=== PATIENT | male | born 1940 | race African-American/Black ===

== ENCOUNTER 2017-06-19 12:27 | Inpatient (IN) | payer MEDICARE ==
[~2017-06-19] VITALS: Ht 170.2 cm; Wt 89.9 kg
[2017-06-19] VITALS (18 sets, daily range): BP systolic 122–153; BP diastolic 60–75
--- NOTE | 2017-06-19 12:47 | RAD ---
Indication: Slurred speech. Technique: Noncontrast CT head was obtained. No comparison is available. One or more of the following individualized dose reduction techniques were utilized for this examination: 1. Automated exposure control 2. Adjustment of the mA and/or kV according to patient size 3. Use of iterative reconstruction technique Findings: There is a right frontal acute intraparenchymal hemorrhage measuring 4.7 x 2.5 cm in size. There is surrounding edema. There is mild mass effect on the right lateral ventricle but no midline shift. There is a small amount of adjacent subarachnoid hemorrhage. There is no additional intracranial hemorrhage. There is no evidence of an acute infarct. The ventricles and sulci are within normal limits for age. There is no depressed skull fracture. The included paranasal sinuses and mastoid air cells are clear. Impression: Acute right frontal intraparenchymal hemorrhage measures 4.7 x 2.5 cm in size. Small amount of adjacent subarachnoid hemorrhage. Critical result was discussed with Dr. Huffman at 1243 hours.
[2017-06-19] MEDS ORDERED: IV NORMAL SALINE 1000ML BAG 1,000 ML IV SCH (12:51)
[2017-06-19 13:04] LABS: BASO # 0.1 x10^3/uL (0.0-0.2); BASO % 1 % (0-3); EOS % 1 % (0-3); HEMATOCRIT 44.2 % (39.0-53.0); HEMOGLOBIN 14.6 g/dL (13.0-17.5); LYMPH # 1.6 x10^3/uL (1.0-4.8); LYMPH % 21 % (24-48); MEAN CORPUSCULAR HEMOGLOBIN 30 pg (25-35); MEAN CORPUSCULAR HGB CONC 33 g/dL (31-37); MEAN CORPUSCULAR VOLUME 89 fL (79-100); MONO % 7 % (0-9); NEUT % 71 % (31-73); PLATELET COUNT 199 x10^3/uL (140-400); RED BLOOD COUNT 4.95 x10^6/uL (4.30-5.70); RED CELL DISTRIBUTION WIDTH 14.1 % (11.5-14.5); WHITE BLOOD COUNT 7.7 x10^3/uL (4.0-11.0)
[2017-06-19] MEDS ORDERED: ONDANSETRON PF 4 MG/2 ML VIAL. IV PRN (13:15)
[2017-06-19] MEDS ORDERED: 0.9 % SODIUM CHLORIDE 10 ML DISP.SYRIN. IV PRN (13:15)
[2017-06-19] MEDS ORDERED: PHARMACY TO REVIEW MEDS MC PRN (13:15)
[2017-06-19 13:16] LABS: PROTHROMBIN TIME PATIENT 12.8 SEC (11.7-14.0)
[2017-06-19 13:18] LABS: CALCIUM 9.1 mg/dL (8.5-10.1); GFR 87.9; POTASSIUM 4.4 mmol/L (3.5-5.1)
[2017-06-19 13:24] LABS: ALBUMIN 3.5 g/dL (3.4-5.0); TOTAL BILIRUBIN 0.6 mg/dL (0.2-1.0); TOTAL PROTEIN 7.1 g/dL (6.4-8.2)
--- NOTE | 2017-06-19 13:29 | PHYS DOC ---
Past Medical History Past Medical History: Dementia, Hypertension Past Surgical History: Other Additional Past Surgical Histo: LEFT FOOT SX Alcohol Use: None Drug Use: None Adult General Chief Complaint Chief Complaint: NEURO SYMPTOMS/DEFICITS HPI HPI Patient is a 76 year old male who presents with complaint of left-sided weakness that started at 11:15 AM this morning. Patient presented to the emergency department approximately 1-1/2 hours since onset of symptoms. The patient started displaying repetitive speech per family. They noticed that the patient had facial drooping on the left side as well as left upper extremity weakness and difficulty walking, favoring the left side. The patient was brought by family to the emergency department for evaluation. Patient has history of hypertension and dementia. The patient is currently able to answer yes and no questions and is following commands but is unable to provide history of events at this time. The patient denies any pain currently and does acknowledge that he feels weak on his left side. The patient is on aspirin therapy but does not take any other blood thinners per family. Review of Systems Review of Systems Constitutional: Denies fever or chills [] Eyes: Denies change in visual acuity, redness, or eye pain [] HENT: Denies nasal congestion or sore throat [] Respiratory: Denies cough or shortness of breath [] Cardiovascular: Denies chest pain[] GI: Denies abdominal pain, nausea, vomiting, bloody stools or diarrhea [] : Denies dysuria or hematuria [] Musculoskeletal: Denies back pain or joint pain [] Integument: Denies rash or skin lesions [] Neurologic: Left-sided facial droop, left upper extremity weakness[] All other systems were reviewed and found to be within normal limits, except as documented in this note. Current Medications Current Medications Current Medications Medications (Trade) Dose Ordered Sig/[place] Start Time Stop Time Status Last Admin Dose Admin Acetaminophen (Acetaminophen Supp) 650 mg PRN Q6HRS PRN 06/19/17 13:15 Info (Review Meds) 1 ea 1X ONCE 06/19/17 13:15 06/19/17 13:16 UNV Nicardipine HCl 50 mg/Sodium Chloride 270 ml @ 25 mls/hr CONT PRN 06/19/17 13:15 06/19/17 13:15 25 MLS/HR Ondansetron HCl (Zofran) 4 mg PRN Q6HRS PRN 06/19/17 13:15 Pantoprazole Sodium (PROTONIX VIAL for IV PUSH) 40 mg DAILYAC 06/19/17 16:30 Sodium Chloride 1,000 ml @ 100 mls/hr Q10H 06/19/17 13:04 Sodium Chloride (Normal Saline Flush) 3 ml QSHIFT PRN 06/19/17 13:15 Allergies Allergies Allergies Coded Allergies Type Severity Reaction Last Updated Verified No Known Drug Allergies 06/19/17 No Physical Exam Physical Exam Constitutional: Alert, afebrile, no acute distress. [] HENT: Normocephalic, atraumatic, bilateral external ears normal, oropharynx moist, no oral exudates, nose normal. [] Eyes: PERRLA, EOMI, conjunctiva normal, no discharge. [] Neck: Normal range of motion, no tenderness, supple, no stridor. [] Cardiovascular:Heart rate regular rhythm, no murmur [] Lungs & Thorax: Bilateral breath sounds clear to auscultation [] Abdomen: Bowel sounds normal, soft, no tenderness, no masses, no pulsatile masses. [] Skin: Warm, dry, no erythema, no rash. [] Back: No tenderness, no CVA tenderness. [] Extremities: No tenderness, no cyanosis, no clubbing, ROM intact, no edema. [] Neurologic: Alert and oriented X 3, left-sided facial droop that is forehead sparing, left-sided pronator drift, clinical education specialist strength 3 out of 5 in left upper extremity and 5 out of 5 in right upper extremity, left upper extremity ataxia, bilateral lower extremities 5 out of 5 strength. [] Current Patient Data Vital Signs Vital Signs Date Time Temp Pulse Resp B/P (MAP) Pulse Ox O2 Delivery O2 Flow Rate FiO2 06/19/17 13:40 66 18 96 06/19/17 12:40 151/78 (102) Room Air Lab Values Laboratory Tests Test 06/19/17 12:35 06/19/17 12:43 Glucose (Fingerstick) 172 mg/dL (70-99) H White Blood Count 7.7 x10^3/uL (4.0-11.0) Red Blood Count 4.95 x10^6/uL (4.30-5.70) Hemoglobin 14.6 g/dL (13.0-17.5) Hematocrit 44.2 % (39.0-53.0) Mean Corpuscular Volume 89 fL (79-100) Mean Corpuscular Hemoglobin 30 pg (25-35) Mean Corpuscular Hemoglobin Concent 33 g/dL (31-37) Red Cell Distribution Width 14.1 % (11.5-14.5) Platelet Count 199 x10^3/uL (140-400) Neutrophils (%) (Auto) 71 % (31-73) Lymphocytes (%) (Auto) 21 % (24-48) L Monocytes (%) (Auto) 7 % (0-9) Eosinophils (%) (Auto) 1 % (0-3) Basophils (%) (Auto) 1 % (0-3) Neutrophils # (Auto) 5.5 x10^3uL (1.8-7.7) Lymphocytes # (Auto) 1.6 x10^3/uL (1.0-4.8) Monocytes # (Auto) 0.5 x10^3/uL (0.0-1.1) Eosinophils # (Auto) 0.1 x10^3/uL (0.0-0.7) Basophils # (Auto) 0.1 x10^3/uL (0.0-0.2) Prothrombin Time 12.8 SEC (11.7-14.0) Prothrombin Time INR 1.0 (0.8-1.1) PTT 28 SEC (24-38) Sodium Level 139 mmol/L (136-145) Potassium Level 4.4 mmol/L (3.5-5.1) Chloride Level 103 mmol/L (98-107) Carbon Dioxide Level 25 mmol/L (21-32) Anion Gap 11 (6-14) Blood Urea Nitrogen 11 mg/dL (8-26) Creatinine 1.0 mg/dL (0.7-1.3) Estimated GFR (Cockcroft-Gault) 87.9 BUN/Creatinine Ratio 11 (6-20) Glucose Level 166 mg/dL (70-99) H Calcium Level 9.1 mg/dL (8.5-10.1) Magnesium Level 2.0 mg/dL (1.8-2.4) Total Bilirubin 0.6 mg/dL (0.2-1.0) Aspartate Amino Transferase (AST) 23 U/L (15-37) Alanine Aminotransferase (ALT) 19 U/L (16-63) Alkaline Phosphatase 73 U/L (46-116) Total Protein 7.1 g/dL (6.4-8.2) Albumin 3.5 g/dL (3.4-5.0) Albumin/Globulin Ratio 1.0 (1.0-1.7) Laboratory Tests 06/19/17 12:43 Laboratory Tests 06/19/17 12:43 EKG EKG Interpreted by me: Heart rate 69, sinus rhythm, normal intervals, normal axis, no acute ST/T-wave abnormalities present[] Radiology/Procedures Radiology/Procedures [facility] [address] [place] [address] IMAGING REPORT Signed PATIENT: TO NORTON ACCOUNT: [id number] : 1940 LOCATION: ER AGE: 76 SEX: M EXAM STATUS: PRE ER ORD. PHYSICIAN: ABE HUFFMAN MD REASON: left-sided facial droop, slurred speech, time of onset 11:15 AM PROCEDURE: CT CODE STROKE HEAD WO Indication: Slurred speech. Technique: Noncontrast CT head was obtained. No comparison is available. One or more of the following individualized dose reduction techniques were utilized for this examination: 1. Automated exposure control 2. Adjustment of the mA and/or kV according to patient size 3. Use of iterative reconstruction technique Findings: There is a right frontal acute intraparenchymal hemorrhage measuring 4.7 x 2.5 cm in size. There is surrounding edema. There is mild mass effect on the right lateral ventricle but no midline shift. There is a small amount of adjacent subarachnoid hemorrhage. There is no additional intracranial hemorrhage. There is no evidence of an acute infarct. The ventricles and sulci are within normal limits for age. There is no depressed skull fracture. The included paranasal sinuses and mastoid air cells are clear. Impression: Acute right frontal intraparenchymal hemorrhage measures 4.7 x 2.5 cm in size. Small amount of adjacent subarachnoid hemorrhage. Critical result was discussed with Dr. Huffman at 1243 hours. DICTATED and SIGNED BY: JULIANNE AGUIAR MD DATE: 06/19/17 1241 CC: ABE HUFFMAN MD ~ [] Course & Med Decision Making Course & Med Decision Making Pertinent Labs and Imaging studies reviewed. (See chart for details) Patient activated as a code stroke at 1235. Patient underwent CT imaging which showed evidence of an acute hemorrhagic stroke in the right hemisphere. The patient thus was not considered a candidate for TPA. Patient's NIH score was 9. I consulted Dr. Spain of neurosurgery who reviewed the patient's images and stated that he would be glad to consult on the patient in hospital. The patient will continue on supportive care at this time including tight blood pressure control with Cardene drip. Consultation was placed to Dr. Parry of neurology. The patient's family was informed of CT findings and plan of care and were in agreement for admission at time of disposition. I spoke with Dr. Costello him a hospitalist, who will accept care of the patient in hospital. Patient will be transferred to ICU for further care. Critical care time excluding procedures: 45 minutes Dragon Disclaimer Dragon Disclaimer This electronic medical record was generated, in whole or in part, using a voice recognition dictation system. Departure Departure Impression: Primary Impression: Hemorrhagic cerebrovascular accident (CVA) Additional Impressions: Hypertension Dementia Disposition: ADMITTED INPATIENT Admitting Physician: Nakia Costello Condition: CRITICAL Referrals: ARIEL CARTY MD (PCP) Problem Qualifiers Additional Impressions: Hypertension Hypertension type: essential hypertension Qualified Codes: I10 - Essential ( primary) hypertension Dementia Dementia type: unspecified type Dementia behavioral disturbance: with behavioral disturbance Qualified Codes: F03.91 - Unspecified dementia with behavioral disturbance ABE HUFFMAN MD Jun 19, 2017 13:29
--- NOTE | 2017-06-19 14:03 | PDOC1 ---
History and Physical Date of Admission Date of Admission DATE: 06/19/17 TIME: 13:57 Identification/Chief Complaint Chief Complaint Slurred Speech, left-sided weakness happened at 11:15 AM today Problems: Source Source: Caregiver, Chart review, Patient History of Present Illness History of Present Illness 6-year-old -Spanish male who ambulates without assistive device, lives at home with daughters at bedside, had the above chief complaint At 11:15 AM today. Patient takes aspirin 325 every other day. Supposed to be on losartan "small dose" but has not been taking for the past 3 months. PCP unassigned. Started to have left-sided weakness and slurred speech today at 11:15. History of strokes in the past. No constant use of NSAIDs, no blood thinners. No chest pain no shortness of breath no lightheadedness dizziness no presyncopal symptoms , no abdominal issues. Went to the emergency room was found to have a hemorrhagic stroke around 5 cm's in greatest diameter, mild edema and minimal midline shift. Admitted to ICU with Cardizem drip for control of blood pressure. Neurosurgery surgery consulted no plans of surgery will also had consult neurology. Discussed with family at bedside provided a CAT scan copy. They all understand and agree with plan. Add PT OT. We will see if he needs rehabilitation. They understand that he needs to stop the aspirin. Also patient takes Aricept 10 again by mouth daily. Keep nothing by mouth for now. ASSISTANT PRESS OPERATOR did bedside swallow and he coughed very much on slight sips of water. IV fluids are running Past Medical History Cardiovascular: HTN CENTRAL NERVOUS SYSTEM: Dementia Past Surgical History Past Surgical History: No pertinent history Family History Family History: Hypertension Social History Smoke: No ALCOHOL: none Drugs: None Current Problem List Problem List Problems Medical Problems: (1) Dementia Status: Acute (2) Hypertension Status: Acute Problems: Current Medications Current Medications Current Medications Sodium Chloride 1,000 ml @ 125 mls/hr Q8H IV Last administered on 06/19/17t 13:02; Start 06/19/17 at 12:51; Stop 06/19/17 at 20:50 Nicardipine HCl 50 mg/Sodium Chloride 270 ml @ 0 mls/hr CONT PRN IV SEE I/O RECORD; Start 06/19/17 at 13:00; Status Cancel Info (Review Meds) 1 ea 1X ONCE MC ; Start 06/19/17 at 13:15; Stop 06/19/17 at 13:16; Status UNV Sodium Chloride (Normal Saline Flush) 3 ml QSHIFT PRN IV AFTER MEDS AND BLOOD DRAWS; Start 06/19/17 at 13:15 Sodium Chloride 1,000 ml @ 100 mls/hr Q10H IV ; Start 06/19/17 at 13:04 Acetaminophen (Acetaminophen Supp) 650 mg PRN Q6HRS PRN GA FEVER > 100.5'F; Start 06/19/17 at 13:15 Nicardipine HCl 50 mg/Sodium Chloride 270 ml @ 25 mls/hr CONT PRN IV HYPERTENSION, SEE COMMENTS Last administered on 06/19/17t 13:15; Start at 13:15 Ondansetron HCl (Zofran) 4 mg PRN Q6HRS PRN IV NAUSEA/VOMITING; Start at 13:15 Pantoprazole Sodium (PROTONIX VIAL for IV PUSH) 40 mg DAILYAC IVP ; Start 06/19 at 16:30 Allergies Allergies: Coded Allergies: No Known Drug Allergies (Unverified , 06/19/17) ROS Review of System As Per history of present illness, all else 14 point system review negative Physical Exam General: Alert, Oriented X3, Cooperative, No acute distress, Other ( slurred in speech) HEENT: Atraumatic, PERRLA Lungs: Clear to auscultation, Normal air movement Heart: S1S2, RRR, no thrills, no rubs Cardiovascular: S1, S2 Breasts: Normal, Rt breast nml w/o mass, Lt breast nml w/o mass, Nipples normal Male Genitals Exam: normal genitalia, normal prostate Rectal Exam: not examined PELVIC: Nml ext genitalia Extremities: No clubbing, No cyanosis, No edema, Normal pulses, No tenderness/ swelling Skin: No rashes, No breakdown, No significant lesion Neuro: Normal tone, Sensation intact, Reflexes 2+, Other (shallow left nasolabial fold, slurred speech, muscle manual testing 4 out of 5 on left upper and left lower extremity. 5 out of 5 in the right upper and right lower extremity.) Psych/Mental Status: Mental status NL, Mood NL Vitals Vitals Vital Signs Date Time Temp Pulse Resp B/P (MAP) Pulse Ox O2 Delivery O2 Flow Rate FiO2 06/19/17 13:40 66 18 96 06/19/17 12:40 151/78 (102) Room Air Labs Labs Laboratory Tests Test 06/19/17 12:35 06/19/17 12:43 Glucose (Fingerstick) 172 mg/dL (70-99) White Blood Count 7.7 x10^3/uL (4.0-11.0) Red Blood Count 4.95 x10^6/uL (4.30-5.70) Hemoglobin 14.6 g/dL (13.0-17.5) Hematocrit 44.2 % (39.0-53.0) Mean Corpuscular Volume 89 fL (79-100) Mean Corpuscular Hemoglobin 30 pg (25-35) Mean Corpuscular Hemoglobin Concent 33 g/dL (31-37) Red Cell Distribution Width 14.1 % (11.5-14.5) Platelet Count 199 x10^3/uL (140-400) Neutrophils (%) (Auto) 71 % (31-73) Lymphocytes (%) (Auto) 21 % (24-48) Monocytes (%) (Auto) 7 % (0-9) Eosinophils (%) (Auto) 1 % (0-3) Basophils (%) (Auto) 1 % (0-3) Neutrophils # (Auto) 5.5 x10^3uL (1.8-7.7) Lymphocytes # (Auto) 1.6 x10^3/uL (1.0-4.8) Monocytes # (Auto) 0.5 x10^3/uL (0.0-1.1) Eosinophils # (Auto) 0.1 x10^3/uL (0.0-0.7) Basophils # (Auto) 0.1 x10^3/uL (0.0-0.2) Prothrombin Time 12.8 SEC (11.7-14.0) Prothromb Time International Ratio 1.0 (0.8-1.1) Activated Partial Thromboplast Time 28 SEC (24-38) Sodium Level 139 mmol/L (136-145) Potassium Level 4.4 mmol/L (3.5-5.1) Chloride Level 103 mmol/L (98-107) Carbon Dioxide Level 25 mmol/L (21-32) Anion Gap 11 (6-14) Blood Urea Nitrogen 11 mg/dL (8-26) Creatinine 1.0 mg/dL (0.7-1.3) Estimated GFR (Cockcroft-Gault) 87.9 BUN/Creatinine Ratio 11 (6-20) Glucose Level 166 mg/dL (70-99) Calcium Level 9.1 mg/dL (8.5-10.1) Magnesium Level 2.0 mg/dL (1.8-2.4) Total Bilirubin 0.6 mg/dL (0.2-1.0) Aspartate Amino Transf (AST/SGOT) 23 U/L (15-37) Alanine Aminotransferase (ALT/SGPT) 19 U/L (16-63) Alkaline Phosphatase 73 U/L (46-116) Total Protein 7.1 g/dL (6.4-8.2) Albumin 3.5 g/dL (3.4-5.0) Albumin/Globulin Ratio 1.0 (1.0-1.7) Laboratory Tests Test 06/19/17 12:35 06/19/17 12:43 Glucose (Fingerstick) 172 mg/dL (70-99) White Blood Count 7.7 x10^3/uL (4.0-11.0) Red Blood Count 4.95 x10^6/uL (4.30-5.70) Hemoglobin 14.6 g/dL (13.0-17.5) Hematocrit 44.2 % (39.0-53.0) Mean Corpuscular Volume 89 fL (79-100) Mean Corpuscular Hemoglobin 30 pg (25-35) Mean Corpuscular Hemoglobin Concent 33 g/dL (31-37) Red Cell Distribution Width 14.1 % (11.5-14.5) Platelet Count 199 x10^3/uL (140-400) Neutrophils (%) (Auto) 71 % (31-73) Lymphocytes (%) (Auto) 21 % (24-48) Monocytes (%) (Auto) 7 % (0-9) Eosinophils (%) (Auto) 1 % (0-3) Basophils (%) (Auto) 1 % (0-3) Neutrophils # (Auto) 5.5 x10^3uL (1.8-7.7) Lymphocytes # (Auto) 1.6 x10^3/uL (1.0-4.8) Monocytes # (Auto) 0.5 x10^3/uL (0.0-1.1) Eosinophils # (Auto) 0.1 x10^3/uL (0.0-0.7) Basophils # (Auto) 0.1 x10^3/uL (0.0-0.2) Prothrombin Time 12.8 SEC (11.7-14.0) Prothromb Time International Ratio 1.0 (0.8-1.1) Activated Partial Thromboplast Time 28 SEC (24-38) Sodium Level 139 mmol/L (136-145) Potassium Level 4.4 mmol/L (3.5-5.1) Chloride Level 103 mmol/L (98-107) Carbon Dioxide Level 25 mmol/L (21-32) Anion Gap 11 (6-14) Blood Urea Nitrogen 11 mg/dL (8-26) Creatinine 1.0 mg/dL (0.7-1.3) Estimated GFR (Cockcroft-Gault) 87.9 BUN/Creatinine Ratio 11 (6-20) Glucose Level 166 mg/dL (70-99) Calcium Level 9.1 mg/dL (8.5-10.1) Magnesium Level 2.0 mg/dL (1.8-2.4) Total Bilirubin 0.6 mg/dL (0.2-1.0) Aspartate Amino Transf (AST/SGOT) 23 U/L (15-37) Alanine Aminotransferase (ALT/SGPT) 19 U/L (16-63) Alkaline Phosphatase 73 U/L (46-116) Total Protein 7.1 g/dL (6.4-8.2) Albumin 3.5 g/dL (3.4-5.0) Albumin/Globulin Ratio 1.0 (1.0-1.7) VTE Prophylaxis Ordered VTE Prophylaxis Devices: Contraindicated VTE Pharmacological Prophylaxi: Contraindicated Assessment/Plan Assessment/Plan A/P: Hemorrhagic stroke, 5 cm greatest diam Accelerated hypertension Dementia on Aricept plan: Admit ICU, nicardipine drip, Decadron usually not indicated for brain edema not unless brain mass which is not the case Will keep nothing by mouth for now until PARKING INSPECTOR evaluates. Discussed with Irene Check echocardiogram, carotid ultrasound, stroke workup PPI IV while nothing by mouth Continue IVF started at the emergency room. Hold PO meds for now STOP ASA REhab modalities if needed Discussed with family -agree with my plan of care they agree cc 31 CYNTHIA SAUNDERS MD Jun 19, 2017 14:03
--- NOTE | 2017-06-19 14:39 | EKG ---
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
[2017-06-19] MEDS: IV NORMAL SALINE 1000ML BAG 1,000 ML IV SCH ×2 (15:20→21:37)
[2017-06-19] MEDS ORDERED: DONE10TA7 PO (16:22)
[2017-06-19] MEDS ORDERED: SERT50TA8 PO (16:22)
[2017-06-19] MEDS ORDERED: ALFU10TA3 PO (16:22)
--- NOTE | 2017-06-19 16:28 | PDOC2 ---
NEUROLOGY CONSULT Date of Admission Date of Admission DATE: 06/19/17 TIME: 16:13 Reason for Consult Reason for Consult: IMPRESSION: Acute right frontal lobe hemorrhage, hematoma 4.7 cm x 2.5 cm with visible cerebral edema. Small SAH. Left side hemiplegia. Metabolic encephalopathy. Cerebral amyloid disease? DM HTN Dementia. RECOMMENDATIONS/PLAN: Life support. Treat medical diseases. Avoid antiplatelet and anticoagulant agent at the present time. Repeat HCT w/o contrast if condition is worse, otherwise, in am. Carotid A US + Doppler. Echo. Fasting lipid panel. Discussed with his and daughter and showed them his CT imaging in ICU. HISTORY OF THE PRESENT ILLNESS: 76-y-old AA male patient with Hx of above medical diseases developed symptoms of speech difficulties with repetitive speech and left side weakness for about 1.5 hours to be brought to the ER of [facility]. His HCT revealed a large right frontal IPH. patient was admitted into ICU. Past Medical History Cardiovascular: HTN CENTRAL NERVOUS SYSTEM: Dementia Past Surgical History Left foot surgery. Family History Hypertension Social History Smoke: No ALCOHOL: none Drugs: None Lives at home. ALLERGY: Reviewed. MEDICATIONS: Refer to [facility] REVIEW OF SYSTEMS: Constitutional: No malnutrition or cachexia. Head: No recent traumatic brain or head injury. Skin: No edema, or rash. Ear: No infection. Eyes: No vision loss or color blindness. Nose: No bleeding or purulent discharges. Hearing: Hearing decrease. Cardiac: HTN. Pulmonary: No COPD. GI: No GI ulcer, GI bleeding. Urinary/genital: BPH. Endocrinologic: Diabetes Mellitus Skeletomuscular: No muscular atrophy, deformity. Neurological: see HP. Psychiatric: Denies drug use/abuse. Otherwise, not [id number] review of systems. PHYSICAL EXAMINATION: General appearance is in acute distress. HEENT: Normocephalic and nontraumatic. Eyes, nose, ears, and throat are unremarkable. Neck is supple. No lymphadenopathy. No crepitus. Cardiovascular: S1, S2, seemed regular rate and rhythm. Pulmonary: relative clear to auscultation bilaterally. Abdomen: Bowel sounds are positive. Abdomen is soft, nontender, and nondistended. Extremities: No rash, lesions, or edema. NEUROLOGICAL EXAMINATION: Drowsiness. Not fully oriented to time, place but knows person. PERRL. EOMI but slow. CN: Left central VII palsy. Muscle tone: Mildly decreased in left Ue. Muscle strength: 3+ left side, 5 right side. DTR: 2- Plantar reflex: Neutral response bilaterally Gait: Unable to walk. Sensory exam: no abnormal findings. No acute cerebellar signs elicited. F-T-N test not performed due to not follow commands well. Current Medications Current Medications Current Medications Sodium Chloride 1,000 ml @ 125 mls/hr Q8H IV Last administered on 06/19/17 13:02; Start 06/19/17 at 12:51; Stop 06/19/17 at 20:50 Nicardipine HCl 50 mg/Sodium Chloride 270 ml @ 0 mls/hr CONT PRN IV SEE I/O RECORD; Start 06/19/17 at 13:00; Status Cancel Info (Review Meds) 1 ea PRN DAILY PRN MC SEE COMMENTS; Start 06/19/17 at 13:15 Sodium Chloride (Normal Saline Flush) 3 ml QSHIFT PRN IV AFTER MEDS AND BLOOD DRAWS; Start 06/19/17 at 13:15 Sodium Chloride 1,000 ml @ 100 mls/hr Q10H IV ; Start 06/19/17 at 13:04 Acetaminophen (Acetaminophen Supp) 650 mg PRN Q6HRS PRN IN FEVER > 100.5'F; Start 06/19/17 at 13:15 Nicardipine HCl 50 mg/Sodium Chloride 270 ml @ 25 mls/hr CONT PRN IV HYPERTENSION, SEE COMMENTS Last administered on 06/19/17 13:15; Start at 13:15 Ondansetron HCl (Zofran) 4 mg PRN Q6HRS PRN IV NAUSEA/VOMITING; Start at 13:15 Pantoprazole Sodium (PROTONIX VIAL for IV PUSH) 40 mg DAILYAC IVP ; Start 06/19 at 16:30 Allergies Allergies: Coded Allergies: No Known Drug Allergies (Unverified , 06/19/17) Vitals VITALS Vital Signs Date Time Temp Pulse Resp B/P (MAP) Pulse Ox O2 Delivery O2 Flow Rate FiO2 06/19/17 14:33 78 18 97 06/19/17 12:40 151/78 (102) Room Air Labs Labs Laboratory Tests Test 06/19/17 12:35 06/19/17 12:43 Glucose (Fingerstick) 172 mg/dL (70-99) White Blood Count 7.7 x10^3/uL (4.0-11.0) Red Blood Count 4.95 x10^6/uL (4.30-5.70) Hemoglobin 14.6 g/dL (13.0-17.5) Hematocrit 44.2 % (39.0-53.0) Mean Corpuscular Volume 89 fL (79-100) Mean Corpuscular Hemoglobin 30 pg (25-35) Mean Corpuscular Hemoglobin Concent 33 g/dL (31-37) Red Cell Distribution Width 14.1 % (11.5-14.5) Platelet Count 199 x10^3/uL (140-400) Neutrophils (%) (Auto) 71 % (31-73) Lymphocytes (%) (Auto) 21 % (24-48) Monocytes (%) (Auto) 7 % (0-9) Eosinophils (%) (Auto) 1 % (0-3) Basophils (%) (Auto) 1 % (0-3) Neutrophils # (Auto) 5.5 x10^3uL (1.8-7.7) Lymphocytes # (Auto) 1.6 x10^3/uL (1.0-4.8) Monocytes # (Auto) 0.5 x10^3/uL (0.0-1.1) Eosinophils # (Auto) 0.1 x10^3/uL (0.0-0.7) Basophils # (Auto) 0.1 x10^3/uL (0.0-0.2) Prothrombin Time 12.8 SEC (11.7-14.0) Prothromb Time International Ratio 1.0 (0.8-1.1) Activated Partial Thromboplast Time 28 SEC (24-38) Sodium Level 139 mmol/L (136-145) Potassium Level 4.4 mmol/L (3.5-5.1) Chloride Level 103 mmol/L (98-107) Carbon Dioxide Level 25 mmol/L (21-32) Anion Gap 11 (6-14) Blood Urea Nitrogen 11 mg/dL (8-26) Creatinine 1.0 mg/dL (0.7-1.3) Estimated GFR (Cockcroft-Gault) 87.9 BUN/Creatinine Ratio 11 (6-20) Glucose Level 166 mg/dL (70-99) Calcium Level 9.1 mg/dL (8.5-10.1) Magnesium Level 2.0 mg/dL (1.8-2.4) Total Bilirubin 0.6 mg/dL (0.2-1.0) Aspartate Amino Transf (AST/SGOT) 23 U/L (15-37) Alanine Aminotransferase (ALT/SGPT) 19 U/L (16-63) Alkaline Phosphatase 73 U/L (46-116) Total Protein 7.1 g/dL (6.4-8.2) Albumin 3.5 g/dL (3.4-5.0) Albumin/Globulin Ratio 1.0 (1.0-1.7) Laboratory Tests Test 06/19/17 12:35 06/19/17 12:43 Glucose (Fingerstick) 172 mg/dL (70-99) White Blood Count 7.7 x10^3/uL (4.0-11.0) Red Blood Count 4.95 x10^6/uL (4.30-5.70) Hemoglobin 14.6 g/dL (13.0-17.5) Hematocrit 44.2 % (39.0-53.0) Mean Corpuscular Volume 89 fL (79-100) Mean Corpuscular Hemoglobin 30 pg (25-35) Mean Corpuscular Hemoglobin Concent 33 g/dL (31-37) Red Cell Distribution Width 14.1 % (11.5-14.5) Platelet Count 199 x10^3/uL (140-400) Neutrophils (%) (Auto) 71 % (31-73) Lymphocytes (%) (Auto) 21 % (24-48) Monocytes (%) (Auto) 7 % (0-9) Eosinophils (%) (Auto) 1 % (0-3) Basophils (%) (Auto) 1 % (0-3) Neutrophils # (Auto) 5.5 x10^3uL (1.8-7.7) Lymphocytes # (Auto) 1.6 x10^3/uL (1.0-4.8) Monocytes # (Auto) 0.5 x10^3/uL (0.0-1.1) Eosinophils # (Auto) 0.1 x10^3/uL (0.0-0.7) Basophils # (Auto) 0.1 x10^3/uL (0.0-0.2) Prothrombin Time 12.8 SEC (11.7-14.0) Prothromb Time International Ratio 1.0 (0.8-1.1) Activated Partial Thromboplast Time 28 SEC (24-38) Sodium Level 139 mmol/L (136-145) Potassium Level 4.4 mmol/L (3.5-5.1) Chloride Level 103 mmol/L (98-107) Carbon Dioxide Level 25 mmol/L (21-32) Anion Gap 11 (6-14) Blood Urea Nitrogen 11 mg/dL (8-26) Creatinine 1.0 mg/dL (0.7-1.3) Estimated GFR (Cockcroft-Gault) 87.9 BUN/Creatinine Ratio 11 (6-20) Glucose Level 166 mg/dL (70-99) Calcium Level 9.1 mg/dL (8.5-10.1) Magnesium Level 2.0 mg/dL (1.8-2.4) Total Bilirubin 0.6 mg/dL (0.2-1.0) Aspartate Amino Transf (AST/SGOT) 23 U/L (15-37) Alanine Aminotransferase (ALT/SGPT) 19 U/L (16-63) Alkaline Phosphatase 73 U/L (46-116) Total Protein 7.1 g/dL (6.4-8.2) Albumin 3.5 g/dL (3.4-5.0) Albumin/Globulin Ratio 1.0 (1.0-1.7) DAMOEN WINSLOW MD Jun 19, 2017 16:28
[2017-06-19] MEDS: PANTOPRAZOLE IV PUSH 40 MG VIAL. IVP SCH (16:30)
[2017-06-19] MEDS ORDERED: PNEUMOCOCCAL VAX SCREEN BY RX. MC ONE (16:45)
[2017-06-19] MEDS ORDERED: INFLUENZA VAX SCREEN BY RX. MC ONE (16:45)
[2017-06-19] MEDS ORDERED: FLU VACC QS2017-18 (36MOS+)/PF 0.5 ML SYRINGE. VAX IM ONE (17:00)
[2017-06-19 17:56] LABS: BILIRUBIN,URINE NEGATIVE (NEG); GLUCOSE,URINE NEGATIVE (NEG); NITRITE,URINE NEGATIVE (NEG); PROTEIN,URINE NEGATIVE (NEG-TRACE)
[2017-06-19 18:03] LABS: BARBITURATES NEG (NEG); BENZODIAZEPINES NEG (NEG); CANNABINOIDS NEG (NEG); COCAINE NEG (NEG); METHADONE NEG (NEG); OPIATES NEG (NEG); PHENCYCLIDINE NEG (NEG)
[2017-06-19 18:11] LABS: BACTERIA,URINE 0 /HPF (0-FEW); RBC,URINE 0 /HPF (0-2); SQUAMOUS EPITHELIAL CELL,UR OCC /LPF; WBC,URINE OCC /HPF (0-4)
[2017-06-20] VITALS (23 sets, daily range): BP systolic 101–166; BP diastolic 52–71
[2017-06-20 06:25] LABS: CHOLESTEROL/HDL RATIO 4.5
[2017-06-20] MEDS: IV NORMAL SALINE 1000ML BAG 1,000 ML IV SCH ×2 (07:30→18:27)
--- NOTE | 2017-06-20 08:02 | PDOC ---
PROGRESS NOTES Subjective Subjective Late Entry patient seen and examined 06/19/17 at 1630 Acute right frontal intraparenchymal hemorrhage. Small amount of adjacent subarachnoid hemorrhage. Recommend ICU, BP control, F/U CT head in AM Full consult to follow Objective Objective Vital Signs Date Time Temp Pulse Resp B/P (MAP) Pulse Ox O2 Delivery O2 Flow Rate FiO2 06/20/17 06:00 98.9 56 15 101/57 (72) 96 Room Air 98.9 Intake and Output 06/20/17 07:00 Intake Total 948 ml Output Total 200 ml Balance 748 ml Intake Oral 0 ml IV Total 948 ml Output Urine Total 200 ml # Voids 2 Assessment Assessment Problems Medical Problems: (1) Dementia Status: Acute (2) Hypertension Status: Acute Comment Review of Relevant I have reviewed the following items laine (where applicable) has been applied. Labs Laboratory Tests Test 06/19/17 12:35 06/19/17 12:43 06/19/17 16:00 06/19/17 17:26 Glucose (Fingerstick) 172 mg/dL (70-99) White Blood Count 7.7 x10^3/uL (4.0-11.0) Red Blood Count 4.95 x10^6/uL (4.30-5.70) Hemoglobin 14.6 g/dL (13.0-17.5) Hematocrit 44.2 % (39.0-53.0) Mean Corpuscular Volume 89 fL (79-100) Mean Corpuscular Hemoglobin 30 pg (25-35) Mean Corpuscular Hemoglobin Concent 33 g/dL (31-37) Red Cell Distribution Width 14.1 % (11.5-14.5) Platelet Count 199 x10^3/uL (140-400) Neutrophils (%) (Auto) 71 % (31-73) Lymphocytes (%) (Auto) 21 % (24-48) Monocytes (%) (Auto) 7 % (0-9) Eosinophils (%) (Auto) 1 % (0-3) Basophils (%) (Auto) 1 % (0-3) Neutrophils # (Auto) 5.5 x10^3uL (1.8-7.7) Lymphocytes # (Auto) 1.6 x10^3/uL (1.0-4.8) Monocytes # (Auto) 0.5 x10^3/uL (0.0-1.1) Eosinophils # (Auto) 0.1 x10^3/uL (0.0-0.7) Basophils # (Auto) 0.1 x10^3/uL (0.0-0.2) Prothrombin Time 12.8 SEC (11.7-14.0) Prothromb Time International Ratio 1.0 (0.8-1.1) Activated Partial Thromboplast Time 28 SEC (24-38) Sodium Level 139 mmol/L (136-145) Potassium Level 4.4 mmol/L (3.5-5.1) Chloride Level 103 mmol/L (98-107) Carbon Dioxide Level 25 mmol/L (21-32) Anion Gap 11 (6-14) Blood Urea Nitrogen 11 mg/dL (8-26) Creatinine 1.0 mg/dL (0.7-1.3) Estimated GFR (Cockcroft-Gault) 87.9 BUN/Creatinine Ratio 11 (6-20) Glucose Level 166 mg/dL (70-99) Calcium Level 9.1 mg/dL (8.5-10.1) Magnesium Level 2.0 mg/dL (1.8-2.4) Total Bilirubin 0.6 mg/dL (0.2-1.0) Aspartate Amino Transf (AST/SGOT) 23 U/L (15-37) Alanine Aminotransferase (ALT/SGPT) 19 U/L (16-63) Alkaline Phosphatase 73 U/L (46-116) Total Protein 7.1 g/dL (6.4-8.2) Albumin 3.5 g/dL (3.4-5.0) Albumin/Globulin Ratio 1.0 (1.0-1.7) Thyroid Stimulating Hormone (TSH) 1.273 uIU/mL (0.358-3.74) Nasal Screen MRSA (PCR) Negative (Negative) Urine Collection Type Unknown Urine Color Yellow Urine Clarity Clear Urine pH 7.0 Urine Specific Renick 1.020 Urine Protein Negative mg/dL (NEG-TRACE) Urine Glucose (UA) Negative mg/dL (NEG) Urine Ketones (Stick) Negative mg/dL (NEG) Urine Blood Negative (NEG) Urine Nitrite Negative (NEG) Urine Bilirubin Negative (NEG) Urine Urobilinogen Dipstick 1.0 mg/dL (0.2 mg/dL) Urine Leukocyte Esterase Negative (NEG) Urine RBC 0 /HPF (0-2) Urine WBC Occ /HPF (0-4) Urine Squamous Epithelial Cells Occ /LPF Urine Bacteria 0 /HPF (0-FEW) Urine Mucus Slight /LPF Urine Opiates Screen Neg (NEG) Urine Methadone Screen Neg (NEG) Urine Barbiturates Neg (NEG) Urine Phencyclidine Screen Neg (NEG) Urine Amphetamine/Methamphetamine Neg (NEG) Urine Benzodiazepines Screen Neg (NEG) Urine Cocaine Screen Neg (NEG) Urine Cannabinoids Screen Neg (NEG) Urine Ethyl Alcohol Neg (NEG) Test 06/20/17 04:45 Triglycerides Level 99 mg/dL (0-150) Cholesterol Level 211 mg/dL (0-200) LDL Cholesterol, Calculated 144 mg/dL (0-100) VLDL Cholesterol, Calculated 20 mg/dL (0-40) Non-HDL Cholesterol Calculated 164 mg/dL (0-129) HDL Cholesterol 47 mg/dL (40-60) Cholesterol/HDL Ratio 4.5 Laboratory Tests Test 06/19/17 12:35 06/19/17 12:43 06/19/17 16:00 06/19/17 17:26 Glucose (Fingerstick) 172 mg/dL (70-99) White Blood Count 7.7 x10^3/uL (4.0-11.0) Red Blood Count 4.95 x10^6/uL (4.30-5.70) Hemoglobin 14.6 g/dL (13.0-17.5) Hematocrit 44.2 % (39.0-53.0) Mean Corpuscular Volume 89 fL (79-100) Mean Corpuscular Hemoglobin 30 pg (25-35) Mean Corpuscular Hemoglobin Concent 33 g/dL (31-37) Red Cell Distribution Width 14.1 % (11.5-14.5) Platelet Count 199 x10^3/uL (140-400) Neutrophils (%) (Auto) 71 % (31-73) Lymphocytes (%) (Auto) 21 % (24-48) Monocytes (%) (Auto) 7 % (0-9) Eosinophils (%) (Auto) 1 % (0-3) Basophils (%) (Auto) 1 % (0-3) Neutrophils # (Auto) 5.5 x10^3uL (1.8-7.7) Lymphocytes # (Auto) 1.6 x10^3/uL (1.0-4.8) Monocytes # (Auto) 0.5 x10^3/uL (0.0-1.1) Eosinophils # (Auto) 0.1 x10^3/uL (0.0-0.7) Basophils # (Auto) 0.1 x10^3/uL (0.0-0.2) Prothrombin Time 12.8 SEC (11.7-14.0) Prothromb Time International Ratio 1.0 (0.8-1.1) Activated Partial Thromboplast Time 28 SEC (24-38) Sodium Level 139 mmol/L (136-145) Potassium Level 4.4 mmol/L (3.5-5.1) Chloride Level 103 mmol/L (98-107) Carbon Dioxide Level 25 mmol/L (21-32) Anion Gap 11 (6-14) Blood Urea Nitrogen 11 mg/dL (8-26) Creatinine 1.0 mg/dL (0.7-1.3) Estimated GFR (Cockcroft-Gault) 87.9 BUN/Creatinine Ratio 11 (6-20) Glucose Level 166 mg/dL (70-99) Calcium Level 9.1 mg/dL (8.5-10.1) Magnesium Level 2.0 mg/dL (1.8-2.4) Total Bilirubin 0.6 mg/dL (0.2-1.0) Aspartate Amino Transf (AST/SGOT) 23 U/L (15-37) Alanine Aminotransferase (ALT/SGPT) 19 U/L (16-63) Alkaline Phosphatase 73 U/L (46-116) Total Protein 7.1 g/dL (6.4-8.2) Albumin 3.5 g/dL (3.4-5.0) Albumin/Globulin Ratio 1.0 (1.0-1.7) Thyroid Stimulating Hormone (TSH) 1.273 uIU/mL (0.358-3.74) Nasal Screen MRSA (PCR) Negative (Negative) Urine Collection Type Unknown Urine Color Yellow Urine Clarity Clear Urine pH 7.0 Urine Specific Renick 1.020 Urine Protein Negative mg/dL (NEG-TRACE) Urine Glucose (UA) Negative mg/dL (NEG) Urine Ketones (Stick) Negative mg/dL (NEG) Urine Blood Negative (NEG) Urine Nitrite Negative (NEG) Urine Bilirubin Negative (NEG) Urine Urobilinogen Dipstick 1.0 mg/dL (0.2 mg/dL) Urine Leukocyte Esterase Negative (NEG) Urine RBC 0 /HPF (0-2) Urine WBC Occ /HPF (0-4) Urine Squamous Epithelial Cells Occ /LPF Urine Bacteria 0 /HPF (0-FEW) Urine Mucus Slight /LPF Urine Opiates Screen Neg (NEG) Urine Methadone Screen Neg (NEG) Urine Barbiturates Neg (NEG) Urine Phencyclidine Screen Neg (NEG) Urine Amphetamine/Methamphetamine Neg (NEG) Urine Benzodiazepines Screen Neg (NEG) Urine Cocaine Screen Neg (NEG) Urine Cannabinoids Screen Neg (NEG) Urine Ethyl Alcohol Neg (NEG) Test 06/20/17 04:45 Triglycerides Level 99 mg/dL (0-150) Cholesterol Level 211 mg/dL (0-200) LDL Cholesterol, Calculated 144 mg/dL (0-100) VLDL Cholesterol, Calculated 20 mg/dL (0-40) Non-HDL Cholesterol Calculated 164 mg/dL (0-129) HDL Cholesterol 47 mg/dL (40-60) Cholesterol/HDL Ratio 4.5 Medications Current Medications Sodium Chloride 1,000 ml @ 125 mls/hr Q8H IV Last administered on 06/19/17 13:02; Start 06/19/17 at 12:51; Stop 06/19/17 at 20:50; Status DC Nicardipine HCl 50 mg/Sodium Chloride 270 ml @ 0 mls/hr CONT PRN IV SEE I/O RECORD; Start 06/19/17 at 13:00; Status Cancel Info (Review Meds) 1 ea PRN DAILY PRN MC SEE COMMENTS; Start 06/19/17 at 13:15 Sodium Chloride (Normal Saline Flush) 3 ml QSHIFT PRN IV AFTER MEDS AND BLOOD DRAWS; Start 06/19/17 at 13:15 Sodium Chloride 1,000 ml @ 100 mls/hr Q10H IV Last administered on 06/20/17 07:30; Start 06/19/17 at 13:04 Acetaminophen (Acetaminophen Supp) 650 mg PRN Q6HRS PRN MA FEVER > 100.5'F; Start 06/19/17 at 13:15 Nicardipine HCl 50 mg/Sodium Chloride 270 ml @ 25 mls/hr CONT PRN IV HYPERTENSION, SEE COMMENTS Last administered on 06/19/17 13:15; Start at 13:15 Ondansetron HCl (Zofran) 4 mg PRN Q6HRS PRN IV NAUSEA/VOMITING; Start at 13:15 Pantoprazole Sodium (PROTONIX VIAL for IV PUSH) 40 mg DAILYAC IVP ; Start 06/19 at 16:30 Info (Do NOT chart on this placeholder) 1 each 1X ONCE MC ; Start 06/19/17 at 16:45; Stop 06/19/17 at 16:46; Status UNV Pneumococcal Polyvalent Vaccine (Do NOT chart on this placeholder) 1 each 1X ONCE MC ; Start 06/19/17 at 16:45; Stop 06/19/17 at 16:46; Status UNV Influenza Virus Vaccine Quadrival (Fluarix Quad [id number] Syringe) 0.5 ml ONCE ONCE VAX IM Last administered on 06/19/17 21:37; Start 06/19/17 at 17:00; Stop 06/19/17 at 17:01; Status DC Active Scripts Active Reported Alfuzosin Hcl 10 Mg Tab.er.24h 10 Mg PO DAILY 30 Days Donepezil Hcl 10 Mg Tablet 10 Mg PO DAILY 30 Days Sertraline Hcl 50 Mg Tablet 50 Mg PO DAILY 30 Days Vitals/I & O Vital Sign - Last 24 Hours 06/19/17 06/19/17 06/19/17 06/19/17 12:40 12:40 12:50 13:00 Pulse 67 64 66 68 Resp 20 20 20 B/P (MAP) 151/78 (102) Pulse Ox 96 97 97 96 O2 Delivery Room Air 06/19/17 06/19/17 06/19/17 06/19/17 13:10 13:20 13:30 13:40 Pulse 62 72 74 66 Resp 20 20 20 18 Pulse Ox 97 97 97 96 06/19/17 06/19/17 06/19/17 06/19/17 13:48 13:59 14:03 14:18 Pulse 68 66 66 66 Resp 18 18 17 19 Pulse Ox 96 98 97 96 06/19/17 06/19/17 06/19/17 06/19/17 14:33 15:20 15:20 15:30 Temp 98.5 98.5 Pulse 78 68 70 Resp 18 20 26 B/P (MAP) 136/63 (87) 122/69 (86) Pulse Ox 97 96 97 O2 Delivery Room Air Room Air Room Air 06/19/17 06/19/17 06/19/17 06/19/17 15:45 16:00 16:15 16:30 Pulse 70 66 68 64 Resp 24 21 21 19 B/P (MAP) 135/62 (86) 149/75 (99) 136/70 (92) 141/71 (94) Pulse Ox 97 97 96 96 O2 Delivery Room Air Room Air Room Air Room Air 06/19/17 06/19/17 06/19/17 06/19/17 16:45 17:00 17:15 17:30 Pulse 64 62 66 64 Resp 19 17 19 17 B/P (MAP) 138/66 (90) 141/73 (95) 142/70 (94) 146/69 (94) Pulse Ox 97 96 97 96 O2 Delivery Room Air Room Air Room Air Room Air 06/19/17 06/19/17 06/19/17 06/19/17 17:45 18:00 18:15 19:00 Temp 99.6 99.6 Pulse 54 68 70 68 Resp 17 22 22 22 B/P (MAP) 149/70 (96) 140/60 (86) 149/70 (96) 142/67 (92) Pulse Ox 97 97 96 99 O2 Delivery Room Air Room Air Room Air Room Air 06/19/17 06/19/17 06/19/17 06/19/17 20:00 20:00 21:00 22:00 Temp 99.6 98.5 98.5 99.6 98.5 98.5 Pulse 66 67 68 Resp 21 10 17 B/P (MAP) 151/67 (95) 153/67 (95) 153/67 (95) Pulse Ox 97 98 95 O2 Delivery Room Air Room Air Room Air Room Air 06/19/17 06/19/17 06/20/17 06/20/17 23:00 23:59 01:00 02:00 Temp 98.6 100.5 100.1 98.6 100.5 100.1 Pulse 56 69 59 Resp 14 22 17 B/P (MAP) 153/64 (93) 148/71 (96) 151/68 (95) Pulse Ox 98 96 96 O2 Delivery Room Air Room Air Room Air Room Air 06/20/17 06/20/17 06/20/17 06/20/17 03:00 04:00 04:00 05:00 Temp 99.6 99.1 98.1 99.6 99.1 98.1 Pulse 58 56 56 Resp 22 9 16 B/P (MAP) 152/65 (94) 140/65 (90) 143/63 (89) Pulse Ox 97 96 96 O2 Delivery Room Air Room Air Room Air Room Air 06/20/17 06:00 Temp 98.9 98.9 Pulse 56 Resp 15 B/P (MAP) 101/57 (72) Pulse Ox 96 O2 Delivery Room Air Intake and Output 06/19/17 06/19/17 06/20/17 15:00 23:00 07:00 Intake Total 948 ml 0 ml Output Total 200 ml Balance 748 ml 0 ml INÉS URBINA MD Jun 20, 2017 08:02
--- NOTE | 2017-06-20 09:24 | RAD ---
Doppler carotid bilateral 06/19/2017 Clinical indication: Intracranial hemorrhage. COMPARISON: CT head 06/19/2015 None. TECHNIQUE: Color, grayscale and doppler ultrasound images obtained of the carotid system bilaterally. Percent stenosis is estimated using criteria that correlates with NASCET methodology. FINDINGS: Peak systolic velocities are as follows in cm/s: Right Carotid System: Mid CCA: 88 cm/s Distal ICA: 96 cm/s Distal ICA EDV: 20 cm/s ECA: 65 cm/s ICA/CCA Ratio 1.0 Left Carotid System: Mid CCA: 138 cm/s Mid ICA: 47 cm/s Mid ICA EDV: 15 cm/s ECA: 54 cm/s ICA/CCA Ratio 0.3 Vertebral arteries are antegrade bilaterally. IMPRESSION: 1. No hemodynamically significant stenosis of the internal carotid arteries bilaterally.
[2017-06-20] MEDS: PANTOPRAZOLE IV PUSH 40 MG VIAL. IVP SCH (09:28)
--- NOTE | 2017-06-20 09:49 | PDOC ---
PROGRESS NOTES Chief Complaint Chief Complaint Hemorrhagic stroke, 5 cm greatest diam Accelerated hypertension Dementia on Aricept History of Present Illness History of Present Illness Seen in ICU No complaints Daughter not at bedside, patient has some dementia Failed TELEVISION CAMERAMAN evaluation, strictly nothing by mouth Neurology has seen, neurosurgery has seen. For repeat CAT scan of the head later today ^ Did carotid ultrasounds as below IMPRESSION: 1. No hemodynamically significant stenosis of the internal carotid arteries bilaterally. PLAN: Interval CAT scan dry later Avoid NSAIDs blood thinners etc. Control BP with nicardipine drip-so far not needing it and blood pressures otherwise controlled Okay to transfer out of ICU when okay with neurosurgery Continue to work on his swallow High fall risk PT OT, might need rehabilitation modalities Otherwise daughter takes care of him and has a hired caregiver Follow up echocardiogram Vitals Vitals Vital Signs Date Time Temp Pulse Resp B/P (MAP) Pulse Ox O2 Delivery O2 Flow Rate FiO2 06/20/17 09:00 70 14 149/62 (91) 92 Room Air 06/20/17 08:00 99.0 99.0 Physical Exam General: Alert, Oriented X3, Cooperative, No acute distress, Other ( slurred in speech) Heart: Regular rate Lungs: Clear Abdomen: Normal bowel sounds Extremities: No clubbing, No cyanosis, No edema, Normal pulses, No tenderness/ swelling Skin: No rashes, No breakdown, No significant lesion Labs LABS Laboratory Tests Test 06/19/17 12:35 06/19/17 12:43 06/19/17 16:00 06/19/17 17:26 Glucose (Fingerstick) 172 mg/dL (70-99) White Blood Count 7.7 x10^3/uL (4.0-11.0) Red Blood Count 4.95 x10^6/uL (4.30-5.70) Hemoglobin 14.6 g/dL (13.0-17.5) Hematocrit 44.2 % (39.0-53.0) Mean Corpuscular Volume 89 fL (79-100) Mean Corpuscular Hemoglobin 30 pg (25-35) Mean Corpuscular Hemoglobin Concent 33 g/dL (31-37) Red Cell Distribution Width 14.1 % (11.5-14.5) Platelet Count 199 x10^3/uL (140-400) Neutrophils (%) (Auto) 71 % (31-73) Lymphocytes (%) (Auto) 21 % (24-48) Monocytes (%) (Auto) 7 % (0-9) Eosinophils (%) (Auto) 1 % (0-3) Basophils (%) (Auto) 1 % (0-3) Neutrophils # (Auto) 5.5 x10^3uL (1.8-7.7) Lymphocytes # (Auto) 1.6 x10^3/uL (1.0-4.8) Monocytes # (Auto) 0.5 x10^3/uL (0.0-1.1) Eosinophils # (Auto) 0.1 x10^3/uL (0.0-0.7) Basophils # (Auto) 0.1 x10^3/uL (0.0-0.2) Prothrombin Time 12.8 SEC (11.7-14.0) Prothromb Time International Ratio 1.0 (0.8-1.1) Activated Partial Thromboplast Time 28 SEC (24-38) Sodium Level 139 mmol/L (136-145) Potassium Level 4.4 mmol/L (3.5-5.1) Chloride Level 103 mmol/L (98-107) Carbon Dioxide Level 25 mmol/L (21-32) Anion Gap 11 (6-14) Blood Urea Nitrogen 11 mg/dL (8-26) Creatinine 1.0 mg/dL (0.7-1.3) Estimated GFR (Cockcroft-Gault) 87.9 BUN/Creatinine Ratio 11 (6-20) Glucose Level 166 mg/dL (70-99) Calcium Level 9.1 mg/dL (8.5-10.1) Magnesium Level 2.0 mg/dL (1.8-2.4) Total Bilirubin 0.6 mg/dL (0.2-1.0) Aspartate Amino Transf (AST/SGOT) 23 U/L (15-37) Alanine Aminotransferase (ALT/SGPT) 19 U/L (16-63) Alkaline Phosphatase 73 U/L (46-116) Total Protein 7.1 g/dL (6.4-8.2) Albumin 3.5 g/dL (3.4-5.0) Albumin/Globulin Ratio 1.0 (1.0-1.7) Thyroid Stimulating Hormone (TSH) 1.273 uIU/mL (0.358-3.74) Nasal Screen MRSA (PCR) Negative (Negative) Urine Collection Type Unknown Urine Color Yellow Urine Clarity Clear Urine pH 7.0 Urine Specific [place] 1.020 Urine Protein Negative mg/dL (NEG-TRACE) Urine Glucose (UA) Negative mg/dL (NEG) Urine Ketones (Stick) Negative mg/dL (NEG) Urine Blood Negative (NEG) Urine Nitrite Negative (NEG) Urine Bilirubin Negative (NEG) Urine Urobilinogen Dipstick 1.0 mg/dL (0.2 mg/dL) Urine Leukocyte Esterase Negative (NEG) Urine RBC 0 /HPF (0-2) Urine WBC Occ /HPF (0-4) Urine Squamous Epithelial Cells Occ /LPF Urine Bacteria 0 /HPF (0-FEW) Urine Mucus Slight /LPF Urine Opiates Screen Neg (NEG) Urine Methadone Screen Neg (NEG) Urine Barbiturates Neg (NEG) Urine Phencyclidine Screen Neg (NEG) Urine Amphetamine/Methamphetamine Neg (NEG) Urine Benzodiazepines Screen Neg (NEG) Urine Cocaine Screen Neg (NEG) Urine Cannabinoids Screen Neg (NEG) Urine Ethyl Alcohol Neg (NEG) Test 06/20/17 04:45 Triglycerides Level 99 mg/dL (0-150) Cholesterol Level 211 mg/dL (0-200) LDL Cholesterol, Calculated 144 mg/dL (0-100) VLDL Cholesterol, Calculated 20 mg/dL (0-40) Non-HDL Cholesterol Calculated 164 mg/dL (0-129) HDL Cholesterol 47 mg/dL (40-60) Cholesterol/HDL Ratio 4.5 Review of Systems Review of Systems Limited, has dementia Assessment and Plan Assessmemt and Plan Problems Medical Problems: (1) Dementia Status: Acute (2) Hypertension Status: Acute Problems: Comment Review of Relevant I have reviewed the following items laine (where applicable) has been applied. Labs Laboratory Tests Test 06/19/17 12:35 06/19/17 12:43 06/19/17 16:00 06/19/17 17:26 Glucose (Fingerstick) 172 mg/dL (70-99) White Blood Count 7.7 x10^3/uL (4.0-11.0) Red Blood Count 4.95 x10^6/uL (4.30-5.70) Hemoglobin 14.6 g/dL (13.0-17.5) Hematocrit 44.2 % (39.0-53.0) Mean Corpuscular Volume 89 fL (79-100) Mean Corpuscular Hemoglobin 30 pg (25-35) Mean Corpuscular Hemoglobin Concent 33 g/dL (31-37) Red Cell Distribution Width 14.1 % (11.5-14.5) Platelet Count 199 x10^3/uL (140-400) Neutrophils (%) (Auto) 71 % (31-73) Lymphocytes (%) (Auto) 21 % (24-48) Monocytes (%) (Auto) 7 % (0-9) Eosinophils (%) (Auto) 1 % (0-3) Basophils (%) (Auto) 1 % (0-3) Neutrophils # (Auto) 5.5 x10^3uL (1.8-7.7) Lymphocytes # (Auto) 1.6 x10^3/uL (1.0-4.8) Monocytes # (Auto) 0.5 x10^3/uL (0.0-1.1) Eosinophils # (Auto) 0.1 x10^3/uL (0.0-0.7) Basophils # (Auto) 0.1 x10^3/uL (0.0-0.2) Prothrombin Time 12.8 SEC (11.7-14.0) Prothromb Time International Ratio 1.0 (0.8-1.1) Activated Partial Thromboplast Time 28 SEC (24-38) Sodium Level 139 mmol/L (136-145) Potassium Level 4.4 mmol/L (3.5-5.1) Chloride Level 103 mmol/L (98-107) Carbon Dioxide Level 25 mmol/L (21-32) Anion Gap 11 (6-14) Blood Urea Nitrogen 11 mg/dL (8-26) Creatinine 1.0 mg/dL (0.7-1.3) Estimated GFR (Cockcroft-Gault) 87.9 BUN/Creatinine Ratio 11 (6-20) Glucose Level 166 mg/dL (70-99) Calcium Level 9.1 mg/dL (8.5-10.1) Magnesium Level 2.0 mg/dL (1.8-2.4) Total Bilirubin 0.6 mg/dL (0.2-1.0) Aspartate Amino Transf (AST/SGOT) 23 U/L (15-37) Alanine Aminotransferase (ALT/SGPT) 19 U/L (16-63) Alkaline Phosphatase 73 U/L (46-116) Total Protein 7.1 g/dL (6.4-8.2) Albumin 3.5 g/dL (3.4-5.0) Albumin/Globulin Ratio 1.0 (1.0-1.7) Thyroid Stimulating Hormone (TSH) 1.273 uIU/mL (0.358-3.74) Nasal Screen MRSA (PCR) Negative (Negative) Urine Collection Type Unknown Urine Color Yellow Urine Clarity Clear Urine pH 7.0 Urine Specific [place] 1.020 Urine Protein Negative mg/dL (NEG-TRACE) Urine Glucose (UA) Negative mg/dL (NEG) Urine Ketones (Stick) Negative mg/dL (NEG) Urine Blood Negative (NEG) Urine Nitrite Negative (NEG) Urine Bilirubin Negative (NEG) Urine Urobilinogen Dipstick 1.0 mg/dL (0.2 mg/dL) Urine Leukocyte Esterase Negative (NEG) Urine RBC 0 /HPF (0-2) Urine WBC Occ /HPF (0-4) Urine Squamous Epithelial Cells Occ /LPF Urine Bacteria 0 /HPF (0-FEW) Urine Mucus Slight /LPF Urine Opiates Screen Neg (NEG) Urine Methadone Screen Neg (NEG) Urine Barbiturates Neg (NEG) Urine Phencyclidine Screen Neg (NEG) Urine Amphetamine/Methamphetamine Neg (NEG) Urine Benzodiazepines Screen Neg (NEG) Urine Cocaine Screen Neg (NEG) Urine Cannabinoids Screen Neg (NEG) Urine Ethyl Alcohol Neg (NEG) Test 06/20/17 04:45 Triglycerides Level 99 mg/dL (0-150) Cholesterol Level 211 mg/dL (0-200) LDL Cholesterol, Calculated 144 mg/dL (0-100) VLDL Cholesterol, Calculated 20 mg/dL (0-40) Non-HDL Cholesterol Calculated 164 mg/dL (0-129) HDL Cholesterol 47 mg/dL (40-60) Cholesterol/HDL Ratio 4.5 Laboratory Tests Test 06/19/17 12:35 06/19/17 12:43 06/19/17 16:00 06/19/17 17:26 Glucose (Fingerstick) 172 mg/dL (70-99) White Blood Count 7.7 x10^3/uL (4.0-11.0) Red Blood Count 4.95 x10^6/uL (4.30-5.70) Hemoglobin 14.6 g/dL (13.0-17.5) Hematocrit 44.2 % (39.0-53.0) Mean Corpuscular Volume 89 fL (79-100) Mean Corpuscular Hemoglobin 30 pg (25-35) Mean Corpuscular Hemoglobin Concent 33 g/dL (31-37) Red Cell Distribution Width 14.1 % (11.5-14.5) Platelet Count 199 x10^3/uL (140-400) Neutrophils (%) (Auto) 71 % (31-73) Lymphocytes (%) (Auto) 21 % (24-48) Monocytes (%) (Auto) 7 % (0-9) Eosinophils (%) (Auto) 1 % (0-3) Basophils (%) (Auto) 1 % (0-3) Neutrophils # (Auto) 5.5 x10^3uL (1.8-7.7) Lymphocytes # (Auto) 1.6 x10^3/uL (1.0-4.8) Monocytes # (Auto) 0.5 x10^3/uL (0.0-1.1) Eosinophils # (Auto) 0.1 x10^3/uL (0.0-0.7) Basophils # (Auto) 0.1 x10^3/uL (0.0-0.2) Prothrombin Time 12.8 SEC (11.7-14.0) Prothromb Time International Ratio 1.0 (0.8-1.1) Activated Partial Thromboplast Time 28 SEC (24-38) Sodium Level 139 mmol/L (136-145) Potassium Level 4.4 mmol/L (3.5-5.1) Chloride Level 103 mmol/L (98-107) Carbon Dioxide Level 25 mmol/L (21-32) Anion Gap 11 (6-14) Blood Urea Nitrogen 11 mg/dL (8-26) Creatinine 1.0 mg/dL (0.7-1.3) Estimated GFR (Cockcroft-Gault) 87.9 BUN/Creatinine Ratio 11 (6-20) Glucose Level 166 mg/dL (70-99) Calcium Level 9.1 mg/dL (8.5-10.1) Magnesium Level 2.0 mg/dL (1.8-2.4) Total Bilirubin 0.6 mg/dL (0.2-1.0) Aspartate Amino Transf (AST/SGOT) 23 U/L (15-37) Alanine Aminotransferase (ALT/SGPT) 19 U/L (16-63) Alkaline Phosphatase 73 U/L (46-116) Total Protein 7.1 g/dL (6.4-8.2) Albumin 3.5 g/dL (3.4-5.0) Albumin/Globulin Ratio 1.0 (1.0-1.7) Thyroid Stimulating Hormone (TSH) 1.273 uIU/mL (0.358-3.74) Nasal Screen MRSA (PCR) Negative (Negative) Urine Collection Type Unknown Urine Color Yellow Urine Clarity Clear Urine pH 7.0 Urine Specific [place] 1.020 Urine Protein Negative mg/dL (NEG-TRACE) Urine Glucose (UA) Negative mg/dL (NEG) Urine Ketones (Stick) Negative mg/dL (NEG) Urine Blood Negative (NEG) Urine Nitrite Negative (NEG) Urine Bilirubin Negative (NEG) Urine Urobilinogen Dipstick 1.0 mg/dL (0.2 mg/dL) Urine Leukocyte Esterase Negative (NEG) Urine RBC 0 /HPF (0-2) Urine WBC Occ /HPF (0-4) Urine Squamous Epithelial Cells Occ /LPF Urine Bacteria 0 /HPF (0-FEW) Urine Mucus Slight /LPF Urine Opiates Screen Neg (NEG) Urine Methadone Screen Neg (NEG) Urine Barbiturates Neg (NEG) Urine Phencyclidine Screen Neg (NEG) Urine Amphetamine/Methamphetamine Neg (NEG) Urine Benzodiazepines Screen Neg (NEG) Urine Cocaine Screen Neg (NEG) Urine Cannabinoids Screen Neg (NEG) Urine Ethyl Alcohol Neg (NEG) Test 06/20/17 04:45 Triglycerides Level 99 mg/dL (0-150) Cholesterol Level 211 mg/dL (0-200) LDL Cholesterol, Calculated 144 mg/dL (0-100) VLDL Cholesterol, Calculated 20 mg/dL (0-40) Non-HDL Cholesterol Calculated 164 mg/dL (0-129) HDL Cholesterol 47 mg/dL (40-60) Cholesterol/HDL Ratio 4.5 Medications Current Medications Sodium Chloride 1,000 ml @ 125 mls/hr Q8H IV Last administered on 06/19/17t 13:02; Start 06/19/17 at 12:51; Stop 06/19/17 at 20:50; Status DC Nicardipine HCl 50 mg/Sodium Chloride 270 ml @ 0 mls/hr CONT PRN IV SEE I/O RECORD; Start 06/19/17 at 13:00; Status Cancel Info (Review Meds) 1 ea PRN DAILY PRN MC SEE COMMENTS; Start 06/19/17 at 13:15 Sodium Chloride (Normal Saline Flush) 3 ml QSHIFT PRN IV AFTER MEDS AND BLOOD DRAWS; Start 06/19/17 at 13:15 Sodium Chloride 1,000 ml @ 100 mls/hr Q10H IV Last administered on 06/20/17 07:30; Start 06/19/17 at 13:04 Acetaminophen (Acetaminophen Supp) 650 mg PRN Q6HRS PRN NV FEVER > 100.5'F; Start 06/19/17 at 13:15 Nicardipine HCl 50 mg/Sodium Chloride 270 ml @ 25 mls/hr CONT PRN IV HYPERTENSION, SEE COMMENTS Last administered on 06/19/17 13:15; Start at 13:15 Ondansetron HCl (Zofran) 4 mg PRN Q6HRS PRN IV NAUSEA/VOMITING; Start at 13:15 Pantoprazole Sodium (PROTONIX VIAL for IV PUSH) 40 mg DAILYAC IVP Last administered on 06/20/17 09:28; Start 06/19/17 at 16:30 Info (Do NOT chart on this placeholder) 1 each 1X ONCE MC ; Start 06/19/17 at 16:45; Stop 06/19/17 at 16:46; Status UNV Pneumococcal Polyvalent Vaccine (Do NOT chart on this placeholder) 1 each 1X ONCE MC ; Start 06/19/17 at 16:45; Stop 06/19/17 at 16:46; Status UNV Influenza Virus Vaccine Quadrival (Fluarix Quad 3098-3525 Syringe) 0.5 ml ONCE ONCE VAX IM Last administered on 06/19/17 21:37; Start 06/19/17 at 17:00; Stop 06/19/17 at 17:01; Status DC Active Scripts Active Reported Alfuzosin Hcl 10 Mg Tab.er.24h 10 Mg PO DAILY 30 Days Donepezil Hcl 10 Mg Tablet 10 Mg PO DAILY 30 Days Sertraline Hcl 50 Mg Tablet 50 Mg PO DAILY 30 Days Vitals/I & O Vital Sign - Last 24 Hours 06/19/17 06/19/17 06/19/17 06/19/17 12:40 12:40 12:50 13:00 Pulse 67 64 66 68 Resp 20 20 20 B/P (MAP) 151/78 (102) Pulse Ox 96 97 97 96 O2 Delivery Room Air 06/19/17 06/19/17 06/19/17 06/19/17 13:10 13:20 13:30 13:40 Pulse 62 72 74 66 Resp 20 20 20 18 Pulse Ox 97 97 97 96 06/19/17 06/19/17 06/19/17 06/19/17 13:48 13:59 14:03 14:18 Pulse 68 66 66 66 Resp 18 18 17 19 Pulse Ox 96 98 97 96 06/19/17 06/19/17 06/19/17 06/19/17 14:33 15:20 15:20 15:30 Temp 98.5 98.5 Pulse 78 68 70 Resp 18 20 26 B/P (MAP) 136/63 (87) 122/69 (86) Pulse Ox 97 96 97 O2 Delivery Room Air Room Air Room Air 06/19/17 06/19/17 06/19/17 06/19/17 15:45 16:00 16:15 16:30 Pulse 70 66 68 64 Resp 24 21 21 19 B/P (MAP) 135/62 (86) 149/75 (99) 136/70 (92) 141/71 (94) Pulse Ox 97 97 96 96 O2 Delivery Room Air Room Air Room Air Room Air 06/19/17 06/19/17 06/19/17 06/19/17 16:45 17:00 17:15 17:30 Pulse 64 62 66 64 Resp 19 17 19 17 B/P (MAP) 138/66 (90) 141/73 (95) 142/70 (94) 146/69 (94) Pulse Ox 97 96 97 96 O2 Delivery Room Air Room Air Room Air Room Air 06/19/17 06/19/17 06/19/17 06/19/17 17:45 18:00 18:15 19:00 Temp 99.6 99.6 Pulse 54 68 70 68 Resp 17 22 22 22 B/P (MAP) 149/70 (96) 140/60 (86) 149/70 (96) 142/67 (92) Pulse Ox 97 97 96 99 O2 Delivery Room Air Room Air Room Air Room Air 06/19/17 06/19/17 06/19/17 06/19/17 20:00 20:00 21:00 22:00 Temp 99.6 98.5 98.5 99.6 98.5 98.5 Pulse 66 67 68 Resp 21 10 17 B/P (MAP) 151/67 (95) 153/67 (95) 153/67 (95) Pulse Ox 97 98 95 O2 Delivery Room Air Room Air Room Air Room Air 06/19/17 06/19/17 06/20/17 06/20/17 23:00 23:59 01:00 02:00 Temp 98.6 100.5 100.1 98.6 100.5 100.1 Pulse 56 69 59 Resp 14 22 17 B/P (MAP) 153/64 (93) 148/71 (96) 151/68 (95) Pulse Ox 98 96 96 O2 Delivery Room Air Room Air Room Air Room Air 06/20/17 06/20/17 06/20/17 06/20/17 03:00 04:00 04:00 05:00 Temp 99.6 99.1 98.1 99.6 99.1 98.1 Pulse 58 56 56 Resp 22 9 16 B/P (MAP) 152/65 (94) 140/65 (90) 143/63 (89) Pulse Ox 97 96 96 O2 Delivery Room Air Room Air Room Air Room Air 06/20/17 06/20/17 06/20/17 06/20/17 06:00 07:00 08:00 08:00 Temp 98.9 99.0 98.9 99.0 Pulse 56 55 56 Resp 15 18 18 B/P (MAP) 101/57 (72) 141/63 (89) 145/67 (93) Pulse Ox 96 97 95 O2 Delivery Room Air Room Air Room Air Room Air 06/20/17 09:00 Pulse 70 Resp 14 B/P (MAP) 149/62 (91) Pulse Ox 92 O2 Delivery Room Air Intake and Output 06/19/17 06/19/17 06/20/17 14:59 22:59 06:59 Intake Total 948 ml 0 ml Output Total 200 ml Balance 748 ml 0 ml CYNTHIA SAUNDERS MD Jun 20, 2017 09:49
[2017-06-20] MEDS ORDERED: hydrALAZINE 20 MG/ML VIAL. IVP PRN (10:00)
--- NOTE | 2017-06-20 12:24 | RAD ---
CT head without contrast 06/20/2017 Clinical indication: Intracranial hemorrhage. Comparison: CT head 06/19/2017. Technique: Multiple CT images of the head were performed without contrast. PQRS Compliance Statement: One or more of the following individualized dose reduction techniques were utilized for this examination: 1. Automated exposure control 2. Adjustment of the mA and/or kV according to patient size 3. Use of iterative reconstruction technique Findings: Interval increase in size of right frontal intraparenchymal hematoma measuring 5.5 cm, previously 4.6 cm when measured in a similar fashion. Interval increase in the adjacent vasogenic edema in the right frontal lobe with development of right to left midline shift of 5 mm. Slight increase in small amount of anterior right frontal subarachnoid hemorrhage. There is partial effacement of the right lateral ventricle with adjacent sulcal effacement. The basal cisterns are patent. There has been development of faint low-attenuation in the right temporal lobe. Impression: 1. Increase in right frontal intracranial hemorrhage with partial effacement of the right lateral ventricle and development of 5 right to left midline shift. 2. Slight increase in high right frontal subarachnoid hemorrhage. 3. Development of low-attenuation in the right temporal lobe which may represent early infarct. These results were discussed with patient's nurse Jennifer by telephone 12:15 PM 06/20/[address] Frantz muir
--- NOTE | 2017-06-20 16:15 | PDOC ---
PROGRESS NOTES Assessment Problems Medical Problems: (1) Dementia Status: Acute (2) Hypertension Status: Acute Problems: Plan Acute right frontal lobe hemorrhage, hematoma 4.7 cm x 2.5 cm with visible cerebral edema. Repeat CT finding discussed with worseing finding on interval scan Left side hemiplegia. Metabolic encephalopathy. ?Cerebral amyloid disease DM HTN Dementia. RECOMMENDATIONS/PLAN: Close monitoring Treat medical diseases. Avoid antiplatelet and anticoagulant agent at the present time. Carotid A US + Doppler. Echo. neuro sx recs Discussed with his in detail. General appearance is in acute distress. HEENT: Normocephalic and nontraumatic. Eyes, nose, ears, and throat are unremarkable. Neck is supple. No lymphadenopathy. No crepitus. Cardiovascular: S1, S2, seemed regular rate and rhythm. Pulmonary: relative clear to auscultation bilaterally. Abdomen: Bowel sounds are positive. Abdomen is soft, nontender, and nondistended. Extremities: No rash, lesions, or edema. NEUROLOGICAL EXAMINATION: Drowsiness. Not fully oriented to time, place but knows person. PERRL. EOMI but slow. CN: Left central VII palsy. Muscle tone: Mildly decreased in left Ue. Muscle strength: 3+ left side, 5 right side. DTR: 2- Plantar reflex: Neutral response bilaterally Gait: Unable to walk. Sensory exam: no abnormal findings. No acute cerebellar signs elicited. F-T-N test not performed due to not follow commands well Objective Vital Signs Date Time Temp Pulse Resp B/P (MAP) Pulse Ox O2 Delivery O2 Flow Rate FiO2 06/20/17 15:00 70 15 150/57 (88) 98 Room Air 06/20/17 08:00 99.0 99.0 Intake and Output 06/20/17 07:00 Intake Total 948 ml Output Total 550 ml Balance 398 ml Intake Oral 0 ml IV Total 948 ml Output Urine Total 550 ml # Voids 2 PHYSICAL EXAM NEUROLOGICAL EXAMINATION: Drowsiness. Not fully oriented to time, place but knows person. PERRL. able to trac stimuli CN: Left central VII palsy. Muscle tone: Mildly decreased in leftside Muscle strength: minimal withdraw to pain, 5 right side. DTR: 1-2- Plantar reflex: Neutral response bilaterally Gait: Unable to walk. Sensory exam: dec to left side Not able acute cerebellar signs F-T-N test not performed due to medical condition Review of Relevant I have reviewed the following items laine (where applicable) has been applied. Labs Laboratory Tests Test 06/19/17 12:35 06/19/17 12:43 06/19/17 16:00 06/19/17 17:26 Glucose (Fingerstick) 172 mg/dL (70-99) White Blood Count 7.7 x10^3/uL (4.0-11.0) Red Blood Count 4.95 x10^6/uL (4.30-5.70) Hemoglobin 14.6 g/dL (13.0-17.5) Hematocrit 44.2 % (39.0-53.0) Mean Corpuscular Volume 89 fL (79-100) Mean Corpuscular Hemoglobin 30 pg (25-35) Mean Corpuscular Hemoglobin Concent 33 g/dL (31-37) Red Cell Distribution Width 14.1 % (11.5-14.5) Platelet Count 199 x10^3/uL (140-400) Neutrophils (%) (Auto) 71 % (31-73) Lymphocytes (%) (Auto) 21 % (24-48) Monocytes (%) (Auto) 7 % (0-9) Eosinophils (%) (Auto) 1 % (0-3) Basophils (%) (Auto) 1 % (0-3) Neutrophils # (Auto) 5.5 x10^3uL (1.8-7.7) Lymphocytes # (Auto) 1.6 x10^3/uL (1.0-4.8) Monocytes # (Auto) 0.5 x10^3/uL (0.0-1.1) Eosinophils # (Auto) 0.1 x10^3/uL (0.0-0.7) Basophils # (Auto) 0.1 x10^3/uL (0.0-0.2) Prothrombin Time 12.8 SEC (11.7-14.0) Prothromb Time International Ratio 1.0 (0.8-1.1) Activated Partial Thromboplast Time 28 SEC (24-38) Sodium Level 139 mmol/L (136-145) Potassium Level 4.4 mmol/L (3.5-5.1) Chloride Level 103 mmol/L (98-107) Carbon Dioxide Level 25 mmol/L (21-32) Anion Gap 11 (6-14) Blood Urea Nitrogen 11 mg/dL (8-26) Creatinine 1.0 mg/dL (0.7-1.3) Estimated GFR (Cockcroft-Gault) 87.9 BUN/Creatinine Ratio 11 (6-20) Glucose Level 166 mg/dL (70-99) Calcium Level 9.1 mg/dL (8.5-10.1) Magnesium Level 2.0 mg/dL (1.8-2.4) Total Bilirubin 0.6 mg/dL (0.2-1.0) Aspartate Amino Transf (AST/SGOT) 23 U/L (15-37) Alanine Aminotransferase (ALT/SGPT) 19 U/L (16-63) Alkaline Phosphatase 73 U/L (46-116) Total Protein 7.1 g/dL (6.4-8.2) Albumin 3.5 g/dL (3.4-5.0) Albumin/Globulin Ratio 1.0 (1.0-1.7) Thyroid Stimulating Hormone (TSH) 1.273 uIU/mL (0.358-3.74) Nasal Screen MRSA (PCR) Negative (Negative) Urine Collection Type Unknown Urine Color Yellow Urine Clarity Clear Urine pH 7.0 Urine Specific [place] 1.020 Urine Protein Negative mg/dL (NEG-TRACE) Urine Glucose (UA) Negative mg/dL (NEG) Urine Ketones (Stick) Negative mg/dL (NEG) Urine Blood Negative (NEG) Urine Nitrite Negative (NEG) Urine Bilirubin Negative (NEG) Urine Urobilinogen Dipstick 1.0 mg/dL (0.2 mg/dL) Urine Leukocyte Esterase Negative (NEG) Urine RBC 0 /HPF (0-2) Urine WBC Occ /HPF (0-4) Urine Squamous Epithelial Cells Occ /LPF Urine Bacteria 0 /HPF (0-FEW) Urine Mucus Slight /LPF Urine Opiates Screen Neg (NEG) Urine Methadone Screen Neg (NEG) Urine Barbiturates Neg (NEG) Urine Phencyclidine Screen Neg (NEG) Urine Amphetamine/Methamphetamine Neg (NEG) Urine Benzodiazepines Screen Neg (NEG) Urine Cocaine Screen Neg (NEG) Urine Cannabinoids Screen Neg (NEG) Urine Ethyl Alcohol Neg (NEG) Test 06/20/17 04:45 Triglycerides Level 99 mg/dL (0-150) Cholesterol Level 211 mg/dL (0-200) LDL Cholesterol, Calculated 144 mg/dL (0-100) VLDL Cholesterol, Calculated 20 mg/dL (0-40) Non-HDL Cholesterol Calculated 164 mg/dL (0-129) HDL Cholesterol 47 mg/dL (40-60) Cholesterol/HDL Ratio 4.5 Laboratory Tests Test 06/19/17 17:26 06/20/17 04:45 Urine Collection Type Unknown Urine Color Yellow Urine Clarity Clear Urine pH 7.0 Urine Specific [place] 1.020 Urine Protein Negative mg/dL (NEG-TRACE) Urine Glucose (UA) Negative mg/dL (NEG) Urine Ketones (Stick) Negative mg/dL (NEG) Urine Blood Negative (NEG) Urine Nitrite Negative (NEG) Urine Bilirubin Negative (NEG) Urine Urobilinogen Dipstick 1.0 mg/dL (0.2 mg/dL) Urine Leukocyte Esterase Negative (NEG) Urine RBC 0 /HPF (0-2) Urine WBC Occ /HPF (0-4) Urine Squamous Epithelial Cells Occ /LPF Urine Bacteria 0 /HPF (0-FEW) Urine Mucus Slight /LPF Urine Opiates Screen Neg (NEG) Urine Methadone Screen Neg (NEG) Urine Barbiturates Neg (NEG) Urine Phencyclidine Screen Neg (NEG) Urine Amphetamine/Methamphetamine Neg (NEG) Urine Benzodiazepines Screen Neg (NEG) Urine Cocaine Screen Neg (NEG) Urine Cannabinoids Screen Neg (NEG) Urine Ethyl Alcohol Neg (NEG) Triglycerides Level 99 mg/dL (0-150) Cholesterol Level 211 mg/dL (0-200) LDL Cholesterol, Calculated 144 mg/dL (0-100) VLDL Cholesterol, Calculated 20 mg/dL (0-40) Non-HDL Cholesterol Calculated 164 mg/dL (0-129) HDL Cholesterol 47 mg/dL (40-60) Cholesterol/HDL Ratio 4.5 Medications Current Medications Sodium Chloride 1,000 ml @ 125 mls/hr Q8H IV Last administered on 06/19/17t 13:02; Start 06/19/17 at 12:51; Stop 06/19/17 at 20:50; Status DC Nicardipine HCl 50 mg/Sodium Chloride 270 ml @ 0 mls/hr CONT PRN IV SEE I/O RECORD; Start 06/19/17 at 13:00; Status Cancel Info (Review Meds) 1 ea PRN DAILY PRN MC SEE COMMENTS; Start 06/19/17 at 13:15 Sodium Chloride (Normal Saline Flush) 3 ml QSHIFT PRN IV AFTER MEDS AND BLOOD DRAWS; Start 06/19/17 at 13:15 Sodium Chloride 1,000 ml @ 100 mls/hr Q10H IV Last administered on 06/20/17 07:30; Start 06/19/17 at 13:04 Acetaminophen (Acetaminophen Supp) 650 mg PRN Q6HRS PRN [place] FEVER > 100.5'F; Start 06/19/17 at 13:15 Nicardipine HCl 50 mg/Sodium Chloride 270 ml @ 25 mls/hr CONT PRN IV HYPERTENSION, SEE COMMENTS Last administered on 06/19/17 13:15; Start at 13:15 Ondansetron HCl (Zofran) 4 mg PRN Q6HRS PRN IV NAUSEA/VOMITING; Start at 13:15 Pantoprazole Sodium (PROTONIX VIAL for IV PUSH) 40 mg DAILYAC IVP Last administered on 06/20/17 09:28; Start 06/19/17 at 16:30 Info (Do NOT chart on this placeholder) 1 each 1X ONCE MC ; Start 06/19/17 at 16:45; Stop 06/19/17 at 16:46; Status UNV Pneumococcal Polyvalent Vaccine (Do NOT chart on this placeholder) 1 each 1X ONCE MC ; Start 06/19/17 at 16:45; Stop 06/19/17 at 16:46; Status UNV Influenza Virus Vaccine Quadrival (Fluarix Quad [id number] Syringe) 0.5 ml ONCE ONCE VAX IM Last administered on 06/19/17 21:37; Start 06/19/17 at 17:00; Stop 06/19/17 at 17:01; Status DC Hydralazine HCl (Apresoline Inj) 10 mg PRN Q4HRS PRN IVP ELEVATED BP, SEE COMMENTS; Start 06/20/17 at 10:00 Active Scripts Active Reported Alfuzosin Hcl 10 Mg Tab.er.24h 10 Mg PO DAILY 30 Days Donepezil Hcl 10 Mg Tablet 10 Mg PO DAILY 30 Days Sertraline Hcl 50 Mg Tablet 50 Mg PO DAILY 30 Days Vitals/I & O Vital Sign - Last 24 Hours 06/19/17 06/19/17 06/19/17 06/19/17 16:15 16:30 16:45 17:00 Pulse 68 64 64 62 Resp 21 19 19 17 B/P (MAP) 136/70 (92) 141/71 (94) 138/66 (90) 141/73 (95) Pulse Ox 96 96 97 96 O2 Delivery Room Air Room Air Room Air Room Air 06/19/17 06/19/17 06/19/17 06/19/17 17:15 17:30 17:45 18:00 Pulse 66 64 54 68 Resp 19 17 17 22 B/P (MAP) 142/70 (94) 146/69 (94) 149/70 (96) 140/60 (86) Pulse Ox 97 96 97 97 O2 Delivery Room Air Room Air Room Air Room Air 06/19/17 06/19/17 06/19/17 06/19/17 18:15 19:00 20:00 20:00 Temp 99.6 99.6 99.6 99.6 Pulse 70 68 66 Resp 22 22 21 B/P (MAP) 149/70 (96) 142/67 (92) 151/67 (95) Pulse Ox 96 99 97 O2 Delivery Room Air Room Air Room Air Room Air 06/19/17 06/19/17 06/19/17 06/19/17 21:00 22:00 23:00 23:59 Temp 98.5 98.5 98.6 98.5 98.5 98.6 Pulse 67 68 56 Resp 10 17 14 B/P (MAP) 153/67 (95) 153/67 (95) 153/64 (93) Pulse Ox 98 95 98 O2 Delivery Room Air Room Air Room Air Room Air 06/20/17 06/20/17 06/20/17 06/20/17 01:00 02:00 03:00 04:00 Temp 100.5 100.1 99.6 100.5 100.1 99.6 Pulse 69 59 58 Resp 22 17 22 B/P (MAP) 148/71 (96) 151/68 (95) 152/65 (94) Pulse Ox 96 96 97 O2 Delivery Room Air Room Air Room Air Room Air 06/20/17 06/20/17 06/20/17 06/20/17 04:00 05:00 06:00 07:00 Temp 99.1 98.1 98.9 99.1 98.1 98.9 Pulse 56 56 56 55 Resp 9 16 15 18 B/P (MAP) 140/65 (90) 143/63 (89) 101/57 (72) 141/63 (89) Pulse Ox 96 96 96 97 O2 Delivery Room Air Room Air Room Air Room Air 06/20/17 06/20/17 06/20/17 06/20/17 08:00 08:00 09:00 10:00 Temp 99.0 99.0 Pulse 56 70 66 Resp 18 14 15 B/P (MAP) 145/67 (93) 149/62 (91) 151/60 (90) Pulse Ox 95 92 96 O2 Delivery Room Air Room Air Room Air Room Air 06/20/17 06/20/17 06/20/17 06/20/17 11:00 12:00 12:00 13:00 Pulse 58 58 57 Resp 19 19 19 B/P (MAP) 141/52 (81) 149/61 (90) 144/55 (84) Pulse Ox 98 98 97 O2 Delivery Room Air Room Air Room Air Room Air 06/20/17 06/20/17 14:00 15:00 Pulse 88 70 Resp 21 15 B/P (MAP) 146/57 (86) 150/57 (88) Pulse Ox 96 98 O2 Delivery Room Air Room Air Intake and Output 06/19/17 06/19/17 06/20/17 15:00 23:00 07:00 Intake Total 948 ml 0 ml Output Total 200 ml 350 ml Balance 748 ml -350 ml DARRYL COVARRUBIAS MD Jun 20, 2017 16:14
[2017-06-20] MEDS ORDERED: PHENAZOPYRIDINE 200 MG TABLET. PO PRN (20:00)
--- NOTE | 2017-06-20 20:50 | PDOC ---
PROGRESS NOTES Subjective Subjective patient seen at 1500 less talkative today Objective Objective Vital Signs Date Time Temp Pulse Resp B/P (MAP) Pulse Ox O2 Delivery O2 Flow Rate FiO2 06/20/17 19:00 98.9 79 22 153/60 (91) 98 Room Air 98.9 Intake and Output 06/20/17 07:00 Intake Total 948 ml Output Total 550 ml Balance 398 ml Intake Oral 0 ml IV Total 948 ml Output Urine Total 550 ml # Voids 2 Physical Exam General: Other (less talkative) Neuro: Other (continues to have left hemiparesis) Assessment Assessment Problems Medical Problems: (1) Dementia Status: Acute (2) Hypertension Status: Acute Plan Plan of Care CT today shows increase in size of hemorrhage with 5 mm shift keep in ICU repeat CT head in AM Comment Review of Relevant I have reviewed the following items laine (where applicable) has been applied. Labs Laboratory Tests Test 06/19/17 12:35 06/19/17 12:43 06/19/17 16:00 06/19/17 17:26 Glucose (Fingerstick) 172 mg/dL (70-99) White Blood Count 7.7 x10^3/uL (4.0-11.0) Red Blood Count 4.95 x10^6/uL (4.30-5.70) Hemoglobin 14.6 g/dL (13.0-17.5) Hematocrit 44.2 % (39.0-53.0) Mean Corpuscular Volume 89 fL (79-100) Mean Corpuscular Hemoglobin 30 pg (25-35) Mean Corpuscular Hemoglobin Concent 33 g/dL (31-37) Red Cell Distribution Width 14.1 % (11.5-14.5) Platelet Count 199 x10^3/uL (140-400) Neutrophils (%) (Auto) 71 % (31-73) Lymphocytes (%) (Auto) 21 % (24-48) Monocytes (%) (Auto) 7 % (0-9) Eosinophils (%) (Auto) 1 % (0-3) Basophils (%) (Auto) 1 % (0-3) Neutrophils # (Auto) 5.5 x10^3uL (1.8-7.7) Lymphocytes # (Auto) 1.6 x10^3/uL (1.0-4.8) Monocytes # (Auto) 0.5 x10^3/uL (0.0-1.1) Eosinophils # (Auto) 0.1 x10^3/uL (0.0-0.7) Basophils # (Auto) 0.1 x10^3/uL (0.0-0.2) Prothrombin Time 12.8 SEC (11.7-14.0) Prothromb Time International Ratio 1.0 (0.8-1.1) Activated Partial Thromboplast Time 28 SEC (24-38) Sodium Level 139 mmol/L (136-145) Potassium Level 4.4 mmol/L (3.5-5.1) Chloride Level 103 mmol/L (98-107) Carbon Dioxide Level 25 mmol/L (21-32) Anion Gap 11 (6-14) Blood Urea Nitrogen 11 mg/dL (8-26) Creatinine 1.0 mg/dL (0.7-1.3) Estimated GFR (Cockcroft-Gault) 87.9 BUN/Creatinine Ratio 11 (6-20) Glucose Level 166 mg/dL (70-99) Calcium Level 9.1 mg/dL (8.5-10.1) Magnesium Level 2.0 mg/dL (1.8-2.4) Total Bilirubin 0.6 mg/dL (0.2-1.0) Aspartate Amino Transf (AST/SGOT) 23 U/L (15-37) Alanine Aminotransferase (ALT/SGPT) 19 U/L (16-63) Alkaline Phosphatase 73 U/L (46-116) Total Protein 7.1 g/dL (6.4-8.2) Albumin 3.5 g/dL (3.4-5.0) Albumin/Globulin Ratio 1.0 (1.0-1.7) Thyroid Stimulating Hormone (TSH) 1.273 uIU/mL (0.358-3.74) Nasal Screen MRSA (PCR) Negative (Negative) Urine Collection Type Unknown Urine Color Yellow Urine Clarity Clear Urine pH 7.0 Urine Specific [place] 1.020 Urine Protein Negative mg/dL (NEG-TRACE) Urine Glucose (UA) Negative mg/dL (NEG) Urine Ketones (Stick) Negative mg/dL (NEG) Urine Blood Negative (NEG) Urine Nitrite Negative (NEG) Urine Bilirubin Negative (NEG) Urine Urobilinogen Dipstick 1.0 mg/dL (0.2 mg/dL) Urine Leukocyte Esterase Negative (NEG) Urine RBC 0 /HPF (0-2) Urine WBC Occ /HPF (0-4) Urine Squamous Epithelial Cells Occ /LPF Urine Bacteria 0 /HPF (0-FEW) Urine Mucus Slight /LPF Urine Opiates Screen Neg (NEG) Urine Methadone Screen Neg (NEG) Urine Barbiturates Neg (NEG) Urine Phencyclidine Screen Neg (NEG) Urine Amphetamine/Methamphetamine Neg (NEG) Urine Benzodiazepines Screen Neg (NEG) Urine Cocaine Screen Neg (NEG) Urine Cannabinoids Screen Neg (NEG) Urine Ethyl Alcohol Neg (NEG) Test 06/20/17 04:45 Triglycerides Level 99 mg/dL (0-150) Cholesterol Level 211 mg/dL (0-200) LDL Cholesterol, Calculated 144 mg/dL (0-100) VLDL Cholesterol, Calculated 20 mg/dL (0-40) Non-HDL Cholesterol Calculated 164 mg/dL (0-129) HDL Cholesterol 47 mg/dL (40-60) Cholesterol/HDL Ratio 4.5 Laboratory Tests Test 06/20/17 04:45 Triglycerides Level 99 mg/dL (0-150) Cholesterol Level 211 mg/dL (0-200) LDL Cholesterol, Calculated 144 mg/dL (0-100) VLDL Cholesterol, Calculated 20 mg/dL (0-40) Non-HDL Cholesterol Calculated 164 mg/dL (0-129) HDL Cholesterol 47 mg/dL (40-60) Cholesterol/HDL Ratio 4.5 Medications Current Medications Sodium Chloride 1,000 ml @ 125 mls/hr Q8H IV Last administered on 06/19/17 13:02; Start 06/19/17 at 12:51; Stop 06/19/17 at 20:50; Status DC Nicardipine HCl 50 mg/Sodium Chloride 270 ml @ 0 mls/hr CONT PRN IV SEE I/O RECORD; Start 06/19/17 at 13:00; Status Cancel Info (Review Meds) 1 ea PRN DAILY PRN MC SEE COMMENTS; Start 06/19/17 at 13:15 Sodium Chloride (Normal Saline Flush) 3 ml QSHIFT PRN IV AFTER MEDS AND BLOOD DRAWS; Start 06/19/17 at 13:15 Sodium Chloride 1,000 ml @ 100 mls/hr Q10H IV Last administered on 06/20/17 18:27; Start 06/19/17 at 13:04 Acetaminophen (Acetaminophen Supp) 650 mg PRN Q6HRS PRN [place] FEVER > 100.5'F; Start 06/19/17 at 13:15 Nicardipine HCl 50 mg/Sodium Chloride 270 ml @ 25 mls/hr CONT PRN IV HYPERTENSION, SEE COMMENTS Last administered on 06/19/17 13:15; Start at 13:15 Ondansetron HCl (Zofran) 4 mg PRN Q6HRS PRN IV NAUSEA/VOMITING; Start at 13:15 Pantoprazole Sodium (PROTONIX VIAL for IV PUSH) 40 mg DAILYAC IVP Last administered on 06/20/17 09:28; Start 06/19/17 at 16:30 Info (Do NOT chart on this placeholder) 1 each 1X ONCE MC ; Start 06/19/17 at 16:45; Stop 06/19/17 at 16:46; Status UNV Pneumococcal Polyvalent Vaccine (Do NOT chart on this placeholder) 1 each 1X ONCE MC ; Start 06/19/17 at 16:45; Stop 06/19/17 at 16:46; Status UNV Influenza Virus Vaccine Quadrival (Fluarix Quad [id number] Syringe) 0.5 ml ONCE ONCE VAX IM Last administered on 06/19/17 21:37; Start 06/19/17 at 17:00; Stop 06/19/17 at 17:01; Status DC Hydralazine HCl (Apresoline Inj) 10 mg PRN Q4HRS PRN IVP ELEVATED BP, SEE COMMENTS Last administered on 06/20/17 17:58; Start 06/20/17 at 10:00 Phenazopyridine HCl (Pyridium) 200 mg PRN BID PRN PO URINARY PAIN; Start 06/20 at 20:00 Diazepam (Valium) 5 mg 1X ONCE IV Last administered on 06/20/17 20:26; Start 06/20/17 at 20:15; Stop 06/20/17 at 20:16; Status DC Active Scripts Active Reported Alfuzosin Hcl 10 Mg Tab.er.24h 10 Mg PO DAILY 30 Days Donepezil Hcl 10 Mg Tablet 10 Mg PO DAILY 30 Days Sertraline Hcl 50 Mg Tablet 50 Mg PO DAILY 30 Days Vitals/I & O Vital Sign - Last 24 Hours 06/19/17 06/19/17 06/19/17 06/19/17 21:00 22:00 23:00 23:59 Temp 98.5 98.5 98.6 98.5 98.5 98.6 Pulse 67 68 56 Resp 10 17 14 B/P (MAP) 153/67 (95) 153/67 (95) 153/64 (93) Pulse Ox 98 95 98 O2 Delivery Room Air Room Air Room Air Room Air 06/20/17 06/20/17 06/20/17 06/20/17 01:00 02:00 03:00 04:00 Temp 100.5 100.1 99.6 100.5 100.1 99.6 Pulse 69 59 58 Resp 22 17 22 B/P (MAP) 148/71 (96) 151/68 (95) 152/65 (94) Pulse Ox 96 96 97 O2 Delivery Room Air Room Air Room Air Room Air 06/20/17 06/20/17 06/20/17 06/20/17 04:00 05:00 06:00 07:00 Temp 99.1 98.1 98.9 99.1 98.1 98.9 Pulse 56 56 56 55 Resp 9 16 15 18 B/P (MAP) 140/65 (90) 143/63 (89) 101/57 (72) 141/63 (89) Pulse Ox 96 96 96 97 O2 Delivery Room Air Room Air Room Air Room Air 06/20/17 06/20/17 06/20/17 06/20/17 08:00 08:00 09:00 10:00 Temp 99.0 99.0 Pulse 56 70 66 Resp 18 14 15 B/P (MAP) 145/67 (93) 149/62 (91) 151/60 (90) Pulse Ox 95 92 96 O2 Delivery Room Air Room Air Room Air Room Air 06/20/17 06/20/17 06/20/17 06/20/17 11:00 12:00 12:00 13:00 Pulse 58 58 57 Resp 19 19 19 B/P (MAP) 141/52 (81) 149/61 (90) 144/55 (84) Pulse Ox 98 98 97 O2 Delivery Room Air Room Air Room Air Room Air 06/20/17 06/20/17 06/20/17 06/20/17 14:00 15:00 16:00 16:00 Temp 100.2 100.2 Pulse 88 70 66 Resp 21 15 19 B/P (MAP) 146/57 (86) 150/57 (88) 163/69 (100) Pulse Ox 96 98 97 O2 Delivery Room Air Room Air Room Air Room Air 06/20/17 06/20/17 06/20/17 06/20/17 17:00 17:58 18:00 19:00 Temp 98.9 98.9 Pulse 57 67 59 79 Resp 19 19 22 B/P (MAP) 162/66 (98) 166/66 166/66 (99) 153/60 (91) Pulse Ox 98 97 98 O2 Delivery Room Air Room Air Room Air Intake and Output 06/19/17 06/19/17 06/20/17 15:00 23:00 07:00 Intake Total 948 ml 0 ml Output Total 200 ml 350 ml Balance 748 ml -350 ml INÉS URBINA MD Jun 20, 2017 20:50
[2017-06-21] VITALS (24 sets, daily range): BP systolic 124–164; BP diastolic 57–83
[2017-06-21] MEDS: IV NORMAL SALINE 1000ML BAG 1,000 ML IV SCH ×3 (04:27→23:51)
[2017-06-21] MEDS: PANTOPRAZOLE IV PUSH 40 MG VIAL. IVP SCH (08:40)
[2017-06-21 09:03] LABS: HEMATOCRIT 40.1 % (39.0-53.0); HEMOGLOBIN 13.6 g/dL (13.0-17.5)
--- NOTE | 2017-06-21 10:09 | PDOC ---
PROGRESS NOTES Chief Complaint Chief Complaint Worsening Hemorrhagic stroke, 5 cm greatest diam with inc swelling and midline shift and effacement Rt lateral ventricle Accelerated hypertension Dementia on Aricept DNR./DNI History of Present Illness History of Present Illness seen in ICU Interval CAT scan worse, now with effacement of the right lateral ventricle, with increasing brain swelling, increasing midline shift Patient seen with at bedside Patient is much worse, more drowsy, able to a copy and answer my questions, knows he is at [place], able to recognize . But falls back to sleep easily Blood pressure stable not needing nicardipine drip. PLAN: Stat MRA brain look for aneurysm Neurosurgery aware of the above events - they ordered repeat CAT scan interval I did talk to Denise PITTMAN about possible transferring this patient to with IR capabilities. Pt PCP is Ryann Melendrez at > She agrees especially if there is a aneurysm. Neurosx dont do clipping, I have attempted to call triage nurse and has spoke with the triage nurse at length. They will call back. In the meantime stat MRA now. I did discuss with the CODE STATUS and she says patient did not want to be intubated or resuscitated hence now a DNR/DNI Critical care 45 minutes cumulative so far Tariq RN Jennifer Vitals Vitals Vital Signs Date Time Temp Pulse Resp B/P (MAP) Pulse Ox O2 Delivery O2 Flow Rate FiO2 06/21/17 09:00 56 20 139/61 (87) 98 Room Air 06/21/17 08:00 99.7 99.7 Physical Exam General: Other (drowsy but able to protect airway) Heart: Regular rate Lungs: Clear Abdomen: Normal bowel sounds Extremities: No clubbing, No cyanosis, No edema, Normal pulses, No tenderness/ swelling Skin: No rashes, No breakdown, No significant lesion Labs LABS Laboratory Tests Test 06/21/17 08:45 Hemoglobin 13.6 g/dL (13.0-17.5) Hematocrit 40.1 % (39.0-53.0) Mean Corpuscular Hemoglobin Concent 34 g/dL (31-37) Review of Systems Review of Systems limited ROS, drowsy Assessment and Plan Assessmemt and Plan Problems Medical Problems: (1) Dementia Status: Acute (2) Hypertension Status: Acute Problems: Comment Review of Relevant I have reviewed the following items laine (where applicable) has been applied. Labs Laboratory Tests Test 06/19/17 12:35 06/19/17 12:43 06/19/17 16:00 06/19/17 17:26 Glucose (Fingerstick) 172 mg/dL (70-99) White Blood Count 7.7 x10^3/uL (4.0-11.0) Red Blood Count 4.95 x10^6/uL (4.30-5.70) Hemoglobin 14.6 g/dL (13.0-17.5) Hematocrit 44.2 % (39.0-53.0) Mean Corpuscular Volume 89 fL (79-100) Mean Corpuscular Hemoglobin 30 pg (25-35) Mean Corpuscular Hemoglobin Concent 33 g/dL (31-37) Red Cell Distribution Width 14.1 % (11.5-14.5) Platelet Count 199 x10^3/uL (140-400) Neutrophils (%) (Auto) 71 % (31-73) Lymphocytes (%) (Auto) 21 % (24-48) Monocytes (%) (Auto) 7 % (0-9) Eosinophils (%) (Auto) 1 % (0-3) Basophils (%) (Auto) 1 % (0-3) Neutrophils # (Auto) 5.5 x10^3uL (1.8-7.7) Lymphocytes # (Auto) 1.6 x10^3/uL (1.0-4.8) Monocytes # (Auto) 0.5 x10^3/uL (0.0-1.1) Eosinophils # (Auto) 0.1 x10^3/uL (0.0-0.7) Basophils # (Auto) 0.1 x10^3/uL (0.0-0.2) Prothrombin Time 12.8 SEC (11.7-14.0) Prothromb Time International Ratio 1.0 (0.8-1.1) Activated Partial Thromboplast Time 28 SEC (24-38) Sodium Level 139 mmol/L (136-145) Potassium Level 4.4 mmol/L (3.5-5.1) Chloride Level 103 mmol/L (98-107) Carbon Dioxide Level 25 mmol/L (21-32) Anion Gap 11 (6-14) Blood Urea Nitrogen 11 mg/dL (8-26) Creatinine 1.0 mg/dL (0.7-1.3) Estimated GFR (Cockcroft-Gault) 87.9 BUN/Creatinine Ratio 11 (6-20) Glucose Level 166 mg/dL (70-99) Calcium Level 9.1 mg/dL (8.5-10.1) Magnesium Level 2.0 mg/dL (1.8-2.4) Total Bilirubin 0.6 mg/dL (0.2-1.0) Aspartate Amino Transf (AST/SGOT) 23 U/L (15-37) Alanine Aminotransferase (ALT/SGPT) 19 U/L (16-63) Alkaline Phosphatase 73 U/L (46-116) Total Protein 7.1 g/dL (6.4-8.2) Albumin 3.5 g/dL (3.4-5.0) Albumin/Globulin Ratio 1.0 (1.0-1.7) Thyroid Stimulating Hormone (TSH) 1.273 uIU/mL (0.358-3.74) Nasal Screen MRSA (PCR) Negative (Negative) Urine Collection Type Unknown Urine Color Yellow Urine Clarity Clear Urine pH 7.0 Urine Specific [place] 1.020 Urine Protein Negative mg/dL (NEG-TRACE) Urine Glucose (UA) Negative mg/dL (NEG) Urine Ketones (Stick) Negative mg/dL (NEG) Urine Blood Negative (NEG) Urine Nitrite Negative (NEG) Urine Bilirubin Negative (NEG) Urine Urobilinogen Dipstick 1.0 mg/dL (0.2 mg/dL) Urine Leukocyte Esterase Negative (NEG) Urine RBC 0 /HPF (0-2) Urine WBC Occ /HPF (0-4) Urine Squamous Epithelial Cells Occ /LPF Urine Bacteria 0 /HPF (0-FEW) Urine Mucus Slight /LPF Urine Opiates Screen Neg (NEG) Urine Methadone Screen Neg (NEG) Urine Barbiturates Neg (NEG) Urine Phencyclidine Screen Neg (NEG) Urine Amphetamine/Methamphetamine Neg (NEG) Urine Benzodiazepines Screen Neg (NEG) Urine Cocaine Screen Neg (NEG) Urine Cannabinoids Screen Neg (NEG) Urine Ethyl Alcohol Neg (NEG) Test 06/20/17 04:45 06/21/17 08:45 Triglycerides Level 99 mg/dL (0-150) Cholesterol Level 211 mg/dL (0-200) LDL Cholesterol, Calculated 144 mg/dL (0-100) VLDL Cholesterol, Calculated 20 mg/dL (0-40) Non-HDL Cholesterol Calculated 164 mg/dL (0-129) HDL Cholesterol 47 mg/dL (40-60) Cholesterol/HDL Ratio 4.5 Hemoglobin 13.6 g/dL (13.0-17.5) Hematocrit 40.1 % (39.0-53.0) Mean Corpuscular Hemoglobin Concent 34 g/dL (31-37) Laboratory Tests Test 06/21/17 08:45 Hemoglobin 13.6 g/dL (13.0-17.5) Hematocrit 40.1 % (39.0-53.0) Mean Corpuscular Hemoglobin Concent 34 g/dL (31-37) Medications Current Medications Sodium Chloride 1,000 ml @ 125 mls/hr Q8H IV Last administered on 06/19/17 13:02; Start 06/19/17 at 12:51; Stop 06/19/17 at 20:50; Status DC Nicardipine HCl 50 mg/Sodium Chloride 270 ml @ 0 mls/hr CONT PRN IV SEE I/O RECORD; Start 06/19/17 at 13:00; Status Cancel Info (Review Meds) 1 ea PRN DAILY PRN MC SEE COMMENTS; Start 06/19/17 at 13:15 Sodium Chloride (Normal Saline Flush) 3 ml QSHIFT PRN IV AFTER MEDS AND BLOOD DRAWS; Start 06/19/17 at 13:15 Sodium Chloride 1,000 ml @ 100 mls/hr Q10H IV Last administered on 06/21/17 04:27; Start 06/19/17 at 13:04 Acetaminophen (Acetaminophen Supp) 650 mg PRN Q6HRS PRN [place] FEVER > 100.5'F; Start 06/19/17 at 13:15 Nicardipine HCl 50 mg/Sodium Chloride 270 ml @ 25 mls/hr CONT PRN IV HYPERTENSION, SEE COMMENTS Last administered on 06/19/17 13:15; Start at 13:15 Ondansetron HCl (Zofran) 4 mg PRN Q6HRS PRN IV NAUSEA/VOMITING; Start at 13:15 Pantoprazole Sodium (PROTONIX VIAL for IV PUSH) 40 mg DAILYAC IVP Last administered on 06/21/17 08:40; Start 12/15/17 at 16:30 Info (Do NOT chart on this placeholder) 1 each 1X ONCE MC ; Start 06/19/17 at 16:45; Stop 06/19/17 at 16:46; Status UNV Pneumococcal Polyvalent Vaccine (Do NOT chart on this placeholder) 1 each 1X ONCE MC ; Start 06/19/17 at 16:45; Stop 06/19/17 at 16:46; Status UNV Influenza Virus Vaccine Quadrival (Fluarix Quad [id number] Syringe) 0.5 ml ONCE ONCE VAX IM Last administered on 06/19/17 21:37; Start 06/19/17 at 17:00; Stop 06/19/17 at 17:01; Status DC Hydralazine HCl (Apresoline Inj) 10 mg PRN Q4HRS PRN IVP ELEVATED BP, SEE COMMENTS Last administered on 06/20/17 17:58; Start 06/20/17 at 10:00 Phenazopyridine HCl (Pyridium) 200 mg PRN BID PRN PO URINARY PAIN; Start 06/20 at 20:00 Diazepam (Valium) 5 mg 1X ONCE IV Last administered on 06/20/17 20:26; Start 06/20/17 at 20:15; Stop 06/20/17 at 20:16; Status DC Active Scripts Active Reported Alfuzosin Hcl 10 Mg Tab.er.24h 10 Mg PO DAILY 30 Days Donepezil Hcl 10 Mg Tablet 10 Mg PO DAILY 30 Days Sertraline Hcl 50 Mg Tablet 50 Mg PO DAILY 30 Days Vitals/I & O Vital Sign - Last 24 Hours 06/20/17 06/20/17 06/20/17 06/20/17 11:00 12:00 12:00 13:00 Pulse 58 58 57 Resp 19 19 19 B/P (MAP) 141/52 (81) 149/61 (90) 144/55 (84) Pulse Ox 98 98 97 O2 Delivery Room Air Room Air Room Air Room Air 06/20/17 06/20/17 06/20/17 06/20/17 14:00 15:00 16:00 16:00 Temp 100.2 100.2 Pulse 88 70 66 Resp 21 15 19 B/P (MAP) 146/57 (86) 150/57 (88) 163/69 (100) Pulse Ox 96 98 97 O2 Delivery Room Air Room Air Room Air Room Air 06/20/17 06/20/17 06/20/17 06/20/17 17:00 17:58 18:00 19:00 Temp 98.9 98.9 Pulse 57 67 59 79 Resp 19 19 22 B/P (MAP) 162/66 (98) 166/66 166/66 (99) 153/60 (91) Pulse Ox 98 97 98 O2 Delivery Room Air Room Air Room Air 06/20/17 06/20/17 06/20/17 06/20/17 20:00 20:00 21:00 22:00 Pulse 73 70 61 Resp 21 21 20 B/P (MAP) 157/57 (90) 149/64 (92) 140/58 (85) Pulse Ox 98 97 97 O2 Delivery Room Air Room Air Room Air Room Air 06/20/17 06/21/17 06/21/17 06/21/17 23:00 00:00 00:49 01:00 Temp 99.9 99.9 Pulse 60 59 58 Resp 18 19 20 B/P (MAP) 150/62 (91) 146/57 (86) 142/60 (87) Pulse Ox 97 97 97 O2 Delivery Room Air Room Air Room Air Room Air 06/21/17 06/21/17 06/21/17 06/21/17 02:00 03:00 04:00 04:00 Temp 99.1 98.6 99.1 98.6 Pulse 72 68 69 Resp 19 21 20 B/P (MAP) 138/60 (86) 142/60 (87) 136/61 (86) Pulse Ox 97 96 96 O2 Delivery Room Air Room Air Room Air Room Air 06/21/17 06/21/17 06/21/17 06/21/17 05:00 06:00 07:00 08:00 Temp 99.7 99.7 Pulse 67 59 60 61 Resp 20 19 22 21 B/P (MAP) 136/61 (86) 126/59 (81) 124/65 (84) 138/64 (88) Pulse Ox 96 97 97 97 O2 Delivery Room Air Room Air Room Air Room Air 06/21/17 06/21/17 08:00 09:00 Pulse 56 Resp 20 B/P (MAP) 139/61 (87) Pulse Ox 98 O2 Delivery Room Air Room Air Intake and Output 06/20/17 06/20/17 06/21/17 15:00 23:00 07:00 Intake Total 2096.48 ml 1000 ml Output Total 615 ml 535 ml 825 ml Balance -615 ml 1561.48 ml 175 ml CYNTHIA SAUNDERS MD Jun 21, 2017 10:09
--- NOTE | 2017-06-21 12:15 | RAD ---
CT head without contrast 06/21/2017 Clinical indication: Intracranial hemorrhage. Follow-up. Comparison: CT head 06/20/2017, 06/19/2017. Technique: Multiple CT images of the head were obtained without contrast according to standard protocol. PQRS Compliance Statement: One or more of the following individualized dose reduction techniques were utilized for this examination: 1. Automated exposure control 2. Adjustment of the mA and/or kV according to patient size 3. Use of iterative reconstruction technique Findings: Unchanged size of right frontal intraparenchymal hematoma measuring 5.5 cm, previously 5.5 cm with adjacent vasogenic edema and unchanged resultant 5 mm right to left midline shift. There is unchanged mild high right frontal subarachnoid hemorrhage. There is unchanged partial effacement of the right lateral ventricle. Impression: 1. Stable right frontal intraparenchymal hematoma, adjacent vasogenic edema, and 5 mm right to left midline shift. 2. No significant change in minimal high right frontal subarachnoid hemorrhage.
--- NOTE | 2017-06-21 14:16 | RAD ---
MRA brain without contrast 06/21/2017 CLINICAL INDICATION: Right frontal hematoma. COMPARISON: CT head 06/20/2017. TECHNIQUE: Multisequence, multiplanar MRA imaging of the brain was obtained according to [id number] technique. FINDINGS: There is partial visualization of a large right frontal hematoma measuring 5.7 cm with internal hyperintensity component and peripheral rim of hypointensity. The distal internal carotids, proximal anterior cerebral, middle cerebral, posterior cerebral, V4 segments of the vertebral and basilar arteries are patent. There is no [place] aneurysm identified. IMPRESSION: 1. Patency of the major central intracranial arteries without high-grade narrowing, focal occlusion or aneurysm. 2. Partial visualization of right frontal hematoma with varying stages of blood products. 3. MRA images do not go through the entire hematoma and underlying mass or vascular malformation resulting in the hemorrhage cannot be excluded Electronically signed by: Johnny Pollard MD (06/21/2017 2:13 PM) [id number]
--- NOTE | 2017-06-21 14:31 | PDOC ---
PROGRESS NOTES Subjective Subjective patient seen at approximately 1145 slightly worse today Objective Objective Vital Signs Date Time Temp Pulse Resp B/P (MAP) Pulse Ox O2 Delivery O2 Flow Rate FiO2 06/21/17 13:00 53 18 155/61 (92) 97 Room Air 06/21/17 12:00 98.7 98.7 Intake and Output 06/21/17 07:00 Intake Total 3096.48 ml Output Total 1975 ml Balance 1121.48 ml IV Total 3076.48 ml Blood Product IV Normal Saline Flush 20 ml Output Urine Total 1975 ml Physical Exam Neuro: Other (turns head to left, will squeeze left hand and elevate left arm, speech more impaired today) Assessment Assessment Problems Medical Problems: (1) Dementia Status: Acute (2) Hypertension Status: Acute Plan Plan of Care reviewed MRA- no evidence of aneurysm CT-no significant change, slight increase in brain edema D/W Dr. Damon and Neurosurgery D/W family Continue ICU care F/u CT head in AM Comment Review of Relevant I have reviewed the following items laine (where applicable) has been applied. Labs Laboratory Tests Test 06/19/17 16:00 06/19/17 17:26 06/20/17 04:45 06/21/17 08:45 Nasal Screen MRSA (PCR) Negative (Negative) Urine Collection Type Unknown Urine Color Yellow Urine Clarity Clear Urine pH 7.0 Urine Specific [place] 1.020 Urine Protein Negative mg/dL (NEG-TRACE) Urine Glucose (UA) Negative mg/dL (NEG) Urine Ketones (Stick) Negative mg/dL (NEG) Urine Blood Negative (NEG) Urine Nitrite Negative (NEG) Urine Bilirubin Negative (NEG) Urine Urobilinogen Dipstick 1.0 mg/dL (0.2 mg/dL) Urine Leukocyte Esterase Negative (NEG) Urine RBC 0 /HPF (0-2) Urine WBC Occ /HPF (0-4) Urine Squamous Epithelial Cells Occ /LPF Urine Bacteria 0 /HPF (0-FEW) Urine Mucus Slight /LPF Urine Opiates Screen Neg (NEG) Urine Methadone Screen Neg (NEG) Urine Barbiturates Neg (NEG) Urine Phencyclidine Screen Neg (NEG) Urine Amphetamine/Methamphetamine Neg (NEG) Urine Benzodiazepines Screen Neg (NEG) Urine Cocaine Screen Neg (NEG) Urine Cannabinoids Screen Neg (NEG) Urine Ethyl Alcohol Neg (NEG) Triglycerides Level 99 mg/dL (0-150) Cholesterol Level 211 mg/dL (0-200) LDL Cholesterol, Calculated 144 mg/dL (0-100) VLDL Cholesterol, Calculated 20 mg/dL (0-40) Non-HDL Cholesterol Calculated 164 mg/dL (0-129) HDL Cholesterol 47 mg/dL (40-60) Cholesterol/HDL Ratio 4.5 Hemoglobin 13.6 g/dL (13.0-17.5) Hematocrit 40.1 % (39.0-53.0) Mean Corpuscular Hemoglobin Concent 34 g/dL (31-37) Laboratory Tests Test 06/21/17 08:45 Hemoglobin 13.6 g/dL (13.0-17.5) Hematocrit 40.1 % (39.0-53.0) Mean Corpuscular Hemoglobin Concent 34 g/dL (31-37) Medications Current Medications Sodium Chloride 1,000 ml @ 125 mls/hr Q8H IV Last administered on 06/19/17 13:02; Start 06/19/17 at 12:51; Stop 06/19/17 at 20:50; Status DC Nicardipine HCl 50 mg/Sodium Chloride 270 ml @ 0 mls/hr CONT PRN IV SEE I/O RECORD; Start 06/19/17 at 13:00; Status Cancel Info (Review Meds) 1 ea PRN DAILY PRN MC SEE COMMENTS; Start 06/19/17 at 13:15 Sodium Chloride (Normal Saline Flush) 3 ml QSHIFT PRN IV AFTER MEDS AND BLOOD DRAWS; Start 06/19/17 at 13:15 Sodium Chloride 1,000 ml @ 100 mls/hr Q10H IV Last administered on 06/21/17 04:27; Start 06/19/17 at 13:04 Acetaminophen (Acetaminophen Supp) 650 mg PRN Q6HRS PRN [place] FEVER > 100.5'F; Start 06/19/17 at 13:15 Nicardipine HCl 50 mg/Sodium Chloride 270 ml @ 25 mls/hr CONT PRN IV HYPERTENSION, SEE COMMENTS Last administered on 06/19/17 13:15; Start at 13:15 Ondansetron HCl (Zofran) 4 mg PRN Q6HRS PRN IV NAUSEA/VOMITING; Start at 13:15 Pantoprazole Sodium (PROTONIX VIAL for IV PUSH) 40 mg DAILYAC IVP Last administered on 06/21/17 08:40; Start 06/19/17 at 16:30 Info (Do NOT chart on this placeholder) 1 each 1X ONCE MC ; Start 06/19/17 at 16:45; Stop 06/19/17 at 16:46; Status UNV Pneumococcal Polyvalent Vaccine (Do NOT chart on this placeholder) 1 each 1X ONCE MC ; Start 06/19/17 at 16:45; Stop 06/19/17 at 16:46; Status UNV Influenza Virus Vaccine Quadrival (Fluarix Quad Syringe) 0.5 ml ONCE ONCE VAX IM Last administered on 06/19/17 21:37; Start 06/19/17 at 17:00; Stop 06/19/17 at 17:01; Status DC Hydralazine HCl (Apresoline Inj) 10 mg PRN Q4HRS PRN IVP ELEVATED BP, SEE COMMENTS Last administered on 06/20/17 17:58; Start 06/20/17 at 10:00 Phenazopyridine HCl (Pyridium) 200 mg PRN BID PRN PO URINARY PAIN; Start 06/20 at 20:00 Diazepam (Valium) 5 mg 1X ONCE IV Last administered on 06/20/17 20:26; Start 06/20/17 at 20:15; Stop 06/20/17 at 20:16; Status DC Influenza Virus Vaccine Quadrival (Fluarix Quad Syringe) 0.5 ml ONCE ONCE VAX IM ; Start 06/23/17 at 09:00; Stop 06/23/17 at 09:01; Status UNV Active Scripts Active Reported Alfuzosin Hcl 10 Mg Tab.er.24h 10 Mg PO DAILY 30 Days Donepezil Hcl 10 Mg Tablet 10 Mg PO DAILY 30 Days Sertraline Hcl 50 Mg Tablet 50 Mg PO DAILY 30 Days Vitals/I & O Vital Sign - Last 24 Hours 06/20/17 06/20/17 06/20/17 06/20/17 15:00 16:00 16:00 17:00 Temp 100.2 100.2 Pulse 70 66 57 Resp 15 19 19 B/P (MAP) 150/57 (88) 163/69 (100) 162/66 (98) Pulse Ox 98 97 98 O2 Delivery Room Air Room Air Room Air Room Air 06/20/17 06/20/17 06/20/17 06/20/17 17:58 18:00 19:00 20:00 Temp 98.9 98.9 Pulse 67 59 79 73 Resp 19 22 21 B/P (MAP) 166/66 166/66 (99) 153/60 (91) 157/57 (90) Pulse Ox 97 98 98 O2 Delivery Room Air Room Air Room Air 06/20/17 06/20/17 06/20/17 06/20/17 20:00 21:00 22:00 23:00 Temp 99.9 99.9 Pulse 70 61 60 Resp 21 20 18 B/P (MAP) 149/64 (92) 140/58 (85) 150/62 (91) Pulse Ox 97 97 97 O2 Delivery Room Air Room Air Room Air Room Air 06/21/17 06/21/17 06/21/17 06/21/17 00:00 00:49 01:00 02:00 Temp 99.1 99.1 Pulse 59 58 72 Resp 19 20 19 B/P (MAP) 146/57 (86) 142/60 (87) 138/60 (86) Pulse Ox 97 97 97 O2 Delivery Room Air Room Air Room Air Room Air 06/21/17 06/21/17 06/21/17 06/21/17 03:00 04:00 04:00 05:00 Temp 98.6 98.6 Pulse 68 69 67 Resp 21 20 20 B/P (MAP) 142/60 (87) 136/61 (86) 136/61 (86) Pulse Ox 96 96 96 O2 Delivery Room Air Room Air Room Air Room Air 06/21/17 06/21/17 06/21/17 06/21/17 06:00 07:00 08:00 08:00 Temp 99.7 99.7 Pulse 59 60 61 Resp 19 22 21 B/P (MAP) 126/59 (81) 124/65 (84) 138/64 (88) Pulse Ox 97 97 97 O2 Delivery Room Air Room Air Room Air Room Air 06/21/17 06/21/17 06/21/17 06/21/17 09:00 10:00 11:00 12:00 Temp 98.7 98.7 Pulse 56 55 57 56 Resp 20 18 20 18 B/P (MAP) 139/61 (87) 136/64 (88) 154/60 (91) 153/60 (91) Pulse Ox 98 98 99 97 O2 Delivery Room Air Room Air Room Air Room Air 06/21/17 06/21/17 12:00 13:00 Pulse 53 Resp 18 B/P (MAP) 155/61 (92) Pulse Ox 97 O2 Delivery Room Air Room Air Intake and Output 06/20/17 06/20/17 06/21/17 15:00 23:00 07:00 Intake Total 2096.48 ml 1000 ml Output Total 615 ml 535 ml 825 ml Balance -615 ml 1561.48 ml 175 ml INÉS URBINA MD Jun 21, 2017 14:31
--- NOTE | 2017-06-21 16:11 | CARD ---
APPROVED REPORT EXAM: Two-dimensional and M-mode echocardiogram with Doppler and color Doppler. Other Information Quality : FairHR: 67bpm Rhythm : + INDICATION Stroke 2D DIMENSIONS Left Atrium(2D)3.6 (1.6-4.0cm)IVSd1.0 (0.7-1.1cm) Aortic Root(2D)3.1 (2.0-3.7cm)LVDd3.9 (3.9-5.9cm) LVOT Diameter2.6 (1.8-2.4cm)PWd1.1 (0.7-1.1cm) LVDs2.6 (2.5-4.0cm)FS (%) 33.5 % SV41.8 mlLVEF(%)62.9 (>50%) CO2.5 L/min Aortic Valve AoV Peak Rayo.113.1cm/sAoV VTI21.5cm AO Peak GR.5.1mmHgLVOT VTI 18.75cm AO Mean GR.3mmHg Mitral Valve MV E Njclznva09.2cm/sMV DECEL [id number] MV A Qmcodfbv00.6cm/sE/A Ratio1.0 MV A [id number] TDI Lateral E' P. V9.09cm/sMedial E' P. V6.90cm/s E/Lateral E'7.8E/Medial E'10.3 Pulmonary Valve PV Peak Sohhlizm69.0cm/s Tricuspid Valve TR P. Mzpqzdri589mw/sTR Peak Gr.28mmHg Pulmonary Vein S1 Atpadmns83.3cm/sS2 Jrdgqxyp23.62cm/s D2 Qjxxbzsg48.6cm/s LEFT VENTRICLE The left ventricle is normal size. There is normal left ventricular wall thickness. The left ventricu lar systolic function is normal and the ejection fraction is within normal range. LV ejection fractio n is 55-60%. There is normal LV segmental wall motion. No left ventricle thrombus noted on this study . There is no ventricular septal defect visualized. There is no left ventricular aneurysm. There is n o mass noted in the left ventricle. RIGHT VENTRICLE The right ventricle is normal size. There is normal right ventricular wall thickness. The right ventr icular systolic function is normal. ATRIA The left atrium size is normal. The right atrium size is normal. The interatrial septum is intact wit h no evidence for an atrial septal defect or patent foramen ovale as noted on 2-D or Doppler imaging. AORTIC VALVE The aortic valve is normal in structure and function. Doppler and Color Flow revealed no significant aortic regurgitation. There is no significant aortic valvular stenosis. There is no aortic valvular v egetation. MITRAL VALVE The mitral valve is normal in structure and function. There is no evidence of mitral valve prolapse. There is no mitral valve stenosis. Doppler and Color Flow revealed trace mitral valve regurgitation. TRICUSPID VALVE The tricuspid valve is normal in structure and function. Doppler and Color Flow revealed trace tricus pid regurgitation. There is no tricuspid valve prolapse or vegetation. There is no tricuspid valve st enosis. PULMONIC VALVE The pulmonary valve is normal in structure and function. Doppler and Color Flow revealed trace pulmon ic valvular regurgitation. There is no pulmonic valvular stenosis. GREAT VESSELS The aortic root is normal in size. The IVC is normal in size and collapses >50% with inspiration. PERICARDIAL EFFUSION There is no pleural effusion. There is no evidence of significant pericardial effusion. Critical Notification Critical Value: No <Conclusion> The left ventricle is normal size. The left ventricular systolic function is normal and the ejection fraction is within normal range. LV ejection fraction is 55-60%. The interatrial septum is intact with no evidence for an atrial septal defect or patent foramen ovale as noted on 2-D or Doppler imaging. There is no significant aortic valvular stenosis. Doppler and Color Flow revealed no significant aortic regurgitation. Doppler and Color Flow revealed trace mitral valve regurgitation. Doppler and Color Flow revealed trace tricuspid regurgitation.
--- NOTE | 2017-06-21 17:00 | PDOC ---
PROGRESS NOTES Assessment Problems Medical Problems: (1) Dementia Status: Acute (2) Hypertension Status: Acute Problems: Plan Plan Acute right frontal lobe hemorrhage Repeat CT finding discussed with worsening finding on interval scan Left side hemiplegia. Metabolic encephalopathy. ?Cerebral amyloid disease DM HTN Dementia. RECOMMENDATIONS/PLAN: Close monitoring Treat medical diseases. Avoid antiplatelet and anticoagulant agent at the present time. Carotid A US + Doppler. Echo. neuro sx recs Discussed with his daughters in detail in detail. General appearance is in acute distress. HEENT: Normocephalic and nontraumatic. Eyes, nose, ears, and throat are unremarkable. Neck is supple. No lymphadenopathy. No crepitus. Cardiovascular: S1, S2, seemed regular rate and rhythm. Pulmonary: relative clear to auscultation bilaterally. Abdomen: Bowel sounds are positive. Abdomen is soft, nontender, and nondistended. Extremities: No rash, lesions, or edema. NEUROLOGICAL EXAMINATION: Drowsiness. Not fully oriented to time, place but knows person. PERRL. EOMI but slow. CN: Left central VII palsy. Muscle tone: Mildly decreased in left Ue. Muscle strength: 3+ left side, 5 right side. DTR: 2- Plantar reflex: Neutral response bilaterally Gait: Unable to walk. Sensory exam: no abnormal findings. No acute cerebellar signs elicited. F-T-N test not performed due to not follow commands well Subjective no izures noted, no cp , sob, n, v Objective Vital Signs Date Time Temp Pulse Resp B/P (MAP) Pulse Ox O2 Delivery O2 Flow Rate FiO2 06/21/17 16:00 100.5 57 17 152/68 (96) 96 Room Air 100.5 Intake and Output 06/21/17 07:00 Intake Total 3096.48 ml Output Total 1975 ml Balance 1121.48 ml IV Total 3076.48 ml Blood Product IV Normal Saline Flush 20 ml Output Urine Total 1975 ml PHYSICAL EXAM General sleepy HEENT: Normocephalic and nontraumatic. Eyes, nose, ears, and throat are unremarkable. Neck is supple. No lymphadenopathy. No crepitus. Cardiovascular: S1, S2, seemed regular rate and rhythm. Pulmonary: relative clear to auscultation bilaterally. Abdomen: Bowel sounds are positive. Abdomen is soft, nontender, and nondistended. Extremities: No rash, lesions, or edema. NEUROLOGICAL EXAMINATION: Drowsiness. Not fully oriented to time, place but knows person. PERRL. able to trac stimuli CN: Left central VII palsy. Muscle tone: Mildly decreased in left Ue. Muscle strength:minimal response left side,able move right side. DTR: 1+ Plantar reflex: Neutral response bilaterally Gait: not able Sensory exam:dc onleft side abnormal findings. No acute cerebellar signs elicited. F-T-N test not able Review of Relevant I have reviewed the following items laine (where applicable) has been applied. Labs Laboratory Tests Test 06/19/17 17:26 06/20/17 04:45 06/21/17 08:45 Urine Collection Type Unknown Urine Color Yellow Urine Clarity Clear Urine pH 7.0 Urine Specific [place] 1.020 Urine Protein Negative mg/dL (NEG-TRACE) Urine Glucose (UA) Negative mg/dL (NEG) Urine Ketones (Stick) Negative mg/dL (NEG) Urine Blood Negative (NEG) Urine Nitrite Negative (NEG) Urine Bilirubin Negative (NEG) Urine Urobilinogen Dipstick 1.0 mg/dL (0.2 mg/dL) Urine Leukocyte Esterase Negative (NEG) Urine RBC 0 /HPF (0-2) Urine WBC Occ /HPF (0-4) Urine Squamous Epithelial Cells Occ /LPF Urine Bacteria 0 /HPF (0-FEW) Urine Mucus Slight /LPF Urine Opiates Screen Neg (NEG) Urine Methadone Screen Neg (NEG) Urine Barbiturates Neg (NEG) Urine Phencyclidine Screen Neg (NEG) Urine Amphetamine/Methamphetamine Neg (NEG) Urine Benzodiazepines Screen Neg (NEG) Urine Cocaine Screen Neg (NEG) Urine Cannabinoids Screen Neg (NEG) Urine Ethyl Alcohol Neg (NEG) Triglycerides Level 99 mg/dL (0-150) Cholesterol Level 211 mg/dL (0-200) LDL Cholesterol, Calculated 144 mg/dL (0-100) VLDL Cholesterol, Calculated 20 mg/dL (0-40) Non-HDL Cholesterol Calculated 164 mg/dL (0-129) HDL Cholesterol 47 mg/dL (40-60) Cholesterol/HDL Ratio 4.5 Hemoglobin 13.6 g/dL (13.0-17.5) Hematocrit 40.1 % (39.0-53.0) Mean Corpuscular Hemoglobin Concent 34 g/dL (31-37) Laboratory Tests Test 06/21/17 08:45 Hemoglobin 13.6 g/dL (13.0-17.5) Hematocrit 40.1 % (39.0-53.0) Mean Corpuscular Hemoglobin Concent 34 g/dL (31-37) Medications Current Medications Sodium Chloride 1,000 ml @ 125 mls/hr Q8H IV Last administered on 06/19/17 13:02; Start 06/19/17 at 12:51; Stop 06/19/17 at 20:50; Status DC Nicardipine HCl 50 mg/Sodium Chloride 270 ml @ 0 mls/hr CONT PRN IV SEE I/O RECORD; Start 06/19/17 at 13:00; Status Cancel Info (Review Meds) 1 ea PRN DAILY PRN MC SEE COMMENTS; Start 06/19/17 at 13:15 Sodium Chloride (Normal Saline Flush) 3 ml QSHIFT PRN IV AFTER MEDS AND BLOOD DRAWS; Start 06/19/17 at 13:15 Sodium Chloride 1,000 ml @ 100 mls/hr Q10H IV Last administered on 06/21/17 14:51; Start 06/19/17 at 13:04 Acetaminophen (Acetaminophen Supp) 650 mg PRN Q6HRS PRN [place] FEVER > 100.5'F; Start 06/19/17 at 13:15 Nicardipine HCl 50 mg/Sodium Chloride 270 ml @ 25 mls/hr CONT PRN IV HYPERTENSION, SEE COMMENTS Last administered on 06/19/17 13:15; Start at 13:15 Ondansetron HCl (Zofran) 4 mg PRN Q6HRS PRN IV NAUSEA/VOMITING; Start at 13:15 Pantoprazole Sodium (PROTONIX VIAL for IV PUSH) 40 mg DAILYAC IVP Last administered on 06/21/17 08:40; Start 06/19/17 at 16:30 Info (Do NOT chart on this placeholder) 1 each 1X ONCE MC ; Start 06/19/17 at 16:45; Stop 06/19/17 at 16:46; Status UNV Pneumococcal Polyvalent Vaccine (Do NOT chart on this placeholder) 1 each 1X ONCE MC ; Start 06/19/17 at 16:45; Stop 06/19/17 at 16:46; Status UNV Influenza Virus Vaccine Quadrival (Fluarix Quad [id number] Syringe) 0.5 ml ONCE ONCE VAX IM Last administered on 06/19/17 21:37; Start 06/19/17 at 17:00; Stop 06/19/17 at 17:01; Status DC Hydralazine HCl (Apresoline Inj) 10 mg PRN Q4HRS PRN IVP ELEVATED BP, SEE COMMENTS Last administered on 06/20/17t 17:58; Start 06/20/17 at 10:00 Phenazopyridine HCl (Pyridium) 200 mg PRN BID PRN PO URINARY PAIN; Start 06/20 at 20:00 Diazepam (Valium) 5 mg 1X ONCE IV Last administered on 06/20/17t 20:26; Start 06/20/17 at 20:15; Stop 06/20/17 at 20:16; Status DC Influenza Virus Vaccine Quadrival (Fluarix Quad Syringe) 0.5 ml ONCE ONCE VAX IM ; Start 06/23/17 at 09:00; Stop 06/23/17 at 09:01; Status UNV Active Scripts Active Reported Alfuzosin Hcl 10 Mg Tab.er.24h 10 Mg PO DAILY 30 Days Donepezil Hcl 10 Mg Tablet 10 Mg PO DAILY 30 Days Sertraline Hcl 50 Mg Tablet 50 Mg PO DAILY 30 Days Vitals/I & O Vital Sign - Last 24 Hours 06/20/17 06/20/17 06/20/17 06/20/17 17:00 17:58 18:00 19:00 Temp 98.9 98.9 Pulse 57 67 59 79 Resp 19 19 22 B/P (MAP) 162/66 (98) 166/66 166/66 (99) 153/60 (91) Pulse Ox 98 97 98 O2 Delivery Room Air Room Air Room Air 06/20/17 06/20/17 06/20/17 06/20/17 20:00 20:00 21:00 22:00 Pulse 73 70 61 Resp 21 21 20 B/P (MAP) 157/57 (90) 149/64 (92) 140/58 (85) Pulse Ox 98 97 97 O2 Delivery Room Air Room Air Room Air Room Air 06/20/17 06/21/17 06/21/17 06/21/17 23:00 00:00 00:49 01:00 Temp 99.9 99.9 Pulse 60 59 58 Resp 18 19 20 B/P (MAP) 150/62 (91) 146/57 (86) 142/60 (87) Pulse Ox 97 97 97 O2 Delivery Room Air Room Air Room Air Room Air 06/21/17 06/21/17 06/21/17 06/21/17 02:00 03:00 04:00 04:00 Temp 99.1 98.6 99.1 98.6 Pulse 72 68 69 Resp 19 21 20 B/P (MAP) 138/60 (86) 142/60 (87) 136/61 (86) Pulse Ox 97 96 96 O2 Delivery Room Air Room Air Room Air Room Air 06/21/17 06/21/17 06/21/17 06/21/17 05:00 06:00 07:00 08:00 Temp 99.7 99.7 Pulse 67 59 60 61 Resp 20 19 22 21 B/P (MAP) 136/61 (86) 126/59 (81) 124/65 (84) 138/64 (88) Pulse Ox 96 97 97 97 O2 Delivery Room Air Room Air Room Air Room Air 06/21/17 06/21/17 06/21/17 06/21/17 08:00 09:00 10:00 11:00 Pulse 56 55 57 Resp 20 18 20 B/P (MAP) 139/61 (87) 136/64 (88) 154/60 (91) Pulse Ox 98 98 99 O2 Delivery Room Air Room Air Room Air Room Air 06/21/17 06/21/17 06/21/17 06/21/17 12:00 12:00 13:00 14:00 Temp 98.7 98.7 Pulse 56 53 64 Resp 18 18 21 B/P (MAP) 153/60 (91) 155/61 (92) 138/63 (88) Pulse Ox 97 97 97 O2 Delivery Room Air Room Air Room Air Room Air 06/21/17 06/21/17 06/21/17 15:00 16:00 16:00 Temp 100.5 100.5 Pulse 55 57 Resp 17 B/P (MAP) 140/83 (102) 152/68 (96) Pulse Ox 98 96 O2 Delivery Room Air Room Air Room Air Intake and Output 06/20/17 06/20/17 06/21/17 15:00 23:00 07:00 Intake Total 2096.48 ml 1000 ml Output Total 615 ml 535 ml 825 ml Balance -615 ml 1561.48 ml 175 ml DARRYL COVARRUBIAS MD Jun 21, 2017 17:00
[2017-06-22] VITALS (15 sets, daily range): BP systolic 128–158; BP diastolic 53–86
[2017-06-22] MEDS: IV NORMAL SALINE 1000ML BAG 1,000 ML IV SCH (09:12)
[2017-06-22] MEDS: PANTOPRAZOLE IV PUSH 40 MG VIAL. IVP SCH (09:36)
--- NOTE | 2017-06-22 10:18 | RAD ---
CT scan of the head without contrast 06/22/2017 Clinical history: Follow-up intracranial hemorrhage. Technique: Unenhanced, contiguous, 5 mm axial sections were obtained through the head. One or more of the following individualized dose reduction techniques were utilized for this study: 1. Automated exposure control. 2. Adjustment of the mA and/or kV according to patient size. 3. Use of iterative reconstruction technique. Findings: There is a studies dated 06/21/2017. An acute intraparenchymal hematoma is seen involving the right frontal temporal lobe. It measures 5.7 x 3.8 x 5 cm in AP, transverse and craniocaudal dimensions. It appears to decreased slightly in size since the previous examination where it measured 6.6 x 3.9 x 5 cm in size. There is surrounding edema and associated mass effect which have not significantly changed. The right lateral ventricle is effaced. Right to left midline shift of 5 mm is again seen. no additional acute parenchymal abnormality is seen. Small amount of subarachnoid hemorrhage is seen in the right frontal region, unchanged. No skull fracture is seen. Impression: Slight interval decrease in size of the hematoma involving the right frontal temporal lobe. There is surrounding edema and associated mass effect with right to left midline shift of 5 mm, unchanged.
--- NOTE | 2017-06-22 10:19 | PDOC ---
PROGRESS NOTES Chief Complaint Chief Complaint Worsening Hemorrhagic stroke, 5 cm greatest diam with inc swelling and midline shift and effacement Rt lateral ventricle Accelerated hypertension, not needing anti hypertensive gtt Dementia on Aricept DNR./DNI History of Present Illness History of Present Illness Seen in ICU About the same neurologically or daughter is not at bedside Patient able to elevate against gravity both upper and lower right side, some difficulty with the left upper and left lower extremity Shallow left nasolabial fold Able to stick out tongue Denies any headache Blood pressure controlled - not needing any blood pressure drip CAT scan yesterday 06/21/17 showed stable findings. Patient has had repeat interval CAT scan today results are still pending MRI results noted, no aneurysm, case also discussed with Dr. Avalos extensively yesterday Plan: Await CAT scan today [facility] NURSE intermittent eval May decrease IV fluids to 80 mL an hour, has gotten 8 bags so far Vitals Vitals Vital Signs Date Time Temp Pulse Resp B/P (MAP) Pulse Ox O2 Delivery O2 Flow Rate FiO2 06/22/17 10:00 51 19 138/59 (85) 98 Room Air 06/22/17 08:00 99.8 99.8 Physical Exam General: Other (drowsy but able to protect airway) Heart: Regular rate Lungs: Clear Abdomen: Normal bowel sounds Extremities: No clubbing, No cyanosis, No edema, Normal pulses, No tenderness/ swelling Skin: No rashes, No breakdown, No significant lesion Review of Systems Review of Systems Limited because of acute hemorrhagic stroke, but he denies headache A 14 point ROS was completed with the following noted as positive: Other systems reviewed and negative. \CONSTITUTIONAL: No fever or chills EYES: No recent changes SKIN: No rash or itching CARDIOVASCULAR: No chest pain, syncope, palpitations, or edema RESPIRATORY: No SOB or cough GASTROINTESTINAL: No nausea, vomiting or abdominal pain NEUROLOGICAL: No headaches or weakness ENDOCRINE: No cold or heat intolerance GENITOURINARY: No urgency or frequency of urination MUSCULOSKELETAL: No back pain or joint pain LYMPHATICS: No enlarged lymph nodes PSYCHIATRIC: No anxiety or depression Assessment and Plan Assessmemt and Plan Problems Medical Problems: (1) Dementia Status: Acute (2) Hypertension Status: Acute Problems: Comment Review of Relevant I have reviewed the following items laine (where applicable) has been applied. Labs Laboratory Tests Test 06/21/17 08:45 Hemoglobin 13.6 g/dL (13.0-17.5) Hematocrit 40.1 % (39.0-53.0) Mean Corpuscular Hemoglobin Concent 34 g/dL (31-37) Medications Current Medications Sodium Chloride 1,000 ml @ 125 mls/hr Q8H IV Last administered on 06/19/17 13:02; Start 06/19/17 at 12:51; Stop 06/19/17 at 20:50; Status DC Nicardipine HCl 50 mg/Sodium Chloride 270 ml @ 0 mls/hr CONT PRN IV SEE I/O RECORD; Start 06/19/17 at 13:00; Status Cancel Info (Review Meds) 1 ea PRN DAILY PRN MC SEE COMMENTS; Start 06/19/17 at 13:15 Sodium Chloride (Normal Saline Flush) 3 ml QSHIFT PRN IV AFTER MEDS AND BLOOD DRAWS; Start 06/19/17 at 13:15 Sodium Chloride 1,000 ml @ 80 mls/hr [id number] IV Last administered on 09:12; Start 06/19/17 at 13:04 Acetaminophen (Acetaminophen Supp) 650 mg PRN Q6HRS PRN [place] FEVER > 100.5'F; Start 06/19/17 at 13:15 Nicardipine HCl 50 mg/Sodium Chloride 270 ml @ 25 mls/hr CONT PRN IV HYPERTENSION, SEE COMMENTS Last administered on 06/19/17 13:15; Start at 13:15 Ondansetron HCl (Zofran) 4 mg PRN Q6HRS PRN IV NAUSEA/VOMITING; Start at 13:15 Pantoprazole Sodium (PROTONIX VIAL for IV PUSH) 40 mg DAILYAC IVP Last administered on 06/22/17 09:36; Start 06/19/17 at 16:30 Info (Do NOT chart on this placeholder) 1 each 1X ONCE MC ; Start 06/19/17 at 16:45; Stop 06/19/17 at 16:46; Status UNV Pneumococcal Polyvalent Vaccine (Do NOT chart on this placeholder) 1 each 1X ONCE MC ; Start 06/19/17 at 16:45; Stop 06/19/17 at 16:46; Status UNV Influenza Virus Vaccine Quadrival (Fluarix Quad [id number] Syringe) 0.5 ml ONCE ONCE VAX IM Last administered on 06/19/17t 21:37; Start 06/19/17 at 17:00; Stop 06/19/17 at 17:01; Status DC Hydralazine HCl (Apresoline Inj) 10 mg PRN Q4HRS PRN IVP ELEVATED BP, SEE COMMENTS Last administered on 06/20/17t 17:58; Start 06/20/17 at 10:00 Phenazopyridine HCl (Pyridium) 200 mg PRN BID PRN PO URINARY PAIN; Start 06/20 at 20:00 Diazepam (Valium) 5 mg 1X ONCE IV Last administered on 06/20/17t 20:26; Start 06/20/17 at 20:15; Stop 06/20/17 at 20:16; Status DC Influenza Virus Vaccine Quadrival (Fluarix Quad Syringe) 0.5 ml ONCE ONCE VAX IM ; Start 06/23/17 at 09:00; Stop 06/23/17 at 09:01; Status UNV Active Scripts Active Reported Alfuzosin Hcl 10 Mg Tab.er.24h 10 Mg PO DAILY 30 Days Donepezil Hcl 10 Mg Tablet 10 Mg PO DAILY 30 Days Sertraline Hcl 50 Mg Tablet 50 Mg PO DAILY 30 Days Vitals/I & O Vital Sign - Last 24 Hours 06/21/17 06/21/17 06/21/17 06/21/17 11:00 12:00 12:00 13:00 Temp 98.7 98.7 Pulse 57 56 53 Resp 20 18 18 B/P (MAP) 154/60 (91) 153/60 (91) 155/61 (92) Pulse Ox 99 97 97 O2 Delivery Room Air Room Air Room Air Room Air 06/21/17 06/21/17 06/21/17 06/21/17 14:00 15:00 16:00 16:00 Temp 100.5 100.5 Pulse 64 55 57 Resp 21 22 17 B/P (MAP) 138/63 (88) 140/83 (102) 152/68 (96) Pulse Ox 97 98 96 O2 Delivery Room Air Room Air Room Air Room Air 06/21/17 06/21/17 06/21/17 06/21/17 17:00 18:00 19:00 20:00 Temp 99.5 99.5 Pulse 57 56 54 70 Resp 21 22 20 25 B/P (MAP) 150/65 (93) 151/65 (93) 151/63 (92) 164/71 (102) Pulse Ox 97 97 97 98 O2 Delivery Room Air Room Air Room Air Room Air 06/21/17 06/21/17 06/21/17 06/21/17 20:00 21:00 22:00 23:00 Pulse 70 58 58 Resp 22 21 19 B/P (MAP) 151/69 (96) 162/66 (98) 152/64 (93) Pulse Ox 98 98 98 O2 Delivery Room Air Room Air Room Air Room Air 06/21/17 06/22/17 06/22/17 06/22/17 23:59 00:00 01:00 02:00 Temp 99.1 99.1 Pulse 68 52 53 Resp 21 18 15 B/P (MAP) 158/65 (96) 145/60 (88) 140/54 (82) Pulse Ox 97 98 98 O2 Delivery Room Air Room Air Room Air Room Air 06/22/17 06/22/17 06/22/17 06/22/17 03:00 04:00 04:00 05:00 Temp 99.0 99.0 Pulse 54 52 50 Resp 17 16 17 B/P (MAP) 140/56 (84) 131/53 (79) 134/54 (80) Pulse Ox 98 96 97 O2 Delivery Room Air Room Air Room Air Room Air 06/22/17 06/22/17 06/22/17 06/22/17 06:00 07:00 08:00 08:00 Temp 99.8 99.8 Pulse 54 53 53 Resp 19 29 14 B/P (MAP) 128/63 (84) 136/58 (84) 141/58 (85) Pulse Ox 97 97 97 O2 Delivery Room Air Room Air Room Air Room Air 06/22/17 06/22/17 09:00 10:00 Pulse 53 51 Resp 18 19 B/P (MAP) 140/56 (84) 138/59 (85) Pulse Ox 98 98 O2 Delivery Room Air Room Air Intake and Output 06/21/17 06/21/17 06/22/17 15:00 23:00 07:00 Intake Total 1280.7 ml 1208 ml Output Total 430 ml 550 ml 1315 ml Balance -430 ml 730.7 ml -107 ml TERMULO,CYNTHIA Y MD Jun 22, 2017 10:19
--- NOTE | 2017-06-22 10:56 | PDOC ---
PROGRESS NOTES Subjective Subjective patient seen more alert today Objective Objective Vital Signs Date Time Temp Pulse Resp B/P (MAP) Pulse Ox O2 Delivery O2 Flow Rate FiO2 06/22/17 10:00 51 19 138/59 (85) 98 Room Air 06/22/17 08:00 99.8 99.8 Intake and Output 06/22/17 07:00 Intake Total 2488.7 ml Output Total 2295 ml Balance 193.7 ml IV Total 2488.7 ml Output Urine Total 2295 ml Physical Exam General: Other (more talkative today) Neuro: Other (left hemiparesis, follows some commands) Assessment Assessment Problems Medical Problems: (1) Dementia Status: Acute (2) Hypertension Status: Acute Plan Plan of Care CT head stable to slightly improved ok to transfer to floor from NS standpoint Consult Dr. Azul D/W and RN Comment Review of Relevant I have reviewed the following items laine (where applicable) has been applied. Labs Laboratory Tests Test 06/21/17 08:45 Hemoglobin 13.6 g/dL (13.0-17.5) Hematocrit 40.1 % (39.0-53.0) Mean Corpuscular Hemoglobin Concent 34 g/dL (31-37) Medications Current Medications Sodium Chloride 1,000 ml @ 125 mls/hr Q8H IV Last administered on 06/19/17 13:02; Start 06/19/17 at 12:51; Stop 06/19/17 at 20:50; Status DC Nicardipine HCl 50 mg/Sodium Chloride 270 ml @ 0 mls/hr CONT PRN IV SEE I/O RECORD; Start 06/19/17 at 13:00; Status Cancel Info (Review Meds) 1 ea PRN DAILY PRN MC SEE COMMENTS; Start 06/19/17 at 13:15 Sodium Chloride (Normal Saline Flush) 3 ml QSHIFT PRN IV AFTER MEDS AND BLOOD DRAWS; Start 06/19/17 at 13:15 Sodium Chloride 1,000 ml @ 80 mls/hr [id number] IV Last administered on 09:12; Start 06/19/17 at 13:04 Acetaminophen (Acetaminophen Supp) 650 mg PRN Q6HRS PRN [place] FEVER > 100.5'F; Start 06/19/17 at 13:15 Nicardipine HCl 50 mg/Sodium Chloride 270 ml @ 25 mls/hr CONT PRN IV HYPERTENSION, SEE COMMENTS Last administered on 06/19/17 13:15; Start at 13:15 Ondansetron HCl (Zofran) 4 mg PRN Q6HRS PRN IV NAUSEA/VOMITING; Start at 13:15 Pantoprazole Sodium (PROTONIX VIAL for IV PUSH) 40 mg DAILYAC IVP Last administered on 06/22/17 09:36; Start 06/19/17 at 16:30 Info (Do NOT chart on this placeholder) 1 each 1X ONCE MC ; Start 06/19/17 at 16:45; Stop 06/19/17 at 16:46; Status UNV Pneumococcal Polyvalent Vaccine (Do NOT chart on this placeholder) 1 each 1X ONCE MC ; Start 06/19/17 at 16:45; Stop 06/19/17 at 16:46; Status UNV Influenza Virus Vaccine Quadrival (Fluarix Quad Syringe) 0.5 ml ONCE ONCE VAX IM Last administered on 06/19/17 21:37; Start 06/19/17 at 17:00; Stop 06/19/17 at 17:01; Status DC Hydralazine HCl (Apresoline Inj) 10 mg PRN Q4HRS PRN IVP ELEVATED BP, SEE COMMENTS Last administered on 06/20/17 17:58; Start 06/20/17 at 10:00 Phenazopyridine HCl (Pyridium) 200 mg PRN BID PRN PO URINARY PAIN; Start 06/20 at 20:00 Diazepam (Valium) 5 mg 1X ONCE IV Last administered on 06/20/17 20:26; Start 06/20/17 at 20:15; Stop 06/20/17 at 20:16; Status DC Influenza Virus Vaccine Quadrival (Fluarix Quad Syringe) 0.5 ml ONCE ONCE VAX IM ; Start 06/23/17 at 09:00; Stop 06/23/17 at 09:01; Status UNV Active Scripts Active Reported Alfuzosin Hcl 10 Mg Tab.er.24h 10 Mg PO DAILY 30 Days Donepezil Hcl 10 Mg Tablet 10 Mg PO DAILY 30 Days Sertraline Hcl 50 Mg Tablet 50 Mg PO DAILY 30 Days Vitals/I & O Vital Sign - Last 24 Hours 06/21/17 06/21/17 06/21/17 06/21/17 11:00 12:00 12:00 13:00 Temp 98.7 98.7 Pulse 57 56 53 Resp 20 18 18 B/P (MAP) 154/60 (91) 153/60 (91) 155/61 (92) Pulse Ox 99 97 97 O2 Delivery Room Air Room Air Room Air Room Air 06/21/17 06/21/17 06/21/17 06/21/17 14:00 15:00 16:00 16:00 Temp 100.5 100.5 Pulse 64 55 57 Resp 17 B/P (MAP) 138/63 (88) 140/83 (102) 152/68 (96) Pulse Ox 97 98 96 O2 Delivery Room Air Room Air Room Air Room Air 06/21/17 06/21/17 06/21/17 06/21/17 17:00 18:00 19:00 20:00 Temp 99.5 99.5 Pulse 57 56 54 70 Resp 21 20 25 B/P (MAP) 150/65 (93) 151/65 (93) 151/63 (92) 164/71 (102) Pulse Ox 97 97 97 98 O2 Delivery Room Air Room Air Room Air Room Air 06/21/17 06/21/17 06/21/17 06/21/17 20:00 21:00 22:00 23:00 Pulse 70 58 58 Resp 22 19 B/P (MAP) 151/69 (96) 162/66 (98) 152/64 (93) Pulse Ox 98 98 98 O2 Delivery Room Air Room Air Room Air Room Air 06/21/17 06/22/17 06/22/17 06/22/17 23:59 00:00 01:00 02:00 Temp 99.1 99.1 Pulse 68 52 53 Resp 21 18 15 B/P (MAP) 158/65 (96) 145/60 (88) 140/54 (82) Pulse Ox 97 98 98 O2 Delivery Room Air Room Air Room Air Room Air 06/22/17 06/22/17 06/22/17 06/22/17 03:00 04:00 04:00 05:00 Temp 99.0 99.0 Pulse 54 52 50 Resp 16 17 B/P (MAP) 140/56 (84) 131/53 (79) 134/54 (80) Pulse Ox 98 96 97 O2 Delivery Room Air Room Air Room Air Room Air 06/22/17 06/22/17 06/22/17 06/22/17 06:00 07:00 08:00 08:00 Temp 99.8 99.8 Pulse 54 53 53 Resp 19 29 14 B/P (MAP) 128/63 (84) 136/58 (84) 141/58 (85) Pulse Ox 97 97 97 O2 Delivery Room Air Room Air Room Air Room Air 06/22/17 06/22/17 09:00 10:00 Pulse 53 51 Resp 18 19 B/P (MAP) 140/56 (84) 138/59 (85) Pulse Ox 98 98 O2 Delivery Room Air Room Air Intake and Output 06/21/17 06/21/17 06/22/17 15:00 23:00 07:00 Intake Total 1280.7 ml 1208 ml Output Total 430 ml 550 ml 1315 ml Balance -430 ml 730.7 ml -107 ml INÉS URBINA MD Jun 22, 2017 10:56
--- NOTE | 2017-06-22 15:06 | PDOC ---
PROGRESS NOTES Assessment Assessment Acute right frontal lobe hemorrhage, hematoma 4.7 cm x 2.5 cm with visible cerebral edema on 06/19/17. Increased cerebral edema with 5 mm right to left midline shift on 06/22/17. Small SAH. Left side hemiplegia. Metabolic encephalopathy. Cerebral amyloid disease? DM HTN HLD Dementia. RECOMMENDATIONS/PLAN: Life support. Treat medical diseases. Avoid antiplatelet and anticoagulant agent at the present time. Statin via NG if possible. Repeat HCT w/o contrast if condition is worse. Discussed with his and daughter and showed them his CT imaging in ICU. on 06/19. Discussed with his again on 06/22 in ICU. HISTORY OF THE PRESENT ILLNESS: 76-y-old AA male patient with Hx of above medical diseases developed symptoms of speech difficulties with repetitive speech and left side weakness for about 1.5 hours to be brought to the ER of [facility]. His HCT revealed a large right frontal IPH. patient was admitted into ICU. Past Medical History Cardiovascular: HTN CENTRAL NERVOUS SYSTEM: Dementia Past Surgical History Left foot surgery. Family History Hypertension Social History Smoke: No ALCOHOL: none Drugs: None Lives at home. ALLERGY: Reviewed. MEDICATIONS: Refer to [facility] REVIEW OF SYSTEMS: Constitutional: No malnutrition or cachexia. Head: No recent traumatic brain or head injury. Skin: No edema, or rash. Ear: No infection. Eyes: No vision loss or color blindness. Nose: No bleeding or purulent discharges. Hearing: Hearing decrease. Cardiac: HTN. Pulmonary: No COPD. GI: No GI ulcer, GI bleeding. Urinary/genital: BPH. Endocrinologic: Diabetes Mellitus Skeletomuscular: No muscular atrophy, deformity. Neurological: see HP. Psychiatric: Denies drug use/abuse. Otherwise, not [id number] review of systems. PHYSICAL EXAMINATION: General appearance is in acute distress. HEENT: Normocephalic and nontraumatic. Eyes, nose, ears, and throat are unremarkable. Neck is supple. No lymphadenopathy. No crepitus. Cardiovascular: S1, S2, seemed regular rate and rhythm. Pulmonary: relative clear to auscultation bilaterally. Abdomen: Bowel sounds are positive. Abdomen is soft, nontender, and nondistended. Extremities: No rash, lesions, or edema. NEUROLOGICAL EXAMINATION: Sleepiness. Not fully oriented to time, place but knows person. PERRL. EOMI but slow. CN: Left central VII palsy. Muscle tone: Mildly decreased in left UE. Muscle strength: 3+ left side, 5 right side. DTR: 2- Plantar reflex: Neutral response bilaterally Gait: Unable to walk. Sensory exam: no abnormal findings. No acute cerebellar signs elicited. F-T-N test not performed due to not follow commands well. Objective Objective Vital Signs Date Time Temp Pulse Resp B/P (MAP) Pulse Ox O2 Delivery O2 Flow Rate FiO2 06/22/17 12:00 99.3 51 18 147/60 (89) 98 Room Air 99.3 Intake and Output 06/22/17 07:00 Intake Total 2488.7 ml Output Total 2295 ml Balance 193.7 ml IV Total 2488.7 ml Output Urine Total 2295 ml Vitals Signs Vitals VS - Last 72 Hours, by Label Date Time Temp Pulse Resp B/P (MAP) Pulse Ox O2 Delivery O2 Flow Rate FiO2 06/22/17 12:00 99.3 51 18 147/60 (89) 98 Room Air 99.3 06/22/17 11:00 53 28 148/59 (88) 96 Room Air 06/22/17 10:00 51 19 138/59 (85) 98 Room Air 06/22/17 09:00 53 18 140/56 (84) 98 Room Air 06/22/17 08:00 Room Air 06/22/17 08:00 99.8 53 14 141/58 (85) 97 Room Air 99.8 06/22/17 07:00 53 29 136/58 (84) 97 Room Air 06/22/17 06:00 54 19 128/63 (84) 97 Room Air 06/22/17 05:00 50 17 134/54 (80) 97 Room Air 06/22/17 04:00 Room Air 06/22/17 04:00 99.0 52 16 131/53 (79) 96 Room Air 99.0 06/22/17 03:00 54 17 140/56 (84) 98 Room Air 06/22/17 02:00 53 15 140/54 (82) 98 Room Air 06/22/17 01:00 52 18 145/60 (88) 98 Room Air 06/22/17 00:00 99.1 68 21 158/65 (96) 97 Room Air 99.1 06/21/17 23:59 Room Air 06/21/17 23:00 58 19 152/64 (93) 98 Room Air 06/21/17 22:00 58 21 162/66 (98) 98 Room Air 06/21/17 21:00 70 22 151/69 (96) 98 Room Air 06/21/17 20:00 Room Air 06/21/17 20:00 99.5 70 25 164/71 (102) 98 Room Air 99.5 06/21/17 19:00 54 20 151/63 (92) 97 Room Air 06/21/17 18:00 56 22 151/65 (93) 97 Room Air 06/21/17 17:00 57 21 150/65 (93) 97 Room Air 06/21/17 16:00 100.5 57 17 152/68 (96) 96 Room Air 100.5 06/21/17 16:00 Room Air 06/21/17 15:00 55 22 140/83 (102) 98 Room Air 06/21/17 14:00 64 21 138/63 (88) 97 Room Air 06/21/17 13:00 53 18 155/61 (92) 97 Room Air 06/21/17 12:00 Room Air 06/21/17 12:00 98.7 56 18 153/60 (91) 97 Room Air 98.7 06/21/17 11:00 57 20 154/60 (91) 99 Room Air 06/21/17 10:00 55 18 136/64 (88) 98 Room Air 06/21/17 09:00 56 20 139/61 (87) 98 Room Air 06/21/17 08:00 Room Air 06/21/17 08:00 99.7 61 21 138/64 (88) 97 Room Air 99.7 06/21/17 07:00 60 22 124/65 (84) 97 Room Air Medication Medications Current Medications Influenza Virus Vaccine Quadrival (Fluarix Quad [id number] Syringe) 0.5 ml ONCE ONCE VAX IM ; Start 06/23/17 at 09:00; Stop 06/23/17 at 09:01; Status UNV Comment Review of Relevant I have reviewed the following items laine (where applicable) has been applied. DAMEON WINSLOW MD Jun 22, 2017 15:06
[2017-06-23] VITALS (7 sets, daily range): BP systolic 133–144; BP diastolic 57–66
[2017-06-23] MEDS: IV NORMAL SALINE 1000ML BAG 1,000 ML IV SCH ×2 (01:09→17:16)
[2017-06-23 05:10] LABS: HEMATOCRIT 43.6 % (39.0-53.0); HEMOGLOBIN 14.7 g/dL (13.0-17.5)
[2017-06-23] MEDS: PANTOPRAZOLE IV PUSH 40 MG VIAL. IVP SCH (07:30)
[2017-06-23] MEDS ORDERED: FLU VACC QS2017-18 (36MOS+)/PF 0.5 ML SYRINGE. VAX IM ONE (09:00)
--- NOTE | 2017-06-23 10:07 | PDOC ---
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 Plan: Insert Dobbhoff, KUB for Dobbhoff insertion placement PT OT -n will need rehabilitation modalities and family is agreeable No NSAIDs aspirin or blood thinners secondary to hemorrhagic stroke Keep blood pressure on the under control so far it has been, not needing any nicardipine drip Floor status Discussed with RN at bedside Vitals Vitals Vital Signs Date Time Temp Pulse Resp B/P (MAP) Pulse Ox O2 Delivery O2 Flow Rate FiO2 06/23/17 04:00 99.0 65 21 144/60 (88) 96 Room Air 99.0 Physical Exam General: Other (more talkative today) Heart: Regular rate Lungs: Clear Abdomen: Normal bowel sounds Extremities: No clubbing, No cyanosis, No edema, Normal pulses, No tenderness/ swelling Skin: No rashes, No breakdown, No significant lesion Labs LABS Laboratory Tests Test 06/23/17 04:30 Hemoglobin 14.7 g/dL (13.0-17.5) Hematocrit 43.6 % (39.0-53.0) Mean Corpuscular Hemoglobin Concent 34 g/dL (31-37) Review of Systems Review of Systems no headache, limited ROS secondary to minimal verbal output and acute stroke Assessment and Plan Assessmemt and Plan Problems Medical Problems: (1) Dementia Status: Acute (2) Hypertension Status: Acute Problems: Comment Review of Relevant I have reviewed the following items laine (where applicable) has been applied. Labs Laboratory Tests Test 06/23/17 04:30 Hemoglobin 14.7 g/dL (13.0-17.5) Hematocrit 43.6 % (39.0-53.0) Mean Corpuscular Hemoglobin Concent 34 g/dL (31-37) Laboratory Tests Test 06/23/17 04:30 Hemoglobin 14.7 g/dL (13.0-17.5) Hematocrit 43.6 % (39.0-53.0) Mean Corpuscular Hemoglobin Concent 34 g/dL (31-37) Medications Current Medications Sodium Chloride 1,000 ml @ 125 mls/hr Q8H IV Last administered on 06/19/17 13:02; Start 06/19/17 at 12:51; Stop 06/19/17 at 20:50; Status DC Nicardipine HCl 50 mg/Sodium Chloride 270 ml @ 0 mls/hr CONT PRN IV SEE I/O RECORD; Start 06/19/17 at 13:00; Status Cancel Info (Review Meds) 1 ea PRN DAILY PRN MC SEE COMMENTS; Start 06/19/17 at 13:15 Sodium Chloride (Normal Saline Flush) 3 ml QSHIFT PRN IV AFTER MEDS AND BLOOD DRAWS; Start 06/19/17 at 13:15 Sodium Chloride 1,000 ml @ 80 mls/hr [id number] IV Last administered on 01:09; Start 06/19/17 at 13:04 Acetaminophen (Acetaminophen Supp) 650 mg PRN Q6HRS PRN IN FEVER > 100.5'F; Start 06/19/17 at 13:15 Nicardipine HCl 50 mg/Sodium Chloride 270 ml @ 25 mls/hr CONT PRN IV HYPERTENSION, SEE COMMENTS Last administered on 06/19/17 13:15; Start at 13:15 Ondansetron HCl (Zofran) 4 mg PRN Q6HRS PRN IV NAUSEA/VOMITING; Start at 13:15 Pantoprazole Sodium (PROTONIX VIAL for IV PUSH) 40 mg DAILYAC IVP Last administered on 06/22/17 09:36; Start 06/19/17 at 16:30 Info (Do NOT chart on this placeholder) 1 each 1X ONCE MC ; Start 06/19/17 at 16:45; Stop 06/19/17 at 16:46; Status UNV Pneumococcal Polyvalent Vaccine (Do NOT chart on this placeholder) 1 each 1X ONCE MC ; Start 06/19/17 at 16:45; Stop 06/19/17 at 16:46; Status UNV Influenza Virus Vaccine Quadrival (Fluarix Quad Syringe) 0.5 ml ONCE ONCE VAX IM Last administered on 06/19/17 21:37; Start 06/19/17 at 17:00; Stop 06/19/17 at 17:01; Status DC Hydralazine HCl (Apresoline Inj) 10 mg PRN Q4HRS PRN IVP ELEVATED BP, SEE COMMENTS Last administered on 06/20/17 17:58; Start 06/20/17 at 10:00 Phenazopyridine HCl (Pyridium) 200 mg PRN BID PRN PO URINARY PAIN; Start 06/20 at 20:00 Diazepam (Valium) 5 mg 1X ONCE IV Last administered on 06/20/17 20:26; Start 06/20/17 at 20:15; Stop 06/20/17 at 20:16; Status DC Influenza Virus Vaccine Quadrival (Fluarix Quad Syringe) 0.5 ml ONCE ONCE VAX IM ; Start 06/23/17 at 09:00; Stop 06/23/17 at 09:01; Status UNV Active Scripts Active Reported Alfuzosin Hcl 10 Mg Tab.er.24h 10 Mg PO DAILY 30 Days Donepezil Hcl 10 Mg Tablet 10 Mg PO DAILY 30 Days Sertraline Hcl 50 Mg Tablet 50 Mg PO DAILY 30 Days Vitals/I & O Vital Sign - Last 24 Hours 06/22/17 06/22/17 06/22/17 06/22/17 11:00 12:00 16:00 20:00 Temp 99.3 99.2 99.3 99.2 Pulse 53 51 65 Resp 28 18 B/P (MAP) 148/59 (88) 147/60 (89) 142/58 (86) Pulse Ox 96 98 98 O2 Delivery Room Air Room Air Room Air Room Air 06/22/17 06/23/17 06/23/17 20:00 00:00 04:00 Temp 99.4 99.3 99.0 99.4 99.3 99.0 Pulse 54 52 65 Resp 21 16 21 B/P (MAP) 155/86 (109) 142/59 (86) 144/60 (88) Pulse Ox 98 96 96 O2 Delivery Room Air Room Air Room Air Intake and Output 06/22/17 06/22/1706/23/17 15:00 23:00 07:00 Intake Total 764.75 ml 785 ml Output Total 350 ml 1175 ml 715 ml Balance -350 ml -410.25 ml 70 ml CYNTHIA SAUNDERS MD Jun 23, 2017 10:06
--- NOTE | 2017-06-23 10:51 | RAD ---
Indication: Dobbhoff placement. Time of exam 10:40 AM Comparison is made with exam performed several minutes earlier. Dobbhoff continues to be coiled at the GE junction. The tip is directed retrograde. Impression: Dobbhoff continues to be coiled near the GE junction with the tip directed retrograde.
--- NOTE | 2017-06-23 10:52 | RAD ---
Indication: Dobbhoff placement. Time of exam 10:36 AM Dobbhoff is identified at the GE junction. However, the tip is coiled and directed retrograde in the distal esophagus. The bowel gas pattern is unremarkable. Impression: Malpositioned Dobbhoff, as described.
--- NOTE | 2017-06-23 12:21 | RAD ---
Indication: Dobbhoff repositioning. Time of exam 12:07 PM Correlation is made with prior radiograph earlier the same day. The Dobbhoff has been advanced. The Dobbhoff now passes into the stomach and is in the region of the gastric body. There continues to be a kink of the tip of the Dobbhoff. The guidewire remains within the Dobbhoff. Bowel gas pattern is unremarkable. Impression: Dobbhoff repositioning, as described.
--- NOTE | 2017-06-23 12:57 | PDOC ---
PROGRESS NOTES Assessment Assessment Acute right frontal lobe hemorrhage, hematoma 4.7 cm x 2.5 cm with visible cerebral edema on 06/19/17. Increased cerebral edema with 5 mm right to left midline shift on 06/22/17. Small SAH. Left side hemiplegia. Metabolic encephalopathy. Cerebral amyloid disease possible. DM HTN HLD Dementia. RECOMMENDATIONS/PLAN: Continue life support. Treat medical diseases. Avoid antiplatelet and anticoagulant agent at the present time. Swallow evaluation. Statin via NG if possible. Repeat HCT w/o contrast if condition is worse. Discussed with his and daughter and showed them his CT imaging in ICU. on 06/19. Discussed with his again on 06/22 in ICU. HISTORY OF THE PRESENT ILLNESS: 76-y-old AA male patient with Hx of above medical diseases developed symptoms of speech difficulties with repetitive speech and left side weakness for about 1.5 hours to be brought to the ER of [facility]. His HCT revealed a large right frontal IPH. patient was admitted into ICU. Past Medical History Cardiovascular: HTN CENTRAL NERVOUS SYSTEM: Dementia Past Surgical History Left foot surgery. Family History Hypertension Social History Smoke: No ALCOHOL: none Drugs: None Lives at home. ALLERGY: Reviewed. MEDICATIONS: Refer to [facility] REVIEW OF SYSTEMS: Constitutional: No malnutrition or cachexia. Head: No recent traumatic brain or head injury. Skin: No edema, or rash. Ear: No infection. Eyes: No vision loss or color blindness. Nose: No bleeding or purulent discharges. Hearing: Hearing decrease. Cardiac: HTN. Pulmonary: No COPD. GI: No GI ulcer, GI bleeding. Urinary/genital: BPH. Endocrinologic: Diabetes Mellitus Skeletomuscular: No muscular atrophy, deformity. Neurological: see HP. Psychiatric: Denies drug use/abuse. Otherwise, not [id number] review of systems. PHYSICAL EXAMINATION: General appearance is in acute distress. HEENT: Normocephalic and nontraumatic. Eyes, nose, ears, and throat are unremarkable. Neck is supple. No lymphadenopathy. No crepitus. Cardiovascular: S1, S2, seemed regular rate and rhythm. Pulmonary: relative clear to auscultation bilaterally. Abdomen: Bowel sounds are positive. Abdomen is soft, nontender, and nondistended. Extremities: No rash, lesions, or edema. NEUROLOGICAL EXAMINATION: Drowsiness. Not fully oriented to time, place but knows person. PERRL. EOMI but slow. CN: Left central VII palsy. Muscle tone: Acute decreased on chronic increased tone in left UE. Muscle strength: 2 Left UE, 3+ left LE, 5 right side. DTR: 0-1 left side, 2- right side. Plantar reflex: Neutral response bilaterally Gait: Unable to walk. Sensory exam: no abnormal findings. No acute cerebellar signs elicited. F-T-N test not performed due to not follow commands well. Objective Objective Vital Signs Date Time Temp Pulse Resp B/P (MAP) Pulse Ox O2 Delivery O2 Flow Rate FiO2 06/23/17 04:00 99.0 65 21 144/60 (88) 96 Room Air 99.0 Intake and Output 06/23/17 06:59 Intake Total 1549.75 ml Output Total 2315 ml Balance -765.25 ml IV Total 1549.75 ml Output Urine Total 2315 ml Vitals Signs Vitals VS - Last 72 Hours, by Label Date Time Temp Pulse Resp B/P (MAP) Pulse Ox O2 Delivery O2 Flow Rate FiO2 06/23/17 04:00 99.0 65 21 144/60 (88) 96 Room Air 99.0 06/23/17 00:00 99.3 52 16 142/59 (86) 96 Room Air 99.3 06/22/17 20:00 99.4 54 21 155/86 (109) 98 Room Air 99.4 06/22/17 20:00 Room Air 06/22/17 16:00 99.2 65 18 142/58 (86) 98 Room Air 99.2 06/22/17 12:00 99.3 51 18 147/60 (89) 98 Room Air 99.3 06/22/17 11:00 53 28 148/59 (88) 96 Room Air 06/22/17 10:00 51 19 138/59 (85) 98 Room Air 06/22/17 09:00 53 18 140/56 (84) 98 Room Air 06/22/17 08:00 Room Air 06/22/17 08:00 99.8 53 14 141/58 (85) 97 Room Air 99.8 06/22/17 07:00 53 29 136/58 (84) 97 Room Air Laboratory Laboratory Laboratory Tests Test 06/23/17 04:30 Hemoglobin 14.7 g/dL (13.0-17.5) Hematocrit 43.6 % (39.0-53.0) Mean Corpuscular Hemoglobin Concent 34 g/dL (31-37) Medication Medications Current Medications Influenza Virus Vaccine Quadrival (Fluarix Quad [id number] Syringe) 0.5 ml ONCE ONCE VAX IM ; Start 06/23/17 at 09:00; Stop 06/23/17 at 09:01; Status UNV Comment Review of Relevant I have reviewed the following items laine (where applicable) has been applied. DAMEON WINSLOW MD Jun 23, 2017 12:57
--- NOTE | 2017-06-23 13:32 | PDOC ---
PROGRESS NOTES Subjective Subjective patient seen at 1240 up in chair more verbal today per , was asking for coffee Objective Objective Vital Signs Date Time Temp Pulse Resp B/P (MAP) Pulse Ox O2 Delivery O2 Flow Rate FiO2 06/23/17 04:00 99.0 65 21 144/60 (88) 96 Room Air 99.0 Intake and Output 06/23/17 07:00 Intake Total 1549.75 ml Output Total 2240 ml Balance -690.25 ml IV Total 1549.75 ml Output Urine Total 2240 ml Physical Exam Neuro: Other (follows some commands) Assessment Assessment Problems Medical Problems: (1) Dementia Status: Acute (2) Hypertension Status: Acute Plan Plan of Care follow up CT head ordered for tomorrow morning D/W Comment Review of Relevant I have reviewed the following items laine (where applicable) has been applied. Labs Laboratory Tests Test 06/23/17 04:30 Hemoglobin 14.7 g/dL (13.0-17.5) Hematocrit 43.6 % (39.0-53.0) Mean Corpuscular Hemoglobin Concent 34 g/dL (31-37) Laboratory Tests Test 06/23/17 04:30 Hemoglobin 14.7 g/dL (13.0-17.5) Hematocrit 43.6 % (39.0-53.0) Mean Corpuscular Hemoglobin Concent 34 g/dL (31-37) Medications Current Medications Sodium Chloride 1,000 ml @ 125 mls/hr Q8H IV Last administered on 06/19/17 13:02; Start 06/19/17 at 12:51; Stop 06/19/17 at 20:50; Status DC Nicardipine HCl 50 mg/Sodium Chloride 270 ml @ 0 mls/hr CONT PRN IV SEE I/O RECORD; Start 06/19/17 at 13:00; Status Cancel Info (Review Meds) 1 ea PRN DAILY PRN MC SEE COMMENTS; Start 06/19/17 at 13:15 Sodium Chloride (Normal Saline Flush) 3 ml QSHIFT PRN IV AFTER MEDS AND BLOOD DRAWS; Start 06/19/17 at 13:15 Sodium Chloride 1,000 ml @ 80 mls/hr [id number] IV Last administered on 01:09; Start 06/19/17 at 13:04 Acetaminophen (Acetaminophen Supp) 650 mg PRN Q6HRS PRN WI FEVER > 100.5'F; Start 06/19/17 at 13:15 Nicardipine HCl 50 mg/Sodium Chloride 270 ml @ 25 mls/hr CONT PRN IV HYPERTENSION, SEE COMMENTS Last administered on 06/19/17 13:15; Start at 13:15 Ondansetron HCl (Zofran) 4 mg PRN Q6HRS PRN IV NAUSEA/VOMITING; Start at 13:15 Pantoprazole Sodium (PROTONIX VIAL for IV PUSH) 40 mg DAILYAC IVP Last administered on 06/22/17 09:36; Start 06/19/17 at 16:30 Info (Do NOT chart on this placeholder) 1 each 1X ONCE MC ; Start 06/19/17 at 16:45; Stop 06/19/17 at 16:46; Status UNV Pneumococcal Polyvalent Vaccine (Do NOT chart on this placeholder) 1 each 1X ONCE MC ; Start 06/19/17 at 16:45; Stop 06/19/17 at 16:46; Status UNV Influenza Virus Vaccine Quadrival (Fluarix Quad Syringe) 0.5 ml ONCE ONCE VAX IM Last administered on 06/19/17 21:37; Start 06/19/17 at 17:00; Stop 06/19/17 at 17:01; Status DC Hydralazine HCl (Apresoline Inj) 10 mg PRN Q4HRS PRN IVP ELEVATED BP, SEE COMMENTS Last administered on 06/20/17 17:58; Start 06/20/17 at 10:00 Phenazopyridine HCl (Pyridium) 200 mg PRN BID PRN PO URINARY PAIN; Start 06/20 at 20:00 Diazepam (Valium) 5 mg 1X ONCE IV Last administered on 06/20/17 20:26; Start 06/20/17 at 20:15; Stop 06/20/17 at 20:16; Status DC Influenza Virus Vaccine Quadrival (Fluarix Quad Syringe) 0.5 ml ONCE ONCE VAX IM ; Start 06/23/17 at 09:00; Stop 06/23/17 at 09:01; Status UNV Active Scripts Active Reported Alfuzosin Hcl 10 Mg Tab.er.24h 10 Mg PO DAILY 30 Days Donepezil Hcl 10 Mg Tablet 10 Mg PO DAILY 30 Days Sertraline Hcl 50 Mg Tablet 50 Mg PO DAILY 30 Days Vitals/I & O Vital Sign - Last 24 Hours 06/22/17 06/22/17 06/22/17 06/23/17 16:00 20:00 20:00 00:00 Temp 99.2 99.4 99.3 99.2 99.4 99.3 Pulse 65 54 52 Resp 18 21 16 B/P (MAP) 142/58 (86) 155/86 (109) 142/59 (86) Pulse Ox 98 98 96 O2 Delivery Room Air Room Air Room Air Room Air 06/23/17 04:00 Temp 99.0 99.0 Pulse 65 Resp 21 B/P (MAP) 144/60 (88) Pulse Ox 96 O2 Delivery Room Air Intake and Output 06/22/17 06/22/17 06/23/17 15:00 23:00 07:00 Intake Total 764.75 ml 785 ml Output Total 350 ml 1175 ml 715 ml Balance -350 ml -410.25 ml 70 ml INÉS URBINA MD Jun 23, 2017 13:32
[2017-06-24 03:00] VITALS: BP 132/60
[2017-06-24] MEDS: IV NORMAL SALINE 1000ML BAG 1,000 ML IV SCH ×3 (06:10→21:02)
[2017-06-24] MEDS: PANTOPRAZOLE IV PUSH 40 MG VIAL. IVP SCH (06:10)
[2017-06-24] MEDS: MORPHINE SULFATE 2 MG/ML DISP.SYRIN. IV PRN (06:11)
[2017-06-24 07:00] VITALS: BP 150/64
[2017-06-24 11:00] VITALS: BP 140/72
--- NOTE | 2017-06-24 11:02 | RAD ---
CT scan of the head without contrast 06/24/2017 Clinical History: Follow-up intracranial hemorrhage. Technique: Unenhanced, contiguous, 5 mm axial sections were obtained through the head. One or more of the following individualized dose reduction techniques were utilized for this study: 1. Automated exposure control. 2. Adjustment of the mA and/or kV according to patient size. 3. Use of iterative reconstruction technique. Findings: Comparison study is dated 06/22/2017. There is generalized parenchymal atrophy. Small scattered areas of decreased attenuation are seen within the periventricular and subcortical white matter of both cerebral hemispheres consistent with areas of small vessel ischemic disease. An acute intraparenchymal hematoma is seen involving the right frontal temporal lobe. This measures 5.8 cm in greatest diameter. There is significant surrounding edema and associated mass effect. Right to left midline shift of approximately 5 mm is again seen. These findings are not significantly changed. Small amount of subarachnoid hemorrhage is seen surrounding the right frontal lobe, unchanged. No skull fracture is noted. Impression: Stable CT appearance of the 5.8 cm hematoma involving the right frontal temporal lobe. There are surrounding edema and associated mass effect with mild right to left midline shift, unchanged.
--- NOTE | 2017-06-24 13:25 | PDOC ---
PROGRESS NOTES Chief Complaint Chief Complaint Worsening Hemorrhagic stroke, 5 cm greatest diam with inc swelling and midline shift and effacement Rt lateral ventricle Accelerated hypertension, not needing anti hypertensive gtt Dementia on Aricept DNR./DNI Dysphagia secondary to above hemorrhagic stroke Dysphagia follow-up: Pt able to awaken w/ prompts, followed directions, verbally answered simple questions Limited change in oropharyngeal swallow function since eval date (06/19) w/ continued s/s aspiration. Pt presents w/ evidence of laryngeal dysfunction as evidenced by impaired swallow, breathy phonation inconsistently and weak cough c/w phonation quality s/p R hemorrhagic CVA. Pt demos s/s aspiration on small amt of honey thick liquid and single ice chip trials. Both timing of swallow and strength appear to be impaired w/ observations of oropharyngeal delay and reduced hyolaryngeal excursion present. Phonation changes and coughing following minimal trials is c/w poss aspiration and was noted on both single ice chip and honey thick liquid trials. IMPRESSIONS: Laryngeal dysfunction w/ impaired phonation, cough and swallow s/p R hemorrhagic CVA. High risk of both SILENT and overt aspiration. Current dysphagia is c/w pt's acute R CVA. Time NPO required is unclear RECOMMENDATIONS: NPO w/oral care. 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 Consider non-oral means of nutrition/hydration either short term or tank builder as pt has demonstrated limited improvement w/ swallow function over 4 days. Orders also received for communication eval; will complete eval when approp. 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 Plan: Dobbhoff insertion placement PT OT -n will need rehabilitation modalities and family is agreeable No NSAIDs aspirin or blood thinners secondary to hemorrhagic stroke Keep blood pressure on the under control Floor status Discussed with FAMILY at bedside Vitals Vitals Vital Signs Date Time Temp Pulse Resp B/P (MAP) Pulse Ox O2 Delivery O2 Flow Rate FiO2 06/24/17 11:00 98.4 88 16 140/72 (94) 96 Room Air 98.4 Physical Exam Physical Exam General appearance is in acute distress. HEENT: Normocephalic and nontraumatic. Eyes, nose, ears, and throat are unremarkable. Neck is supple. No lymphadenopathy. No crepitus. Cardiovascular: S1, S2, seemed regular rate and rhythm. Pulmonary: relative clear to auscultation bilaterally. Abdomen: Bowel sounds are positive. Abdomen is soft, nontender, and nondistended. Extremities: No rash, lesions, or edema. Drowsy knows person. PERRL. EOMI slow. General: Other (more talkative today) Heart: Regular rate Lungs: Clear Abdomen: Normal bowel sounds Extremities: No clubbing, No cyanosis, No edema, Normal pulses, No tenderness/ swelling Skin: No rashes, No breakdown, No significant lesion Labs LABS LEFT VENTRICLE The left ventricle is normal size. There is normal left ventricular wall thickness. The left ventricular systolic function is normal and the ejection fraction is within normal range. LV ejection fraction is 55-60%. There is normal LV segmental wall motion. No left ventricle thrombus noted on this study. There is no ventricular septal defect visualized. There is no left ventricular aneurysm. There is no mass noted in the left ventricle. RIGHT VENTRICLE The right ventricle is normal size. There is normal right ventricular wall thickness. The right ventricular systolic function is normal. ATRIA The left atrium size is normal. The right atrium size is normal. The interatrial septum is intact with no evidence for an atrial septal defect or patent foramen ovale as noted on 2-D or Doppler imaging. AORTIC VALVE The aortic valve is normal in structure and function. Doppler and Color Flow revealed no significant aortic regurgitation. There is no significant aortic valvular stenosis. There is no aortic valvular vegetation. MITRAL VALVE The mitral valve is normal in structure and function. There is no evidence of mitral valve prolapse. There is no mitral valve stenosis. Doppler and Color Flow revealed trace mitral valve regurgitation. TRICUSPID VALVE The tricuspid valve is normal in structure and function. Doppler and Color Flow revealed trace tricuspid regurgitation. There is no tricuspid valve prolapse or vegetation. There is no tricuspid valve stenosis. PULMONIC VALVE The pulmonary valve is normal in structure and function. Doppler and Color Flow revealed trace pulmonic valvular regurgitation. There is no pulmonic valvular stenosis. GREAT VESSELS The aortic root is normal in size. The IVC is normal in size and collapses >50% with inspiration. ECHO There is no pleural effusion. There is no evidence of significant pericardial effusion. Critical Notification Critical Value: No <Conclusion> The left ventricle is normal size. The left ventricular systolic function is normal and the ejection fraction is within normal range. LV ejection fraction is 55-60%. The interatrial septum is intact with no evidence for an atrial septal defect or patent foramen ovale as noted on 2-D or Doppler imaging. There is no significant aortic valvular stenosis. Doppler and Color Flow revealed no significant aortic regurgitation. Doppler and Color Flow revealed trace mitral valve regurgitation. Doppler and Color Flow revealed trace tricuspid regurgitation. CT scan of the head without contrast 06/24/2017 Clinical History: Follow-up intracranial hemorrhage. Technique: Unenhanced, contiguous, 5 mm axial sections were obtained through the head. One or more of the following individualized dose reduction techniques were utilized for this study: 1. Automated exposure control. 2. Adjustment of the mA and/or kV according to patient size. 3. Use of iterative reconstruction technique. Findings: Comparison study is dated 06/22/2017. There is generalized parenchymal atrophy. Small scattered areas of decreased attenuation are seen within the periventricular and subcortical white matter of both cerebral hemispheres consistent with areas of small vessel ischemic disease. An acute intraparenchymal hematoma is seen involving the right frontal temporal lobe. This measures 5.8 cm in greatest diameter. There is significant surrounding edema and associated mass effect. Right to left midline shift of approximately 5 mm is again seen. These findings are not significantly changed. Small amount of subarachnoid hemorrhage is seen surrounding the right frontal lobe, unchanged. No skull fracture is noted. Impression: Stable CT appearance of the 5.8 cm hematoma involving the right frontal temporal lobe. There are surrounding edema and associated mass effect with mild right to left midline shift, unchanged. DICTATED and SIGNED BY: JARED SHIELDS MD Laboratory Tests Test 06/24/17 00:11 06/24/17 06:16 06/24/17 07:31 06/24/17 11:37 Glucose (Fingerstick) 127 mg/dL (70-99) 143 mg/dL (70-99) 142 mg/dL (70-99) 140 mg/dL (70-99) Assessment and Plan Assessmemt and Plan Problems Medical Problems: (1) Dementia Status: Acute (2) Hypertension Status: Acute Problems: Comment Review of Relevant I have reviewed the following items laine (where applicable) has been applied. Labs Laboratory Tests Test 06/23/17 04:30 06/24/17 00:11 06/24/17 06:16 06/24/17 07:31 Hemoglobin 14.7 g/dL (13.0-17.5) Hematocrit 43.6 % (39.0-53.0) Mean Corpuscular Hemoglobin Concent 34 g/dL (31-37) Glucose (Fingerstick) 127 mg/dL (70-99) 143 mg/dL (70-99) 142 mg/dL (70-99) Test 06/24/17 11:37 Glucose (Fingerstick) 140 mg/dL (70-99) Laboratory Tests Test 06/24/17 00:11 06/24/17 06:16 06/24/17 07:31 06/24/17 11:37 Glucose (Fingerstick) 127 mg/dL (70-99) 143 mg/dL (70-99) 142 mg/dL (70-99) 140 mg/dL (70-99) Medications Current Medications Sodium Chloride 1,000 ml @ 125 mls/hr Q8H IV Last administered on 06/19/17 13:02; Start 06/19/17 at 12:51; Stop 06/19/17 at 20:50; Status DC Nicardipine HCl 50 mg/Sodium Chloride 270 ml @ 0 mls/hr CONT PRN IV SEE I/O RECORD; Start 06/19/17 at 13:00; Status Cancel Info (Review Meds) 1 ea PRN DAILY PRN MC SEE COMMENTS; Start 06/19/17 at 13:15 Sodium Chloride (Normal Saline Flush) 3 ml QSHIFT PRN IV AFTER MEDS AND BLOOD DRAWS; Start 06/19/17 at 13:15 Sodium Chloride 1,000 ml @ 80 mls/hr [id number] IV Last administered on 06:10; Start 06/19/17 at 13:04 Acetaminophen (Acetaminophen Supp) 650 mg PRN Q6HRS PRN DE FEVER > 100.5'F; Start 06/19/17 at 13:15 Nicardipine HCl 50 mg/Sodium Chloride 270 ml @ 25 mls/hr CONT PRN IV HYPERTENSION, SEE COMMENTS Last administered on 06/19/17 13:15; Start at 13:15 Ondansetron HCl (Zofran) 4 mg PRN Q6HRS PRN IV NAUSEA/VOMITING; Start at 13:15 Pantoprazole Sodium (PROTONIX VIAL for IV PUSH) 40 mg DAILYAC IVP Last administered on 06/24/17 06:10; Start 06/19/17 at 16:30 Info (Do NOT chart on this placeholder) 1 each 1X ONCE MC ; Start 06/19/17 at 16:45; Stop 06/19/17 at 16:46; Status UNV Pneumococcal Polyvalent Vaccine (Do NOT chart on this placeholder) 1 each 1X ONCE MC ; Start 06/19/17 at 16:45; Stop 06/19/17 at 16:46; Status UNV Influenza Virus Vaccine Quadrival (Fluarix Quad Syringe) 0.5 ml ONCE ONCE VAX IM Last administered on 06/19/17 21:37; Start 06/19/17 at 17:00; Stop 06/19/17 at 17:01; Status DC Hydralazine HCl (Apresoline Inj) 10 mg PRN Q4HRS PRN IVP ELEVATED BP, SEE COMMENTS Last administered on 06/20/17 17:58; Start 06/20/17 at 10:00 Phenazopyridine HCl (Pyridium) 200 mg PRN BID PRN PO URINARY PAIN; Start 06/20 at 20:00 Diazepam (Valium) 5 mg 1X ONCE IV Last administered on 06/20/17 20:26; Start 06/20/17 at 20:15; Stop 06/20/17 at 20:16; Status DC Influenza Virus Vaccine Quadrival (Fluarix Quad Syringe) 0.5 ml ONCE ONCE VAX IM ; Start 06/23/17 at 09:00; Stop 06/23/17 at 09:01; Status UNV Morphine Sulfate 1 mg PRN Q2HR PRN IV PAIN Last administered on 06/24/17 06: 11; Start 06/24/17 at 06:00 Active Scripts Active Reported Alfuzosin Hcl 10 Mg Tab.er.24h 10 Mg PO DAILY 30 Days Donepezil Hcl 10 Mg Tablet 10 Mg PO DAILY 30 Days Sertraline Hcl 50 Mg Tablet 50 Mg PO DAILY 30 Days Vitals/I & O Vital Sign - Last 24 Hours 06/23/17 06/23/17 06/23/17 06/23/17 16:30 19:00 19:30 23:00 Temp 99.1 100.3 100.3 99.1 100.3 100.3 Pulse 64 66 64 Resp 18 18 18 B/P (MAP) 136/57 (83) 139/60 (86) 133/61 (85) Pulse Ox 94 92 92 O2 Delivery Room Air Room Air Room Air Room Air 06/24/17 06/24/17 06/24/17 06/24/17 03:00 06:11 06:45 07:00 Temp 97.7 98.1 97.7 98.1 Pulse 61 82 Resp 18 16 16 16 B/P (MAP) 132/60 (84) 150/64 (92) Pulse Ox 95 96 O2 Delivery Room Air Room Air Room Air Room Air 06/24/17 11:00 Temp 98.4 98.4 Pulse 88 Resp 16 B/P (MAP) 140/72 (94) Pulse Ox 96 O2 Delivery Room Air Intake and Output 06/23/17 06/23/17 06/24/17 15:00 23:00 07:00 Intake Total 150 ml 1934 ml Output Total 605 ml 215 ml 1275 ml Balance -605 ml -65 ml 659 ml ILDEFONSO ESTEVEZ MD Jun 24, 2017 13:25
[2017-06-24 14:28] VITALS: BP 133/60
--- NOTE | 2017-06-24 14:55 | PDOC ---
PROGRESS NOTES Assessment Assessment Acute right frontal lobe hemorrhage, hematoma 4.7 cm x 2.5 cm with visible cerebral edema on 06/19/17. Increased cerebral edema with 5 mm right to left midline shift on 06/22/17. Small SAH. Left side hemiplegia. Metabolic encephalopathy. Cerebral amyloid disease possible. DM HTN HLD Dementia. RECOMMENDATIONS/PLAN: Continue life support. Treat medical diseases. Avoid antiplatelet and anticoagulant agent at the present time. Swallow evaluation. Lipitor 20 mg HS. Repeat HCT w/o contrast if condition is worse. Discussed with his and daughter and showed them his CT imaging in ICU. on 06/19. Discussed with his again on 06/22 in ICU. HISTORY OF THE PRESENT ILLNESS: 76-y-old AA male patient with Hx of above medical diseases developed symptoms of speech difficulties with repetitive speech and left side weakness for about 1.5 hours to be brought to the ER of [facility]. His HCT revealed a large right frontal IPH. Patient was admitted into ICU. Past Medical History Cardiovascular: HTN CENTRAL NERVOUS SYSTEM: Dementia Past Surgical History Left foot surgery. Family History Hypertension Social History Smoke: No ALCOHOL: none Drugs: None Lives at home. ALLERGY: Reviewed. MEDICATIONS: Refer to [facility] REVIEW OF SYSTEMS: Constitutional: No malnutrition or cachexia. Head: No recent traumatic brain or head injury. Skin: No edema, or rash. Ear: No infection. Eyes: No vision loss or color blindness. Nose: No bleeding or purulent discharges. Hearing: Hearing decrease. Cardiac: HTN. Pulmonary: No COPD. GI: No GI ulcer, GI bleeding. Urinary/genital: BPH. Endocrinologic: Diabetes Mellitus Skeletomuscular: No muscular atrophy, deformity. Neurological: see HP. Psychiatric: Denies drug use/abuse. Otherwise, not [id number] review of systems. PHYSICAL EXAMINATION: General appearance is in acute distress. HEENT: Normocephalic and nontraumatic. Eyes, nose, ears, and throat are unremarkable. Neck is supple. No lymphadenopathy. No crepitus. Cardiovascular: S1, S2, seemed regular rate and rhythm. Pulmonary: relative clear to auscultation bilaterally. Abdomen: Bowel sounds are positive. Abdomen is soft, nontender, and nondistended. Extremities: No rash, lesions, or edema. NEUROLOGICAL EXAMINATION: Drowsiness. Not fully oriented to time, place but knows person. PERRL. EOMI but slow. CN: Left central VII palsy. Muscle tone: Acute decreased on chronic increased tone in left UE. Muscle strength: 2 Left UE, 3+ left LE, 5 right side. DTR: 0-1 left side, 2- right side. Plantar reflex: Neutral response bilaterally Gait: Unable to walk. Sensory exam: no abnormal findings. No acute cerebellar signs elicited. F-T-N test not performed due to not follow commands well. Objective Objective Vital Signs Date Time Temp Pulse Resp B/P (MAP) Pulse Ox O2 Delivery O2 Flow Rate FiO2 06/24/17 14:28 97.9 63 14 133/60 (84) Room Air 97.9 06/24/17 11:00 96 Intake and Output 06/24/17 07:00 Intake Total 2084 ml Output Total 2095 ml Balance -11 ml Intake Oral 0 ml IV Total 540 ml Tube Feeding 449 ml Other 1095 ml Output Urine Total 2095 ml Vitals Signs Vitals VS - Last 72 Hours, by Label Date Time Temp Pulse Resp B/P (MAP) Pulse Ox O2 Delivery O2 Flow Rate FiO2 06/24/17 14:28 97.9 63 14 133/60 (84) Room Air 97.9 06/24/17 11:00 98.4 88 16 140/72 (94) 96 Room Air 98.4 06/24/17 07:00 98.1 82 16 150/64 (92) 96 Room Air 98.1 06/24/17 06:45 16 Room Air 06/24/17 06:11 16 Room Air 06/24/17 03:00 97.7 61 18 132/60 (84) 95 Room Air 97.7 06/23/17 23:00 100.3 64 18 133/61 (85) 92 Room Air 100.3 06/23/17 19:30 Room Air 06/23/17 19:00 100.3 66 18 139/60 (86) 92 Room Air 100.3 06/23/17 16:30 99.1 64 18 136/57 (83) 94 Room Air 99.1 06/23/17 12:00 99.4 61 24 144/59 (87) 96 Room Air 99.4 06/23/17 08:00 99.2 60 20 136/66 (89) 95 Room Air 99.2 Laboratory Laboratory Laboratory Tests Test 06/24/17 00:11 06/24/17 06:16 06/24/17 07:31 06/24/17 11:37 Glucose (Fingerstick) 127 mg/dL (70-99) 143 mg/dL (70-99) 142 mg/dL (70-99) 140 mg/dL (70-99) Medication Medications Current Medications Morphine Sulfate 1 mg PRN Q2HR PRN IV PAIN Last administered on 06/24/17t 06: 11; Start 06/24/17 at 06:00 Comment Review of Relevant I have reviewed the following items laine (where applicable) has been applied. DAMEON WINSLOW MD Jun 24, 2017 14:55
[2017-06-24 15:15] LABS: BASO % 0 % (0-3); EOS % 1 % (0-3); HEMATOCRIT 42.5 % (39.0-53.0); HEMOGLOBIN 14.3 g/dL (13.0-17.5); LYMPH # 1.5 x10^3/uL (1.0-4.8); LYMPH % 16 % (24-48); MEAN CORPUSCULAR HEMOGLOBIN 30 pg (25-35); MEAN CORPUSCULAR HGB CONC 34 g/dL (31-37); MEAN CORPUSCULAR VOLUME 90 fL (79-100); MONO % 10 % (0-9); NEUT % 74 % (31-73); PLATELET COUNT 140 x10^3/uL (140-400); RED BLOOD COUNT 4.73 x10^6/uL (4.30-5.70); RED CELL DISTRIBUTION WIDTH 13.6 % (11.5-14.5); WHITE BLOOD COUNT 9.5 x10^3/uL (4.0-11.0)
[2017-06-24 15:43] LABS: ALBUMIN 2.8 g/dL (3.4-5.0); ALBUMIN/GLOBULIN RATIO 0.7 (1.0-1.7); CALCIUM 8.3 mg/dL (8.5-10.1); CREATININE 0.9 mg/dL (0.7-1.3); GFR 99.3; POTASSIUM 4.1 mmol/L (3.5-5.1); TOTAL BILIRUBIN 0.6 mg/dL (0.2-1.0)
--- NOTE | 2017-06-24 17:53 | PDOC ---
PROGRESS NOTES Subjective Subjective up in chair answers a few simple questions no significant change Objective Objective Vital Signs Date Time Temp Pulse Resp B/P (MAP) Pulse Ox O2 Delivery O2 Flow Rate FiO2 06/24/17 15:01 100.4 100.4 06/24/17 14:28 63 14 133/60 (84) Room Air 06/24/17 11:00 96 Intake and Output 06/24/17 07:00 Intake Total 2084 ml Output Total 2095 ml Balance -11 ml Intake Oral 0 ml IV Total 540 ml Tube Feeding 449 ml Other 1095 ml Output Urine Total 2095 ml Physical Exam General: Other (answers a few simple questions, follows some commands on the right) Assessment Assessment Problems Medical Problems: (1) Dementia Status: Acute (2) Hypertension Status: Acute Plan Plan of Care CT head stable continue rehab Teds/SCDS will check LE Doppler Comment Review of Relevant I have reviewed the following items laine (where applicable) has been applied. Labs Laboratory Tests Test 06/23/17 04:30 06/24/17 00:11 06/24/17 06:16 06/24/17 07:31 Hemoglobin 14.7 g/dL (13.0-17.5) Hematocrit 43.6 % (39.0-53.0) Mean Corpuscular Hemoglobin Concent 34 g/dL (31-37) Glucose (Fingerstick) 127 mg/dL (70-99) 143 mg/dL (70-99) 142 mg/dL (70-99) Test 06/24/17 11:37 06/24/17 14:45 06/24/17 16:59 Glucose (Fingerstick) 140 mg/dL (70-99) 128 mg/dL (70-99) White Blood Count 9.5 x10^3/uL (4.0-11.0) Red Blood Count 4.73 x10^6/uL (4.30-5.70) Hemoglobin 14.3 g/dL (13.0-17.5) Hematocrit 42.5 % (39.0-53.0) Mean Corpuscular Volume 90 fL (79-100) Mean Corpuscular Hemoglobin 30 pg (25-35) Mean Corpuscular Hemoglobin Concent 34 g/dL (31-37) Red Cell Distribution Width 13.6 % (11.5-14.5) Platelet Count 140 x10^3/uL (140-400) Neutrophils (%) (Auto) 74 % (31-73) Lymphocytes (%) (Auto) 16 % (24-48) Monocytes (%) (Auto) 10 % (0-9) Eosinophils (%) (Auto) 1 % (0-3) Basophils (%) (Auto) 0 % (0-3) Neutrophils # (Auto) 7.0 x10^3uL (1.8-7.7) Lymphocytes # (Auto) 1.5 x10^3/uL (1.0-4.8) Monocytes # (Auto) 0.9 x10^3/uL (0.0-1.1) Eosinophils # (Auto) 0.0 x10^3/uL (0.0-0.7) Basophils # (Auto) 0.0 x10^3/uL (0.0-0.2) Sodium Level 137 mmol/L (136-145) Potassium Level 4.1 mmol/L (3.5-5.1) Chloride Level 101 mmol/L (98-107) Carbon Dioxide Level 25 mmol/L (21-32) Anion Gap 11 (6-14) Blood Urea Nitrogen 17 mg/dL (8-26) Creatinine 0.9 mg/dL (0.7-1.3) Estimated GFR (Cockcroft-Gault) 99.3 BUN/Creatinine Ratio 19 (6-20) Glucose Level 124 mg/dL (70-99) Calcium Level 8.3 mg/dL (8.5-10.1) Total Bilirubin 0.6 mg/dL (0.2-1.0) Aspartate Amino Transf (AST/SGOT) 16 U/L (15-37) Alanine Aminotransferase (ALT/SGPT) 11 U/L (16-63) Alkaline Phosphatase 63 U/L (46-116) Total Protein 7.0 g/dL (6.4-8.2) Albumin 2.8 g/dL (3.4-5.0) Albumin/Globulin Ratio 0.7 (1.0-1.7) Laboratory Tests Test 06/24/17 00:11 06/24/17 06:16 06/24/17 07:31 06/24/17 11:37 Glucose (Fingerstick) 127 mg/dL (70-99) 143 mg/dL (70-99) 142 mg/dL (70-99) 140 mg/dL (70-99) Test 06/24/17 14:45 06/24/17 16:59 White Blood Count 9.5 x10^3/uL (4.0-11.0) Red Blood Count 4.73 x10^6/uL (4.30-5.70) Hemoglobin 14.3 g/dL (13.0-17.5) Hematocrit 42.5 % (39.0-53.0) Mean Corpuscular Volume 90 fL (79-100) Mean Corpuscular Hemoglobin 30 pg (25-35) Mean Corpuscular Hemoglobin Concent 34 g/dL (31-37) Red Cell Distribution Width 13.6 % (11.5-14.5) Platelet Count 140 x10^3/uL (140-400) Neutrophils (%) (Auto) 74 % (31-73) Lymphocytes (%) (Auto) 16 % (24-48) Monocytes (%) (Auto) 10 % (0-9) Eosinophils (%) (Auto) 1 % (0-3) Basophils (%) (Auto) 0 % (0-3) Neutrophils # (Auto) 7.0 x10^3uL (1.8-7.7) Lymphocytes # (Auto) 1.5 x10^3/uL (1.0-4.8) Monocytes # (Auto) 0.9 x10^3/uL (0.0-1.1) Eosinophils # (Auto) 0.0 x10^3/uL (0.0-0.7) Basophils # (Auto) 0.0 x10^3/uL (0.0-0.2) Sodium Level 137 mmol/L (136-145) Potassium Level 4.1 mmol/L (3.5-5.1) Chloride Level 101 mmol/L (98-107) Carbon Dioxide Level 25 mmol/L (21-32) Anion Gap 11 (6-14) Blood Urea Nitrogen 17 mg/dL (8-26) Creatinine 0.9 mg/dL (0.7-1.3) Estimated GFR (Cockcroft-Gault) 99.3 BUN/Creatinine Ratio 19 (6-20) Glucose Level 124 mg/dL (70-99) Calcium Level 8.3 mg/dL (8.5-10.1) Total Bilirubin 0.6 mg/dL (0.2-1.0) Aspartate Amino Transf (AST/SGOT) 16 U/L (15-37) Alanine Aminotransferase (ALT/SGPT) 11 U/L (16-63) Alkaline Phosphatase 63 U/L (46-116) Total Protein 7.0 g/dL (6.4-8.2) Albumin 2.8 g/dL (3.4-5.0) Albumin/Globulin Ratio 0.7 (1.0-1.7) Glucose (Fingerstick) 128 mg/dL (70-99) Medications Current Medications Sodium Chloride 1,000 ml @ 125 mls/hr Q8H IV Last administered on 06/19/17 13:02; Start 06/19/17 at 12:51; Stop 06/19/17 at 20:50; Status DC Nicardipine HCl 50 mg/Sodium Chloride 270 ml @ 0 mls/hr CONT PRN IV SEE I/O RECORD; Start 06/19/17 at 13:00; Status Cancel Info (Review Meds) 1 ea PRN DAILY PRN MC SEE COMMENTS; Start 06/19/17 at 13:15 Sodium Chloride (Normal Saline Flush) 3 ml QSHIFT PRN IV AFTER MEDS AND BLOOD DRAWS; Start 06/19/17 at 13:15 Sodium Chloride 1,000 ml @ 80 mls/hr [id number] IV Last administered on 13:04; Start 06/19/17 at 13:04 Acetaminophen (Acetaminophen Supp) 650 mg PRN Q6HRS PRN ND FEVER > 100.5'F; Start 06/19/17 at 13:15 Nicardipine HCl 50 mg/Sodium Chloride 270 ml @ 25 mls/hr CONT PRN IV HYPERTENSION, SEE COMMENTS Last administered on 06/19/17 13:15; Start at 13:15 Ondansetron HCl (Zofran) 4 mg PRN Q6HRS PRN IV NAUSEA/VOMITING; Start at 13:15 Pantoprazole Sodium (PROTONIX VIAL for IV PUSH) 40 mg DAILYAC IVP Last administered on 06/24/17 06:10; Start 06/19/17 at 16:30 Info (Do NOT chart on this placeholder) 1 each 1X ONCE MC ; Start 06/19/17 at 16:45; Stop 06/19/17 at 16:46; Status UNV Pneumococcal Polyvalent Vaccine (Do NOT chart on this placeholder) 1 each 1X ONCE MC ; Start 06/19/17 at 16:45; Stop 06/19/17 at 16:46; Status UNV Influenza Virus Vaccine Quadrival (Fluarix Quad Syringe) 0.5 ml ONCE ONCE VAX IM Last administered on 06/19/17 21:37; Start 06/19/17 at 17:00; Stop 06/19/17 at 17:01; Status DC Hydralazine HCl (Apresoline Inj) 10 mg PRN Q4HRS PRN IVP ELEVATED BP, SEE COMMENTS Last administered on 06/20/17 17:58; Start 06/20/17 at 10:00 Phenazopyridine HCl (Pyridium) 200 mg PRN BID PRN PO URINARY PAIN; Start 06/20 at 20:00 Diazepam (Valium) 5 mg 1X ONCE IV Last administered on 06/20/17 20:26; Start 06/20/17 at 20:15; Stop 06/20/17 at 20:16; Status DC Influenza Virus Vaccine Quadrival (Fluarix Quad Syringe) 0.5 ml ONCE ONCE VAX IM ; Start 06/23/17 at 09:00; Stop 06/23/17 at 09:01; Status UNV Morphine Sulfate 1 mg PRN Q2HR PRN IV PAIN Last administered on 06/24/17 06: 11; Start 06/24/17 at 06:00 Atorvastatin Calcium (Lipitor) 20 mg QHS PO ; Start 06/24/17 at 21:00 Active Scripts Active Reported Alfuzosin Hcl 10 Mg Tab.er.24h 10 Mg PO DAILY 30 Days Donepezil Hcl 10 Mg Tablet 10 Mg PO DAILY 30 Days Sertraline Hcl 50 Mg Tablet 50 Mg PO DAILY 30 Days Vitals/I & O Vital Sign - Last 24 Hours 06/23/17 06/23/17 06/23/17 06/24/17 19:00 19:30 23:00 03:00 Temp 100.3 100.3 97.7 100.3 100.3 97.7 Pulse 66 64 61 Resp 18 18 18 B/P (MAP) 139/60 (86) 133/61 (85) 132/60 (84) Pulse Ox 92 92 95 O2 Delivery Room Air Room Air Room Air Room Air 06/24/17 06/24/17 06/24/17 06/24/17 06:11 06:45 07:00 11:00 Temp 98.1 98.4 98.1 98.4 Pulse 82 88 Resp 16 16 16 16 B/P (MAP) 150/64 (92) 140/72 (94) Pulse Ox 96 96 O2 Delivery Room Air Room Air Room Air Room Air 06/24/17 06/24/17 14:28 15:01 Temp 97.9 100.4 97.9 100.4 Pulse 63 Resp 14 B/P (MAP) 133/60 (84) O2 Delivery Room Air Intake and Output 06/23/17 06/23/17 06/24/17 15:00 23:00 07:00 Intake Total 150 ml 1934 ml Output Total 605 ml 215 ml 1275 ml Balance -605 ml -65 ml 659 ml INÉS URBINA MD Jun 24, 2017 17:53
--- NOTE | 2017-06-24 18:19 | RAD ---
KUB, PORTABLE CHEST 1V Clinical Indication: DOBHOFF PLACEMENT Comparison: KUB, prior day. Findings: There is a Dobbhoff in the proximal stomach. Cardiac mediastinal silhouette is normal. Mild pulmonary vascular congestion. No focal airspace disease. No pleural abnormality. There is dilated small bowel in the central abdomen. IMPRESSION: 1. Dobbhoff in proximal stomach. 2. Mild pulmonary vascular congestion. 3. Dilated small bowel in the central abdomen. Electronically signed by: Chris Trevizo MD (06/24/2017 6:16 PM) [id number]
[2017-06-24 19:20] VITALS: BP 140/60
[2017-06-24] MEDS: ATORVASTATIN CALCIUM 20 MG TABLET PO SCH (21:00)
[2017-06-24 22:57] VITALS: BP 138/55
[2017-06-25 03:00] VITALS: BP 152/70
[2017-06-25 07:00] VITALS: BP 140/58
--- NOTE | 2017-06-25 07:40 | RAD ---
Indication: Left-sided weakness. Grayscale, color-flow and duplex Doppler evaluation of bilateral lower extremity deep venous systems was performed. FINDINGS: There is no evidence of right or left lower extremity DVT. Both lower extremity deep venous systems showed normal compressibility with normal response to augmentation and Valsalva. No fluid collection or mass is detected. IMPRESSION: No evidence of right or left lower extremity DVT.
[2017-06-25] MEDS: PANTOPRAZOLE IV PUSH 40 MG VIAL. IVP SCH (08:28)
[2017-06-25] MEDS: IV NORMAL SALINE 1000ML BAG 1,000 ML IV SCH ×2 (08:28→20:22)
--- NOTE | 2017-06-25 10:02 | PDOC ---
PROGRESS NOTES Subjective Subjective resting in bed Objective Objective Vital Signs Date Time Temp Pulse Resp B/P (MAP) Pulse Ox O2 Delivery O2 Flow Rate FiO2 06/25/17 07:00 98.1 63 18 140/58 (85) 97 Room Air 98.1 Intake and Output 06/25/17 07:00 Intake Total 1685 ml Output Total 1200 ml Balance 485 ml Intake Oral 0 ml IV Total 1170 ml Tube Feeding 515 ml Output Urine Total 1200 ml Physical Exam General: Cooperative, No acute distress Neuro: Other (exam unchanged, left hemiparesis) Assessment Assessment Problems Medical Problems: (1) Dementia Status: Acute (2) Hypertension Status: Acute Plan Plan of Care continue rehab rescan head next week Comment Review of Relevant I have reviewed the following items laine (where applicable) has been applied. Labs Laboratory Tests Test 06/24/17 00:11 06/24/17 06:16 06/24/17 07:31 06/24/17 11:37 Glucose (Fingerstick) 127 mg/dL (70-99) 143 mg/dL (70-99) 142 mg/dL (70-99) 140 mg/dL (70-99) Test 06/24/17 14:45 06/24/17 16:59 06/25/17 00:05 White Blood Count 9.5 x10^3/uL (4.0-11.0) Red Blood Count 4.73 x10^6/uL (4.30-5.70) Hemoglobin 14.3 g/dL (13.0-17.5) Hematocrit 42.5 % (39.0-53.0) Mean Corpuscular Volume 90 fL (79-100) Mean Corpuscular Hemoglobin 30 pg (25-35) Mean Corpuscular Hemoglobin Concent 34 g/dL (31-37) Red Cell Distribution Width 13.6 % (11.5-14.5) Platelet Count 140 x10^3/uL (140-400) Neutrophils (%) (Auto) 74 % (31-73) Lymphocytes (%) (Auto) 16 % (24-48) Monocytes (%) (Auto) 10 % (0-9) Eosinophils (%) (Auto) 1 % (0-3) Basophils (%) (Auto) 0 % (0-3) Neutrophils # (Auto) 7.0 x10^3uL (1.8-7.7) Lymphocytes # (Auto) 1.5 x10^3/uL (1.0-4.8) Monocytes # (Auto) 0.9 x10^3/uL (0.0-1.1) Eosinophils # (Auto) 0.0 x10^3/uL (0.0-0.7) Basophils # (Auto) 0.0 x10^3/uL (0.0-0.2) Sodium Level 137 mmol/L (136-145) Potassium Level 4.1 mmol/L (3.5-5.1) Chloride Level 101 mmol/L (98-107) Carbon Dioxide Level 25 mmol/L (21-32) Anion Gap 11 (6-14) Blood Urea Nitrogen 17 mg/dL (8-26) Creatinine 0.9 mg/dL (0.7-1.3) Estimated GFR (Cockcroft-Gault) 99.3 BUN/Creatinine Ratio 19 (6-20) Glucose Level 124 mg/dL (70-99) Calcium Level 8.3 mg/dL (8.5-10.1) Total Bilirubin 0.6 mg/dL (0.2-1.0) Aspartate Amino Transf (AST/SGOT) 16 U/L (15-37) Alanine Aminotransferase (ALT/SGPT) 11 U/L (16-63) Alkaline Phosphatase 63 U/L (46-116) Total Protein 7.0 g/dL (6.4-8.2) Albumin 2.8 g/dL (3.4-5.0) Albumin/Globulin Ratio 0.7 (1.0-1.7) Glucose (Fingerstick) 128 mg/dL (70-99) 142 mg/dL (70-99) Laboratory Tests Test 06/24/17 11:37 06/24/17 14:45 06/24/17 16:59 06/25/17 00:05 Glucose (Fingerstick) 140 mg/dL (70-99) 128 mg/dL (70-99) 142 mg/dL (70-99) White Blood Count 9.5 x10^3/uL (4.0-11.0) Red Blood Count 4.73 x10^6/uL (4.30-5.70) Hemoglobin 14.3 g/dL (13.0-17.5) Hematocrit 42.5 % (39.0-53.0) Mean Corpuscular Volume 90 fL (79-100) Mean Corpuscular Hemoglobin 30 pg (25-35) Mean Corpuscular Hemoglobin Concent 34 g/dL (31-37) Red Cell Distribution Width 13.6 % (11.5-14.5) Platelet Count 140 x10^3/uL (140-400) Neutrophils (%) (Auto) 74 % (31-73) Lymphocytes (%) (Auto) 16 % (24-48) Monocytes (%) (Auto) 10 % (0-9) Eosinophils (%) (Auto) 1 % (0-3) Basophils (%) (Auto) 0 % (0-3) Neutrophils # (Auto) 7.0 x10^3uL (1.8-7.7) Lymphocytes # (Auto) 1.5 x10^3/uL (1.0-4.8) Monocytes # (Auto) 0.9 x10^3/uL (0.0-1.1) Eosinophils # (Auto) 0.0 x10^3/uL (0.0-0.7) Basophils # (Auto) 0.0 x10^3/uL (0.0-0.2) Sodium Level 137 mmol/L (136-145) Potassium Level 4.1 mmol/L (3.5-5.1) Chloride Level 101 mmol/L (98-107) Carbon Dioxide Level 25 mmol/L (21-32) Anion Gap 11 (6-14) Blood Urea Nitrogen 17 mg/dL (8-26) Creatinine 0.9 mg/dL (0.7-1.3) Estimated GFR (Cockcroft-Gault) 99.3 BUN/Creatinine Ratio 19 (6-20) Glucose Level 124 mg/dL (70-99) Calcium Level 8.3 mg/dL (8.5-10.1) Total Bilirubin 0.6 mg/dL (0.2-1.0) Aspartate Amino Transf (AST/SGOT) 16 U/L (15-37) Alanine Aminotransferase (ALT/SGPT) 11 U/L (16-63) Alkaline Phosphatase 63 U/L (46-116) Total Protein 7.0 g/dL (6.4-8.2) Albumin 2.8 g/dL (3.4-5.0) Albumin/Globulin Ratio 0.7 (1.0-1.7) Medications Current Medications Sodium Chloride 1,000 ml @ 125 mls/hr Q8H IV Last administered on 06/19/17 13:02; Start 06/19/17 at 12:51; Stop 06/19/17 at 20:50; Status DC Nicardipine HCl 50 mg/Sodium Chloride 270 ml @ 0 mls/hr CONT PRN IV SEE I/O RECORD; Start 06/19/17 at 13:00; Status Cancel Info (Review Meds) 1 ea PRN DAILY PRN MC SEE COMMENTS; Start 06/19/17 at 13:15 Sodium Chloride (Normal Saline Flush) 3 ml QSHIFT PRN IV AFTER MEDS AND BLOOD DRAWS; Start 06/19/17 at 13:15 Sodium Chloride 1,000 ml @ 80 mls/hr [id number] IV Last administered on 08:28; Start 06/19/17 at 13:04 Acetaminophen (Acetaminophen Supp) 650 mg PRN Q6HRS PRN [place] FEVER > 100.5'F; Start 06/19/17 at 13:15 Nicardipine HCl 50 mg/Sodium Chloride 270 ml @ 25 mls/hr CONT PRN IV HYPERTENSION, SEE COMMENTS Last administered on 06/19/17 13:15; Start at 13:15 Ondansetron HCl (Zofran) 4 mg PRN Q6HRS PRN IV NAUSEA/VOMITING; Start at 13:15 Pantoprazole Sodium (PROTONIX VIAL for IV PUSH) 40 mg DAILYAC IVP Last administered on 06/25/17 08:28; Start 06/19/17 at 16:30 Info (Do NOT chart on this placeholder) 1 each 1X ONCE MC ; Start 06/19/17 at 16:45; Stop 06/19/17 at 16:46; Status UNV Pneumococcal Polyvalent Vaccine (Do NOT chart on this placeholder) 1 each 1X ONCE MC ; Start 06/19/17 at 16:45; Stop 06/19/17 at 16:46; Status UNV Influenza Virus Vaccine Quadrival (Fluarix Quad [id number] Syringe) 0.5 ml ONCE ONCE VAX IM Last administered on 12/15/17at 21:37; Start 06/19/17 at 17:00; Stop 06/19/17 at 17:01; Status DC Hydralazine HCl (Apresoline Inj) 10 mg PRN Q4HRS PRN IVP ELEVATED BP, SEE COMMENTS Last administered on 06/20/17 17:58; Start 06/20/17 at 10:00 Phenazopyridine HCl (Pyridium) 200 mg PRN BID PRN PO URINARY PAIN; Start 06/20 at 20:00 Diazepam (Valium) 5 mg 1X ONCE IV Last administered on 06/20/17 20:26; Start 06/20/17 at 20:15; Stop 06/20/17 at 20:16; Status DC Influenza Virus Vaccine Quadrival (Fluarix Quad [id number] Syringe) 0.5 ml ONCE ONCE VAX IM ; Start 06/23/17 at 09:00; Stop 06/23/17 at 09:01; Status UNV Morphine Sulfate 1 mg PRN Q2HR PRN IV PAIN Last administered on 06/24/17 06: 11; Start 06/24/17 at 06:00 Atorvastatin Calcium (Lipitor) 20 mg QHS PO ; Start 06/24/17 at 21:00 Active Scripts Active Reported Alfuzosin Hcl 10 Mg Tab.er.24h 10 Mg PO DAILY 30 Days Donepezil Hcl 10 Mg Tablet 10 Mg PO DAILY 30 Days Sertraline Hcl 50 Mg Tablet 50 Mg PO DAILY 30 Days Vitals/I & O Vital Sign - Last 24 Hours 06/24/17 06/24/17 06/24/17 06/24/17 11:00 14:28 15:01 19:00 Temp 98.4 97.9 100.4 98.4 97.9 100.4 Pulse 88 63 Resp 16 14 B/P (MAP) 140/72 (94) 133/60 (84) Pulse Ox 96 O2 Delivery Room Air Room Air Room Air 06/24/17 06/24/17 06/25/17 06/25/17 19:20 22:57 03:00 07:00 Temp 100.8 98.6 98.6 98.1 100.8 98.6 98.6 98.1 Pulse 57 69 66 63 Resp 18 18 18 18 B/P (MAP) 140/60 (86) 138/55 (82) 152/70 (97) 140/58 (85) Pulse Ox 95 95 96 97 O2 Delivery Room Air Room Air Room Air Room Air Intake and Output 06/24/17 06/24/17 06/25/17 15:00 23:00 07:00 Intake Total 75 ml 1127 ml 483 ml Output Total 600 ml 200 ml 400 ml Balance -525 ml 927 ml 83 ml INÉS URBINA MD Jun 25, 2017 10:02
[2017-06-25 11:00] VITALS: BP 139/64
[2017-06-25] MEDS: ACETAMINOPHEN 650 MG SUPP.RECT. PR PRN (11:47)
--- NOTE | 2017-06-25 12:43 | PDOC ---
PROGRESS NOTES Chief Complaint Chief Complaint Worsening Hemorrhagic stroke, 5 cm greatest diam with inc swelling and midline shift and effacement Rt lateral ventricle Accelerated hypertension, not needing anti hypertensive gtt Dementia on Aricept DNR./DNI Dysphagia secondary to above hemorrhagic stroke Dysphagia follow-up: Pt able to awaken w/ prompts, followed directions, verbally answered simple questions Limited change in oropharyngeal swallow function since eval date (06/19) w/ continued s/s aspiration. Pt presents w/ evidence of laryngeal dysfunction as evidenced by impaired swallow, breathy phonation inconsistently and weak cough c/w phonation quality s/p R hemorrhagic CVA. Pt demos s/s aspiration on small amt of honey thick liquid and single ice chip trials. Both timing of swallow and strength appear to be impaired w/ observations of oropharyngeal delay and reduced hyolaryngeal excursion present. Phonation changes and coughing following minimal trials is c/w poss aspiration IMPRESSIONS: Laryngeal dysfunction w/ impaired phonation, cough and swallow s/p R hemorrhagic CVA. High risk of both SILENT and overt aspiration. Current dysphagia is c/w pt's acute R CVA. Time NPO required is unclear RECOMMENDATIONS: NPO w/oral care. DEPARTMENTAL SHIPPING CLERK will f/u re:dysphagia. CONTINUE non-oral means of nutrition/hydration pt has demonstrated limited improvement w/ swallow function over 5 days. History of Present Illness History of Present Illness floor status weaker Good elevation against gravity on the right side At the left side is weaker Shallow left nasolabial fold Still failed DEPARTMENTAL SHIPPING CLERK He does not want to have a feeding tube as when I discussed with him No daughter or at bedside agreeS to a Dobbhoff trial. Plan: Dobbhoff insertion placement PT OT -n will need rehabilitation modalities and family is agreeable No NSAIDs aspirin or blood thinners secondary to hemorrhagic stroke Keep blood pressure on the under control Floor status Discussed with FAMILY at bedside Vitals Vitals Vital Signs Date Time Temp Pulse Resp B/P (MAP) Pulse Ox O2 Delivery O2 Flow Rate FiO2 06/25/17 11:00 100.9 56 20 139/64 (89) 94 Room Air 100.9 Physical Exam Physical Exam General appearance is in acute distress. HEENT: Normocephalic and nontraumatic. Eyes, nose, ears, and throat are unremarkable. Neck is supple. No lymphadenopathy. No crepitus. Cardiovascular: S1, S2, seemed regular rate and rhythm. Pulmonary: relative clear to auscultation bilaterally. Abdomen: Bowel sounds are positive. Abdomen is soft, nontender, and nondistended. Extremities: No rash, lesions, or edema. Drowsy knows person. PERRL. EOMI slow. General: Cooperative, No acute distress Heart: Regular rate Lungs: Clear Abdomen: Normal bowel sounds Extremities: No clubbing, No cyanosis, No edema, Normal pulses, No tenderness/ swelling Skin: No rashes, No breakdown, No significant lesion Labs LABS Laboratory Tests Test 06/24/17 14:45 06/24/17 16:59 06/25/17 00:05 06/25/17 11:53 White Blood Count 9.5 x10^3/uL (4.0-11.0) Red Blood Count 4.73 x10^6/uL (4.30-5.70) Hemoglobin 14.3 g/dL (13.0-17.5) Hematocrit 42.5 % (39.0-53.0) Mean Corpuscular Volume 90 fL (79-100) Mean Corpuscular Hemoglobin 30 pg (25-35) Mean Corpuscular Hemoglobin Concent 34 g/dL (31-37) Red Cell Distribution Width 13.6 % (11.5-14.5) Platelet Count 140 x10^3/uL (140-400) Neutrophils (%) (Auto) 74 % (31-73) Lymphocytes (%) (Auto) 16 % (24-48) Monocytes (%) (Auto) 10 % (0-9) Eosinophils (%) (Auto) 1 % (0-3) Basophils (%) (Auto) 0 % (0-3) Neutrophils # (Auto) 7.0 x10^3uL (1.8-7.7) Lymphocytes # (Auto) 1.5 x10^3/uL (1.0-4.8) Monocytes # (Auto) 0.9 x10^3/uL (0.0-1.1) Eosinophils # (Auto) 0.0 x10^3/uL (0.0-0.7) Basophils # (Auto) 0.0 x10^3/uL (0.0-0.2) Sodium Level 137 mmol/L (136-145) Potassium Level 4.1 mmol/L (3.5-5.1) Chloride Level 101 mmol/L (98-107) Carbon Dioxide Level 25 mmol/L (21-32) Anion Gap 11 (6-14) Blood Urea Nitrogen 17 mg/dL (8-26) Creatinine 0.9 mg/dL (0.7-1.3) Estimated GFR (Cockcroft-Gault) 99.3 BUN/Creatinine Ratio 19 (6-20) Glucose Level 124 mg/dL (70-99) Calcium Level 8.3 mg/dL (8.5-10.1) Total Bilirubin 0.6 mg/dL (0.2-1.0) Aspartate Amino Transf (AST/SGOT) 16 U/L (15-37) Alanine Aminotransferase (ALT/SGPT) 11 U/L (16-63) Alkaline Phosphatase 63 U/L (46-116) Total Protein 7.0 g/dL (6.4-8.2) Albumin 2.8 g/dL (3.4-5.0) Albumin/Globulin Ratio 0.7 (1.0-1.7) Glucose (Fingerstick) 128 mg/dL (70-99) 142 mg/dL (70-99) 187 mg/dL (70-99) Assessment and Plan Assessmemt and Plan Problems Medical Problems: (1) Dementia Status: Acute (2) Hypertension Status: Acute ASPIRATION RISK HIGH . Pt received one ice chip today during period of alertness but unable to stay awake to complete single swallow. Pt did not swallow ice chip after >30 seconds given verbal & tactile prompts. Puree and honey thick liquids were not attempted this date d/t poor alertness level. Limited verbalizations; unable to determine phonation quality this date as pt was unable to cooperate and maintain alertness to directions. IMPRESSIONS: Impaired alterness this date, pt unable to fully participate in tx w/ max cues. Previously identified w/ laryngeal dysfunction s/p R hemorrhagic CVA. Suspect con't high risk of both SILENT and overt aspiration Problems: Comment Review of Relevant I have reviewed the following items laine (where applicable) has been applied. Labs Laboratory Tests Test 06/24/17 00:11 06/24/17 06:16 06/24/17 07:31 06/24/17 11:37 Glucose (Fingerstick) 127 mg/dL (70-99) 143 mg/dL (70-99) 142 mg/dL (70-99) 140 mg/dL (70-99) Test 06/24/17 14:45 06/24/17 16:59 06/25/17 00:05 06/25/17 11:53 White Blood Count 9.5 x10^3/uL (4.0-11.0) Red Blood Count 4.73 x10^6/uL (4.30-5.70) Hemoglobin 14.3 g/dL (13.0-17.5) Hematocrit 42.5 % (39.0-53.0) Mean Corpuscular Volume 90 fL (79-100) Mean Corpuscular Hemoglobin 30 pg (25-35) Mean Corpuscular Hemoglobin Concent 34 g/dL (31-37) Red Cell Distribution Width 13.6 % (11.5-14.5) Platelet Count 140 x10^3/uL (140-400) Neutrophils (%) (Auto) 74 % (31-73) Lymphocytes (%) (Auto) 16 % (24-48) Monocytes (%) (Auto) 10 % (0-9) Eosinophils (%) (Auto) 1 % (0-3) Basophils (%) (Auto) 0 % (0-3) Neutrophils # (Auto) 7.0 x10^3uL (1.8-7.7) Lymphocytes # (Auto) 1.5 x10^3/uL (1.0-4.8) Monocytes # (Auto) 0.9 x10^3/uL (0.0-1.1) Eosinophils # (Auto) 0.0 x10^3/uL (0.0-0.7) Basophils # (Auto) 0.0 x10^3/uL (0.0-0.2) Sodium Level 137 mmol/L (136-145) Potassium Level 4.1 mmol/L (3.5-5.1) Chloride Level 101 mmol/L (98-107) Carbon Dioxide Level 25 mmol/L (21-32) Anion Gap 11 (6-14) Blood Urea Nitrogen 17 mg/dL (8-26) Creatinine 0.9 mg/dL (0.7-1.3) Estimated GFR (Cockcroft-Gault) 99.3 BUN/Creatinine Ratio 19 (6-20) Glucose Level 124 mg/dL (70-99) Calcium Level 8.3 mg/dL (8.5-10.1) Total Bilirubin 0.6 mg/dL (0.2-1.0) Aspartate Amino Transf (AST/SGOT) 16 U/L (15-37) Alanine Aminotransferase (ALT/SGPT) 11 U/L (16-63) Alkaline Phosphatase 63 U/L (46-116) Total Protein 7.0 g/dL (6.4-8.2) Albumin 2.8 g/dL (3.4-5.0) Albumin/Globulin Ratio 0.7 (1.0-1.7) Glucose (Fingerstick) 128 mg/dL (70-99) 142 mg/dL (70-99) 187 mg/dL (70-99) Laboratory Tests Test 06/24/17 14:45 06/24/17 16:59 06/25/17 00:05 06/25/17 11:53 White Blood Count 9.5 x10^3/uL (4.0-11.0) Red Blood Count 4.73 x10^6/uL (4.30-5.70) Hemoglobin 14.3 g/dL (13.0-17.5) Hematocrit 42.5 % (39.0-53.0) Mean Corpuscular Volume 90 fL (79-100) Mean Corpuscular Hemoglobin 30 pg (25-35) Mean Corpuscular Hemoglobin Concent 34 g/dL (31-37) Red Cell Distribution Width 13.6 % (11.5-14.5) Platelet Count 140 x10^3/uL (140-400) Neutrophils (%) (Auto) 74 % (31-73) Lymphocytes (%) (Auto) 16 % (24-48) Monocytes (%) (Auto) 10 % (0-9) Eosinophils (%) (Auto) 1 % (0-3) Basophils (%) (Auto) 0 % (0-3) Neutrophils # (Auto) 7.0 x10^3uL (1.8-7.7) Lymphocytes # (Auto) 1.5 x10^3/uL (1.0-4.8) Monocytes # (Auto) 0.9 x10^3/uL (0.0-1.1) Eosinophils # (Auto) 0.0 x10^3/uL (0.0-0.7) Basophils # (Auto) 0.0 x10^3/uL (0.0-0.2) Sodium Level 137 mmol/L (136-145) Potassium Level 4.1 mmol/L (3.5-5.1) Chloride Level 101 mmol/L (98-107) Carbon Dioxide Level 25 mmol/L (21-32) Anion Gap 11 (6-14) Blood Urea Nitrogen 17 mg/dL (8-26) Creatinine 0.9 mg/dL (0.7-1.3) Estimated GFR (Cockcroft-Gault) 99.3 BUN/Creatinine Ratio 19 (6-20) Glucose Level 124 mg/dL (70-99) Calcium Level 8.3 mg/dL (8.5-10.1) Total Bilirubin 0.6 mg/dL (0.2-1.0) Aspartate Amino Transf (AST/SGOT) 16 U/L (15-37) Alanine Aminotransferase (ALT/SGPT) 11 U/L (16-63) Alkaline Phosphatase 63 U/L (46-116) Total Protein 7.0 g/dL (6.4-8.2) Albumin 2.8 g/dL (3.4-5.0) Albumin/Globulin Ratio 0.7 (1.0-1.7) Glucose (Fingerstick) 128 mg/dL (70-99) 142 mg/dL (70-99) 187 mg/dL (70-99) Medications Current Medications Sodium Chloride 1,000 ml @ 125 mls/hr Q8H IV Last administered on 06/19/17 13:02; Start 06/19/17 at 12:51; Stop 06/19/17 at 20:50; Status DC Nicardipine HCl 50 mg/Sodium Chloride 270 ml @ 0 mls/hr CONT PRN IV SEE I/O RECORD; Start 06/19/17 at 13:00; Status Cancel Info (Review Meds) 1 ea PRN DAILY PRN SEE COMMENTS; Start 06/19/17 at 13:15 Sodium Chloride (Normal Saline Flush) 3 ml QSHIFT PRN IV AFTER MEDS AND BLOOD DRAWS; Start 06/19/17 at 13:15 Sodium Chloride 1,000 ml @ 80 mls/hr [id number] IV Last administered on 08:28; Start 06/19/17 at 13:04 Acetaminophen (Acetaminophen Supp) 650 mg PRN Q6HRS PRN IN FEVER > 100.5'F Last administered on 06/25/17 11:47; Start 06/19/17 at 13:15 Nicardipine HCl 50 mg/Sodium Chloride 270 ml @ 25 mls/hr CONT PRN IV HYPERTENSION, SEE COMMENTS Last administered on 06/19/17 13:15; Start at 13:15 Ondansetron HCl (Zofran) 4 mg PRN Q6HRS PRN IV NAUSEA/VOMITING; Start at 13:15 Pantoprazole Sodium (PROTONIX VIAL for IV PUSH) 40 mg DAILYAC IVP Last administered on 06/25/17 08:28; Start 06/19/17 at 16:30 Info (Do NOT chart on this placeholder) 1 each 1X ONCE MC ; Start 06/19/17 at 16:45; Stop 06/19/17 at 16:46; Status UNV Pneumococcal Polyvalent Vaccine (Do NOT chart on this placeholder) 1 each 1X ONCE MC ; Start 06/19/17 at 16:45; Stop 06/19/17 at 16:46; Status UNV Influenza Virus Vaccine Quadrival (Fluarix Quad Syringe) 0.5 ml ONCE ONCE VAX IM Last administered on 06/19/17 21:37; Start 06/19/17 at 17:00; Stop 06/19/17 at 17:01; Status DC Hydralazine HCl (Apresoline Inj) 10 mg PRN Q4HRS PRN IVP ELEVATED BP, SEE COMMENTS Last administered on 06/20/17 17:58; Start 06/20/17 at 10:00 Phenazopyridine HCl (Pyridium) 200 mg PRN BID PRN PO URINARY PAIN; Start 06/20 at 20:00 Diazepam (Valium) 5 mg 1X ONCE IV Last administered on 06/20/17 20:26; Start 06/20/17 at 20:15; Stop 06/20/17 at 20:16; Status DC Influenza Virus Vaccine Quadrival (Fluarix Quad Syringe) 0.5 ml ONCE ONCE VAX IM ; Start 06/23/17 at 09:00; Stop 06/23/17 at 09:01; Status UNV Morphine Sulfate 1 mg PRN Q2HR PRN IV PAIN Last administered on 06/24/17t 06: 11; Start 06/24/17 at 06:00 Atorvastatin Calcium (Lipitor) 20 mg QHS PO ; Start 06/24/17 at 21:00 Active Scripts Active Reported Alfuzosin Hcl 10 Mg Tab.er.24h 10 Mg PO DAILY 30 Days Donepezil Hcl 10 Mg Tablet 10 Mg PO DAILY 30 Days Sertraline Hcl 50 Mg Tablet 50 Mg PO DAILY 30 Days Vitals/I & O Vital Sign - Last 24 Hours 06/24/17 06/24/17 06/24/17 06/24/17 14:28 15:01 19:00 19:20 Temp 97.9 100.4 100.8 97.9 100.4 100.8 Pulse 63 57 Resp 14 18 B/P (MAP) 133/60 (84) 140/60 (86) Pulse Ox 95 O2 Delivery Room Air Room Air Room Air 06/24/17 06/25/17 06/25/17 06/25/17 22:57 03:00 07:00 07:30 Temp 98.6 98.6 98.1 98.6 98.6 98.1 Pulse 69 66 63 Resp 18 18 18 B/P (MAP) 138/55 (82) 152/70 (97) 140/58 (85) Pulse Ox 95 96 97 O2 Delivery Room Air Room Air Room Air Room Air 06/25/17 11:00 Temp 100.9 100.9 Pulse 56 Resp 20 B/P (MAP) 139/64 (89) Pulse Ox 94 O2 Delivery Room Air Intake and Output 06/24/17 06/24/17 06/25/17 15:00 23:00 07:00 Intake Total 75 ml 1127 ml 483 ml Output Total 600 ml 200 ml 400 ml Balance -525 ml 927 ml 83 ml ILDEFONSO ESTEVEZ MD Jun 25, 2017 12:43
[2017-06-25 15:00] VITALS: BP 133/59
--- NOTE | 2017-06-25 16:15 | PDOC ---
PROGRESS NOTES Assessment Assessment Acute right frontal lobe hemorrhage, hematoma 4.7 cm x 2.5 cm with visible cerebral edema on 06/19/17. Increased cerebral edema with 5 mm right to left midline shift on 06/22/17. Small SAH. Left side hemiplegia. Metabolic encephalopathy. Cerebral amyloid disease possible. DM HTN HLD Dementia. RECOMMENDATIONS/PLAN: Continue life support. Treat medical diseases. Avoid antiplatelet and anticoagulant agent at the present time. Swallow evaluation. Lipitor 20 mg HS. Repeat HCT w/o contrast if condition is worse. Discussed with his and daughter and showed them his CT imaging in ICU. on 06/19. Discussed with his again on 06/22 in ICU. HISTORY OF THE PRESENT ILLNESS: 76-y-old AA male patient with Hx of above medical diseases developed symptoms of speech difficulties with repetitive speech and left side weakness for about 1.5 hours to be brought to the ER of [facility]. His HCT revealed a large right frontal IPH. Patient was admitted into ICU. Past Medical History Cardiovascular: HTN CENTRAL NERVOUS SYSTEM: Dementia Past Surgical History Left foot surgery. Family History Hypertension Social History Smoke: No ALCOHOL: none Drugs: None Lives at home. ALLERGY: Reviewed. MEDICATIONS: Refer to [facility] REVIEW OF SYSTEMS: Constitutional: No malnutrition or cachexia. Head: No recent traumatic brain or head injury. Skin: No edema, or rash. Ear: No infection. Eyes: No vision loss or color blindness. Nose: No bleeding or purulent discharges. Hearing: Hearing decrease. Cardiac: HTN. Pulmonary: No COPD. GI: No GI ulcer, GI bleeding. Urinary/genital: BPH. Endocrinologic: Diabetes Mellitus Skeletomuscular: No muscular atrophy, deformity. Neurological: see HP. Psychiatric: Denies drug use/abuse. Otherwise, not [id number] review of systems. PHYSICAL EXAMINATION: General appearance is in acute distress. HEENT: Normocephalic and nontraumatic. Eyes, nose, ears, and throat are unremarkable. Neck is supple. No lymphadenopathy. No crepitus. Cardiovascular: S1, S2, seemed regular rate and rhythm. Pulmonary: relative clear to auscultation bilaterally. Abdomen: Bowel sounds are positive. Abdomen is soft, nontender, and nondistended. Extremities: No rash, lesions, or edema. NEUROLOGICAL EXAMINATION: Drowsiness. Not fully oriented to time, place but knows person. Able to follow a few commands. PERRL. EOMI but slow. CN: Left central VII palsy. Muscle tone: Acute decreased on chronic increased tone in left UE. Muscle strength: 2 Left UE, 3+ left LE, 5 right side. DTR: 0-1 left side, 2- right side. Plantar reflex: Neutral response bilaterally Gait: Unable to walk. Sensory exam: no abnormal findings. No acute cerebellar signs elicited. F-T-N test not performed due to not follow commands well. Objective Objective Vital Signs Date Time Temp Pulse Resp B/P (MAP) Pulse Ox O2 Delivery O2 Flow Rate FiO2 06/25/17 11:00 100.9 56 20 139/64 (89) 94 Room Air 100.9 Intake and Output 06/25/17 07:00 Intake Total 1685 ml Output Total 1200 ml Balance 485 ml Intake Oral 0 ml IV Total 1170 ml Tube Feeding 515 ml Output Urine Total 1200 ml Vitals Signs Vitals VS - Last 72 Hours, by Label Date Time Temp Pulse Resp B/P (MAP) Pulse Ox O2 Delivery O2 Flow Rate FiO2 06/25/17 11:00 100.9 56 20 139/64 (89) 94 Room Air 100.9 06/25/17 07:30 Room Air 06/25/17 07:00 98.1 63 18 140/58 (85) 97 Room Air 98.1 06/25/17 03:00 98.6 66 18 152/70 (97) 96 Room Air 98.6 06/24/17 22:57 98.6 69 18 138/55 (82) 95 Room Air 98.6 06/24/17 19:20 100.8 57 18 140/60 (86) 95 Room Air 100.8 06/24/17 19:00 Room Air 06/24/17 15:01 100.4 100.4 06/24/17 14:28 97.9 63 14 133/60 (84) Room Air 97.9 06/24/17 11:00 98.4 88 16 140/72 (94) 96 Room Air 98.4 06/24/17 08:00 Room Air 06/24/17 07:00 98.1 82 16 150/64 (92) 96 Room Air 98.1 Laboratory Laboratory Laboratory Tests Test 06/24/17 16:59 06/25/17 00:05 06/25/17 11:53 Glucose (Fingerstick) 128 mg/dL (70-99) 142 mg/dL (70-99) 187 mg/dL (70-99) Medication Medications Current Medications Atorvastatin Calcium (Lipitor) 20 mg QHS PO ; Start 06/24/17 at 21:00 Comment Review of Relevant I have reviewed the following items laine (where applicable) has been applied. DAMEON WINSLOW MD Jun 25, 2017 16:15
--- NOTE | 2017-06-25 17:39 | PDOC2 ---
GI CONSULT Reason For Consult: PEG HPI: HPI: 76 y/o male admitted w/ CVA w/ left-sided weakness, has failed swallow evals. Receiving Dobhoff feeds. Asked to see re: possible PEG placement. No GI history per . No reflux/heartburn or issues w/ chronic diarrhea or constipation. No GB, liver, or pancreas history. No previous EGD. More than one previous colonoscopy, one with polyps, the most recent within 10 years ( reportedly normal). PMH: PMH: per chart - HTN, dementia, DM, depression, left ankle surgery, ?chest surgery ( unclear) FH: Family History: Cancer (prostate) Social History: Smoke: No ALCOHOL: none Drugs: None ROS: Denies pain. Vitals: Vitals: Vital Signs Date Time Temp Pulse Resp B/P (MAP) Pulse Ox O2 Delivery O2 Flow Rate FiO2 06/25/17 15:00 99.3 60 18 133/59 (83) 98 Room Air 99.3 Labs: Labs: Laboratory Tests Test 06/25/17 00:05 06/25/17 11:53 06/25/17 16:34 Glucose (Fingerstick) 142 mg/dL (70-99) 187 mg/dL (70-99) 157 mg/dL (70-99) Allergies: Coded Allergies: No Known Drug Allergies (Unverified , 06/19/17) Medications: Please see EMR. Imaging: Imaging: Please see EMR. PE: GEN: NAD HEENT: Atraumatic, PERRL, Dobhoff feed LUNGS: clear HEART: bradycardic ABD: NABS, S/ND/NT EXTREMITY: No edema SKIN: No rashes, no jaundice NEURO/PSYCH: awake, left-sided weakness A/P: A/P: CVA, dysphagia -- Family wishes for further discussion, possible PEG on 06/30. ROB FAIRBANKS Jun 25, 2017 17:39
[2017-06-25 19:15] VITALS: BP 118/52
[2017-06-25] MEDS: ATORVASTATIN CALCIUM 20 MG TABLET PO SCH (20:22)
[2017-06-25 23:21] VITALS: BP 131/66
--- NOTE | 2017-06-26 01:06 | RAD ---
EXAM: Abdomen one view. HISTORY: Feeding tube placement. COMPARISON: None. FINDINGS: A frontal view of the abdomen is obtained. The feeding tube is looped 180 degrees and is at the gastroesophageal junction. Recommend advancement. There are no distended small bowel loops. There is gas distally. There are mild to moderate degenerative changes throughout the lower lumbar spine IMPRESSION: 1. The feeding tube tip is at the gastroesophageal junction. Recommend advancement. Electronically signed by: Bartolome Quinteros MD (06/26/2017 1:03 AM) [facility]
[2017-06-26 03:01] VITALS: BP 140/60
--- NOTE | 2017-06-26 04:15 | RAD ---
EXAM: Abdomen one view. HISTORY: Feeding tube placement. COMPARISON: June 26, 2017. FINDINGS: A frontal view of the abdomen is obtained. The feeding tube now has its tip within the proximal stomach. There are no distended small bowel loops. There is gas distally. IMPRESSION: 1. Feeding tube tip in the stomach. If the desired position is within the duodenal/jejunal junction, it should be advanced by approximately 25 cm. Electronically signed by: Bartolome Quinteros MD (06/26/2017 4:12 AM) [facility]
--- NOTE | 2017-06-26 04:56 | CONS ---
DATE OF CONSULTATION: 06/25/2017 ATTENDING PHYSICIAN: Dr. Costello. The patient was seen at the request of Dr. Arellano for rehab evaluation. HISTORY OF PRESENT ILLNESS: This is a 76-year-old right-handed male who has been independent with his mobility and most of the aspects of his self-care. The patient had some cognitive problems and was diagnosed as having Alzheimer dementia, but he has been independent with his mobility and self-care including driving and lives with his in [place], [place] [facility], had about 4 steps with railing to get into the house from the garage plus in the front where there is no railing and in the back, lots of stairs. The patient takes aspirin 325 mg every other day, supposed to take small dose of losartan, but had not been taking for about 3 months. His family physician is at [facility]. He was found with left-sided weakness and slurred speech on 05/20/2017, history of strokes in the past. The patient was seen in the Emergency Room. CT scan revealed 5 cm left frontal area hemorrhagic stroke with mild edema and minimal midline shift. The patient was noted with hypertension, requiring Cardizem drip. The patient had repeat CT scans, which did not reveal any significant change. The patient takes Aricept 10 mg daily. PAST MEDICAL HISTORY: Hypertension. FAMILY HISTORY: Hypertension. ALLERGIES: He is not known allergic to any medication. PHYSICAL EXAMINATION: Today revealed an elderly male. He is somewhat lethargic, but can easily be awakened and follows commands appropriately, some dysarthric speech, low volume. He had left central facial paresis. He had 4/5 to 4+/5 grade muscle strength in his right upper and lower extremities. He had some voluntary motion in his left upper and lower extremities including left foot. Deep tendon reflexes are decreased overall with absent knee jerks and left ankle jerk and 1+ right ankle jerk. He had equal perception of touch and pinprick sensation bilaterally. The patient had some edema of his left hand. No significant pain on range of motion of left shoulder. He had an indwelling Barkley catheter, IV and Dobhoff feeding tube in place. He is sitting in the chair, leaned to some extent to the left side. I have not tested his transfers or ambulation skills at this time, but as per physical therapy note, he requires maximal help. ASSESSMENT: An elderly male with recent onset hemorrhagic stroke with left hemiparesis, onset 06/19/2017 in a patient with known hypertension and Alzheimer dementia, dysphagia secondary to his cerebrovascular accident. RECOMMENDATIONS: Agree with the plans for physical therapy, occupational therapy and speech pathology followup. As per the patient's pathology note, we may have to consider him for long-term nonoral feedings/wait until early next week. If his dysphagia does not improve, he should be considered for PEG tube placement before transfer to inpatient rehab unit of choice to the family. Dr. Arellano, I appreciate asking me to participate in the care of this interesting patient. I will be glad to follow him with you as needed for the rehabilitation. VANDA MADRIGAL MD DR: DORA/nts JOB#: [id number] / [id number]
[2017-06-26] MEDS: PANTOPRAZOLE IV PUSH 40 MG VIAL. IVP SCH (06:21)
[2017-06-26 07:00] VITALS: BP 141/60
[2017-06-26 11:00] VITALS: BP 124/64
--- NOTE | 2017-06-26 11:16 | RAD ---
Indication: Worsening neuro symptoms. Axial imaging through the brain was performed without contrast. Correlation is made with head CT from 06/24/2017. The acute right frontal intraparenchymal hematoma appears stable when compared with prior exam. This does show surrounding low density consistent with edema. There continues to be mass effect upon the right lateral ventricle with mild shift of midline right to left. No new area of hemorrhage is detected. Cisterns are patent. Impression: Stable right frontal intraparenchymal hematoma when compared with examination from 2 days earlier. PQRS Compliance Statement: One or more of the following individualized dose reduction techniques were utilized for this examination: 1. Automated exposure control 2. Adjustment of the mA and/or kV according to patient size 3. Use of iterative reconstruction technique
--- NOTE | 2017-06-26 14:33 | PDOC ---
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 Plan: Dobbhoff insertion placement PT OT -n will need rehabilitation modalities and family is agreeable No NSAIDs aspirin or blood thinners secondary to hemorrhagic stroke Keep blood pressure on the under control Floor status Discussed with FAMILY at bedside Vitals Vitals Vital Signs Date Time Temp Pulse Resp B/P (MAP) Pulse Ox O2 Delivery O2 Flow Rate FiO2 06/26/17 11:00 99.7 54 16 124/64 (84) 94 Room Air 99.7 Physical Exam Physical Exam General appearance is in acute distress. . Pulmonary: relative clear to auscultation bilaterally. General: Cooperative, No acute distress Heart: Regular rate Lungs: Clear Abdomen: Normal bowel sounds Extremities: No clubbing, No cyanosis, No edema, Normal pulses, No tenderness/ swelling Skin: No rashes, No breakdown, No significant lesion Labs LABS Laboratory Tests Test 06/25/17 16:34 06/25/17 21:49 06/26/17 04:05 06/26/17 08:24 Glucose (Fingerstick) 157 mg/dL (70-99) 137 mg/dL (70-99) 132 mg/dL (70-99) 152 mg/dL (70-99) Review of Systems Review of Systems no n,.v d. no pain left arm weakenss Mood OK Assessment and Plan Assessmemt and Plan SILENT and overt aspiration. : NPO w/oral care. 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 consider PEG next week, has NG pt has demonstrated limited improvement Problems Medical Problems: (1) Dementia Status: Acute (2) Hypertension Status: Acute Problems: Comment Review of Relevant I have reviewed the following items laine (where applicable) has been applied. Labs Laboratory Tests Test 06/24/17 14:45 06/24/17 16:59 06/25/17 00:05 06/25/17 11:53 White Blood Count 9.5 x10^3/uL (4.0-11.0) Red Blood Count 4.73 x10^6/uL (4.30-5.70) Hemoglobin 14.3 g/dL (13.0-17.5) Hematocrit 42.5 % (39.0-53.0) Mean Corpuscular Volume 90 fL (79-100) Mean Corpuscular Hemoglobin 30 pg (25-35) Mean Corpuscular Hemoglobin Concent 34 g/dL (31-37) Red Cell Distribution Width 13.6 % (11.5-14.5) Platelet Count 140 x10^3/uL (140-400) Neutrophils (%) (Auto) 74 % (31-73) Lymphocytes (%) (Auto) 16 % (24-48) Monocytes (%) (Auto) 10 % (0-9) Eosinophils (%) (Auto) 1 % (0-3) Basophils (%) (Auto) 0 % (0-3) Neutrophils # (Auto) 7.0 x10^3uL (1.8-7.7) Lymphocytes # (Auto) 1.5 x10^3/uL (1.0-4.8) Monocytes # (Auto) 0.9 x10^3/uL (0.0-1.1) Eosinophils # (Auto) 0.0 x10^3/uL (0.0-0.7) Basophils # (Auto) 0.0 x10^3/uL (0.0-0.2) Sodium Level 137 mmol/L (136-145) Potassium Level 4.1 mmol/L (3.5-5.1) Chloride Level 101 mmol/L (98-107) Carbon Dioxide Level 25 mmol/L (21-32) Anion Gap 11 (6-14) Blood Urea Nitrogen 17 mg/dL (8-26) Creatinine 0.9 mg/dL (0.7-1.3) Estimated GFR (Cockcroft-Gault) 99.3 BUN/Creatinine Ratio 19 (6-20) Glucose Level 124 mg/dL (70-99) Calcium Level 8.3 mg/dL (8.5-10.1) Total Bilirubin 0.6 mg/dL (0.2-1.0) Aspartate Amino Transf (AST/SGOT) 16 U/L (15-37) Alanine Aminotransferase (ALT/SGPT) 11 U/L (16-63) Alkaline Phosphatase 63 U/L (46-116) Total Protein 7.0 g/dL (6.4-8.2) Albumin 2.8 g/dL (3.4-5.0) Albumin/Globulin Ratio 0.7 (1.0-1.7) Glucose (Fingerstick) 128 mg/dL (70-99) 142 mg/dL (70-99) 187 mg/dL (70-99) Test 06/25/17 16:34 06/25/17 21:49 06/26/17 04:05 06/26/17 08:24 Glucose (Fingerstick) 157 mg/dL (70-99) 137 mg/dL (70-99) 132 mg/dL (70-99) 152 mg/dL (70-99) Laboratory Tests Test 06/25/17 16:34 06/25/17 21:49 06/26/17 04:05 06/26/17 08:24 Glucose (Fingerstick) 157 mg/dL (70-99) 137 mg/dL (70-99) 132 mg/dL (70-99) 152 mg/dL (70-99) Medications Current Medications Sodium Chloride 1,000 ml @ 125 mls/hr Q8H IV Last administered on 06/19/17 13:02; Start 06/19/17 at 12:51; Stop 06/19/17 at 20:50; Status DC Nicardipine HCl 50 mg/Sodium Chloride 270 ml @ 0 mls/hr CONT PRN IV SEE I/O RECORD; Start 06/19/17 at 13:00; Status Cancel Info (Review Meds) 1 ea PRN DAILY PRN MC SEE COMMENTS; Start 06/19/17 at 13:15 Sodium Chloride (Normal Saline Flush) 3 ml QSHIFT PRN IV AFTER MEDS AND BLOOD DRAWS; Start 06/19/17 at 13:15 Sodium Chloride 1,000 ml @ 80 mls/hr [id number] IV Last administered on 20:22; Start 06/19/17 at 13:04 Acetaminophen (Acetaminophen Supp) 650 mg PRN Q6HRS PRN NC FEVER > 100.5'F Last administered on 06/25/17 11:47; Start 06/19/17 at 13:15 Nicardipine HCl 50 mg/Sodium Chloride 270 ml @ 25 mls/hr CONT PRN IV HYPERTENSION, SEE COMMENTS Last administered on 06/19/17 13:15; Start at 13:15; Stop 06/25/17 at 14:22; Status DC Ondansetron HCl (Zofran) 4 mg PRN Q6HRS PRN IV NAUSEA/VOMITING; Start at 13:15 Pantoprazole Sodium (PROTONIX VIAL for IV PUSH) 40 mg DAILYAC IVP Last administered on 06/26/17 06:21; Start 06/19/17 at 16:30 Info (Do NOT chart on this placeholder) 1 each 1X ONCE MC ; Start 06/19/17 at 16:45; Stop 06/19/17 at 16:46; Status UNV Pneumococcal Polyvalent Vaccine (Do NOT chart on this placeholder) 1 each 1X ONCE MC ; Start 06/19/17 at 16:45; Stop 06/19/17 at 16:46; Status UNV Influenza Virus Vaccine Quadrival (Fluarix Quad Syringe) 0.5 ml ONCE ONCE VAX IM Last administered on 06/19/17 21:37; Start 06/19/17 at 17:00; Stop 06/19/17 at 17:01; Status DC Hydralazine HCl (Apresoline Inj) 10 mg PRN Q4HRS PRN IVP ELEVATED BP, SEE COMMENTS Last administered on 06/20/17 17:58; Start 06/20/17 at 10:00 Phenazopyridine HCl (Pyridium) 200 mg PRN BID PRN PO URINARY PAIN; Start 06/20 at 20:00 Diazepam (Valium) 5 mg 1X ONCE IV Last administered on 06/20/17 20:26; Start 06/20/17 at 20:15; Stop 06/20/17 at 20:16; Status DC Influenza Virus Vaccine Quadrival (Fluarix Quad Syringe) 0.5 ml ONCE ONCE VAX IM ; Start 06/23/17 at 09:00; Stop 06/23/17 at 09:01; Status UNV Morphine Sulfate 1 mg PRN Q2HR PRN IV PAIN Last administered on 06/24/17 06: 11; Start 06/24/17 at 06:00 Atorvastatin Calcium (Lipitor) 20 mg QHS PO Last administered on 06/25/17 20: 22; Start 06/24/17 at 21:00 Active Scripts Active Reported Alfuzosin Hcl 10 Mg Tab.er.24h 10 Mg PO DAILY 30 Days Donepezil Hcl 10 Mg Tablet 10 Mg PO DAILY 30 Days Sertraline Hcl 50 Mg Tablet 50 Mg PO DAILY 30 Days Vitals/I & O Vital Sign - Last 24 Hours 06/25/17 06/25/17 06/25/17 06/25/17 15:00 19:15 19:35 23:21 Temp 99.3 99.4 99.0 99.3 99.4 99.0 Pulse 60 74 68 Resp 18 18 22 B/P (MAP) 133/59 (83) 118/52 (74) 131/66 (87) Pulse Ox 98 96 96 O2 Delivery Room Air Room Air Room Air Room Air 06/26/17 06/26/17 06/26/17 03:01 07:00 11:00 Temp 98.6 100.2 99.7 98.6 100.2 99.7 Pulse 66 64 54 Resp B/P (MAP) 140/60 (86) 141/60 (87) 124/64 (84) Pulse Ox 97 96 94 O2 Delivery Room Air Room Air Room Air Intake and Output 06/25/17 06/25/17 06/26/17 15:00 23:00 07:00 Intake Total 5 ml 1401 ml 467.53 ml Output Total 1225 ml 450 ml Balance 5 ml 176 ml 17.53 ml MILAGROS REYES MD Jun 26, 2017 14:33
--- NOTE | 2017-06-26 14:34 | PDOC ---
PROGRESS NOTES Assessment Assessment Acute right frontal lobe hemorrhage, hematoma 4.7 cm x 2.5 cm with visible cerebral edema on 06/19/17. Increased cerebral edema with 5 mm right to left midline shift on 06/22/17. Small SAH. Left side hemiplegia. Metabolic encephalopathy. Cerebral amyloid disease possible. DM HTN HLD Dementia. RECOMMENDATIONS/PLAN: Continue life support. Treat medical diseases. Avoid antiplatelet and anticoagulant agent at the present time. Swallow evaluation. Lipitor 20 mg HS. Repeat HCT w/o contrast if condition is worse. Discussed with his and daughter and showed them his CT imaging in ICU several times. HCT w/o contrast on 06/26: Stable. HISTORY OF THE PRESENT ILLNESS: 76-y-old AA male patient with Hx of above medical diseases developed symptoms of speech difficulties with repetitive speech and left side weakness for about 1.5 hours to be brought to the ER of [facility]. His HCT revealed a large right frontal IPH. Patient was admitted into ICU. Past Medical History Cardiovascular: HTN CENTRAL NERVOUS SYSTEM: Dementia Past Surgical History Left foot surgery. Family History Hypertension Social History Smoke: No ALCOHOL: none Drugs: None Lives at home. ALLERGY: Reviewed. MEDICATIONS: Refer to [facility] REVIEW OF SYSTEMS: Constitutional: No malnutrition or cachexia. Head: No recent traumatic brain or head injury. Skin: No edema, or rash. Ear: No infection. Eyes: No vision loss or color blindness. Nose: No bleeding or purulent discharges. Hearing: Hearing decrease. Cardiac: HTN. Pulmonary: No COPD. GI: No GI ulcer, GI bleeding. Urinary/genital: BPH. Endocrinologic: Diabetes Mellitus Skeletomuscular: No muscular atrophy, deformity. Neurological: see HP. Psychiatric: Denies drug use/abuse. Otherwise, not [id number] review of systems. PHYSICAL EXAMINATION: General appearance is in subacute distress. HEENT: Normocephalic and nontraumatic. Eyes, nose, ears, and throat are unremarkable. Neck is supple. No lymphadenopathy. No crepitus. Cardiovascular: S1, S2, seemed regular rate and rhythm. Pulmonary: relative clear to auscultation bilaterally. Abdomen: Bowel sounds are positive. Abdomen is soft, nontender, and nondistended. Extremities: No rash, lesions, or edema. NEUROLOGICAL EXAMINATION: Drowsiness. Not fully oriented to time, place but knows person. Able to follow a few commands. PERRL. EOMI but slow. CN: Left central VII palsy. Muscle tone: Acute decreased on chronic increased tone in left UE. Muscle strength: 1-2 Left UE, 2-3 left LE, 5 right side. DTR: 0-1 left side, 2- right side. Plantar reflex: Neutral response bilaterally Gait: Unable to walk. Sensory exam: no abnormal findings. No acute cerebellar signs elicited. F-T-N test not performed due to not follow commands well. Objective Objective Vital Signs Date Time Temp Pulse Resp B/P (MAP) Pulse Ox O2 Delivery O2 Flow Rate FiO2 06/26/17 11:00 99.7 54 16 124/64 (84) 94 Room Air 99.7 Intake and Output 06/26/17 06:59 Intake Total 1873.53 ml Output Total 1675 ml Balance 198.53 ml IV Total 1005.53 ml Tube Feeding 868 ml Output Urine Total 1675 ml Vitals Signs Vitals VS - Last 72 Hours, by Label Date Time Temp Pulse Resp B/P (MAP) Pulse Ox O2 Delivery O2 Flow Rate FiO2 06/26/17 11:00 99.7 54 16 124/64 (84) 94 Room Air 99.7 06/26/17 07:00 100.2 64 18 141/60 (87) 96 Room Air 100.2 06/26/17 03:01 98.6 66 18 140/60 (86) 97 Room Air 98.6 06/25/17 23:21 99.0 68 22 131/66 (87) 96 Room Air 99.0 06/25/17 19:35 Room Air 06/25/17 19:15 99.4 74 18 118/52 (74) 96 Room Air 99.4 06/25/17 15:00 99.3 60 18 133/59 (83) 98 Room Air 99.3 06/25/17 11:00 100.9 56 20 139/64 (89) 94 Room Air 100.9 06/25/17 07:30 Room Air 06/25/17 07:00 98.1 63 18 140/58 (85) 97 Room Air 98.1 Laboratory Laboratory Laboratory Tests Test 06/25/17 16:34 06/25/17 21:49 06/26/17 04:05 06/26/17 08:24 Glucose (Fingerstick) 157 mg/dL (70-99) 137 mg/dL (70-99) 132 mg/dL (70-99) 152 mg/dL (70-99) Comment Review of Relevant I have reviewed the following items laine (where applicable) has been applied. DAMEON WINSLOW MD Jun 26, 2017 14:34
--- NOTE | 2017-06-26 14:34 | PDOC ---
Subjective: Subjective: Different family members present today - plans to proceed w/ PEG. Objective: Objective: Per RN - pulled Dobhoff overnight, replaced. Vital Signs: Vital Signs Date Time Temp Pulse Resp B/P (MAP) Pulse Ox O2 Delivery O2 Flow Rate FiO2 06/26/17 11:00 99.7 54 16 124/64 (84) 94 Room Air 99.7 Labs: Laboratory Tests Test 06/25/17 16:34 06/25/17 21:49 06/26/17 04:05 06/26/17 08:24 Glucose (Fingerstick) 157 mg/dL (70-99) 137 mg/dL (70-99) 132 mg/dL (70-99) 152 mg/dL (70-99) PE: GEN: NAD LUNGS: clear HEART: RRR ABD: S/ND/NT NEURO/PSYCH: asleep, did not awaken during exam A/P: CVA, dysphagia -- Will set up PEG for 06/30. ROB FAIRBANKS Jun 26, 2017 14:34
[2017-06-26 15:00] VITALS: BP 116/73
[2017-06-26] MEDS: IV NORMAL SALINE 1000ML BAG 1,000 ML IV SCH (15:01)
[2017-06-26] MEDS: ACETAMINOPHEN 650 MG SUPP.RECT. PR PRN (15:26)
--- NOTE | 2017-06-26 15:35 | PDOC ---
PROGRESS NOTES Subjective Subjective No new complaints. Objective Objective Vital Signs Date Time Temp Pulse Resp B/P (MAP) Pulse Ox O2 Delivery O2 Flow Rate FiO2 06/26/17 15:00 101.1 69 16 116/73 (87) 95 Room Air 101.1 Intake and Output 06/26/17 07:00 Intake Total 1873.53 ml Output Total 1675 ml Balance 198.53 ml IV Total 1005.53 ml Tube Feeding 868 ml Output Urine Total 1675 ml Physical Exam Physical Exam He is awake and talking and continues with left hemiparesis. Assessment Assessment Problems Medical Problems: (1) Dementia Status: Acute (2) Hypertension Status: Acute Plan Plan of Care Agree with plans for PEG tube placement if his swallowing function does not improve over the weekend. Comment Review of Relevant I have reviewed the following items laine (where applicable) has been applied. Labs Laboratory Tests Test 06/24/17 16:59 06/25/17 00:05 06/25/17 11:53 06/25/17 16:34 Glucose (Fingerstick) 128 mg/dL (70-99) 142 mg/dL (70-99) 187 mg/dL (70-99) 157 mg/dL (70-99) Test 06/25/17 21:49 06/26/17 04:05 06/26/17 08:24 Glucose (Fingerstick) 137 mg/dL (70-99) 132 mg/dL (70-99) 152 mg/dL (70-99) Laboratory Tests Test 06/25/17 16:34 06/25/17 21:49 06/26/17 04:05 06/26/17 08:24 Glucose (Fingerstick) 157 mg/dL (70-99) 137 mg/dL (70-99) 132 mg/dL (70-99) 152 mg/dL (70-99) Medications Current Medications Sodium Chloride 1,000 ml @ 125 mls/hr Q8H IV Last administered on 06/19/17t 13:02; Start 06/19/17 at 12:51; Stop 06/19/17 at 20:50; Status DC Nicardipine HCl 50 mg/Sodium Chloride 270 ml @ 0 mls/hr CONT PRN IV SEE I/O RECORD; Start 06/19/17 at 13:00; Status Cancel Info (Review Meds) 1 ea PRN DAILY PRN MC SEE COMMENTS; Start 06/19/17 at 13:15 Sodium Chloride (Normal Saline Flush) 3 ml QSHIFT PRN IV AFTER MEDS AND BLOOD DRAWS; Start 06/19/17 at 13:15 Sodium Chloride 1,000 ml @ 80 mls/hr [id number] IV Last administered on 15:01; Start 06/19/17 at 13:04 Acetaminophen (Acetaminophen Supp) 650 mg PRN Q6HRS PRN MS FEVER > 100.5'F Last administered on 06/25/17 11:47; Start 06/19/17 at 13:15 Nicardipine HCl 50 mg/Sodium Chloride 270 ml @ 25 mls/hr CONT PRN IV HYPERTENSION, SEE COMMENTS Last administered on 06/19/17 13:15; Start at 13:15; Stop 06/25/17 at 14:22; Status DC Ondansetron HCl (Zofran) 4 mg PRN Q6HRS PRN IV NAUSEA/VOMITING; Start at 13:15 Pantoprazole Sodium (PROTONIX VIAL for IV PUSH) 40 mg DAILYAC IVP Last administered on 06/26/17 06:21; Start 06/19/17 at 16:30 Info (Do NOT chart on this placeholder) 1 each 1X ONCE MC ; Start 06/19/17 at 16:45; Stop 06/19/17 at 16:46; Status UNV Pneumococcal Polyvalent Vaccine (Do NOT chart on this placeholder) 1 each 1X ONCE MC ; Start 06/19/17 at 16:45; Stop 06/19/17 at 16:46; Status UNV Influenza Virus Vaccine Quadrival (Fluarix Quad 4300-0016 Syringe) 0.5 ml ONCE ONCE VAX IM Last administered on 06/19/17 21:37; Start 06/19/17 at 17:00; Stop 06/19/17 at 17:01; Status DC Hydralazine HCl (Apresoline Inj) 10 mg PRN Q4HRS PRN IVP ELEVATED BP, SEE COMMENTS Last administered on 06/20/17 17:58; Start 06/20/17 at 10:00 Phenazopyridine HCl (Pyridium) 200 mg PRN BID PRN PO URINARY PAIN; Start 06/20 at 20:00 Diazepam (Valium) 5 mg 1X ONCE IV Last administered on 06/20/17 20:26; Start 06/20/17 at 20:15; Stop 06/20/17 at 20:16; Status DC Influenza Virus Vaccine Quadrival (Fluarix Quad 1161-9547 Syringe) 0.5 ml ONCE ONCE VAX IM ; Start 06/23/17 at 09:00; Stop 06/23/17 at 09:01; Status UNV Morphine Sulfate 1 mg PRN Q2HR PRN IV PAIN Last administered on 06/24/17 06: 11; Start 06/24/17 at 06:00 Atorvastatin Calcium (Lipitor) 20 mg QHS PO Last administered on 06/25/17 20: 22; Start 06/24/17 at 21:00 Active Scripts Active Reported Alfuzosin Hcl 10 Mg Tab.er.24h 10 Mg PO DAILY 30 Days Donepezil Hcl 10 Mg Tablet 10 Mg PO DAILY 30 Days Sertraline Hcl 50 Mg Tablet 50 Mg PO DAILY 30 Days Vitals/I & O Vital Sign - Last 24 Hours 06/25/17 06/25/17 06/25/17 06/26/17 19:15 19:35 23:21 03:01 Temp 99.4 99.0 98.6 99.4 99.0 98.6 Pulse 74 68 66 Resp 18 22 18 B/P (MAP) 118/52 (74) 131/66 (87) 140/60 (86) Pulse Ox 96 96 97 O2 Delivery Room Air Room Air Room Air Room Air 06/26/17 06/26/17 06/26/17 07:00 11:00 15:00 Temp 100.2 99.7 101.1 100.2 99.7 101.1 Pulse 64 54 69 Resp 18 16 16 B/P (MAP) 141/60 (87) 124/64 (84) 116/73 (87) Pulse Ox 96 94 95 O2 Delivery Room Air Room Air Room Air Intake and Output 06/25/17 06/25/17 06/26/17 15:00 23:00 07:00 Intake Total 5 ml 1401 ml 467.53 ml Output Total 1225 ml 450 ml Balance 5 ml 176 ml 17.53 ml VANDA MADRIGAL MD Jun 26, 2017 15:35
[2017-06-26 16:20] LABS: BILIRUBIN,URINE NEGATIVE (NEG); GLUCOSE,URINE NEGATIVE (NEG); NITRITE,URINE NEGATIVE (NEG); PH,URINE 6.5; PROTEIN,URINE NEGATIVE (NEG-TRACE); UROBILINOGEN,URINE >=8.0 mg/dL (0.2 mg/dL)
[2017-06-26 16:31] LABS: BACTERIA,URINE 0 /HPF (0-FEW); RBC,URINE 0 /HPF (0-2); SQUAMOUS EPITHELIAL CELL,UR OCC /LPF
[2017-06-26 19:00] VITALS: BP 116/59
[2017-06-26] MEDS: ATORVASTATIN CALCIUM 20 MG TABLET PO SCH (21:00)
[2017-06-26 23:17] VITALS: BP 131/56
[2017-06-27 03:12] VITALS: BP 130/53
[2017-06-27] MEDS: IV NORMAL SALINE 1000ML BAG 1,000 ML IV SCH ×2 (03:34→15:18)
[2017-06-27] MEDS: PANTOPRAZOLE IV PUSH 40 MG VIAL. IVP SCH (06:22)
[2017-06-27 07:00] VITALS: BP 133/58
--- NOTE | 2017-06-27 10:52 | PDOC ---
PROGRESS NOTES Subjective Subjective No new complaints. Objective Objective Vital Signs Date Time Temp Pulse Resp B/P (MAP) Pulse Ox O2 Delivery O2 Flow Rate FiO2 06/27/17 08:00 Room Air 06/27/17 07:00 98.1 53 16 133/58 (83) 97 98.1 Intake and Output 06/27/17 07:00 Intake Total 1962 ml Output Total 1750 ml Balance 212 ml Intake Oral 0 ml IV Total 1032 ml Tube Feeding 930 ml Output Urine Total 1750 ml Physical Exam Physical Exam He is sleeping soundly supine in bed. Assessment Assessment Problems Medical Problems: (1) Dementia Status: Acute (2) Hypertension Status: Acute Plan Plan of Care To continue present physical,occupational therapy and speech pathology follow up and to proceed with PEG if his swallowing function does not improve by 2016. Comment Review of Relevant I have reviewed the following items laine (where applicable) has been applied. Labs Laboratory Tests Test 06/25/17 11:53 06/25/17 16:34 06/25/17 21:49 06/26/17 04:05 Glucose (Fingerstick) 187 mg/dL (70-99) 157 mg/dL (70-99) 137 mg/dL (70-99) 132 mg/dL (70-99) Test 06/26/17 08:24 06/26/17 15:50 06/26/17 16:08 06/26/17 21:03 Glucose (Fingerstick) 152 mg/dL (70-99) 148 mg/dL (70-99) 132 mg/dL (70-99) Urine Color Yellow Urine Clarity Clear Urine pH 6.5 Urine Specific [place] 1.025 Urine Protein Negative mg/dL (NEG-TRACE) Urine Glucose (UA) Negative mg/dL (NEG) Urine Ketones (Stick) Negative mg/dL (NEG) Urine Blood Negative (NEG) Urine Nitrite Negative (NEG) Urine Bilirubin Negative (NEG) Urine Urobilinogen Dipstick >=8.0 mg/dL (0.2 mg/dL) Urine Leukocyte Esterase Small (NEG) Urine RBC 0 /HPF (0-2) Urine WBC 1-4 /HPF (0-4) Urine Squamous Epithelial Cells Occ /LPF Urine Bacteria 0 /HPF (0-FEW) Urine Mucus Slight /LPF Test 06/27/17 07:29 Glucose (Fingerstick) 143 mg/dL (70-99) Laboratory Tests Test 06/26/17 15:50 06/26/17 16:08 06/26/17 21:03 06/27/17 07:29 Urine Color Yellow Urine Clarity Clear Urine pH 6.5 Urine Specific [place] 1.025 Urine Protein Negative mg/dL (NEG-TRACE) Urine Glucose (UA) Negative mg/dL (NEG) Urine Ketones (Stick) Negative mg/dL (NEG) Urine Blood Negative (NEG) Urine Nitrite Negative (NEG) Urine Bilirubin Negative (NEG) Urine Urobilinogen Dipstick >=8.0 mg/dL (0.2 mg/dL) Urine Leukocyte Esterase Small (NEG) Urine RBC 0 /HPF (0-2) Urine WBC 1-4 /HPF (0-4) Urine Squamous Epithelial Cells Occ /LPF Urine Bacteria 0 /HPF (0-FEW) Urine Mucus Slight /LPF Glucose (Fingerstick) 148 mg/dL (70-99) 132 mg/dL (70-99) 143 mg/dL (70-99) Medications Current Medications Sodium Chloride 1,000 ml @ 125 mls/hr Q8H IV Last administered on 06/19/17 13:02; Start 06/19/17 at 12:51; Stop 06/19/17 at 20:50; Status DC Nicardipine HCl 50 mg/Sodium Chloride 270 ml @ 0 mls/hr CONT PRN IV SEE I/O RECORD; Start 06/19/17 at 13:00; Status Cancel Info (Review Meds) 1 ea PRN DAILY PRN MC SEE COMMENTS; Start 06/19/17 at 13:15 Sodium Chloride (Normal Saline Flush) 3 ml QSHIFT PRN IV AFTER MEDS AND BLOOD DRAWS; Start 06/19/17 at 13:15 Sodium Chloride 1,000 ml @ 80 mls/hr [id number] IV Last administered on 03:34; Start 06/19/17 at 13:04 Acetaminophen (Acetaminophen Supp) 650 mg PRN Q6HRS PRN [place] FEVER > 100.5'F Last administered on 06/26/17 15:26; Start 06/19/17 at 13:15 Nicardipine HCl 50 mg/Sodium Chloride 270 ml @ 25 mls/hr CONT PRN IV HYPERTENSION, SEE COMMENTS Last administered on 06/19/17 13:15; Start at 13:15; Stop 06/25/17 at 14:22; Status DC Ondansetron HCl (Zofran) 4 mg PRN Q6HRS PRN IV NAUSEA/VOMITING; Start at 13:15 Pantoprazole Sodium (PROTONIX VIAL for IV PUSH) 40 mg DAILYAC IVP Last administered on 06/27/17 06:22; Start 06/19/17 at 16:30 Info (Do NOT chart on this placeholder) 1 each 1X ONCE MC ; Start 06/19/17 at 16:45; Stop 06/19/17 at 16:46; Status UNV Pneumococcal Polyvalent Vaccine (Do NOT chart on this placeholder) 1 each 1X ONCE MC ; Start 06/19/17 at 16:45; Stop 06/19/17 at 16:46; Status UNV Influenza Virus Vaccine Quadrival (Fluarix Quad Syringe) 0.5 ml ONCE ONCE VAX IM Last administered on 06/19/17 21:37; Start 06/19/17 at 17:00; Stop 06/19/17 at 17:01; Status DC Hydralazine HCl (Apresoline Inj) 10 mg PRN Q4HRS PRN IVP ELEVATED BP, SEE COMMENTS Last administered on 06/20/17 17:58; Start 06/20/17 at 10:00 Phenazopyridine HCl (Pyridium) 200 mg PRN BID PRN PO URINARY PAIN; Start 06/20 at 20:00 Diazepam (Valium) 5 mg 1X ONCE IV Last administered on 06/20/17 20:26; Start 06/20/17 at 20:15; Stop 06/20/17 at 20:16; Status DC Influenza Virus Vaccine Quadrival (Fluarix Quad Syringe) 0.5 ml ONCE ONCE VAX IM ; Start 06/23/17 at 09:00; Stop 06/23/17 at 09:01; Status UNV Morphine Sulfate 1 mg PRN Q2HR PRN IV PAIN Last administered on 06/24/17 06: 11; Start 06/24/17 at 06:00 Atorvastatin Calcium (Lipitor) 20 mg QHS PO Last administered on 06/25/17 20: 22; Start 06/24/17 at 21:00 Chlorpromazine HCl 25 mg/Sodium Chloride 50 ml @ 100 mls/hr PRN Q8HRS PRN IV HICCUPS Last administered on 06/26/17t 22:10; Start 06/26/17 at 22:00 Active Scripts Active Reported Alfuzosin Hcl 10 Mg Tab.er.24h 10 Mg PO DAILY 30 Days Donepezil Hcl 10 Mg Tablet 10 Mg PO DAILY 30 Days Sertraline Hcl 50 Mg Tablet 50 Mg PO DAILY 30 Days Vitals/I & O Vital Sign - Last 24 Hours 06/26/17 06/26/17 06/26/17 06/26/17 11:00 15:00 17:09 19:00 Temp 99.7 101.1 99.1 99.7 99.7 101.1 99.1 99.7 Pulse 54 69 61 Resp 16 16 24 B/P (MAP) 124/64 (84) 116/73 (87) 116/59 (78) Pulse Ox 94 95 99 O2 Delivery Room Air Room Air Room Air 06/26/17 06/26/17 06/27/17 06/27/17 19:30 23:17 03:12 07:00 Temp 99.0 99.3 98.1 99.0 99.3 98.1 Pulse 65 63 53 Resp 24 22 16 B/P (MAP) 131/56 (81) 130/53 (78) 133/58 (83) Pulse Ox 93 97 97 O2 Delivery Room Air Room Air Room Air 06/27/17 08:00 O2 Delivery Room Air Intake and Output 06/26/17 06/26/17 06/27/17 15:00 23:00 07:00 Intake Total 175 ml 80 ml 1707 ml Output Total 550 ml 1200 ml Balance 175 ml -470 ml 507 ml VANDA MADRIGAL MD Jun 27, 2017 10:52
[2017-06-27 11:00] VITALS: BP 146/66
--- NOTE | 2017-06-27 12:35 | RAD ---
AP PORTABLE CHEST Clinical Indication: fevers. Comparison: AP chest, 2 days ago. 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 The cardiomediastinal silhouette is normal. Lungs are clear. There is no pneumothorax. No pleural effusion is appreciated. There is no acute bone abnormality. IMPRESSION: No acute cardiopulmonary process.
--- NOTE | 2017-06-27 12:51 | PDOC ---
PROGRESS NOTES Assessment Problems Medical Problems: (1) Dementia Status: Acute (2) Hypertension Status: Acute Acute right frontal lobe hemorrhage, hematoma 4.7 cm x 2.5 cm with visible cerebral edema on 06/19/17. Increased cerebral edema with 5 mm right to left midline shift on 06/22/17. Small SAH. Left side hemiplegia. Cerebral amyloid disease possible. Dementia. Plan Note plans for PEG [facility] Subjective Does not indicate any pain Objective Vital Signs Date Time Temp Pulse Resp B/P (MAP) Pulse Ox O2 Delivery O2 Flow Rate FiO2 06/27/17 11:00 98.6 53 18 146/66 (92) 100 98.6 06/27/17 08:00 Room Air Intake and Output 06/27/17 07:00 Intake Total 1962 ml Output Total 1750 ml Balance 212 ml Intake Oral 0 ml IV Total 1032 ml Tube Feeding 930 ml Output Urine Total 1750 ml PHYSICAL EXAM Alert. Oriented only to person person. PERRL. EOMI. CN: Left central facial palsy Muscle tone: Increased on left Muscle strength: 3/5 left hemiparesis DTR: 1+ on right, 2+ on left Plantar reflex: Flexor Gait: not examined in bed. Sensory exam: no abnormal findings. No cerebellar signs elicited. Review of Relevant I have reviewed the following items laine (where applicable) has been applied. Labs Laboratory Tests Test 06/25/17 16:34 06/25/17 21:49 06/26/17 04:05 06/26/17 08:24 Glucose (Fingerstick) 157 mg/dL (70-99) 137 mg/dL (70-99) 132 mg/dL (70-99) 152 mg/dL (70-99) Test 06/26/17 15:50 06/26/17 16:08 06/26/17 21:03 06/27/17 07:29 Urine Color Yellow Urine Clarity Clear Urine pH 6.5 Urine Specific [place] 1.025 Urine Protein Negative mg/dL (NEG-TRACE) Urine Glucose (UA) Negative mg/dL (NEG) Urine Ketones (Stick) Negative mg/dL (NEG) Urine Blood Negative (NEG) Urine Nitrite Negative (NEG) Urine Bilirubin Negative (NEG) Urine Urobilinogen Dipstick >=8.0 mg/dL (0.2 mg/dL) Urine Leukocyte Esterase Small (NEG) Urine RBC 0 /HPF (0-2) Urine WBC 1-4 /HPF (0-4) Urine Squamous Epithelial Cells Occ /LPF Urine Bacteria 0 /HPF (0-FEW) Urine Mucus Slight /LPF Glucose (Fingerstick) 148 mg/dL (70-99) 132 mg/dL (70-99) 143 mg/dL (70-99) Test 06/27/17 10:59 Glucose (Fingerstick) 156 mg/dL (70-99) Laboratory Tests Test 06/26/17 15:50 06/26/17 16:08 06/26/17 21:03 06/27/17 07:29 Urine Color Yellow Urine Clarity Clear Urine pH 6.5 Urine Specific [place] 1.025 Urine Protein Negative mg/dL (NEG-TRACE) Urine Glucose (UA) Negative mg/dL (NEG) Urine Ketones (Stick) Negative mg/dL (NEG) Urine Blood Negative (NEG) Urine Nitrite Negative (NEG) Urine Bilirubin Negative (NEG) Urine Urobilinogen Dipstick >=8.0 mg/dL (0.2 mg/dL) Urine Leukocyte Esterase Small (NEG) Urine RBC 0 /HPF (0-2) Urine WBC 1-4 /HPF (0-4) Urine Squamous Epithelial Cells Occ /LPF Urine Bacteria 0 /HPF (0-FEW) Urine Mucus Slight /LPF Glucose (Fingerstick) 148 mg/dL (70-99) 132 mg/dL (70-99) 143 mg/dL (70-99) Test 06/27/17 10:59 Glucose (Fingerstick) 156 mg/dL (70-99) Medications Current Medications Sodium Chloride 1,000 ml @ 125 mls/hr Q8H IV Last administered on 06/19/17t 13:02; Start 06/19/17 at 12:51; Stop 06/19/17 at 20:50; Status DC Nicardipine HCl 50 mg/Sodium Chloride 270 ml @ 0 mls/hr CONT PRN IV SEE I/O RECORD; Start 06/19/17 at 13:00; Status Cancel Info (Review Meds) 1 ea PRN DAILY PRN MC SEE COMMENTS; Start 06/19/17 at 13:15 Sodium Chloride (Normal Saline Flush) 3 ml QSHIFT PRN IV AFTER MEDS AND BLOOD DRAWS; Start 06/19/17 at 13:15 Sodium Chloride 1,000 ml @ 80 mls/hr [id number] IV Last administered on 03:34; Start 06/19/17 at 13:04 Acetaminophen (Acetaminophen Supp) [address] FEVER > 100.5'F Last administered on 06/26/17 15:26; Start 06/19/17 at 13:15 Nicardipine HCl 50 mg/Sodium Chloride 270 ml @ 25 mls/hr CONT PRN IV HYPERTENSION, SEE COMMENTS Last administered on 06/19/17 13:15; Start at 13:15; Stop 06/25/17 at 14:22; Status DC Ondansetron HCl (Zofran) 4 mg PRN Q6HRS PRN IV NAUSEA/VOMITING; Start at 13:15 Pantoprazole Sodium (PROTONIX VIAL for IV PUSH) 40 mg DAILYAC IVP Last administered on 06/27/17 06:22; Start 06/19/17 at 16:30 Info (Do NOT chart on this placeholder) 1 each 1X ONCE MC ; Start 06/19/17 at 16:45; Stop 06/19/17 at 16:46; Status UNV Pneumococcal Polyvalent Vaccine (Do NOT chart on this placeholder) 1 each 1X ONCE MC ; Start 06/19/17 at 16:45; Stop 06/19/17 at 16:46; Status UNV Influenza Virus Vaccine Quadrival (Fluarix Quad 1576-2874 Syringe) 0.5 ml ONCE ONCE VAX IM Last administered on 06/19/17 21:37; Start 06/19/17 at 17:00; Stop 06/19/17 at 17:01; Status DC Hydralazine HCl (Apresoline Inj) 10 mg PRN Q4HRS PRN IVP ELEVATED BP, SEE COMMENTS Last administered on 06/20/17 17:58; Start 06/20/17 at 10:00 Phenazopyridine HCl (Pyridium) 200 mg PRN BID PRN PO URINARY PAIN; Start 06/20 at 20:00 Diazepam (Valium) 5 mg 1X ONCE IV Last administered on 06/20/17 20:26; Start 06/20/17 at 20:15; Stop 06/20/17 at 20:16; Status DC Influenza Virus Vaccine Quadrival (Fluarix Quad [id number] Syringe) 0.5 ml ONCE ONCE VAX IM ; Start 06/23/17 at 09:00; Stop 06/23/17 at 09:01; Status UNV Morphine Sulfate 1 mg PRN Q2HR PRN IV PAIN Last administered on 06/24/17 06: 11; Start 06/24/17 at 06:00 Atorvastatin Calcium (Lipitor) 20 mg QHS PO Last administered on 06/25/17 20: 22; Start 06/24/17 at 21:00 Chlorpromazine HCl 25 mg/Sodium Chloride 50 ml @ 100 mls/hr PRN Q8HRS PRN IV HICCUPS Last administered on 06/26/17 22:10; Start 06/26/17 at 22:00 Active Scripts Active Reported Alfuzosin Hcl 10 Mg Tab.er.24h 10 Mg PO DAILY 30 Days Donepezil Hcl 10 Mg Tablet 10 Mg PO DAILY 30 Days Sertraline Hcl 50 Mg Tablet 50 Mg PO DAILY 30 Days Vitals/I & O Vital Sign - Last 24 Hours 06/26/17 06/26/17 06/26/17 06/26/17 15:00 17:09 19:00 19:30 Temp 101.1 99.1 99.7 101.1 99.1 99.7 Pulse 69 61 Resp 16 24 B/P (MAP) 116/73 (87) 116/59 (78) Pulse Ox 95 99 O2 Delivery Room Air Room Air Room Air 06/26/17 06/27/17 06/27/17 06/27/17:17 03:12 07:00 08:00 Temp 99.0 99.3 98.1 99.0 99.3 98.1 Pulse 65 63 53 Resp 24 22 16 B/P (MAP) 131/56 (81) 130/53 (78) 133/58 (83) Pulse Ox 93 97 97 O2 Delivery Room Air Room Air Room Air 06/27/17 11:00 Temp 98.6 98.6 Pulse 53 Resp 18 B/P (MAP) 146/66 (92) Pulse Ox 100 Intake and Output 06/26/17 06/26/17 06/27/17 15:00 23:00 07:00 Intake Total 175 ml 80 ml 1707 ml Output Total 550 ml 1200 ml Balance 175 ml -470 ml 507 ml JAY DE JESUS MD Jun 27, 2017 12:50
[2017-06-27 15:00] VITALS: BP 139/60
--- NOTE | 2017-06-27 16:15 | PDOC ---
PROGRESS NOTES Chief Complaint Chief Complaint stable Hemorrhagic stroke, CT done 06.26 PT and OT left sided weakness 5 cm hematoma w/ effacement Rt lateral ventricle Accelerated hypertension, on admit Dementia on Aricept DNR./DNI Dysphagia secondary to above hemorrhagic stroke History of Present Illness History of Present Illness some lethargy earlier [place] following Dobbhoff feeds may need PEG next week PT OT -n will need rehabilitation modalities and family is agreeable Vitals Vitals Vital Signs Date Time Temp Pulse Resp B/P (MAP) Pulse Ox O2 Delivery O2 Flow Rate FiO2 06/27/17 11:00 98.6 53 18 146/66 (92) 100 98.6 06/27/17 08:00 Room Air Physical Exam Physical Exam General appearance is in acute distress. . Pulmonary: relative clear to auscultation bilaterally. General: Cooperative, No acute distress Heart: Regular rate Lungs: Clear Abdomen: Normal bowel sounds Extremities: No clubbing, No cyanosis, No edema, Normal pulses, No tenderness/ swelling Skin: No rashes, No breakdown, No significant lesion Labs LABS Laboratory Tests Test 06/26/17 21:03 06/27/17 07:29 06/27/17 10:59 Glucose (Fingerstick) 132 mg/dL (70-99) 143 mg/dL (70-99) 156 mg/dL (70-99) Review of Systems Review of Systems no nv..d + lethargy Assessment and Plan Assessmemt and Plan Problems Medical Problems: (1) Dementia Status: Acute (2) Hypertension Status: Acute Problems: Comment Review of Relevant I have reviewed the following items laine (where applicable) has been applied. Labs Laboratory Tests Test 06/25/17 16:34 06/25/17 21:49 06/26/17 04:05 06/26/17 08:24 Glucose (Fingerstick) 157 mg/dL (70-99) 137 mg/dL (70-99) 132 mg/dL (70-99) 152 mg/dL (70-99) Test 06/26/17 15:50 06/26/17 16:08 06/26/17 21:03 06/27/17 07:29 Urine Color Yellow Urine Clarity Clear Urine pH 6.5 Urine Specific [place] 1.025 Urine Protein Negative mg/dL (NEG-TRACE) Urine Glucose (UA) Negative mg/dL (NEG) Urine Ketones (Stick) Negative mg/dL (NEG) Urine Blood Negative (NEG) Urine Nitrite Negative (NEG) Urine Bilirubin Negative (NEG) Urine Urobilinogen Dipstick >=8.0 mg/dL (0.2 mg/dL) Urine Leukocyte Esterase Small (NEG) Urine RBC 0 /HPF (0-2) Urine WBC 1-4 /HPF (0-4) Urine Squamous Epithelial Cells Occ /LPF Urine Bacteria 0 /HPF (0-FEW) Urine Mucus Slight /LPF Glucose (Fingerstick) 148 mg/dL (70-99) 132 mg/dL (70-99) 143 mg/dL (70-99) Test 06/27/17 10:59 Glucose (Fingerstick) 156 mg/dL (70-99) Laboratory Tests Test 06/26/17 21:03 06/27/17 07:29 06/27/17 10:59 Glucose (Fingerstick) 132 mg/dL (70-99) 143 mg/dL (70-99) 156 mg/dL (70-99) Microbiology 06/26/17 Blood Culture - Preliminary, Resulted NO GROWTH AFTER 1 DAY Medications Current Medications Sodium Chloride 1,000 ml @ 125 mls/hr Q8H IV Last administered on 06/19/17 13:02; Start 06/19/17 at 12:51; Stop 06/19/17 at 20:50; Status DC Nicardipine HCl 50 mg/Sodium Chloride 270 ml @ 0 mls/hr CONT PRN IV SEE I/O RECORD; Start 06/19/17 at 13:00; Status Cancel Info (Review Meds) 1 ea PRN DAILY PRN SEE COMMENTS; Start 06/19/17 at 13:15 Sodium Chloride (Normal Saline Flush) 3 ml QSHIFT PRN IV AFTER MEDS AND BLOOD DRAWS; Start 06/19/17 at 13:15 Sodium Chloride 1,000 ml @ 80 mls/hr [id number] IV Last administered on 15:18; Start 06/19/17 at 13:04 Acetaminophen (Acetaminophen Supp) 650 mg PRN Q6HRS PRN [place] FEVER > 100.5'F Last administered on 06/26/17 15:26; Start 06/19/17 at 13:15 Nicardipine HCl 50 mg/Sodium Chloride 270 ml @ 25 mls/hr CONT PRN IV HYPERTENSION, SEE COMMENTS Last administered on 06/19/17 13:15; Start at 13:15; Stop 06/25/17 at 14:22; Status DC Ondansetron HCl (Zofran) 4 mg PRN Q6HRS PRN IV NAUSEA/VOMITING; Start at 13:15 Pantoprazole Sodium (PROTONIX VIAL for IV PUSH) 40 mg DAILYAC IVP Last administered on 06/27/17 06:22; Start 06/19/17 at 16:30 Info (Do NOT chart on this placeholder) 1 each 1X ONCE MC ; Start 06/19/17 at 16:45; Stop 06/19/17 at 16:46; Status UNV Pneumococcal Polyvalent Vaccine (Do NOT chart on this placeholder) 1 each 1X ONCE MC ; Start 06/19/17 at 16:45; Stop 06/19/17 at 16:46; Status UNV Influenza Virus Vaccine Quadrival (Fluarix Quad Syringe) 0.5 ml ONCE ONCE VAX IM Last administered on 06/19/17 21:37; Start 06/19/17 at 17:00; Stop 06/19/17 at 17:01; Status DC Hydralazine HCl (Apresoline Inj) 10 mg PRN Q4HRS PRN IVP ELEVATED BP, SEE COMMENTS Last administered on 06/20/17 17:58; Start 06/20/17 at 10:00 Phenazopyridine HCl (Pyridium) 200 mg PRN BID PRN PO URINARY PAIN; Start 06/20 at 20:00 Diazepam (Valium) 5 mg 1X ONCE IV Last administered on 06/20/17 20:26; Start 06/20/17 at 20:15; Stop 06/20/17 at 20:16; Status DC Influenza Virus Vaccine Quadrival (Fluarix Quad Syringe) 0.5 ml ONCE ONCE VAX IM ; Start 06/23/17 at 09:00; Stop 06/23/17 at 09:01; Status UNV Morphine Sulfate 1 mg PRN Q2HR PRN IV PAIN Last administered on 06/24/17 06: 11; Start 06/24/17 at 06:00 Atorvastatin Calcium (Lipitor) 20 mg QHS PO Last administered on 06/25/17 20: 22; Start 06/24/17 at 21:00 Chlorpromazine HCl 25 mg/Sodium Chloride 50 ml @ 100 mls/hr PRN Q8HRS PRN IV HICCUPS Last administered on 06/27/17 15:18; Start 06/26/17 at 22:00 Active Scripts Active Reported Alfuzosin Hcl 10 Mg Tab.er.24h 10 Mg PO DAILY 30 Days Donepezil Hcl 10 Mg Tablet 10 Mg PO DAILY 30 Days Sertraline Hcl 50 Mg Tablet 50 Mg PO DAILY 30 Days Vitals/I & O Vital Sign - Last 24 Hours 06/26/17 06/26/17 06/26/17 06/26/17 17:09 19:00 19:30 23:17 Temp 99.1 99.7 99.0 99.1 99.7 99.0 Pulse 61 65 Resp 24 24 B/P (MAP) 116/59 (78) 131/56 (81) Pulse Ox 99 93 O2 Delivery Room Air Room Air Room Air 06/27/17 06/27/17 06/27/17 06/27/17 03:12 07:00 08:00 11:00 Temp 99.3 98.1 98.6 99.3 98.1 98.6 Pulse 63 53 53 Resp 22 16 18 B/P (MAP) 130/53 (78) 133/58 (83) 146/66 (92) Pulse Ox 97 97 100 O2 Delivery Room Air Room Air Intake and Output 06/26/17 06/26/17 06/27/17 15:00 23:00 07:00 Intake Total 175 ml 80 ml 1707 ml Output Total 550 ml 1200 ml Balance 175 ml -470 ml 507 ml MILAGROS REYES MD Jun 27, 2017 16:15
--- NOTE | 2017-06-27 16:43 | PDOC ---
PROGRESS NOTES Subjective Subjective patient seen at 1135 mumbles a few words Objective Objective Vital Signs Date Time Temp Pulse Resp B/P (MAP) Pulse Ox O2 Delivery O2 Flow Rate FiO2 06/27/17 11:00 98.6 53 18 146/66 (92) 100 98.6 06/27/17 08:00 Room Air Intake and Output 06/27/17 07:00 Intake Total 1962 ml Output Total 1750 ml Balance 212 ml Intake Oral 0 ml IV Total 1032 ml Tube Feeding 930 ml Output Urine Total 1750 ml Physical Exam General: Other (follows some commands) Neuro: Other (left hemiparesis) Assessment Assessment Problems Medical Problems: (1) Dementia Status: Acute (2) Hypertension Status: Acute Plan Plan of Care continue current treatment will need f/u CT head next week Comment Review of Relevant I have reviewed the following items laine (where applicable) has been applied. Labs Laboratory Tests Test 06/25/17 21:49 06/26/17 04:05 06/26/17 08:24 06/26/17 15:50 Glucose (Fingerstick) 137 mg/dL (70-99) 132 mg/dL (70-99) 152 mg/dL (70-99) Urine Color Yellow Urine Clarity Clear Urine pH 6.5 Urine Specific [place] 1.025 Urine Protein Negative mg/dL (NEG-TRACE) Urine Glucose (UA) Negative mg/dL (NEG) Urine Ketones (Stick) Negative mg/dL (NEG) Urine Blood Negative (NEG) Urine Nitrite Negative (NEG) Urine Bilirubin Negative (NEG) Urine Urobilinogen Dipstick >=8.0 mg/dL (0.2 mg/dL) Urine Leukocyte Esterase Small (NEG) Urine RBC 0 /HPF (0-2) Urine WBC 1-4 /HPF (0-4) Urine Squamous Epithelial Cells Occ /LPF Urine Bacteria 0 /HPF (0-FEW) Urine Mucus Slight /LPF Test 06/26/17 16:08 06/26/17 21:03 06/27/17 07:29 06/27/17 10:59 Glucose (Fingerstick) 148 mg/dL (70-99) 132 mg/dL (70-99) 143 mg/dL (70-99) 156 mg/dL (70-99) Laboratory Tests Test 06/26/17 21:03 06/27/17 07:29 06/27/17 10:59 Glucose (Fingerstick) 132 mg/dL (70-99) 143 mg/dL (70-99) 156 mg/dL (70-99) Microbiology 06/26/17 Blood Culture - Preliminary, Resulted NO GROWTH AFTER 1 DAY Medications Current Medications Sodium Chloride 1,000 ml @ 125 mls/hr Q8H IV Last administered on 06/19/17 13:02; Start 06/19/17 at 12:51; Stop 06/19/17 at 20:50; Status DC Nicardipine HCl 50 mg/Sodium Chloride 270 ml @ 0 mls/hr CONT PRN IV SEE I/O RECORD; Start 06/19/17 at 13:00; Status Cancel Info (Review Meds) 1 ea PRN DAILY PRN MC SEE COMMENTS; Start 06/19/17 at 13:15 Sodium Chloride (Normal Saline Flush) 3 ml QSHIFT PRN IV AFTER MEDS AND BLOOD DRAWS; Start 06/19/17 at 13:15 Sodium Chloride 1,000 ml @ 80 mls/hr [id number] IV Last administered on 15:18; Start 06/19/17 at 13:04 Acetaminophen (Acetaminophen Supp) 650 mg PRN Q6HRS PRN [place] FEVER > 100.5'F Last administered on 06/26/17 15:26; Start 06/19/17 at 13:15 Nicardipine HCl 50 mg/Sodium Chloride 270 ml @ 25 mls/hr CONT PRN IV HYPERTENSION, SEE COMMENTS Last administered on 06/19/17 13:15; Start at 13:15; Stop 06/25/17 at 14:22; Status DC Ondansetron HCl (Zofran) 4 mg PRN Q6HRS PRN IV NAUSEA/VOMITING; Start at 13:15 Pantoprazole Sodium (PROTONIX VIAL for IV PUSH) 40 mg DAILYAC IVP Last administered on 06/27/17 06:22; Start 06/19/17 at 16:30 Info (Do NOT chart on this placeholder) 1 each 1X ONCE MC ; Start 06/19/17 at 16:45; Stop 06/19/17 at 16:46; Status UNV Pneumococcal Polyvalent Vaccine (Do NOT chart on this placeholder) 1 each 1X ONCE MC ; Start 06/19/17 at 16:45; Stop 06/19/17 at 16:46; Status UNV Influenza Virus Vaccine Quadrival (Fluarix Quad Syringe) 0.5 ml ONCE ONCE VAX IM Last administered on 06/19/17 21:37; Start 06/19/17 at 17:00; Stop 06/19/17 at 17:01; Status DC Hydralazine HCl (Apresoline Inj) 10 mg PRN Q4HRS PRN IVP ELEVATED BP, SEE COMMENTS Last administered on 06/20/17 17:58; Start 06/20/17 at 10:00 Phenazopyridine HCl (Pyridium) 200 mg PRN BID PRN PO URINARY PAIN; Start 06/20 at 20:00 Diazepam (Valium) 5 mg 1X ONCE IV Last administered on 06/20/17 20:26; Start 06/20/17 at 20:15; Stop 06/20/17 at 20:16; Status DC Influenza Virus Vaccine Quadrival (Fluarix Quad Syringe) 0.5 ml ONCE ONCE VAX IM ; Start 06/23/17 at 09:00; Stop 06/23/17 at 09:01; Status UNV Morphine Sulfate 1 mg PRN Q2HR PRN IV PAIN Last administered on 06/24/17 06: 11; Start 06/24/17 at 06:00 Atorvastatin Calcium (Lipitor) 20 mg QHS PO Last administered on 06/25/17 20: 22; Start 06/24/17 at 21:00 Chlorpromazine HCl 25 mg/Sodium Chloride 50 ml @ 100 mls/hr PRN Q8HRS PRN IV HICCUPS Last administered on 06/27/17 15:18; Start 06/26/17 at 22:00 Active Scripts Active Reported Alfuzosin Hcl 10 Mg Tab.er.24h 10 Mg PO DAILY 30 Days Donepezil Hcl 10 Mg Tablet 10 Mg PO DAILY 30 Days Sertraline Hcl 50 Mg Tablet 50 Mg PO DAILY 30 Days Vitals/I & O Vital Sign - Last 24 Hours 06/26/17 06/26/17 06/26/17 06/26/17 17:09 19:00 19:30 23:17 Temp 99.1 99.7 99.0 99.1 99.7 99.0 Pulse 61 65 Resp 24 24 B/P (MAP) 116/59 (78) 131/56 (81) Pulse Ox 99 93 O2 Delivery Room Air Room Air Room Air 06/27/17 06/27/17 06/27/17 06/27/17 03:12 07:00 08:00 11:00 Temp 99.3 98.1 98.6 99.3 98.1 98.6 Pulse 63 53 53 Resp 22 16 18 B/P (MAP) 130/53 (78) 133/58 (83) 146/66 (92) Pulse Ox 97 97 100 O2 Delivery Room Air Room Air Intake and Output 06/26/17 06/26/17 06/27/17 15:00 23:00 07:00 Intake Total 175 ml 80 ml 1707 ml Output Total 550 ml 1200 ml Balance 175 ml -470 ml 507 ml INÉS URBINA MD Jun 27, 2017 16:43
[2017-06-27 19:00] VITALS: BP 136/71
[2017-06-27] MEDS: ATORVASTATIN CALCIUM 20 MG TABLET PO SCH (20:28)
[2017-06-27] MEDS: ACETAMINOPHEN 650 MG SUPP.RECT. PR PRN (20:28)
[2017-06-27 23:00] VITALS: BP 147/65
[2017-06-28 03:00] VITALS: BP 139/64
[2017-06-28] MEDS: IV NORMAL SALINE 1000ML BAG 1,000 ML IV SCH ×2 (04:42→17:06)
[2017-06-28] MEDS: ACETAMINOPHEN 650 MG SUPP.RECT. PR PRN (04:43)
[2017-06-28 07:00] VITALS: BP 156/62
[2017-06-28] MEDS: PANTOPRAZOLE IV PUSH 40 MG VIAL. IVP SCH (08:24)
[2017-06-28 11:00] VITALS: BP 153/66
--- NOTE | 2017-06-28 14:39 | PDOC ---
PROGRESS NOTES Chief Complaint Chief Complaint stable Hemorrhagic stroke, CT done 06.26 PT and OT left sided weakness, neurosurg following 5 cm hematoma w/ effacement Rt lateral ventricle Accelerated hypertension, on admit Dementia on Aricept DNR./DNI Dysphagia secondary to above hemorrhagic stroke History of Present Illness History of Present Illness carolina Chadwick following try to sit up, Dobbhoff feeds may need PEG next week if fails swallow study PT OT -n will need rehabilitation modalities and family is agreeable Vitals Vitals Vital Signs Date Time Temp Pulse Resp B/P (MAP) Pulse Ox O2 Delivery O2 Flow Rate FiO2 06/28/17 11:00 97.4 67 14 153/66 (95) 98 Room Air 97.4 Physical Exam Physical Exam General appearance is in acute distress. . Pulmonary: relative clear to auscultation bilaterally. General: Other (follows some commands) Heart: Regular rate Lungs: Clear Abdomen: Normal bowel sounds Extremities: No clubbing, No cyanosis, No edema, Normal pulses, No tenderness/ swelling Skin: No rashes, No breakdown, No significant lesion Labs LABS Laboratory Tests Test 06/27/17 16:39 06/28/17 08:54 06/28/17 12:11 Glucose (Fingerstick) 140 mg/dL (70-99) 162 mg/dL (70-99) 161 mg/dL (70-99) Assessment and Plan Assessmemt and Plan Problems Medical Problems: (1) Dementia Status: Acute (2) Hypertension Status: Acute Problems: Comment Review of Relevant I have reviewed the following items laine (where applicable) has been applied. Labs Laboratory Tests Test 06/26/17 15:50 06/26/17 16:08 06/26/17 21:03 06/27/17 07:29 Urine Color Yellow Urine Clarity Clear Urine pH 6.5 Urine Specific [place] 1.025 Urine Protein Negative mg/dL (NEG-TRACE) Urine Glucose (UA) Negative mg/dL (NEG) Urine Ketones (Stick) Negative mg/dL (NEG) Urine Blood Negative (NEG) Urine Nitrite Negative (NEG) Urine Bilirubin Negative (NEG) Urine Urobilinogen Dipstick >=8.0 mg/dL (0.2 mg/dL) Urine Leukocyte Esterase Small (NEG) Urine RBC 0 /HPF (0-2) Urine WBC 1-4 /HPF (0-4) Urine Squamous Epithelial Cells Occ /LPF Urine Bacteria 0 /HPF (0-FEW) Urine Mucus Slight /LPF Glucose (Fingerstick) 148 mg/dL (70-99) 132 mg/dL (70-99) 143 mg/dL (70-99) Test 06/27/17 10:59 06/27/17 16:39 06/28/17 08:54 06/28/17 12:11 Glucose (Fingerstick) 156 mg/dL (70-99) 140 mg/dL (70-99) 162 mg/dL (70-99) 161 mg/dL (70-99) Laboratory Tests Test 06/27/17 16:39 06/28/17 08:54 06/28/17 12:11 Glucose (Fingerstick) 140 mg/dL (70-99) 162 mg/dL (70-99) 161 mg/dL (70-99) Microbiology 06/26/17 Blood Culture - Preliminary, Resulted NO GROWTH AFTER 1 DAY 06/26/17 Urine Culture - Final, Complete 06/26/17 Urine Culture Result 1 (CHE) - Final, Complete Medications Current Medications Sodium Chloride 1,000 ml @ 125 mls/hr Q8H IV Last administered on 06/19/17 13:02; Start 06/19/17 at 12:51; Stop 06/19/17 at 20:50; Status DC Nicardipine HCl 50 mg/Sodium Chloride 270 ml @ 0 mls/hr CONT PRN IV SEE I/O RECORD; Start 06/19/17 at 13:00; Status Cancel Info (Review Meds) 1 ea PRN DAILY PRN MC SEE COMMENTS; Start 06/19/17 at 13:15 Sodium Chloride (Normal Saline Flush) 3 ml QSHIFT PRN IV AFTER MEDS AND BLOOD DRAWS; Start 06/19/17 at 13:15 Sodium Chloride 1,000 ml @ 80 mls/hr [id number] IV Last administered on 04:42; Start 06/19/17 at 13:04 Acetaminophen (Acetaminophen Supp) 650 mg PRN Q6HRS PRN [place] FEVER > 100.5'F Last administered on 06/28/17 04:43; Start 06/19/17 at 13:15 Nicardipine HCl 50 mg/Sodium Chloride 270 ml @ 25 mls/hr CONT PRN IV HYPERTENSION, SEE COMMENTS Last administered on 06/19/17 13:15; Start at 13:15; Stop 06/25/17 at 14:22; Status DC Ondansetron HCl (Zofran) 4 mg PRN Q6HRS PRN IV NAUSEA/VOMITING; Start at 13:15 Pantoprazole Sodium (PROTONIX VIAL for IV PUSH) 40 mg DAILYAC IVP Last administered on 06/28/17 08:24; Start 06/19/17 at 16:30 Info (Do NOT chart on this placeholder) 1 each 1X ONCE MC ; Start 06/19/17 at 16:45; Stop 06/19/17 at 16:46; Status UNV Pneumococcal Polyvalent Vaccine (Do NOT chart on this placeholder) 1 each 1X ONCE MC ; Start 06/19/17 at 16:45; Stop 06/19/17 at 16:46; Status UNV Influenza Virus Vaccine Quadrival (Fluarix Quad Syringe) 0.5 ml ONCE ONCE VAX IM Last administered on 06/19/17 21:37; Start 06/19/17 at 17:00; Stop 06/19/17 at 17:01; Status DC Hydralazine HCl (Apresoline Inj) 10 mg PRN Q4HRS PRN IVP ELEVATED BP, SEE COMMENTS Last administered on 06/20/17 17:58; Start 06/20/17 at 10:00 Phenazopyridine HCl (Pyridium) 200 mg PRN BID PRN PO URINARY PAIN; Start 06/20 at 20:00 Diazepam (Valium) 5 mg 1X ONCE IV Last administered on 06/20/17 20:26; Start 06/20/17 at 20:15; Stop 06/20/17 at 20:16; Status DC Influenza Virus Vaccine Quadrival (Fluarix Quad Syringe) 0.5 ml ONCE ONCE VAX IM ; Start 06/23/17 at 09:00; Stop 06/23/17 at 09:01; Status UNV Morphine Sulfate 1 mg PRN Q2HR PRN IV PAIN Last administered on 06/24/17 06: 11; Start 06/24/17 at 06:00 Atorvastatin Calcium (Lipitor) 20 mg QHS PO Last administered on 06/27/17 20: 28; Start 06/24/17 at 21:00 Chlorpromazine HCl 25 mg/Sodium Chloride 50 ml @ 100 mls/hr PRN Q8HRS PRN IV HICCUPS Last administered on 06/27/17t 15:18; Start 06/26/17 at 22:00 Active Scripts Active Reported Alfuzosin Hcl 10 Mg Tab.er.24h 10 Mg PO DAILY 30 Days Donepezil Hcl 10 Mg Tablet 10 Mg PO DAILY 30 Days Sertraline Hcl 50 Mg Tablet 50 Mg PO DAILY 30 Days Vitals/I & O Vital Sign - Last 24 Hours 06/27/17 06/27/17 06/27/17 06/27/17 15:00 19:00 20:00 23:00 Temp 98.8 100.4 99.9 98.8 100.4 99.9 Pulse 62 61 60 Resp 18 16 24 B/P (MAP) 139/60 (86) 136/71 (92) 147/65 (92) Pulse Ox 99 99 95 O2 Delivery Room Air Room Air Room Air 06/28/17 06/28/17 06/28/17 06/28/17 03:00 07:00 07:55 11:00 Temp 100.4 97.9 97.4 100.4 97.9 97.4 Pulse 50 48 67 Resp 20 14 14 B/P (MAP) 139/64 (89) 156/62 (93) 153/66 (95) Pulse Ox 96 96 98 O2 Delivery Room Air Room Air Room Air Room Air Intake and Output 06/27/17 06/27/17 06/28/17 15:00 23:00 07:00 Intake Total 75 ml 1925 ml 1839 ml Output Total 350 ml 700 ml 1325 ml Balance -275 ml 1225 ml 514 ml MILAGROS REYES MD Jun 28, 2017 14:39
[2017-06-28 15:00] VITALS: BP 166/70
[2017-06-28 19:05] VITALS: BP 142/78
[2017-06-28] MEDS: ATORVASTATIN CALCIUM 20 MG TABLET PO SCH (21:00)
[2017-06-28] MEDS: MORPHINE SULFATE 2 MG/ML DISP.SYRIN. IV PRN (21:42)
[2017-06-28 23:04] VITALS: BP 118/50
[2017-06-29 03:09] VITALS: BP_SYST 141; BP_DIAS 61; BP_DIAS 64
[2017-06-29] MEDS: IV NORMAL SALINE 1000ML BAG 1,000 ML IV SCH ×2 (06:41→19:47)
[2017-06-29] MEDS: PANTOPRAZOLE IV PUSH 40 MG VIAL. IVP SCH (06:41)
[2017-06-29 07:00] VITALS: BP 120/61
[2017-06-29 07:33] LABS: INR 1.2 (0.8-1.1)
[2017-06-29 10:43] VITALS: BP 145/57
--- NOTE | 2017-06-29 10:52 | PDOC ---
PROGRESS NOTES Subjective Subjective He complains of pain left ankle on movement. Objective Objective Vital Signs Date Time Temp Pulse Resp B/P (MAP) Pulse Ox O2 Delivery O2 Flow Rate FiO2 06/29/17 10:43 99.6 64 20 145/57 (86) 95 Room Air 99.6 Intake and Output 06/29/17 07:00 Intake Total 450 ml Output Total 3225 ml Balance -2775 ml Intake Oral 0 ml Tube Feeding 450 ml Output Urine Total 3225 ml # Voids 2 Physical Exam Physical Exam He is awake and talking and following commands and continues with left hemiparesis and he had some edema of lef thand and left ankle and tenderness to palpation over anteriolateral aspect of left ankle. Assessment Assessment Problems Medical Problems: (1) Dementia Status: Acute (2) Hypertension Status: Acute CVA with left hemiparesis Sprain left ankle. Plan Plan of Care To try L'nard splint to left ankle sprain and use ice packs and to decide on PEG tube placement if his dysphagia does not improve. Comment Review of Relevant I have reviewed the following items laine (where applicable) has been applied. Labs Laboratory Tests Test 06/27/17 10:59 06/27/17 16:39 06/28/17 08:54 06/28/17 12:11 Glucose (Fingerstick) 156 mg/dL (70-99) 140 mg/dL (70-99) 162 mg/dL (70-99) 161 mg/dL (70-99) Test 06/29/17 07:08 06/29/17 07:10 Glucose (Fingerstick) 165 mg/dL (70-99) Prothrombin Time 14.0 SEC (11.7-14.0) Prothromb Time International Ratio 1.2 (0.8-1.1) Laboratory Tests Test 06/28/17 12:11 06/29/17 07:08 06/29/17 07:10 Glucose (Fingerstick) 161 mg/dL (70-99) 165 mg/dL (70-99) Prothrombin Time 14.0 SEC (11.7-14.0) Prothromb Time International Ratio 1.2 (0.8-1.1) Microbiology 06/26/17 Blood Culture - Preliminary, Resulted NO GROWTH AFTER 2 DAYS 06/26/17 Urine Culture - Final, Complete 06/26/17 Urine Culture Result 1 (CHE) - Final, Complete Medications Current Medications Sodium Chloride 1,000 ml @ 125 mls/hr Q8H IV Last administered on 06/19/17 13:02; Start 06/19/17 at 12:51; Stop 06/19/17 at 20:50; Status DC Nicardipine HCl 50 mg/Sodium Chloride 270 ml @ 0 mls/hr CONT PRN IV SEE I/O RECORD; Start 06/19/17 at 13:00; Status Cancel Info (Review Meds) 1 ea PRN DAILY PRN MC SEE COMMENTS; Start 06/19/17 at 13:15 Sodium Chloride (Normal Saline Flush) 3 ml QSHIFT PRN IV AFTER MEDS AND BLOOD DRAWS; Start 06/19/17 at 13:15 Sodium Chloride 1,000 ml @ 80 mls/hr [id number] IV Last administered on 06:41; Start 06/19/17 at 13:04 Acetaminophen (Acetaminophen Supp) 650 mg PRN Q6HRS PRN [place] FEVER > 100.5'F Last administered on 06/28/17 04:43; Start 06/19/17 at 13:15 Nicardipine HCl 50 mg/Sodium Chloride 270 ml @ 25 mls/hr CONT PRN IV HYPERTENSION, SEE COMMENTS Last administered on 06/19/17 13:15; Start at 13:15; Stop 06/25/17 at 14:22; Status DC Ondansetron HCl (Zofran) 4 mg PRN Q6HRS PRN IV NAUSEA/VOMITING; Start at 13:15 Pantoprazole Sodium (PROTONIX VIAL for IV PUSH) 40 mg DAILYAC IVP Last administered on 06/29/17 06:41; Start 06/19/17 at 16:30 Info (Do NOT chart on this placeholder) 1 each 1X ONCE MC ; Start 06/19/17 at 16:45; Stop 06/19/17 at 16:46; Status UNV Pneumococcal Polyvalent Vaccine (Do NOT chart on this placeholder) 1 each 1X ONCE MC ; Start 06/19/17 at 16:45; Stop 06/19/17 at 16:46; Status UNV Influenza Virus Vaccine Quadrival (Fluarix Quad [id number] Syringe) 0.5 ml ONCE ONCE VAX IM Last administered on 06/19/17 21:37; Start 06/19/17 at 17:00; Stop 06/19/17 at 17:01; Status DC Hydralazine HCl (Apresoline Inj) 10 mg PRN Q4HRS PRN IVP ELEVATED BP, SEE COMMENTS Last administered on 06/20/17 17:58; Start 06/20/17 at 10:00 Phenazopyridine HCl (Pyridium) 200 mg PRN BID PRN PO URINARY PAIN; Start 06/20 at 20:00 Diazepam (Valium) 5 mg 1X ONCE IV Last administered on 06/20/17 20:26; Start 06/20/17 at 20:15; Stop 06/20/17 at 20:16; Status DC Influenza Virus Vaccine Quadrival (Fluarix Quad [id number] Syringe) 0.5 ml ONCE ONCE VAX IM ; Start 06/23/17 at 09:00; Stop 06/23/17 at 09:01; Status UNV Morphine Sulfate 1 mg PRN Q2HR PRN IV PAIN Last administered on 06/28/17 21: 42; Start 06/24/17 at 06:00 Atorvastatin Calcium (Lipitor) 20 mg QHS PO Last administered on 06/27/17 20: 28; Start 06/24/17 at 21:00 Chlorpromazine HCl 25 mg/Sodium Chloride 50 ml @ 100 mls/hr PRN Q8HRS PRN IV HICCUPS Last administered on 06/29/17 09:55; Start 06/26/17 at 22:00 Active Scripts Active Reported Alfuzosin Hcl 10 Mg Tab.er.24h 10 Mg PO DAILY 30 Days Donepezil Hcl 10 Mg Tablet 10 Mg PO DAILY 30 Days Sertraline Hcl 50 Mg Tablet 50 Mg PO DAILY 30 Days Vitals/I & O Vital Sign - Last 24 Hours 06/28/17 06/28/17 06/28/17 06/28/17 11:00 15:00 19:05 20:00 Temp 97.4 98.8 98.1 97.4 98.8 98.1 Pulse 67 80 76 Resp 14 16 16 B/P (MAP) 153/66 (95) 166/70 (102) 142/78 (99) Pulse Ox 98 95 95 O2 Delivery Room Air Room Air Room Air Room Air 12/2406/29/17 06/29/17 06/29/17 23:04 03:09 07:00 10:43 Temp 99.6 99.0 98.2 99.6 99.6 99.0 98.2 99.6 Pulse 60 59 59 64 Resp 16 18 22 20 B/P (MAP) 118/50 (72) 141/64 (89) 120/61 (80) 145/57 (86) Pulse Ox 93 93 99 95 O2 Delivery Room Air Room Air Room Air Room Air Intake and Output 06/28/17 06/28/17 06/29/17 15:00 23:00 07:00 Intake Total 150 ml 150 ml 150 ml Output Total 1600 ml 1625 ml Balance 150 ml -1450 ml -1475 ml VANDA MADRIGAL MD Jun 29, 2017 10:52
[2017-06-29 15:00] VITALS: BP 136/64
--- NOTE | 2017-06-29 15:12 | PDOC ---
PROGRESS NOTES Chief Complaint Chief Complaint stable Hemorrhagic stroke, CT done 12. PT and OT left sided weakness, neurosurg following 5 cm hematoma w/ effacement Rt lateral ventricle Accelerated hypertension, on admit Dementia on Aricept DNR./DNI Dysphagia secondary to above hemorrhagic stroke History of Present Illness History of Present Illness I discussed plan with his at length, she was confused about "rehab" as rehab may mean SNU placement, will have eval if Acute rehab or SNU, he currently doesnt seem able to perform 3 hours of activity, carolina Chadwick following try to sit up, was on Dobbhoff feeds, he pulled, out, will stop today, consider eval for PEG in AM PT OT -n will need rehabilitation modalities and family is agreeable Vitals Vitals Vital Signs Date Time Temp Pulse Resp B/P (MAP) Pulse Ox O2 Delivery O2 Flow Rate FiO2 06/29/17 10:43 99.6 64 20 145/57 (86) 95 Room Air 99.6 Physical Exam Physical Exam General appearance is in acute distress. . Pulmonary: relative clear to auscultation bilaterally. General: Other (follows some commands) Heart: Regular rate Lungs: Clear Abdomen: Normal bowel sounds Extremities: No clubbing, No cyanosis, No edema, Normal pulses, No tenderness/ swelling Skin: No rashes, No breakdown, No significant lesion Labs LABS Laboratory Tests Test 06/29/17 07:08 06/29/17 07:10 06/29/17 11:09 Glucose (Fingerstick) 165 mg/dL (70-99) 178 mg/dL (70-99) Prothrombin Time 14.0 SEC (11.7-14.0) Prothromb Time International Ratio 1.2 (0.8-1.1) Review of Systems Review of Systems lethargy, weakness Assessment and Plan Assessmemt and Plan Problems Medical Problems: (1) Dementia Status: Acute (2) Hypertension Status: Acute Problems: Comment Review of Relevant I have reviewed the following items laine (where applicable) has been applied. Labs Laboratory Tests Test 06/27/17 16:39 06/28/17 08:54 06/28/17 12:11 06/29/17 07:08 Glucose (Fingerstick) 140 mg/dL (70-99) 162 mg/dL (70-99) 161 mg/dL (70-99) 165 mg/dL (70-99) Test 06/29/17 07:10 06/29/17 11:09 Prothrombin Time 14.0 SEC (11.7-14.0) Prothromb Time International Ratio 1.2 (0.8-1.1) Glucose (Fingerstick) 178 mg/dL (70-99) Laboratory Tests Test 06/29/17 07:08 06/29/17 07:10 06/29/17 11:09 Glucose (Fingerstick) 165 mg/dL (70-99) 178 mg/dL (70-99) Prothrombin Time 14.0 SEC (11.7-14.0) Prothromb Time International Ratio 1.2 (0.8-1.1) Microbiology 06/26/17 Blood Culture - Preliminary, Resulted NO GROWTH AFTER 2 DAYS 06/26/17 Urine Culture - Final, Complete 06/26/17 Urine Culture Result 1 (CHE) - Final, Complete Medications Current Medications Sodium Chloride 1,000 ml @ 125 mls/hr Q8H IV Last administered on 06/19/17 13:02; Start 06/19/17 at 12:51; Stop 06/19/17 at 20:50; Status DC Nicardipine HCl 50 mg/Sodium Chloride 270 ml @ 0 mls/hr CONT PRN IV SEE I/O RECORD; Start 06/19/17 at 13:00; Status Cancel Info (Review Meds) 1 ea PRN DAILY PRN MC SEE COMMENTS; Start 06/19/17 at 13:15 Sodium Chloride (Normal Saline Flush) 3 ml QSHIFT PRN IV AFTER MEDS AND BLOOD DRAWS; Start 06/19/17 at 13:15 Sodium Chloride 1,000 ml @ 80 mls/hr [id number] IV Last administered on 06:41; Start 06/19/17 at 13:04 Acetaminophen (Acetaminophen Supp) 650 mg PRN Q6HRS PRN [place] FEVER > 100.5'F Last administered on 06/28/17 04:43; Start 06/19/17 at 13:15 Nicardipine HCl 50 mg/Sodium Chloride 270 ml @ 25 mls/hr CONT PRN IV HYPERTENSION, SEE COMMENTS Last administered on 06/19/17 13:15; Start at 13:15; Stop 06/25/17 at 14:22; Status DC Ondansetron HCl (Zofran) 4 mg PRN Q6HRS PRN IV NAUSEA/VOMITING; Start at 13:15 Pantoprazole Sodium (PROTONIX VIAL for IV PUSH) 40 mg DAILYAC IVP Last administered on 06/29/17 06:41; Start 06/19/17 at 16:30 Info (Do NOT chart on this placeholder) 1 each 1X ONCE MC ; Start 06/19/17 at 16:45; Stop 06/19/17 at 16:46; Status UNV Pneumococcal Polyvalent Vaccine (Do NOT chart on this placeholder) 1 each 1X ONCE MC ; Start 06/19/17 at 16:45; Stop 06/19/17 at 16:46; Status UNV Influenza Virus Vaccine Quadrival (Fluarix Quad Syringe) 0.5 ml ONCE ONCE VAX IM Last administered on 06/19/17 21:37; Start 06/19/17 at 17:00; Stop 06/19/17 at 17:01; Status DC Hydralazine HCl (Apresoline Inj) 10 mg PRN Q4HRS PRN IVP ELEVATED BP, SEE COMMENTS Last administered on 06/20/17 17:58; Start 06/20/17 at 10:00 Phenazopyridine HCl (Pyridium) 200 mg PRN BID PRN PO URINARY PAIN; Start 06/20 at 20:00 Diazepam (Valium) 5 mg 1X ONCE IV Last administered on 06/20/17 20:26; Start 06/20/17 at 20:15; Stop 06/20/17 at 20:16; Status DC Influenza Virus Vaccine Quadrival (Fluarix Quad Syringe) 0.5 ml ONCE ONCE VAX IM ; Start 06/23/17 at 09:00; Stop 06/23/17 at 09:01; Status UNV Morphine Sulfate 1 mg PRN Q2HR PRN IV PAIN Last administered on 06/28/17 21: 42; Start 06/24/17 at 06:00 Atorvastatin Calcium (Lipitor) 20 mg QHS PO Last administered on 06/27/17 20: 28; Start 06/24/17 at 21:00 Chlorpromazine HCl 25 mg/Sodium Chloride 50 ml @ 100 mls/hr PRN Q8HRS PRN IV HICCUPS Last administered on 06/29/17t 09:55; Start 06/26/17 at 22:00 Active Scripts Active Reported Alfuzosin Hcl 10 Mg Tab.er.24h 10 Mg PO DAILY 30 Days Donepezil Hcl 10 Mg Tablet 10 Mg PO DAILY 30 Days Sertraline Hcl 50 Mg Tablet 50 Mg PO DAILY 30 Days Vitals/I & O Vital Sign - Last 24 Hours 06/28/17 06/28/17 06/28/17 06/29/17 19:05 20:00 23:04 03:09 Temp 98.1 99.6 99.0 98.1 99.6 99.0 Pulse 76 60 59 Resp 16 16 18 B/P (MAP) 142/78 (99) 118/50 (72) 141/64 (89) Pulse Ox 95 93 93 O2 Delivery Room Air Room Air Room Air Room Air 06/29/17 06/29/17 07:00 10:43 Temp 98.2 99.6 98.2 99.6 Pulse 59 64 Resp 22 20 B/P (MAP) 120/61 (80) 145/57 (86) Pulse Ox 99 95 O2 Delivery Room Air Room Air Intake and Output 06/28/17 06/28/17 06/29/17 15:00 23:00 07:00 Intake Total 150 ml 150 ml 150 ml Output Total 1600 ml 1625 ml Balance 150 ml -1450 ml -1475 ml MILAGROS REYES MD Jun 29, 2017 15:12
[2017-06-29] MEDS ORDERED: AMINO AC 3%/ELECTROLYTE/GLYCER 1,000 ML IV SCH (15:15)
--- NOTE | 2017-06-29 15:42 | RAD ---
Examination: Single frontal view of the abdomen History: History of Dobbhoff placement Comparison: 06/26/2017 Findings: The Dobbhoff catheter tip is identified under the left hemidiaphragm likely within the fundus of the stomach. The bowel gas pattern appears unremarkable. Feces and gas noted throughout the colon. Impression: The Dobbhoff catheter tip is identified under the left hemidiaphragm likely within the fundus of the stomach, unchanged.
[2017-06-29 19:00] VITALS: BP 135/67
[2017-06-29] MEDS: ATORVASTATIN CALCIUM 20 MG TABLET PO SCH (21:29)
[2017-06-29 23:00] VITALS: BP 159/77
[2017-06-30] MEDS: AMINO AC 3%/ELECTROLYTE/GLYCER 1,000 ML IV SCH ×2 (00:16→15:21)
[2017-06-30 02:54] VITALS: BP 165/80
[2017-06-30] MEDS ORDERED: ceFAZolin SODIUM 1 GM in IV DEXTROSE 5% 50 ML IV ONE (04:45)
[2017-06-30] MEDS ORDERED: ceFAZolin SODIUM IV Push 1 GM VIAL. IVP ONE (05:00)
[2017-06-30] MEDS: IV NORMAL SALINE 1000ML BAG 1,000 ML IV SCH ×2 (06:34→19:04)
[2017-06-30 07:00] VITALS: BP 152/76
--- NOTE | 2017-06-30 08:54 | PDOC ---
PROGRESS NOTES Subjective Subjective No new complaints. Objective Objective Vital Signs Date Time Temp Pulse Resp B/P (MAP) Pulse Ox O2 Delivery O2 Flow Rate FiO2 06/30/17 02:54 99.1 103 20 165/80 (108) 95 Room Air 99.1 Intake and Output 06/30/17 07:00 Intake Total 2095 ml Output Total 3650 ml Balance -1555 ml IV Total 560 ml Tube Feeding 575 ml Other 960 ml Output Urine Total 3650 ml Physical Exam Physical Exam He is awake and talking and having hiccoughs and he continues with left hemiparesis and trace movement of left upper and lower extremities and left sided neglect. No pain on ROM of left ankle today. Assessment Assessment Problems Medical Problems: (1) Dementia Status: Acute (2) Hypertension Status: Acute Plan Plan of Care Hopefully speech pathology can check his swallowing before PEG tube placement. Comment Review of Relevant I have reviewed the following items laine (where applicable) has been applied. Labs Laboratory Tests Test 06/28/17 08:54 06/28/17 12:11 06/29/17 07:08 06/29/17 07:10 Glucose (Fingerstick) 162 mg/dL (70-99) 161 mg/dL (70-99) 165 mg/dL (70-99) Prothrombin Time 14.0 SEC (11.7-14.0) Prothromb Time International Ratio 1.2 (0.8-1.1) Test 06/29/17 11:09 06/29/17 15:08 06/29/17 21:37 Glucose (Fingerstick) 178 mg/dL (70-99) 127 mg/dL (70-99) 147 mg/dL (70-99) Laboratory Tests Test 06/29/17 11:09 06/29/17 15:08 06/29/17 21:37 Glucose (Fingerstick) 178 mg/dL (70-99) 127 mg/dL (70-99) 147 mg/dL (70-99) Microbiology 06/26/17 Blood Culture - Preliminary, Resulted NO GROWTH AFTER 3 DAYS 06/26/17 Urine Culture - Final, Complete 06/26/17 Urine Culture Result 1 (CHE) - Final, Complete Medications Current Medications Sodium Chloride 1,000 ml @ 125 mls/hr Q8H IV Last administered on 06/19/17t 13:02; Start 06/19/17 at 12:51; Stop 06/19/17 at 20:50; Status DC Nicardipine HCl 50 mg/Sodium Chloride 270 ml @ 0 mls/hr CONT PRN IV SEE I/O RECORD; Start 06/19/17 at 13:00; Status Cancel Info (Review Meds) 1 ea PRN DAILY PRN MC SEE COMMENTS; Start 06/19/17 at 13:15 Sodium Chloride (Normal Saline Flush) 3 ml QSHIFT PRN IV AFTER MEDS AND BLOOD DRAWS; Start 06/19/17 at 13:15 Sodium Chloride 1,000 ml @ 80 mls/hr [id number] IV Last administered on 19:47; Start 06/19/17 at 13:04 Acetaminophen (Acetaminophen Supp) 650 mg PRN Q6HRS PRN [place] FEVER > 100.5'F Last administered on 06/28/17 04:43; Start 06/19/17 at 13:15 Nicardipine HCl 50 mg/Sodium Chloride 270 ml @ 25 mls/hr CONT PRN IV HYPERTENSION, SEE COMMENTS Last administered on 06/19/17 13:15; Start at 13:15; Stop 06/25/17 at 14:22; Status DC Ondansetron HCl (Zofran) 4 mg PRN Q6HRS PRN IV NAUSEA/VOMITING; Start at 13:15 Pantoprazole Sodium (PROTONIX VIAL for IV PUSH) 40 mg DAILYAC IVP Last administered on 06/29/17 06:41; Start 06/19/17 at 16:30 Info (Do NOT chart on this placeholder) 1 each 1X ONCE MC ; Start 06/19/17 at 16:45; Stop 06/19/17 at 16:46; Status UNV Pneumococcal Polyvalent Vaccine (Do NOT chart on this placeholder) 1 each 1X ONCE MC ; Start 06/19/17 at 16:45; Stop 06/19/17 at 16:46; Status UNV Influenza Virus Vaccine Quadrival (Fluarix Quad [id number] Syringe) 0.5 ml ONCE ONCE VAX IM Last administered on 06/19/17 21:37; Start 06/19/17 at 17:00; Stop 06/19/17 at 17:01; Status DC Hydralazine HCl (Apresoline Inj) 10 mg PRN Q4HRS PRN IVP ELEVATED BP, SEE COMMENTS Last administered on 06/20/17 17:58; Start 06/20/17 at 10:00 Phenazopyridine HCl (Pyridium) 200 mg PRN BID PRN PO URINARY PAIN; Start 06/20 at 20:00 Diazepam (Valium) 5 mg 1X ONCE IV Last administered on 06/20/17 20:26; Start 06/20/17 at 20:15; Stop 06/20/17 at 20:16; Status DC Influenza Virus Vaccine Quadrival (Fluarix Quad [id number] Syringe) 0.5 ml ONCE ONCE VAX IM ; Start 06/23/17 at 09:00; Stop 06/23/17 at 09:01; Status UNV Morphine Sulfate 1 mg PRN Q2HR PRN IV PAIN Last administered on 06/28/17 21: 42; Start 06/24/17 at 06:00 Atorvastatin Calcium (Lipitor) 20 mg QHS PO Last administered on 06/29/17 21: 29; Start 06/24/17 at 21:00 Chlorpromazine HCl 25 mg/Sodium Chloride 50 ml @ 100 mls/hr PRN Q8HRS PRN IV HICCUPS Last administered on 06/29/17 09:55; Start 06/26/17 at 22:00 Amino Acids/ Glycerin/ Electrolytes 1,000 ml @ 80 mls/hr [id number] IV ; Start at 15:15; Stop 06/29/17 at 16:28; Status DC Amino Acids/ Glycerin/ Electrolytes 1,000 ml @ 80 mls/hr [id number] IV Last administered on 06/30/17 00:16; Start 06/29/17 at 23:59 Cefazolin Sodium 1 gm/Dextrose 50 ml @ 100 mls/hr 1X ONCE IV ; Start at 04:45; Stop 06/30/17 at 05:14; Status UNV Cefazolin Sodium (Ancef) 1 gm 1X ONCE IVP ; Start 06/30/17 at 05:00; Stop at 05:01; Status DC Active Scripts Active Reported Alfuzosin Hcl 10 Mg Tab.er.24h 10 Mg PO DAILY 30 Days Donepezil Hcl 10 Mg Tablet 10 Mg PO DAILY 30 Days Sertraline Hcl 50 Mg Tablet 50 Mg PO DAILY 30 Days Vitals/I & O Vital Sign - Last 24 Hours 06/29/17 06/29/17 06/29/17 06/29/17 10:43 15:00 19:00 19:45 Temp 99.6 99.7 97.5 99.6 99.7 97.5 Pulse 64 58 76 Resp 20 20 20 B/P (MAP) 145/57 (86) 136/64 (88) 135/67 (89) Pulse Ox 95 96 95 O2 Delivery Room Air Room Air Room Air Room Air 06/29/17 06/30/17 23:00 02:54 Temp 97.6 99.1 97.6 99.1 Pulse 64 103 Resp 20 20 B/P (MAP) 159/77 (104) 165/80 (108) Pulse Ox 96 95 O2 Delivery Room Air Room Air Intake and Output 06/29/17 06/29/17 06/30/17 15:00 23:00 07:00 Intake Total 225 ml 1870 ml Output Total 1050 ml 300 ml 2300 ml Balance -825 ml -300 ml -430 ml VANDA MDARIGAL MD Jun 30, 2017 08:54
[2017-06-30] MEDS ORDERED: IV RINGERS,LACTATED 1000ML 1,000 ML IV SCH (09:07)
[2017-06-30] MEDS ORDERED: MORPHINE SULFATE 2 MG/ML DISP.SYRIN. IV PRN (09:15)
[2017-06-30] MEDS ORDERED: PROCHLORPERAZINE 10 MG/2 ML VIAL. IV PRN (09:15)
[2017-06-30] MEDS ORDERED: fentaNYL PF VIAL 100 MCG/2 ML VIAL IV PRN ×2 (09:15)
[2017-06-30] MEDS ORDERED: HYDROmorphone 2 MG/ML VIAL IV PRN (09:15)
[2017-06-30] MEDS ORDERED: LIDOCAINE 1% PF 2 ML VIAL. ID PRN (09:15)
--- NOTE | 2017-06-30 09:46 | PDOC ---
PROGRESS NOTES Assessment Problems Medical Problems: (1) Dementia Status: Acute (2) Hypertension Status: Acute Acute right frontal lobe hemorrhage, hematoma 4.7 cm x 2.5 cm with visible cerebral edema on 06/19/17. Increased cerebral edema with 5 mm right to left midline shift on 06/22/17. Small SAH. Left side hemiplegia. Cerebral amyloid disease possible. Dementia. Plan PEG Then transfer to rehabilitation [facility] Subjective No complaints Objective Vital Signs Date Time Temp Pulse Resp B/P (MAP) Pulse Ox O2 Delivery O2 Flow Rate FiO2 06/30/17 07:00 99.0 62 16 152/76 (101) 97 Room Air 99.0 Intake and Output 06/30/17 06:59 Intake Total 2095 ml Output Total 3650 ml Balance -1555 ml IV Total 560 ml Tube Feeding 575 ml Other 960 ml Output Urine Total 3650 ml PHYSICAL EXAM Alert. Oriented only to person person. PERRL. EOMI. CN: Left central facial palsy Muscle tone: Increased on left Muscle strength: 2/5 left hemiparesis DTR: 1+ on right, 2+ on left Plantar reflex: Flexor Gait: not examined in bed. Sensory exam: no abnormal findings. No cerebellar signs elicited. Review of Relevant I have reviewed the following items laine (where applicable) has been applied. Labs Laboratory Tests Test 06/28/17 12:11 06/29/17 07:08 06/29/17 07:10 06/29/17 11:09 Glucose (Fingerstick) 161 mg/dL (70-99) 165 mg/dL (70-99) 178 mg/dL (70-99) Prothrombin Time 14.0 SEC (11.7-14.0) Prothromb Time International Ratio 1.2 (0.8-1.1) Test 06/29/17 15:08 06/29/17 21:37 Glucose (Fingerstick) 127 mg/dL (70-99) 147 mg/dL (70-99) Laboratory Tests Test 06/29/17 11:09 06/29/17 15:08 06/29/17 21:37 Glucose (Fingerstick) 178 mg/dL (70-99) 127 mg/dL (70-99) 147 mg/dL (70-99) Microbiology 06/26/17 Blood Culture - Preliminary, Resulted NO GROWTH AFTER 3 DAYS 06/26/17 Urine Culture - Final, Complete 06/26/17 Urine Culture Result 1 (CHE) - Final, Complete Medications Current Medications Sodium Chloride 1,000 ml @ 125 mls/hr Q8H IV Last administered on 06/19/17 13:02; Start 06/19/17 at 12:51; Stop 06/19/17 at 20:50; Status DC Nicardipine HCl 50 mg/Sodium Chloride 270 ml @ 0 mls/hr CONT PRN IV SEE I/O RECORD; Start 06/19/17 at 13:00; Status Cancel Info (Review Meds) 1 ea PRN DAILY PRN MC SEE COMMENTS; Start 06/19/17 at 13:15 Sodium Chloride (Normal Saline Flush) 3 ml QSHIFT PRN IV AFTER MEDS AND BLOOD DRAWS; Start 06/19/17 at 13:15 Sodium Chloride 1,000 ml @ 80 mls/hr [id number] IV Last administered on 19:47; Start 06/19/17 at 13:04 Acetaminophen (Acetaminophen Supp) 650 mg PRN Q6HRS PRN [place] FEVER > 100.5'F Last administered on 06/28/17 04:43; Start 06/19/17 at 13:15 Nicardipine HCl 50 mg/Sodium Chloride 270 ml @ 25 mls/hr CONT PRN IV HYPERTENSION, SEE COMMENTS Last administered on 06/19/17 13:15; Start at 13:15; Stop 06/25/17 at 14:22; Status DC Ondansetron HCl (Zofran) 4 mg PRN Q6HRS PRN IV NAUSEA/VOMITING; Start at 13:15 Pantoprazole Sodium (PROTONIX VIAL for IV PUSH) 40 mg DAILYAC IVP Last administered on 06/29/17 06:41; Start 06/19/17 at 16:30 Info (Do NOT chart on this placeholder) 1 each 1X ONCE MC ; Start 06/19/17 at 16:45; Stop 06/19/17 at 16:46; Status UNV Pneumococcal Polyvalent Vaccine (Do NOT chart on this placeholder) 1 each 1X ONCE MC ; Start 06/19/17 at 16:45; Stop 06/19/17 at 16:46; Status UNV Influenza Virus Vaccine Quadrival (Fluarix Quad 0616-1003 Syringe) 0.5 ml ONCE ONCE VAX IM Last administered on 06/19/17 21:37; Start 06/19/17 at 17:00; Stop 06/19/17 at 17:01; Status DC Hydralazine HCl (Apresoline Inj) 10 mg PRN Q4HRS PRN IVP ELEVATED BP, SEE COMMENTS Last administered on 06/20/17 17:58; Start 06/20/17 at 10:00 Phenazopyridine HCl (Pyridium) 200 mg PRN BID PRN PO URINARY PAIN; Start 06/20 at 20:00 Diazepam (Valium) 5 mg 1X ONCE IV Last administered on 06/20/17 20:26; Start 06/20/17 at 20:15; Stop 06/20/17 at 20:16; Status DC Influenza Virus Vaccine Quadrival (Fluarix Quad Syringe) 0.5 ml ONCE ONCE VAX IM ; Start 06/23/17 at 09:00; Stop 06/23/17 at 09:01; Status UNV Morphine Sulfate 1 mg PRN Q2HR PRN IV PAIN Last administered on 06/28/17 21: 42; Start 06/24/17 at 06:00 Atorvastatin Calcium (Lipitor) 20 mg QHS PO Last administered on 06/29/17 21: 29; Start 06/24/17 at 21:00 Chlorpromazine HCl 25 mg/Sodium Chloride 50 ml @ 100 mls/hr PRN Q8HRS PRN IV HICCUPS Last administered on 06/29/17 09:55; Start 06/26/17 at 22:00 Amino Acids/ Glycerin/ Electrolytes 1,000 ml @ 80 mls/hr [id number] IV ; Start at 15:15; Stop 06/29/17 at 16:28; Status DC Amino Acids/ Glycerin/ Electrolytes 1,000 ml @ 80 mls/hr [id number] IV Last administered on 06/30/17 00:16; Start 06/29/17 at 23:59 Cefazolin Sodium 1 gm/Dextrose 50 ml @ 100 mls/hr 1X ONCE IV ; Start at 04:45; Stop 06/30/17 at 05:14; Status UNV Cefazolin Sodium (Ancef) 1 gm 1X ONCE IVP ; Start 06/30/17 at 05:00; Stop at 05:01; Status DC Fentanyl Citrate (Fentanyl 2ml Vial) 25 mcg PRN Q5MIN PRN IV MILD PAIN; Start 06/30/17 at 09:15; Stop 07/01/17 at 09:14 Fentanyl Citrate (Fentanyl 2ml Vial) 50 mcg PRN Q5MIN PRN IV MODERATE TO SEVERE PAIN; Start 06/30/17 at 09:15; Stop 07/01/17 at 09:14 Morphine Sulfate 1 mg PRN Q10MIN PRN IV SEVERE PAIN; Start 06/30/17 at 09:15; Stop 07/01/17 at 09:14 Ringer's Solution 1,000 ml @ 30 mls/hr Q24H IV ; Start 06/30/17 at 09:07; Stop 06/30/17 at 21:06 Lidocaine HCl (Xylocaine-Mpf 1% Vial) 2 ml 1X PRN PRN ID IV START; Start 06/30 at 09:15; Stop 07/01/17 at 09:14 Hydromorphone HCl (Dilaudid) 0.5 mg PRN Q10MIN PRN IV SEV PAIN, Second choice; Start 06/30/17 at 09:15; Stop 07/01/17 at 09:14 Prochlorperazine Edisylate (Compazine) 5 mg PACU PRN PRN IV NAUSEA, MRX1; Start 06/30/17 at 09:15; Stop 07/01/17 at 09:14 Active Scripts Active Reported Alfuzosin Hcl 10 Mg Tab.er.24h 10 Mg PO DAILY 30 Days Donepezil Hcl 10 Mg Tablet 10 Mg PO DAILY 30 Days Sertraline Hcl 50 Mg Tablet 50 Mg PO DAILY 30 Days Vitals/I & O Vital Sign - Last 24 Hours 06/29/17 06/29/17 06/29/17 06/29/17 10:43 15:00 19:00 19:45 Temp 99.6 99.7 97.5 99.6 99.7 97.5 Pulse 64 58 76 Resp 20 20 20 B/P (MAP) 145/57 (86) 136/64 (88) 135/67 (89) Pulse Ox 95 96 95 O2 Delivery Room Air Room Air Room Air Room Air 06/29/17 06/30/1717 23:00 02:54 07:00 Temp 97.6 99.1 99.0 97.6 99.1 99.0 Pulse 64 103 62 Resp 20 20 16 B/P (MAP) 159/77 (104) 165/80 (108) 152/76 (101) Pulse Ox 96 95 97 O2 Delivery Room Air Room Air Room Air Intake and Output 06/29/17 06/29/17 06/30/17 14:59 22:59 06:59 Intake Total 150 ml 75 ml 1870 ml Output Total 1050 ml 300 ml 2300 ml Balance -900 ml -225 ml -430 ml JAY DE JESUS MD Jun 30, 2017 09:46
--- NOTE | 2017-06-30 10:19 | PDOC ---
G I PROGRESS NOTE Subjective (How are you?) "I don't know". More awake than last week. Not "wet" speech. reports coughing bloody material. Has had Dobbhoff replaced several times as pulls out (currently out). Objective Discussed with Dr. Azul. He feels speech re-evaluation needed prior to PEG. Physical Exam Lungs clear. RRR Abdomen soft, not tender nor distended. Review of Relevant I have reviewed the following items laine (where applicable) has been applied. Labs Laboratory Tests Test 06/28/17 12:11 06/29/17 07:08 06/29/17 07:10 06/29/17 11:09 Glucose (Fingerstick) 161 mg/dL (70-99) 165 mg/dL (70-99) 178 mg/dL (70-99) Prothrombin Time 14.0 SEC (11.7-14.0) Prothromb Time International Ratio 1.2 (0.8-1.1) Test 06/29/17 15:08 06/29/17 21:37 Glucose (Fingerstick) 127 mg/dL (70-99) 147 mg/dL (70-99) Laboratory Tests Test 06/29/17 11:09 06/29/17 15:08 06/29/17 21:37 Glucose (Fingerstick) 178 mg/dL (70-99) 127 mg/dL (70-99) 147 mg/dL (70-99) Microbiology 06/26/17 Blood Culture - Preliminary, Resulted NO GROWTH AFTER 3 DAYS 06/26/17 Urine Culture - Final, Complete 06/26/17 Urine Culture Result 1 (CHE) - Final, Complete Medications Current Medications Sodium Chloride 1,000 ml @ 125 mls/hr Q8H IV Last administered on 06/19/17t 13:02; Start 06/19/17 at 12:51; Stop 06/19/17 at 20:50; Status DC Nicardipine HCl 50 mg/Sodium Chloride 270 ml @ 0 mls/hr CONT PRN IV SEE I/O RECORD; Start 06/19/17 at 13:00; Status Cancel Info (Review Meds) 1 ea PRN DAILY PRN MC SEE COMMENTS; Start 06/19/17 at 13:15 Sodium Chloride (Normal Saline Flush) 3 ml QSHIFT PRN IV AFTER MEDS AND BLOOD DRAWS; Start 06/19/17 at 13:15 Sodium Chloride 1,000 ml @ 80 mls/hr [id number] IV Last administered on 19:47; Start 06/19/17 at 13:04 Acetaminophen (Acetaminophen Supp) 650 mg PRN Q6HRS PRN [place] FEVER > 100.5'F Last administered on 06/28/17 04:43; Start 06/19/17 at 13:15 Nicardipine HCl 50 mg/Sodium Chloride 270 ml @ 25 mls/hr CONT PRN IV HYPERTENSION, SEE COMMENTS Last administered on 06/19/17 13:15; Start at 13:15; Stop 06/25/17 at 14:22; Status DC Ondansetron HCl (Zofran) 4 mg PRN Q6HRS PRN IV NAUSEA/VOMITING; Start at 13:15 Pantoprazole Sodium (PROTONIX VIAL for IV PUSH) 40 mg DAILYAC IVP Last administered on 06/29/17 06:41; Start 06/19/17 at 16:30 Info (Do NOT chart on this placeholder) 1 each 1X ONCE MC ; Start 06/19/17 at 16:45; Stop 06/19/17 at 16:46; Status UNV Pneumococcal Polyvalent Vaccine (Do NOT chart on this placeholder) 1 each 1X ONCE MC ; Start 06/19/17 at 16:45; Stop 06/19/17 at 16:46; Status UNV Influenza Virus Vaccine Quadrival (Fluarix Quad [id number] Syringe) 0.5 ml ONCE ONCE VAX IM Last administered on 06/19/17 21:37; Start 06/19/17 at 17:00; Stop 06/19/17 at 17:01; Status DC Hydralazine HCl (Apresoline Inj) 10 mg PRN Q4HRS PRN IVP ELEVATED BP, SEE COMMENTS Last administered on 06/20/17 17:58; Start 06/20/17 at 10:00 Phenazopyridine HCl (Pyridium) 200 mg PRN BID PRN PO URINARY PAIN; Start 06/20 at 20:00 Diazepam (Valium) 5 mg 1X ONCE IV Last administered on 06/20/17 20:26; Start 06/20/17 at 20:15; Stop 06/20/17 at 20:16; Status DC Influenza Virus Vaccine Quadrival (Fluarix Quad [id number] Syringe) 0.5 ml ONCE ONCE VAX IM ; Start 06/23/17 at 09:00; Stop 06/23/17 at 09:01; Status UNV Morphine Sulfate 1 mg PRN Q2HR PRN IV PAIN Last administered on 06/28/17 21: 42; Start 06/24/17 at 06:00 Atorvastatin Calcium (Lipitor) 20 mg QHS PO Last administered on 06/29/17 21: 29; Start 06/24/17 at 21:00 Chlorpromazine HCl 25 mg/Sodium Chloride 50 ml @ 100 mls/hr PRN Q8HRS PRN IV HICCUPS Last administered on 06/29/17 09:55; Start 06/26/17 at 22:00 Amino Acids/ Glycerin/ Electrolytes 1,000 ml @ 80 mls/hr [id number] IV ; Start at 15:15; Stop 06/29/17 at 16:28; Status DC Amino Acids/ Glycerin/ Electrolytes 1,000 ml @ 80 mls/hr [id number] IV Last administered on 06/30/17 00:16; Start 06/29/17 at 23:59 Cefazolin Sodium 1 gm/Dextrose 50 ml @ 100 mls/hr 1X ONCE IV ; Start at 04:45; Stop 06/30/17 at 05:14; Status UNV Cefazolin Sodium (Ancef) 1 gm 1X ONCE IVP ; Start 06/30/17 at 05:00; Stop at 05:01; Status DC Fentanyl Citrate (Fentanyl 2ml Vial) 25 mcg PRN Q5MIN PRN IV MILD PAIN; Start 06/30/17 at 09:15; Stop 07/01/17 at 09:14 Fentanyl Citrate (Fentanyl 2ml Vial) 50 mcg PRN Q5MIN PRN IV MODERATE TO SEVERE PAIN; Start 06/30/17 at 09:15; Stop 07/01/17 at 09:14 Morphine Sulfate 1 mg PRN Q10MIN PRN IV SEVERE PAIN; Start 06/30/17 at 09:15; Stop 07/01/17 at 09:14 Ringer's Solution 1,000 ml @ 30 mls/hr Q24H IV ; Start 06/30/17 at 09:07; Stop 06/30/17 at 21:06 Lidocaine HCl (Xylocaine-Mpf 1% Vial) 2 ml 1X PRN PRN ID IV START; Start 06/30 at 09:15; Stop 07/01/17 at 09:14 Hydromorphone HCl (Dilaudid) 0.5 mg PRN Q10MIN PRN IV SEV PAIN, Second choice; Start 06/30/17 at 09:15; Stop 07/01/17 at 09:14 Prochlorperazine Edisylate (Compazine) 5 mg PACU PRN PRN IV NAUSEA, MRX1; Start 06/30/17 at 09:15; Stop 07/01/17 at 09:14 Active Scripts Active Reported Alfuzosin Hcl 10 Mg Tab.er.24h 10 Mg PO DAILY 30 Days Donepezil Hcl 10 Mg Tablet 10 Mg PO DAILY 30 Days Sertraline Hcl 50 Mg Tablet 50 Mg PO DAILY 30 Days Vitals/I & O Vital Sign - Last 24 Hours 06/29/17 06/29/17 06/29/17 06/29/17 10:43 15:00 19:00 19:45 Temp 99.6 99.7 97.5 99.6 99.7 97.5 Pulse 64 58 76 Resp 20 20 20 B/P (MAP) 145/57 (86) 136/64 (88) 135/67 (89) Pulse Ox 95 96 95 O2 Delivery Room Air Room Air Room Air Room Air 06/29/17 06/30/17 06/30/17 23:00 02:54 07:00 Temp 97.6 99.1 99.0 97.6 99.1 99.0 Pulse 64 103 62 Resp 20 20 16 B/P (MAP) 159/77 (104) 165/80 (108) 152/76 (101) Pulse Ox 96 95 97 O2 Delivery Room Air Room Air Room Air Intake and Output 06/29/17 06/29/17 06/30/17 15:00 23:00 07:00 Intake Total 225 ml 1870 ml Output Total 1050 ml 300 ml 2300 ml Balance -825 ml -300 ml -430 ml Problem List Problems Medical Problems: (1) Dementia Status: Acute (2) Hypertension Status: Acute Assessment Swallow better? Dr. Azul wants re-eval. Plan of Care Note Will change PEG to tentatively tomorrow pending speech evaluation today. BRUNO GOLD MD Jun 30, 2017 10:19
[2017-06-30 11:00] VITALS: BP 139/65
[2017-06-30] MEDS ORDERED: FUROSEMIDE 20 MG/2 ML VIAL. IVP ONE (12:30)
--- NOTE | 2017-06-30 13:02 | PDOC ---
PROGRESS NOTES Chief Complaint Chief Complaint stable Hemorrhagic stroke, Left sided weakness 5 cm hematoma w/ effacement Rt lateral ventricle Accelerated hypertension, on admit resolved Dementia on Aricept DNR./DNI Dysphagia secondary to above hemorrhagic stroke History of Present Illness History of Present Illness Able to move right side spontaneously, left upper extremity remains weak He attempted to move the left lower extremity for me today No headache at bedside still shallow left nasolabial fold Vital signs remain stable Hemoglobin stable requests [facility] Speech currently working on his swallow Hence PEG has been on hold today, temporary plans of PEG tomorrow Plan: PEG tomorrow Nothing by mouth QUILL STRIPPER up evaluation today if fails bedside today then likely PEG tomorrow Social work I have reached out - wants [facility] screening, once rehabilitation more than [facility] DNR/DNI Vitals Vitals Vital Signs Date Time Temp Pulse Resp B/P (MAP) Pulse Ox O2 Delivery O2 Flow Rate FiO2 06/30/17 11:00 98.1 63 16 139/65 (89) 96 Room Air 98.1 Physical Exam Physical Exam General appearance is in acute distress. . Pulmonary: relative clear to auscultation bilaterally. General: Cooperative, Other (follows some commands) Heart: Regular rate Lungs: Clear Abdomen: Normal bowel sounds Extremities: No clubbing, No cyanosis, No edema, Normal pulses, No tenderness/ swelling Skin: No rashes, No breakdown, No significant lesion Labs LABS Laboratory Tests Test 06/29/17 15:08 06/29/17 21:37 Glucose (Fingerstick) 127 mg/dL (70-99) 147 mg/dL (70-99) Review of Systems Review of Systems Limited has dementia Assessment and Plan Assessmemt and Plan Problems Medical Problems: (1) Dementia Status: Acute (2) Hypertension Status: Acute Problems: Comment Review of Relevant I have reviewed the following items laine (where applicable) has been applied. Labs Laboratory Tests Test 06/29/17 07:08 06/29/17 07:10 06/29/17 11:09 06/29/17 15:08 Glucose (Fingerstick) 165 mg/dL (70-99) 178 mg/dL (70-99) 127 mg/dL (70-99) Prothrombin Time 14.0 SEC (11.7-14.0) Prothromb Time International Ratio 1.2 (0.8-1.1) Test 06/29/17 21:37 Glucose (Fingerstick) 147 mg/dL (70-99) Laboratory Tests Test 06/29/17 15:08 06/29/17 21:37 Glucose (Fingerstick) 127 mg/dL (70-99) 147 mg/dL (70-99) Microbiology 06/26/17 Blood Culture - Preliminary, Resulted NO GROWTH AFTER 3 DAYS 06/26/17 Urine Culture - Final, Complete 06/26/17 Urine Culture Result 1 (CHE) - Final, Complete Medications Current Medications Sodium Chloride 1,000 ml @ 125 mls/hr Q8H IV Last administered on 06/19/17 13:02; Start 06/19/17 at 12:51; Stop 06/19/17 at 20:50; Status DC Nicardipine HCl 50 mg/Sodium Chloride 270 ml @ 0 mls/hr CONT PRN IV SEE I/O RECORD; Start 06/19/17 at 13:00; Status Cancel Info (Review Meds) 1 ea PRN DAILY PRN MC SEE COMMENTS; Start 06/19/17 at 13:15 Sodium Chloride (Normal Saline Flush) 3 ml QSHIFT PRN IV AFTER MEDS AND BLOOD DRAWS; Start 06/19/17 at 13:15 Sodium Chloride 1,000 ml @ 80 mls/hr [id number] IV Last administered on 19:47; Start 06/19/17 at 13:04 Acetaminophen (Acetaminophen Supp) 650 mg PRN Q6HRS PRN [place] FEVER > 100.5'F Last administered on 06/28/17 04:43; Start 06/19/17 at 13:15 Nicardipine HCl 50 mg/Sodium Chloride 270 ml @ 25 mls/hr CONT PRN IV HYPERTENSION, SEE COMMENTS Last administered on 06/19/17 13:15; Start at 13:15; Stop 06/25/17 at 14:22; Status DC Ondansetron HCl (Zofran) 4 mg PRN Q6HRS PRN IV NAUSEA/VOMITING; Start at 13:15 Pantoprazole Sodium (PROTONIX VIAL for IV PUSH) 40 mg DAILYAC IVP Last administered on 06/29/17 06:41; Start 06/19/17 at 16:30 Info (Do NOT chart on this placeholder) 1 each 1X ONCE MC ; Start 06/19/17 at 16:45; Stop 06/19/17 at 16:46; Status UNV Pneumococcal Polyvalent Vaccine (Do NOT chart on this placeholder) 1 each 1X ONCE MC ; Start 06/19/17 at 16:45; Stop 06/19/17 at 16:46; Status UNV Influenza Virus Vaccine Quadrival (Fluarix Quad Syringe) 0.5 ml ONCE ONCE VAX IM Last administered on 06/19/17 21:37; Start 06/19/17 at 17:00; Stop 06/19/17 at 17:01; Status DC Hydralazine HCl (Apresoline Inj) 10 mg PRN Q4HRS PRN IVP ELEVATED BP, SEE COMMENTS Last administered on 06/20/17 17:58; Start 06/20/17 at 10:00 Phenazopyridine HCl (Pyridium) 200 mg PRN BID PRN PO URINARY PAIN; Start 06/20 at 20:00 Diazepam (Valium) 5 mg 1X ONCE IV Last administered on 06/20/17 20:26; Start 06/20/17 at 20:15; Stop 06/20/17 at 20:16; Status DC Influenza Virus Vaccine Quadrival (Fluarix Quad Syringe) 0.5 ml ONCE ONCE VAX IM ; Start 06/23/17 at 09:00; Stop 06/23/17 at 09:01; Status UNV Morphine Sulfate 1 mg PRN Q2HR PRN IV PAIN Last administered on 06/28/17 21: 42; Start 06/24/17 at 06:00 Atorvastatin Calcium (Lipitor) 20 mg QHS PO Last administered on 06/29/17 21: 29; Start 06/24/17 at 21:00 Chlorpromazine HCl 25 mg/Sodium Chloride 50 ml @ 100 mls/hr PRN Q8HRS PRN IV HICCUPS Last administered on 06/29/17 09:55; Start 06/26/17 at 22:00 Amino Acids/ Glycerin/ Electrolytes 1,000 ml @ 80 mls/hr [id number] IV ; Start at 15:15; Stop 06/29/17 at 16:28; Status DC Amino Acids/ Glycerin/ Electrolytes 1,000 ml @ 80 mls/hr [id number] IV Last administered on 06/30/17t 00:16; Start 06/29/17 at 23:59 Cefazolin Sodium 1 gm/Dextrose 50 ml @ 100 mls/hr 1X ONCE IV ; Start at 04:45; Stop 06/30/17 at 05:14; Status UNV Cefazolin Sodium (Ancef) 1 gm 1X ONCE IVP ; Start 06/30/17 at 05:00; Stop at 05:01; Status DC Fentanyl Citrate (Fentanyl 2ml Vial) 25 mcg PRN Q5MIN PRN IV MILD PAIN; Start 06/30/17 at 09:15; Stop 07/01/17 at 09:14 Fentanyl Citrate (Fentanyl 2ml Vial) 50 mcg PRN Q5MIN PRN IV MODERATE TO SEVERE PAIN; Start 06/30/17 at 09:15; Stop 07/01/17 at 09:14 Morphine Sulfate 1 mg PRN Q10MIN PRN IV SEVERE PAIN; Start 06/30/17 at 09:15; Stop 07/01/17 at 09:14 Ringer's Solution 1,000 ml @ 30 mls/hr Q24H IV ; Start 06/30/17 at 09:07; Stop 06/30/17 at 21:06 Lidocaine HCl (Xylocaine-Mpf 1% Vial) 2 ml 1X PRN PRN ID IV START; Start 06/30 at 09:15; Stop 07/01/17 at 09:14 Hydromorphone HCl (Dilaudid) 0.5 mg PRN Q10MIN PRN IV SEV PAIN, Second choice; Start 06/30/17 at 09:15; Stop 07/01/17 at 09:14 Prochlorperazine Edisylate (Compazine) 5 mg PACU PRN PRN IV NAUSEA, MRX1; Start 06/30/17 at 09:15; Stop 07/01/17 at 09:14 Furosemide (Lasix) 20 mg 1X ONCE IVP ; Start 06/30/17 at 12:30; Stop at 12:31; Status Cancel Active Scripts Active Reported Alfuzosin Hcl 10 Mg Tab.er.24h 10 Mg PO DAILY 30 Days Donepezil Hcl 10 Mg Tablet 10 Mg PO DAILY 30 Days Sertraline Hcl 50 Mg Tablet 50 Mg PO DAILY 30 Days Vitals/I & O Vital Sign - Last 24 Hours 06/29/17 06/29/17 06/29/17 06/29/17 15:00 19:00 19:45 23:00 Temp 99.7 97.5 97.6 99.7 97.5 97.6 Pulse 58 76 64 Resp 20 20 20 B/P (MAP) 136/64 (88) 135/67 (89) 159/77 (104) Pulse Ox 96 95 96 O2 Delivery Room Air Room Air Room Air Room Air 06/30/17 06/30/17 06/30/17 02:54 07:00 11:00 Temp 99.1 99.0 98.1 99.1 99.0 98.1 Pulse 103 62 63 Resp 20 16 16 B/P (MAP) 165/80 (108) 152/76 (101) 139/65 (89) Pulse Ox 95 97 96 O2 Delivery Room Air Room Air Room Air Intake and Output 06/29/17 06/29/17 06/30/17 15:00 23:00 07:00 Intake Total 225 ml 1870 ml Output Total 1050 ml 300 ml 2300 ml Balance -825 ml -300 ml -430 ml CYNTHIA SAUNDERS MD Jun 30, 2017 13:02
--- NOTE | 2017-06-30 13:23 | PDOC ---
PROGRESS NOTES Subjective Subjective more awake answers questions appropriately at bedside Objective Objective Vital Signs Date Time Temp Pulse Resp B/P (MAP) Pulse Ox O2 Delivery O2 Flow Rate FiO2 06/30/17 11:00 98.1 63 16 139/65 (89) 96 Room Air 98.1 Intake and Output 06/30/17 07:00 Intake Total 2095 ml Output Total 3650 ml Balance -1555 ml IV Total 560 ml Tube Feeding 575 ml Other 960 ml Output Urine Total 3650 ml Physical Exam General: Alert, Oriented X3, Cooperative, No acute distress Assessment Assessment Problems Medical Problems: (1) Dementia Status: Acute (2) Hypertension Status: Acute Plan Plan of Care continue therapy F/U CT in AM Comment Review of Relevant I have reviewed the following items laine (where applicable) has been applied. Labs Laboratory Tests Test 06/29/17 07:08 06/29/17 07:10 06/29/17 11:09 06/29/17 15:08 Glucose (Fingerstick) 165 mg/dL (70-99) 178 mg/dL (70-99) 127 mg/dL (70-99) Prothrombin Time 14.0 SEC (11.7-14.0) Prothromb Time International Ratio 1.2 (0.8-1.1) Test 06/29/17 21:37 Glucose (Fingerstick) 147 mg/dL (70-99) Laboratory Tests Test 06/29/17 15:08 06/29/17 21:37 Glucose (Fingerstick) 127 mg/dL (70-99) 147 mg/dL (70-99) Microbiology 06/26/17 Blood Culture - Preliminary, Resulted NO GROWTH AFTER 3 DAYS 06/26/17 Urine Culture - Final, Complete 06/26/17 Urine Culture Result 1 (CHE) - Final, Complete Medications Current Medications Sodium Chloride 1,000 ml @ 125 mls/hr Q8H IV Last administered on 06/19/17t 13:02; Start 06/19/17 at 12:51; Stop 06/19/17 at 20:50; Status DC Nicardipine HCl 50 mg/Sodium Chloride 270 ml @ 0 mls/hr CONT PRN IV SEE I/O RECORD; Start 06/19/17 at 13:00; Status Cancel Info (Review Meds) 1 ea PRN DAILY PRN MC SEE COMMENTS; Start 06/19/17 at 13:15 Sodium Chloride (Normal Saline Flush) 3 ml QSHIFT PRN IV AFTER MEDS AND BLOOD DRAWS; Start 06/19/17 at 13:15 Sodium Chloride 1,000 ml @ 80 mls/hr [id number] IV Last administered on 19:47; Start 06/19/17 at 13:04 Acetaminophen (Acetaminophen Supp) [address] Q6HRS PR[address] CT FEVER > 100.5'F Last administered on 06/28/17 04:43; Start 06/19/17 at 13:15 Nicardipine HCl 50 mg/Sodium Chloride 270 ml @ 25 mls/hr CONT PRN IV HYPERTENSION, SEE COMMENTS Last administered on 06/19/17 13:15; Start at 13:15; Stop 06/25/17 at 14:22; Status DC Ondansetron HCl (Zofran) 4 mg PRN Q6HRS PRN IV NAUSEA/VOMITING; Start at 13:15 Pantoprazole Sodium (PROTONIX VIAL for IV PUSH) 40 mg DAILYAC IVP Last administered on 06/29/17 06:41; Start 06/19/17 at 16:30 Info (Do NOT chart on this placeholder) 1 each 1X ONCE MC ; Start 06/19/17 at 16:45; Stop 06/19/17 at 16:46; Status UNV Pneumococcal Polyvalent Vaccine (Do NOT chart on this placeholder) 1 each 1X ONCE MC ; Start 06/19/17 at 16:45; Stop 06/19/17 at 16:46; Status UNV Influenza Virus Vaccine Quadrival (Fluarix Quad [id number] Syringe) 0.5 ml ONCE ONCE VAX IM Last administered on 06/19/17 21:37; Start 06/19/17 at 17:00; Stop 06/19/17 at 17:01; Status DC Hydralazine HCl (Apresoline Inj) 10 mg PRN Q4HRS PRN IVP ELEVATED BP, SEE COMMENTS Last administered on 06/20/17 17:58; Start 06/20/17 at 10:00 Phenazopyridine HCl (Pyridium) 200 mg PRN BID PRN PO URINARY PAIN; Start 06/20 at 20:00 Diazepam (Valium) 5 mg 1X ONCE IV Last administered on 06/20/17 20:26; Start 06/20/17 at 20:15; Stop 06/20/17 at 20:16; Status DC Influenza Virus Vaccine Quadrival (Fluarix Quad [id number] Syringe) 0.5 ml ONCE ONCE VAX IM ; Start 06/23/17 at 09:00; Stop 06/23/17 at 09:01; Status UNV Morphine Sulfate 1 mg PRN Q2HR PRN IV PAIN Last administered on 06/28/17 21: 42; Start 06/24/17 at 06:00 Atorvastatin Calcium (Lipitor) 20 mg QHS PO Last administered on 06/29/17 21: 29; Start 06/24/17 at 21:00 Chlorpromazine HCl 25 mg/Sodium Chloride 50 ml @ 100 mls/hr PRN Q8HRS PRN IV HICCUPS Last administered on 06/29/17 09:55; Start 06/26/17 at 22:00 Amino Acids/ Glycerin/ Electrolytes 1,000 ml @ 80 mls/hr [id number] IV ; Start at 15:15; Stop 06/29/17 at 16:28; Status DC Amino Acids/ Glycerin/ Electrolytes 1,000 ml @ 80 mls/hr [id number] IV Last administered on 06/30/17 00:16; Start 06/29/17 at 23:59 Cefazolin Sodium 1 gm/Dextrose 50 ml @ 100 mls/hr 1X ONCE IV ; Start at 04:45; Stop 06/30/17 at 05:14; Status UNV Cefazolin Sodium (Ancef) 1 gm 1X ONCE IVP ; Start 06/30/17 at 05:00; Stop at 05:01; Status DC Fentanyl Citrate (Fentanyl 2ml Vial) 25 mcg PRN Q5MIN PRN IV MILD PAIN; Start 06/30/17 at 09:15; Stop 07/01/17 at 09:14 Fentanyl Citrate (Fentanyl 2ml Vial) 50 mcg PRN Q5MIN PRN IV MODERATE TO SEVERE PAIN; Start 06/30/17 at 09:15; Stop 07/01/17 at 09:14 Morphine Sulfate 1 mg PRN Q10MIN PRN IV SEVERE PAIN; Start 06/30/17 at 09:15; Stop 07/01/17 at 09:14 Ringer's Solution 1,000 ml @ 30 mls/hr Q24H IV ; Start 06/30/17 at 09:07; Stop 06/30/17 at 21:06 Lidocaine HCl (Xylocaine-Mpf 1% Vial) 2 ml 1X PRN PRN ID IV START; Start 06/30 at 09:15; Stop 07/01/17 at 09:14 Hydromorphone HCl (Dilaudid) 0.5 mg PRN Q10MIN PRN IV SEV PAIN, Second choice; Start 06/30/17 at 09:15; Stop 07/01/17 at 09:14 Prochlorperazine Edisylate (Compazine) 5 mg PACU PRN PRN IV NAUSEA, MRX1; Start 06/30/17 at 09:15; Stop 07/01/17 at 09:14 Furosemide (Lasix) 20 mg 1X ONCE IVP ; Start 06/30/17 at 12:30; Stop at 12:31; Status Cancel Fentanyl Citrate (Fentanyl 2ml Vial) 25 mcg PRN Q5MIN PRN IV MILD PAIN; Start 07/01/17 at 07:00; Stop 07/01/17 at 18:00 Fentanyl Citrate (Fentanyl 2ml Vial) 50 mcg PRN Q5MIN PRN IV MODERATE TO SEVERE PAIN; Start 07/01/17 at 07:00; Stop 07/01/17 at 18:00 Morphine Sulfate 1 mg PRN Q10MIN PRN IV SEVERE PAIN; Start 07/01/17 at 07:00; Stop 07/01/17 at 18:00 Ringer's Solution 1,000 ml @ 30 mls/hr Q24H IV ; Start 07/01/17 at 07:00; Stop 07/01/17 at 18:59 Lidocaine HCl (Xylocaine-Mpf 1% Vial) 2 ml PRN 1X PRN ID IV START; Start 07/01 at 07:00; Stop 07/02/17 at 06:59; Status UNV Hydromorphone HCl (Dilaudid) 0.5 mg PRN Q10MIN PRN IV SEV PAIN, Second choice; Start 07/01/17 at 07:00; Stop 07/02/17 at 06:59; Status UNV Prochlorperazine Edisylate (Compazine) 5 mg PACU PRN PRN IV NAUSEA, MRX1; Start 07/01/17 at 07:00; Stop 07/02/17 at 06:59; Status UNV Active Scripts Active Reported Alfuzosin Hcl 10 Mg Tab.er.24h 10 Mg PO DAILY 30 Days Donepezil Hcl 10 Mg Tablet 10 Mg PO DAILY 30 Days Sertraline Hcl 50 Mg Tablet 50 Mg PO DAILY 30 Days Vitals/I & O Vital Sign - Last 24 Hours 06/29/17 06/29/17 06/29/17 06/29/17 15:00 19:00 19:45 23:00 Temp 99.7 97.5 97.6 99.7 97.5 97.6 Pulse 58 76 64 Resp 20 20 20 B/P (MAP) 136/64 (88) 135/67 (89) 159/77 (104) Pulse Ox 96 95 96 O2 Delivery Room Air Room Air Room Air Room Air 06/30/17 06/30/17 06/30/17 02:54 07:00 11:00 Temp 99.1 99.0 98.1 99.1 99.0 98.1 Pulse 103 62 63 Resp 20 16 16 B/P (MAP) 165/80 (108) 152/76 (101) 139/65 (89) Pulse Ox 95 97 96 O2 Delivery Room Air Room Air Room Air Intake and Output 06/29/17 06/29/17 06/30/17 15:00 23:00 07:00 Intake Total 225 ml 1870 ml Output Total 1050 ml 300 ml 2300 ml Balance -825 ml -300 ml -430 ml INÉS URBINA MD Jun 30, 2017 13:23
[2017-06-30 13:42] LABS: BASO # 0.1 x10^3/uL (0.0-0.2); BASO % 1 % (0-3); EOS % 1 % (0-3); HEMATOCRIT 40.6 % (39.0-53.0); HEMOGLOBIN 13.6 g/dL (13.0-17.5); LYMPH # 2.4 x10^3/uL (1.0-4.8); LYMPH % 20 % (24-48); MEAN CORPUSCULAR HEMOGLOBIN 30 pg (25-35); MEAN CORPUSCULAR HGB CONC 34 g/dL (31-37); MEAN CORPUSCULAR VOLUME 88 fL (79-100); MONO % 9 % (0-9); NEUT % 69 % (31-73); PLATELET COUNT 239 x10^3/uL (140-400); RED BLOOD COUNT 4.63 x10^6/uL (4.30-5.70); RED CELL DISTRIBUTION WIDTH 13.7 % (11.5-14.5)
[2017-06-30 15:00] VITALS: BP 151/73
[2017-06-30] MEDS: PANTOPRAZOLE IV PUSH 40 MG VIAL. IVP SCH (18:43)
[2017-06-30 19:00] VITALS: BP 141/76
[2017-06-30] MEDS: ATORVASTATIN CALCIUM 20 MG TABLET PO SCH (21:00)
[2017-06-30 23:00] VITALS: BP 137/65
[2017-07-01] VITALS (12 sets, daily range): BP systolic 116–136; BP diastolic 56–72
[2017-07-01] MEDS: AMINO AC 3%/ELECTROLYTE/GLYCER 1,000 ML IV SCH ×3 (02:56→23:35)
[2017-07-01] MEDS ORDERED: MORPHINE SULFATE 2 MG/ML DISP.SYRIN. IV PRN (07:00)
[2017-07-01] MEDS ORDERED: PROCHLORPERAZINE 10 MG/2 ML VIAL. IV PRN (07:00)
[2017-07-01] MEDS ORDERED: IV RINGERS,LACTATED 1000ML 1,000 ML IV SCH (07:00)
[2017-07-01] MEDS ORDERED: fentaNYL PF VIAL 100 MCG/2 ML VIAL IV PRN ×4 (07:00→10:00)
[2017-07-01] MEDS ORDERED: LIDOCAINE 1% PF 2 ML VIAL. ID PRN ×2 (07:00→10:00)
[2017-07-01] MEDS ORDERED: HYDROmorphone 2 MG/ML VIAL IV PRN (07:00)
[2017-07-01] MEDS: IV NORMAL SALINE 1000ML BAG 1,000 ML IV SCH ×2 (07:34→20:04)
[2017-07-01] MEDS: PANTOPRAZOLE IV PUSH 40 MG VIAL. IVP SCH (08:12)
--- NOTE | 2017-07-01 08:50 | RAD ---
Clinical indications: Follow-up of intracranial hemorrhage. Technique: Noncontrast axial cross sectional scanning of the head was performed. PQRS Compliance Statement: One or more of the following individualized dose reduction techniques were utilized for this examination: 1. Automated exposure control 2. Adjustment of the mA and/or kV according to patient size 3. Use of iterative reconstruction technique Comparison: June 26, 2017. Findings: Again seen is the hyperdense right frontal parietal lobe intraparenchymal hematoma which has not changed in size or appearance. The midline shift from right to left is stable. No new intracranial hemorrhage is seen. The compression of the right lateral ventricle is unchanged. There is mild dilatation of the left lateral ventricle which is unchanged. Impression: Stable right frontal parietal intraparenchymal hematoma. No new finding.
--- NOTE | 2017-07-01 09:23 | PDOC ---
PROGRESS NOTES Subjective Subjective No new complaints. Objective Objective Vital Signs Date Time Temp Pulse Resp B/P (MAP) Pulse Ox O2 Delivery O2 Flow Rate FiO2 07/01/17 07:00 99.2 71 16 129/57 (81) 96 Room Air 99.2 Intake and Output 07/01/17 06:59 Intake Total 1320.25 ml Balance 1320.25 ml IV Total 1320.25 ml # Voids 5 # Bowel Movements 1 Physical Exam Physical Exam He is supine in bed,alert and talking and following commands and he continues with left hemiparesis and mobility,self care and swallowing deficits. Assessment Assessment Problems Medical Problems: (1) Dementia Status: Acute (2) Hypertension Status: Acute Plan Plan of Care Agree with plans for PEG tube placement. Comment Review of Relevant I have reviewed the following items laine (where applicable) has been applied. Labs Laboratory Tests Test 06/29/17 11:09 06/29/17 15:08 06/29/17 21:37 06/30/17 13:30 Glucose (Fingerstick) 178 mg/dL (70-99) 127 mg/dL (70-99) 147 mg/dL (70-99) White Blood Count 12.0 x10^3/uL (4.0-11.0) Red Blood Count 4.63 x10^6/uL (4.30-5.70) Hemoglobin 13.6 g/dL (13.0-17.5) Hematocrit 40.6 % (39.0-53.0) Mean Corpuscular Volume 88 fL (79-100) Mean Corpuscular Hemoglobin 30 pg (25-35) Mean Corpuscular Hemoglobin Concent 34 g/dL (31-37) Red Cell Distribution Width 13.7 % (11.5-14.5) Platelet Count 239 x10^3/uL (140-400) Neutrophils (%) (Auto) 69 % (31-73) Lymphocytes (%) (Auto) 20 % (24-48) Monocytes (%) (Auto) 9 % (0-9) Eosinophils (%) (Auto) 1 % (0-3) Basophils (%) (Auto) 1 % (0-3) Neutrophils # (Auto) 8.3 x10^3uL (1.8-7.7) Lymphocytes # (Auto) 2.4 x10^3/uL (1.0-4.8) Monocytes # (Auto) 1.1 x10^3/uL (0.0-1.1) Eosinophils # (Auto) 0.1 x10^3/uL (0.0-0.7) Basophils # (Auto) 0.1 x10^3/uL (0.0-0.2) Laboratory Tests Test 06/30/17 13:30 White Blood Count 12.0 x10^3/uL (4.0-11.0) Red Blood Count 4.63 x10^6/uL (4.30-5.70) Hemoglobin 13.6 g/dL (13.0-17.5) Hematocrit 40.6 % (39.0-53.0) Mean Corpuscular Volume 88 fL (79-100) Mean Corpuscular Hemoglobin 30 pg (25-35) Mean Corpuscular Hemoglobin Concent 34 g/dL (31-37) Red Cell Distribution Width 13.7 % (11.5-14.5) Platelet Count 239 x10^3/uL (140-400) Neutrophils (%) (Auto) 69 % (31-73) Lymphocytes (%) (Auto) 20 % (24-48) Monocytes (%) (Auto) 9 % (0-9) Eosinophils (%) (Auto) 1 % (0-3) Basophils (%) (Auto) 1 % (0-3) Neutrophils # (Auto) 8.3 x10^3uL (1.8-7.7) Lymphocytes # (Auto) 2.4 x10^3/uL (1.0-4.8) Monocytes # (Auto) 1.1 x10^3/uL (0.0-1.1) Eosinophils # (Auto) 0.1 x10^3/uL (0.0-0.7) Basophils # (Auto) 0.1 x10^3/uL (0.0-0.2) Microbiology 06/26/17 Blood Culture - Preliminary, Resulted NO GROWTH AFTER 4 DAYS 06/26/17 Urine Culture - Final, Complete 06/26/17 Urine Culture Result 1 (CHE) - Final, Complete Medications Current Medications Sodium Chloride 1,000 ml @ 125 mls/hr Q8H IV Last administered on 06/19/17t 13:02; Start 06/19/17 at 12:51; Stop 06/19/17 at 20:50; Status DC Nicardipine HCl 50 mg/Sodium Chloride 270 ml @ 0 mls/hr CONT PRN IV SEE I/O RECORD; Start 06/19/17 at 13:00; Status Cancel Info (Review Meds) 1 ea PRN DAILY PRN MC SEE COMMENTS; Start 06/19/17 at 13:15 Sodium Chloride (Normal Saline Flush) 3 ml QSHIFT PRN IV AFTER MEDS AND BLOOD DRAWS; Start 06/19/17 at 13:15 Sodium Chloride 1,000 ml @ 80 mls/hr [id number] IV Last administered on 19:47; Start 06/19/17 at 13:04 Acetaminophen (Acetaminophen Supp) 650 mg PRN Q6HRS PRN [place] FEVER > 100.5'F Last administered on 06/28/17 04:43; Start 06/19/17 at 13:15 Nicardipine HCl 50 mg/Sodium Chloride 270 ml @ 25 mls/hr CONT PRN IV HYPERTENSION, SEE COMMENTS Last administered on 06/19/17 13:15; Start at 13:15; Stop 06/25/17 at 14:22; Status DC Ondansetron HCl (Zofran) 4 mg PRN Q6HRS PRN IV NAUSEA/VOMITING; Start at 13:15 Pantoprazole Sodium (PROTONIX VIAL for IV PUSH) 40 mg DAILYAC IVP Last administered on 07/01/17 08:12; Start 06/19/17 at 16:30 Info (Do NOT chart on this placeholder) 1 each 1X ONCE MC ; Start 06/19/17 at 16:45; Stop 06/19/17 at 16:46; Status UNV Pneumococcal Polyvalent Vaccine (Do NOT chart on this placeholder) 1 each 1X ONCE MC ; Start 06/19/17 at 16:45; Stop 06/19/17 at 16:46; Status UNV Influenza Virus Vaccine Quadrival (Fluarix Quad [id number] Syringe) 0.5 ml ONCE ONCE VAX IM Last administered on 06/19/17 21:37; Start 06/19/17 at 17:00; Stop 06/19/17 at 17:01; Status DC Hydralazine HCl (Apresoline Inj) 10 mg PRN Q4HRS PRN IVP ELEVATED BP, SEE COMMENTS Last administered on 06/20/17 17:58; Start 06/20/17 at 10:00 Phenazopyridine HCl (Pyridium) 200 mg PRN BID PRN PO URINARY PAIN; Start 06/20 at 20:00 Diazepam (Valium) 5 mg 1X ONCE IV Last administered on 06/20/17 20:26; Start 06/20/17 at 20:15; Stop 06/20/17 at 20:16; Status DC Influenza Virus Vaccine Quadrival (Fluarix Quad [id number] Syringe) 0.5 ml ONCE ONCE VAX IM ; Start 06/23/17 at 09:00; Stop 06/23/17 at 09:01; Status UNV Morphine Sulfate 1 mg PRN Q2HR PRN IV PAIN Last administered on 06/28/17 21: 42; Start 06/24/17 at 06:00 Atorvastatin Calcium (Lipitor) 20 mg QHS PO Last administered on 06/29/17 21: 29; Start 06/24/17 at 21:00 Chlorpromazine HCl 25 mg/Sodium Chloride 50 ml @ 100 mls/hr PRN Q8HRS PRN IV HICCUPS Last administered on 06/29/17 09:55; Start 06/26/17 at 22:00 Amino Acids/ Glycerin/ Electrolytes 1,000 ml @ 80 mls/hr [id number] IV ; Start at 15:15; Stop 06/29/17 at 16:28; Status DC Amino Acids/ Glycerin/ Electrolytes 1,000 ml @ 80 mls/hr [id number] IV Last administered on 07/01/17 02:56; Start 06/29/17 at 23:59 Cefazolin Sodium 1 gm/Dextrose 50 ml @ 100 mls/hr 1X ONCE IV ; Start at 04:45; Stop 06/30/17 at 05:14; Status UNV Cefazolin Sodium (Ancef) 1 gm 1X ONCE IVP ; Start 06/30/17 at 05:00; Stop at 05:01; Status DC Fentanyl Citrate (Fentanyl 2ml Vial) 25 mcg PRN Q5MIN PRN IV MILD PAIN; Start 06/30/17 at 09:15; Stop 06/30/17 at 16:14; Status DC Fentanyl Citrate (Fentanyl 2ml Vial) 50 mcg PRN Q5MIN PRN IV MODERATE TO SEVERE PAIN; Start 06/30/17 at 09:15; Stop 06/30/17 at 16:20; Status DC Morphine Sulfate 1 mg PRN Q10MIN PRN IV SEVERE PAIN; Start 06/30/17 at 09:15; Stop 06/30/17 at 16:21; Status DC Ringer's Solution 1,000 ml @ 30 mls/hr Q24H IV ; Start 06/30/17 at 09:07; Stop 06/30/17 at 21:06; Status Cancel Lidocaine HCl (Xylocaine-Mpf 1% Vial) 2 ml 1X PRN PRN ID IV START; Start 06/30 at 09:15; Stop 06/30/17 at 16:21; Status DC Hydromorphone HCl (Dilaudid) 0.5 mg PRN Q10MIN PRN IV SEV PAIN, Second choice; Start 06/30/17 at 09:15; Stop 06/30/17 at 16:20; Status DC Prochlorperazine Edisylate (Compazine) 5 mg PACU PRN PRN IV NAUSEA, MRX1; Start 06/30/17 at 09:15; Stop 06/30/17 at 16:22; Status DC Furosemide (Lasix) 20 mg 1X ONCE IVP ; Start 06/30/17 at 12:30; Stop at 12:31; Status Cancel Fentanyl Citrate (Fentanyl 2ml Vial) 25 mcg PRN Q5MIN PRN IV MILD PAIN; Start 07/01/17 at 07:00; Stop 07/01/17 at 18:00 Fentanyl Citrate (Fentanyl 2ml Vial) 50 mcg PRN Q5MIN PRN IV MODERATE TO SEVERE PAIN; Start 07/01/17 at 07:00; Stop 07/01/17 at 18:00 Morphine Sulfate 1 mg PRN Q10MIN PRN IV SEVERE PAIN; Start 07/01/17 at 07:00; Stop 07/01/17 at 18:00 Ringer's Solution 1,000 ml @ 30 mls/hr Q24H IV ; Start 07/01/17 at 07:00; Stop 07/01/17 at 18:59 Lidocaine HCl (Xylocaine-Mpf 1% Vial) 2 ml PRN 1X PRN ID IV START; Start 07/01 at 07:00; Stop 07/01/17 at 18:00 Hydromorphone HCl (Dilaudid) 0.5 mg PRN Q10MIN PRN IV SEV PAIN, Second choice; Start 07/01/17 at 07:00; Stop 07/01/17 at 18:00 Prochlorperazine Edisylate (Compazine) 5 mg PACU PRN PRN IV NAUSEA, MRX1; Start 07/01/17 at 07:00; Stop 07/01/17 at 18:00 Active Scripts Active Reported Alfuzosin Hcl 10 Mg Tab.er.24h 10 Mg PO DAILY 30 Days Donepezil Hcl 10 Mg Tablet 10 Mg PO DAILY 30 Days Sertraline Hcl 50 Mg Tablet 50 Mg PO DAILY 30 Days Vitals/I & O Vital Sign - Last 24 Hours 06/30/17 06/30/17 06/30/17 06/30/17 11:00 15:00 19:00 19:45 Temp 98.1 99.0 100.0 98.1 99.0 100.0 Pulse 63 65 71 Resp 16 16 24 B/P (MAP) 139/65 (89) 151/73 (99) 141/76 (97) Pulse Ox 96 98 98 O2 Delivery Room Air Room Air Room Air Room Air 06/30/17 07/01/17 07/01/17 23:00 03:00 07:00 Temp 98.8 98.8 99.2 98.8 98.8 99.2 Pulse 73 64 71 Resp 22 20 16 B/P (MAP) 137/65 (89) 132/64 (86) 129/57 (81) Pulse Ox 98 94 96 O2 Delivery Room Air Room Air Room Air Intake and Output 06/30/17 06/30/17 07/01/17 14:59 22:59 06:59 Intake Total 1320.25 ml Balance 1320.25 ml VANDA MADRIGAL MD Jul 01, 2017 09:23
--- NOTE | 2017-07-01 09:40 | PDOC ---
PROGRESS NOTES Assessment Problems Medical Problems: (1) Dementia Status: Acute (2) Hypertension Status: Acute Acute right frontal lobe hemorrhage, hematoma 4.7 cm x 2.5 cm with visible cerebral edema on 06/19/17. Increased cerebral edema with 5 mm right to left midline shift on 06/22/17. Small SAH. Left side hemiplegia. 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 Dementia. Plan Okay for PEG Then transfer to rehabilitation [facility] Subjective No complaints Objective Vital Signs Date Time Temp Pulse Resp B/P (MAP) Pulse Ox O2 Delivery O2 Flow Rate FiO2 07/01/17 07:00 99.2 71 16 129/57 (81) 96 Room Air 99.2 Intake and Output 07/01/17 06:59 Intake Total 1320.25 ml Balance 1320.25 ml IV Total 1320.25 ml # Voids 5 # Bowel Movements 1 PHYSICAL EXAM Alert. Oriented only to person person. PERRL. EOMI. CN: Left central facial palsy Muscle tone: Increased on left Muscle strength: 2/5 left hemiparesis DTR: 1+ on right, 2+ on left Plantar reflex: Flexor Gait: not examined in bed. Sensory exam: no abnormal findings. No cerebellar signs elicited. Review of Relevant I have reviewed the following items laine (where applicable) has been applied. Labs Laboratory Tests Test 06/29/17 11:09 06/29/17 15:08 06/29/17 21:37 06/30/17 13:30 Glucose (Fingerstick) 178 mg/dL (70-99) 127 mg/dL (70-99) 147 mg/dL (70-99) White Blood Count 12.0 x10^3/uL (4.0-11.0) Red Blood Count 4.63 x10^6/uL (4.30-5.70) Hemoglobin 13.6 g/dL (13.0-17.5) Hematocrit 40.6 % (39.0-53.0) Mean Corpuscular Volume 88 fL (79-100) Mean Corpuscular Hemoglobin 30 pg (25-35) Mean Corpuscular Hemoglobin Concent 34 g/dL (31-37) Red Cell Distribution Width 13.7 % (11.5-14.5) Platelet Count 239 x10^3/uL (140-400) Neutrophils (%) (Auto) 69 % (31-73) Lymphocytes (%) (Auto) 20 % (24-48) Monocytes (%) (Auto) 9 % (0-9) Eosinophils (%) (Auto) 1 % (0-3) Basophils (%) (Auto) 1 % (0-3) Neutrophils # (Auto) 8.3 x10^3uL (1.8-7.7) Lymphocytes # (Auto) 2.4 x10^3/uL (1.0-4.8) Monocytes # (Auto) 1.1 x10^3/uL (0.0-1.1) Eosinophils # (Auto) 0.1 x10^3/uL (0.0-0.7) Basophils # (Auto) 0.1 x10^3/uL (0.0-0.2) Laboratory Tests Test 06/30/17 13:30 White Blood Count 12.0 x10^3/uL (4.0-11.0) Red Blood Count 4.63 x10^6/uL (4.30-5.70) Hemoglobin 13.6 g/dL (13.0-17.5) Hematocrit 40.6 % (39.0-53.0) Mean Corpuscular Volume 88 fL (79-100) Mean Corpuscular Hemoglobin 30 pg (25-35) Mean Corpuscular Hemoglobin Concent 34 g/dL (31-37) Red Cell Distribution Width 13.7 % (11.5-14.5) Platelet Count 239 x10^3/uL (140-400) Neutrophils (%) (Auto) 69 % (31-73) Lymphocytes (%) (Auto) 20 % (24-48) Monocytes (%) (Auto) 9 % (0-9) Eosinophils (%) (Auto) 1 % (0-3) Basophils (%) (Auto) 1 % (0-3) Neutrophils # (Auto) 8.3 x10^3uL (1.8-7.7) Lymphocytes # (Auto) 2.4 x10^3/uL (1.0-4.8) Monocytes # (Auto) 1.1 x10^3/uL (0.0-1.1) Eosinophils # (Auto) 0.1 x10^3/uL (0.0-0.7) Basophils # (Auto) 0.1 x10^3/uL (0.0-0.2) Microbiology 06/26/17 Blood Culture - Preliminary, Resulted NO GROWTH AFTER 4 DAYS 06/26/17 Urine Culture - Final, Complete 06/26/17 Urine Culture Result 1 (CHE) - Final, Complete Medications Current Medications Sodium Chloride 1,000 ml @ 125 mls/hr Q8H IV Last administered on 06/19/17 13:02; Start 06/19/17 at 12:51; Stop 06/19/17 at 20:50; Status DC Nicardipine HCl 50 mg/Sodium Chloride 270 ml @ 0 mls/hr CONT PRN IV SEE I/O RECORD; Start 06/19/17 at 13:00; Status Cancel Info (Review Meds) 1 ea PRN DAILY PRN MC SEE COMMENTS; Start 06/19/17 at 13:15 Sodium Chloride (Normal Saline Flush) 3 ml QSHIFT PRN IV AFTER MEDS AND BLOOD DRAWS; Start 06/19/17 at 13:15 Sodium Chloride 1,000 ml @ 80 mls/hr [id number] IV Last administered on 19:47; Start 06/19/17 at 13:04 Acetaminophen (Acetaminophen Supp) 650 mg PRN Q6HRS PRN [place] FEVER > 100.5'F Last administered on 06/28/17 04:43; Start 06/19/17 at 13:15 Nicardipine HCl 50 mg/Sodium Chloride 270 ml @ 25 mls/hr CONT PRN IV HYPERTENSION, SEE COMMENTS Last administered on 06/19/17 13:15; Start at 13:15; Stop 06/25/17 at 14:22; Status DC Ondansetron HCl (Zofran) 4 mg PRN Q6HRS PRN IV NAUSEA/VOMITING; Start at 13:15 Pantoprazole Sodium (PROTONIX VIAL for IV PUSH) 40 mg DAILYAC IVP Last administered on 07/01/17 08:12; Start 06/19/17 at 16:30 Info (Do NOT chart on this placeholder) 1 each 1X ONCE MC ; Start 06/19/17 at 16:45; Stop 06/19/17 at 16:46; Status UNV Pneumococcal Polyvalent Vaccine (Do NOT chart on this placeholder) 1 each 1X ONCE MC ; Start 06/19/17 at 16:45; Stop 06/19/17 at 16:46; Status UNV Influenza Virus Vaccine Quadrival (Fluarix Quad Syringe) 0.5 ml ONCE ONCE VAX IM Last administered on 06/19/17 21:37; Start 06/19/17 at 17:00; Stop 06/19/17 at 17:01; Status DC Hydralazine HCl (Apresoline Inj) 10 mg PRN Q4HRS PRN IVP ELEVATED BP, SEE COMMENTS Last administered on 06/20/17 17:58; Start 06/20/17 at 10:00 Phenazopyridine HCl (Pyridium) 200 mg PRN BID PRN PO URINARY PAIN; Start 06/20 at 20:00 Diazepam (Valium) 5 mg 1X ONCE IV Last administered on 06/20/17 20:26; Start 06/20/17 at 20:15; Stop 06/20/17 at 20:16; Status DC Influenza Virus Vaccine Quadrival (Fluarix Quad Syringe) 0.5 ml ONCE ONCE VAX IM ; Start 06/23/17 at 09:00; Stop 06/23/17 at 09:01; Status UNV Morphine Sulfate 1 mg PRN Q2HR PRN IV PAIN Last administered on 06/28/17 21: 42; Start 06/24/17 at 06:00 Atorvastatin Calcium (Lipitor) 20 mg QHS PO Last administered on 06/29/17 21: 29; Start 06/24/17 at 21:00 Chlorpromazine HCl 25 mg/Sodium Chloride 50 ml @ 100 mls/hr PRN Q8HRS PRN IV HICCUPS Last administered on 06/29/17 09:55; Start 06/26/17 at 22:00 Amino Acids/ Glycerin/ Electrolytes 1,000 ml @ 80 mls/hr [id number] IV ; Start at 15:15; Stop 06/29/17 at 16:28; Status DC Amino Acids/ Glycerin/ Electrolytes 1,000 ml @ 80 mls/hr [id number] IV Last administered on 07/01/17 02:56; Start 06/29/17 at 23:59 Cefazolin Sodium 1 gm/Dextrose 50 ml @ 100 mls/hr 1X ONCE IV ; Start at 04:45; Stop 06/30/17 at 05:14; Status UNV Cefazolin Sodium (Ancef) 1 gm 1X ONCE IVP ; Start 06/30/17 at 05:00; Stop at 05:01; Status DC Fentanyl Citrate (Fentanyl 2ml Vial) 25 mcg PRN Q5MIN PRN IV MILD PAIN; Start 06/30/17 at 09:15; Stop 06/30/17 at 16:14; Status DC Fentanyl Citrate (Fentanyl 2ml Vial) 50 mcg PRN Q5MIN PRN IV MODERATE TO SEVERE PAIN; Start 06/30/17 at 09:15; Stop 06/30/17 at 16:20; Status DC Morphine Sulfate 1 mg PRN Q10MIN PRN IV SEVERE PAIN; Start 06/30/17 at 09:15; Stop 06/30/17 at 16:21; Status DC Ringer's Solution 1,000 ml @ 30 mls/hr Q24H IV ; Start 06/30/17 at 09:07; Stop 06/30/17 at 21:06; Status Cancel Lidocaine HCl (Xylocaine-Mpf 1% Vial) 2 ml 1X PRN PRN ID IV START; Start 06/30 at 09:15; Stop 06/30/17 at 16:21; Status DC Hydromorphone HCl (Dilaudid) 0.5 mg PRN Q10MIN PRN IV SEV PAIN, Second choice; Start 06/30/17 at 09:15; Stop 06/30/17 at 16:20; Status DC Prochlorperazine Edisylate (Compazine) 5 mg PACU PRN PRN IV NAUSEA, MRX1; Start 06/30/17 at 09:15; Stop 06/30/17 at 16:22; Status DC Furosemide (Lasix) 20 mg 1X ONCE IVP ; Start 06/30/17 at 12:30; Stop at 12:31; Status Cancel Fentanyl Citrate (Fentanyl 2ml Vial) 25 mcg PRN Q5MIN PRN IV MILD PAIN; Start 07/01/17 at 07:00; Stop 07/01/17 at 18:00 Fentanyl Citrate (Fentanyl 2ml Vial) 50 mcg PRN Q5MIN PRN IV MODERATE TO SEVERE PAIN; Start 07/01/17 at 07:00; Stop 07/01/17 at 18:00 Morphine Sulfate 1 mg PRN Q10MIN PRN IV SEVERE PAIN; Start 07/01/17 at 07:00; Stop 07/01/17 at 18:00 Ringer's Solution 1,000 ml @ 30 mls/hr Q24H IV ; Start 07/01/17 at 07:00; Stop 07/01/17 at 18:59 Lidocaine HCl (Xylocaine-Mpf 1% Vial) 2 ml PRN 1X PRN ID IV START; Start 07/01 at 07:00; Stop 07/01/17 at 18:00 Hydromorphone HCl (Dilaudid) 0.5 mg PRN Q10MIN PRN IV SEV PAIN, Second choice; Start 07/01/17 at 07:00; Stop 07/01/17 at 18:00 Prochlorperazine Edisylate (Compazine) 5 mg PACU PRN PRN IV NAUSEA, MRX1; Start 07/01/17 at 07:00; Stop 07/01/17 at 18:00 Active Scripts Active Reported Alfuzosin Hcl 10 Mg Tab.er.24h 10 Mg PO DAILY 30 Days Donepezil Hcl 10 Mg Tablet 10 Mg PO DAILY 30 Days Sertraline Hcl 50 Mg Tablet 50 Mg PO DAILY 30 Days Vitals/I & O Vital Sign - Last 24 Hours 06/30/17 06/30/17 06/30/17 06/30/17 11:00 15:00 19:00 19:45 Temp 98.1 99.0 100.0 98.1 99.0 100.0 Pulse 63 65 71 Resp 16 16 24 B/P (MAP) 139/65 (89) 151/73 (99) 141/76 (97) Pulse Ox 96 98 98 O2 Delivery Room Air Room Air Room Air Room Air 06/30/17 07/01/17 07/01/17 23:00 03:00 07:00 Temp 98.8 98.8 99.2 98.8 98.8 99.2 Pulse 73 64 71 Resp 22 20 16 B/P (MAP) 137/65 (89) 132/64 (86) 129/57 (81) Pulse Ox 98 94 96 O2 Delivery Room Air Room Air Room Air Intake and Output 06/30/17 06/30/17 07/01/17 14:59 22:59 06:59 Intake Total 1320.25 ml Balance 1320.[address] head: Findings: Again seen is the hyperdense right frontal parietal lobe intraparenchymal hematoma which has not changed in size or appearance. The midline shift from right to left is stable. No new intracranial hemorrhage is seen. The compression of the right lateral ventricle is unchanged. There is mild dilatation of the left lateral ventricle which is unchanged. Impression: Stable right frontal parietal intraparenchymal hematoma. No new finding. JAY DE JESUS MD Jul 01, 2017 09:40
[2017-07-01] MEDS: IV RINGERS,LACTATED 1000ML 1,000 ML IV SCH ×2 (09:51→14:41)
[2017-07-01] MEDS ORDERED: MIDAZOLAM HCL/PF 2 MG/2 ML VIAL. IV PRN (10:00)
[2017-07-01] MEDS ORDERED: PROPOFOL 20 ML IV ONE (10:04)
[2017-07-01] MEDS ORDERED: LIDOCAINE 2% PF Vial for OR 5 ML VIAL. ONE (10:04)
--- NOTE | 2017-07-01 10:29 | PDOC4 ---
PROCEDURE Procedure EGD/PEG Indication: neurogenic dysphagia post-CVA Meds: per anesthesia Findings: E--normal G--normal D--normal to second portion. --20F g-tube placed uneventfully. Tolerated well. IMP: Successful PEG REC:.60cc water per tube q 6 hours when not on tube feeding. OK to use tube for meds today; flush with water qs to clear after dosing. OK to put gauze over site prn, NOT under retaining disc Abdominal binder at all times. If no problems, feeding can start in AM. Thanks. BRUNO GOLD MD Jul 01, 2017 10:29
--- NOTE | 2017-07-01 13:32 | PDOC ---
SUBJECTIVE Subjective Denies acute changes. ROS denies headache, nausea, +left weakness OBJECTIVE Objective CT head this AM stable IPH. Vital Signs Vital Signs Date Time Temp Pulse Resp B/P (MAP) Pulse Ox O2 Delivery O2 Flow Rate FiO2 07/01/17 11:00 98.7 62 18 124/62 (82) 96 Room Air 98.7 07/01/17 10:53 75 20 133/63 95 Room Air 07/01/17 10:37 73 20 105/57 94 Room Air 07/01/17 10:21 98.0 83 20 107/55 98 Nasal Cannula 4 98.0 07/01/17 09:55 97.4 66 18 93 97.4 07/01/17 09:53 Room Air 07/01/17 08:15 Room Air 07/01/17 07:00 99.2 71 16 129/57 (81) 96 Room Air 99.2 07/01/17 03:00 98.8 64 20 132/64 (86) 94 Room Air 98.8 06/30/17 23:00 98.8 73 22 137/65 (89) 98 Room Air 98.8 06/30/17 19:45 Room Air 06/30/17 19:00 100.0 71 24 141/76 (97) 98 Room Air 100.0 06/30/17 15:00 99.0 65 16 151/73 (99) 98 Room Air 99.0 I & O Intake and Output 07/01/17 06:59 Intake Total 1320.25 ml Balance 1320.25 ml IV Total 1320.25 ml # Voids 5 # Bowel Movements 1 PHYSICAL EXAM Physical Exam AA, NAD, left weakness, sensation intact LT ASSESSMENT/PLAN Assessment/Plan 76M with stable right frontal IPH -continue therapies -continue to monitor for neuro changes and with serial imaging Problems: COMMENT Lab Laboratory Tests Test 06/30/17 13:30 White Blood Count 12.0 x10^3/uL (4.0-11.0) Red Blood Count 4.63 x10^6/uL (4.30-5.70) Hemoglobin 13.6 g/dL (13.0-17.5) Hematocrit 40.6 % (39.0-53.0) Mean Corpuscular Volume 88 fL (79-100) Mean Corpuscular Hemoglobin 30 pg (25-35) Mean Corpuscular Hemoglobin Concent 34 g/dL (31-37) Red Cell Distribution Width 13.7 % (11.5-14.5) Platelet Count 239 x10^3/uL (140-400) Neutrophils (%) (Auto) 69 % (31-73) Lymphocytes (%) (Auto) 20 % (24-48) Monocytes (%) (Auto) 9 % (0-9) Eosinophils (%) (Auto) 1 % (0-3) Basophils (%) (Auto) 1 % (0-3) Neutrophils # (Auto) 8.3 x10^3uL (1.8-7.7) Lymphocytes # (Auto) 2.4 x10^3/uL (1.0-4.8) Monocytes # (Auto) 1.1 x10^3/uL (0.0-1.1) Eosinophils # (Auto) 0.1 x10^3/uL (0.0-0.7) Basophils # (Auto) 0.1 x10^3/uL (0.0-0.2) ERNA DIMAS MD Jul 01, 2017 13:31
--- NOTE | 2017-07-01 14:13 | PDOC ---
PROGRESS NOTES Chief Complaint Chief Complaint stable Hemorrhagic stroke, Status post PEG, 07/01/17 Left sided weakness 5 cm hematoma w/ effacement Rt lateral ventricle Accelerated hypertension, on admit resolved Dementia on Aricept DNR./DNI Dysphagia secondary to above hemorrhagic stroke History of Present Illness History of Present Illness Same neurologic-cifuentes Just had a PEG tube done by GI today, only medicines and flush in PEG for now Stable CT head findings Stable neurologic findings wants rehabilitation center rather than SNU Plan: Tube feeds tomorrow care of nutrition Social work, for [facility] rehabilitation screen, planning on discharging tomorrow Supportive meds Tube feeds to start tomorrow as per GI Discussed with RN polina Vitals Vitals Vital Signs Date Time Temp Pulse Resp B/P (MAP) Pulse Ox O2 Delivery O2 Flow Rate FiO2 07/01/17 11:00 98.7 62 18 124/62 (82) 96 Room Air 98.7 07/01/17 10:21 4 Physical Exam Physical Exam General appearance is in acute distress. . Pulmonary: relative clear to auscultation bilaterally. General: Alert, Oriented X3, Cooperative, No acute distress Heart: Regular rate Lungs: Clear Abdomen: Normal bowel sounds Extremities: No clubbing, No cyanosis, No edema, Normal pulses, No tenderness/ swelling Skin: No rashes, No breakdown, No significant lesion Review of Systems Review of Systems Demented Assessment and Plan Assessmemt and Plan Problems Medical Problems: (1) Dementia Status: Acute (2) Hypertension Status: Acute Problems: Comment Review of Relevant I have reviewed the following items laine (where applicable) has been applied. Labs Laboratory Tests Test 06/29/17 15:08 06/29/17 21:37 06/30/17 13:30 Glucose (Fingerstick) 127 mg/dL (70-99) 147 mg/dL (70-99) White Blood Count 12.0 x10^3/uL (4.0-11.0) Red Blood Count 4.63 x10^6/uL (4.30-5.70) Hemoglobin 13.6 g/dL (13.0-17.5) Hematocrit 40.6 % (39.0-53.0) Mean Corpuscular Volume 88 fL (79-100) Mean Corpuscular Hemoglobin 30 pg (25-35) Mean Corpuscular Hemoglobin Concent 34 g/dL (31-37) Red Cell Distribution Width 13.7 % (11.5-14.5) Platelet Count 239 x10^3/uL (140-400) Neutrophils (%) (Auto) 69 % (31-73) Lymphocytes (%) (Auto) 20 % (24-48) Monocytes (%) (Auto) 9 % (0-9) Eosinophils (%) (Auto) 1 % (0-3) Basophils (%) (Auto) 1 % (0-3) Neutrophils # (Auto) 8.3 x10^3uL (1.8-7.7) Lymphocytes # (Auto) 2.4 x10^3/uL (1.0-4.8) Monocytes # (Auto) 1.1 x10^3/uL (0.0-1.1) Eosinophils # (Auto) 0.1 x10^3/uL (0.0-0.7) Basophils # (Auto) 0.1 x10^3/uL (0.0-0.2) Microbiology 06/26/17 Blood Culture - Preliminary, Resulted NO GROWTH AFTER 4 DAYS 06/26/17 Urine Culture - Final, Complete 06/26/17 Urine Culture Result 1 (CHE) - Final, Complete Medications Current Medications Sodium Chloride 1,000 ml @ 125 mls/hr Q8H IV Last administered on 06/19/17 13:02; Start 06/19/17 at 12:51; Stop 06/19/17 at 20:50; Status DC Nicardipine HCl 50 mg/Sodium Chloride 270 ml @ 0 mls/hr CONT PRN IV SEE I/O RECORD; Start 06/19/17 at 13:00; Status Cancel Info (Review Meds) 1 ea PRN DAILY PRN MC SEE COMMENTS; Start 06/19/17 at 13:15 Sodium Chloride (Normal Saline Flush) 3 ml QSHIFT PRN IV AFTER MEDS AND BLOOD DRAWS; Start 06/19/17 at 13:15 Sodium Chloride 1,000 ml @ 80 mls/hr [id number] IV Last administered on 19:47; Start 06/19/17 at 13:04 Acetaminophen (Acetaminophen Supp) 650 mg PRN Q6HRS PRN [place] FEVER > 100.5'F Last administered on 06/28/17 04:43; Start 06/19/17 at 13:15 Nicardipine HCl 50 mg/Sodium Chloride 270 ml @ 25 mls/hr CONT PRN IV HYPERTENSION, SEE COMMENTS Last administered on 06/19/17 13:15; Start at 13:15; Stop 06/25/17 at 14:22; Status DC Ondansetron HCl (Zofran) 4 mg PRN Q6HRS PRN IV NAUSEA/VOMITING; Start at 13:15 Pantoprazole Sodium (PROTONIX VIAL for IV PUSH) 40 mg DAILYAC IVP Last administered on 07/01/17 08:12; Start 06/19/17 at 16:30 Info (Do NOT chart on this placeholder) 1 each 1X ONCE MC ; Start 06/19/17 at 16:45; Stop 06/19/17 at 16:46; Status UNV Pneumococcal Polyvalent Vaccine (Do NOT chart on this placeholder) 1 each 1X ONCE MC ; Start 06/19/17 at 16:45; Stop 06/19/17 at 16:46; Status UNV Influenza Virus Vaccine Quadrival (Fluarix Quad Syringe) 0.5 ml ONCE ONCE VAX IM Last administered on 06/19/17 21:37; Start 06/19/17 at 17:00; Stop 06/19/17 at 17:01; Status DC Hydralazine HCl (Apresoline Inj) 10 mg PRN Q4HRS PRN IVP ELEVATED BP, SEE COMMENTS Last administered on 06/20/17 17:58; Start 06/20/17 at 10:00 Phenazopyridine HCl (Pyridium) 200 mg PRN BID PRN PO URINARY PAIN; Start 06/20 at 20:00 Diazepam (Valium) 5 mg 1X ONCE IV Last administered on 06/20/17 20:26; Start 06/20/17 at 20:15; Stop 06/20/17 at 20:16; Status DC Influenza Virus Vaccine Quadrival (Fluarix Quad Syringe) 0.5 ml ONCE ONCE VAX IM ; Start 06/23/17 at 09:00; Stop 06/23/17 at 09:01; Status UNV Morphine Sulfate 1 mg PRN Q2HR PRN IV PAIN Last administered on 06/28/17 21: 42; Start 06/24/17 at 06:00 Atorvastatin Calcium (Lipitor) 20 mg QHS PO Last administered on 06/29/17 21: 29; Start 06/24/17 at 21:00 Chlorpromazine HCl 25 mg/Sodium Chloride 50 ml @ 100 mls/hr PRN Q8HRS PRN IV HICCUPS Last administered on 06/29/17 09:55; Start 06/26/17 at 22:00 Amino Acids/ Glycerin/ Electrolytes 1,000 ml @ 80 mls/hr [id number] IV ; Start at 15:15; Stop 06/29/17 at 16:28; Status DC Amino Acids/ Glycerin/ Electrolytes 1,000 ml @ 80 mls/hr [id number] IV Last administered on 07/01/17 02:56; Start 06/29/17 at 23:59 Cefazolin Sodium 1 gm/Dextrose 50 ml @ 100 mls/hr 1X ONCE IV ; Start at 04:45; Stop 06/30/17 at 05:14; Status UNV Cefazolin Sodium (Ancef) 1 gm 1X ONCE IVP Last administered on 06/30/17 10: 03; Start 06/30/17 at 05:00; Stop 06/30/17 at 05:01; Status DC Fentanyl Citrate (Fentanyl 2ml Vial) 25 mcg PRN Q5MIN PRN IV MILD PAIN; Start 06/30/17 at 09:15; Stop 06/30/17 at 16:14; Status DC Fentanyl Citrate (Fentanyl 2ml Vial) 50 mcg PRN Q5MIN PRN IV MODERATE TO SEVERE PAIN; Start 06/30/17 at 09:15; Stop 06/30/17 at 16:20; Status DC Morphine Sulfate 1 mg PRN Q10MIN PRN IV SEVERE PAIN; Start 06/30/17 at 09:15; Stop 06/30/17 at 16:21; Status DC Ringer's Solution 1,000 ml @ 30 mls/hr Q24H IV ; Start 06/30/17 at 09:07; Stop 06/30/17 at 21:06; Status Cancel Lidocaine HCl (Xylocaine-Mpf 1% Vial) 2 ml 1X PRN PRN ID IV START; Start 06/30 at 09:15; Stop 06/30/17 at 16:21; Status DC Hydromorphone HCl (Dilaudid) 0.5 mg PRN Q10MIN PRN IV SEV PAIN, Second choice; Start 06/30/17 at 09:15; Stop 06/30/17 at 16:20; Status DC Prochlorperazine Edisylate (Compazine) 5 mg PACU PRN PRN IV NAUSEA, MRX1; Start 06/30/17 at 09:15; Stop 06/30/17 at 16:22; Status DC Furosemide (Lasix) 20 mg 1X ONCE IVP ; Start 06/30/17 at 12:30; Stop at 12:31; Status Cancel Fentanyl Citrate (Fentanyl 2ml Vial) 25 mcg PRN Q5MIN PRN IV MILD PAIN; Start 07/01/17 at 07:00; Stop 07/01/17 at 18:00 Fentanyl Citrate (Fentanyl 2ml Vial) 50 mcg PRN Q5MIN PRN IV MODERATE TO SEVERE PAIN; Start 07/01/17 at 07:00; Stop 07/01/17 at 18:00 Morphine Sulfate 1 mg PRN Q10MIN PRN IV SEVERE PAIN; Start 07/01/17 at 07:00; Stop 07/01/17 at 18:00 Ringer's Solution 1,000 ml @ 30 mls/hr Q24H IV Last administered on t 09:59; Start 07/01/17 at 07:00; Stop 07/01/17 at 18:59 Lidocaine HCl (Xylocaine-Mpf 1% Vial) 2 ml PRN 1X PRN ID IV START; Start 07/01 at 07:00; Stop 07/01/17 at 18:00 Hydromorphone HCl (Dilaudid) 0.5 mg PRN Q10MIN PRN IV SEV PAIN, Second choice; Start 07/01/17 at 07:00; Stop 07/01/17 at 18:00 Prochlorperazine Edisylate (Compazine) 5 mg PACU PRN PRN IV NAUSEA, MRX1; Start 07/01/17 at 07:00; Stop 07/01/17 at 18:00 Midazolam HCl (Versed) 2 mg PRN 1X PRN IV PRIOR TO PROCEDURE; Start 07/01/17 at 10:00; Stop 07/01/17 at 18:00 Fentanyl Citrate (Fentanyl 2ml Vial) 25 mcg PRN Q5MIN PRN IV X 2 DOSES FOR PAIN ; Start 07/01/17 at 10:00; Stop 07/01/17 at 18:00 Fentanyl Citrate (Fentanyl 2ml Vial) 50 mcg PRN Q5MIN PRN IV X 2 DOSES FOR PAIN ; Start 07/01/17 at 10:00; Stop 07/01/17 at 18:00 Ringer's Solution 1,000 ml @ 125 mls/hr Q8H IV ; Start 07/01/17 at 09:51; Stop 07/01/17 at 21:50 Lidocaine HCl (Xylocaine-Mpf 1% Vial) 2 ml 1X PRN PRN ID IV START; Start 07/01 at 10:00; Stop 07/01/17 at 18:00 Propofol 20 ml @ As Directed STK-MED ONCE IV ; Start 07/01/17 at 10:04; Stop 07/01/17 at 10:05; Status DC Lidocaine HCl (Lidocaine Pf 2% Vial) 5 ml STK-MED ONCE .ROUTE ; Start 07/01/17 at 10:04; Stop 07/01/17 at 10:05; Status DC Active Scripts Active Reported Alfuzosin Hcl 10 Mg Tab.er.24h 10 Mg PO DAILY 30 Days Donepezil Hcl 10 Mg Tablet 10 Mg PO DAILY 30 Days Sertraline Hcl 50 Mg Tablet 50 Mg PO DAILY 30 Days Vitals/I & O Vital Sign - Last 24 Hours 06/30/17 06/30/17 06/30/17 06/30/17 15:00 19:00 19:45 23:00 Temp 99.0 100.0 98.8 99.0 100.0 98.8 Pulse 65 71 73 Resp 16 24 22 B/P (MAP) 151/73 (99) 141/76 (97) 137/65 (89) Pulse Ox 98 98 98 O2 Delivery Room Air Room Air Room Air Room Air 07/01/17 07/01/17 07/01/17 07/01/17 03:00 07:00 08:15 09:53 Temp 98.8 99.2 98.8 99.2 Pulse 64 71 Resp 20 16 B/P (MAP) 132/64 (86) 129/57 (81) Pulse Ox 94 96 O2 Delivery Room Air Room Air Room Air Room Air 07/01/17 07/01/17 07/01/17 07/01/17 09:55 10:21 10:37 10:53 Temp 97.4 98.0 97.4 98.0 Pulse 66 83 73 75 Resp 18 20 20 20 B/P (MAP) 107/55 105/57 133/63 Pulse Ox 93 98 94 95 O2 Delivery Nasal Cannula Room Air Room Air O2 Flow Rate 4 07/01/17 11:00 Temp 98.7 98.7 Pulse 62 Resp 18 B/P (MAP) 124/62 (82) Pulse Ox 96 O2 Delivery Room Air Intake and Output 06/30/17 06/30/17 07/01/17 14:59 22:59 06:59 Intake Total 1320.25 ml Balance 1320.25 ml CYNTHIA SAUNDERS MD Jul 01, 2017 14:13
[2017-07-01] MEDS: ATORVASTATIN CALCIUM 20 MG TABLET PO SCH (20:51)
[2017-07-02 03:00] VITALS: BP 141/56
[2017-07-02 05:32] LABS: BASO % 0 % (0-3); EOS % 0 % (0-3); HEMATOCRIT 40.8 % (39.0-53.0); HEMOGLOBIN 13.5 g/dL (13.0-17.5); LYMPH # 1.7 x10^3/uL (1.0-4.8); LYMPH % 12 % (24-48); MEAN CORPUSCULAR HEMOGLOBIN 29 pg (25-35); MEAN CORPUSCULAR HGB CONC 33 g/dL (31-37); MEAN CORPUSCULAR VOLUME 88 fL (79-100); MONO % 7 % (0-9); NEUT % 80 % (31-73); PLATELET COUNT 261 x10^3/uL (140-400); RED BLOOD COUNT 4.65 x10^6/uL (4.30-5.70); RED CELL DISTRIBUTION WIDTH 13.6 % (11.5-14.5); WHITE BLOOD COUNT 13.9 x10^3/uL (4.0-11.0)
[2017-07-02 05:51] LABS: CALCIUM 8.7 mg/dL (8.5-10.1); GFR 87.9; POTASSIUM 4.5 mmol/L (3.5-5.1)
[2017-07-02] MEDS: PANTOPRAZOLE IV PUSH 40 MG VIAL. IVP SCH (06:45)
[2017-07-02 07:15] VITALS: BP 124/55
[2017-07-02] MEDS: IV NORMAL SALINE 1000ML BAG 1,000 ML IV SCH (08:34)
--- NOTE | 2017-07-02 09:05 | PDOC ---
PROGRESS NOTES Subjective Subjective No new complaints. Objective Objective Vital Signs Date Time Temp Pulse Resp B/P (MAP) Pulse Ox O2 Delivery O2 Flow Rate FiO2 07/02/17 07:15 99.6 65 18 124/55 (78) 95 Room Air 99.6 07/01/17 10:21 4 Intake and Output 07/02/17 07:00 Intake Total 940 ml Balance 940 ml IV Total 940 ml # Voids 6 # Bowel Movements 2 Physical Exam Physical Exam He is supine in bed,lethargic but can be awakened and no change with left hemiparesis and mobility and self care limitations. Assessment Assessment Problems Medical Problems: (1) Dementia Status: Acute (2) Hypertension Status: Acute Plan Plan of Care To rehab unit or SNF when medically stable. Comment Review of Relevant I have reviewed the following items laine (where applicable) has been applied. Labs Laboratory Tests Test 06/30/17 13:30 07/01/17 17:02 07/01/17 21:28 07/02/17 04:35 White Blood Count 12.0 x10^3/uL (4.0-11.0) 13.9 x10^3/uL (4.0-11.0) Red Blood Count 4.63 x10^6/uL (4.30-5.70) 4.65 x10^6/uL (4.30-5.70) Hemoglobin 13.6 g/dL (13.0-17.5) 13.5 g/dL (13.0-17.5) Hematocrit 40.6 % (39.0-53.0) 40.8 % (39.0-53.0) Mean Corpuscular Volume 88 fL (79-100) 88 fL (79-100) Mean Corpuscular Hemoglobin 30 pg (25-35) 29 pg (25-35) Mean Corpuscular Hemoglobin Concent 34 g/dL (31-37) 33 g/dL (31-37) Red Cell Distribution Width 13.7 % (11.5-14.5) 13.6 % (11.5-14.5) Platelet Count 239 x10^3/uL (140-400) 261 x10^3/uL (140-400) Neutrophils (%) (Auto) 69 % (31-73) 80 % (31-73) Lymphocytes (%) (Auto) 20 % (24-48) 12 % (24-48) Monocytes (%) (Auto) 9 % (0-9) 7 % (0-9) Eosinophils (%) (Auto) 1 % (0-3) 0 % (0-3) Basophils (%) (Auto) 1 % (0-3) 0 % (0-3) Neutrophils # (Auto) 8.3 x10^3uL (1.8-7.7) 11.1 x10^3uL (1.8-7.7) Lymphocytes # (Auto) 2.4 x10^3/uL (1.0-4.8) 1.7 x10^3/uL (1.0-4.8) Monocytes # (Auto) 1.1 x10^3/uL (0.0-1.1) 1.0 x10^3/uL (0.0-1.1) Eosinophils # (Auto) 0.1 x10^3/uL (0.0-0.7) 0.0 x10^3/uL (0.0-0.7) Basophils # (Auto) 0.1 x10^3/uL (0.0-0.2) 0.0 x10^3/uL (0.0-0.2) Glucose (Fingerstick) 141 mg/dL (70-99) 167 mg/dL (70-99) Sodium Level 136 mmol/L (136-145) Potassium Level 4.5 mmol/L (3.5-5.1) Chloride Level 101 mmol/L (98-107) Carbon Dioxide Level 26 mmol/L (21-32) Anion Gap 9 (6-14) Blood Urea Nitrogen 24 mg/dL (8-26) Creatinine 1.0 mg/dL (0.7-1.3) Estimated GFR (Cockcroft-Gault) 87.9 Glucose Level 145 mg/dL (70-99) Calcium Level 8.7 mg/dL (8.5-10.1) Test 07/02/17 07:33 Glucose (Fingerstick) 168 mg/dL (70-99) Laboratory Tests Test 07/01/17 17:02 07/01/17 21:28 07/02/17 04:35 07/02/17 07:33 Glucose (Fingerstick) 141 mg/dL (70-99) 167 mg/dL (70-99) 168 mg/dL (70-99) White Blood Count 13.9 x10^3/uL (4.0-11.0) Red Blood Count 4.65 x10^6/uL (4.30-5.70) Hemoglobin 13.5 g/dL (13.0-17.5) Hematocrit 40.8 % (39.0-53.0) Mean Corpuscular Volume 88 fL (79-100) Mean Corpuscular Hemoglobin 29 pg (25-35) Mean Corpuscular Hemoglobin Concent 33 g/dL (31-37) Red Cell Distribution Width 13.6 % (11.5-14.5) Platelet Count 261 x10^3/uL (140-400) Neutrophils (%) (Auto) 80 % (31-73) Lymphocytes (%) (Auto) 12 % (24-48) Monocytes (%) (Auto) 7 % (0-9) Eosinophils (%) (Auto) 0 % (0-3) Basophils (%) (Auto) 0 % (0-3) Neutrophils # (Auto) 11.1 x10^3uL (1.8-7.7) Lymphocytes # (Auto) 1.7 x10^3/uL (1.0-4.8) Monocytes # (Auto) 1.0 x10^3/uL (0.0-1.1) Eosinophils # (Auto) 0.0 x10^3/uL (0.0-0.7) Basophils # (Auto) 0.0 x10^3/uL (0.0-0.2) Sodium Level 136 mmol/L (136-145) Potassium Level 4.5 mmol/L (3.5-5.1) Chloride Level 101 mmol/L (98-107) Carbon Dioxide Level 26 mmol/L (21-32) Anion Gap 9 (6-14) Blood Urea Nitrogen 24 mg/dL (8-26) Creatinine 1.0 mg/dL (0.7-1.3) Estimated GFR (Cockcroft-Gault) 87.9 Glucose Level 145 mg/dL (70-99) Calcium Level 8.7 mg/dL (8.5-10.1) Microbiology 06/26/17 Blood Culture - Final, Complete NO GROWTH AFTER 5 DAYS 06/26/17 Urine Culture - Final, Complete 06/26/17 Urine Culture Result 1 (CHE) - Final, Complete Medications Current Medications Sodium Chloride 1,000 ml @ 125 mls/hr Q8H IV Last administered on 06/19/17 13:02; Start 06/19/17 at 12:51; Stop 06/19/17 at 20:50; Status DC Nicardipine HCl 50 mg/Sodium Chloride 270 ml @ 0 mls/hr CONT PRN IV SEE I/O RECORD; Start 06/19/17 at 13:00; Status Cancel Info (Review Meds) 1 ea PRN DAILY PRN MC SEE COMMENTS; Start 06/19/17 at 13:15 Sodium Chloride (Normal Saline Flush) 3 ml QSHIFT PRN IV AFTER MEDS AND BLOOD DRAWS; Start 06/19/17 at 13:15 Sodium Chloride 1,000 ml @ 80 mls/hr [id number] IV Last administered on 07:34; Start 06/19/17 at 13:04 Acetaminophen (Acetaminophen Supp) 650 mg PRN Q6HRS PRN [place] FEVER > 100.5'F Last administered on 06/28/17 04:43; Start 06/19/17 at 13:15 Nicardipine HCl 50 mg/Sodium Chloride 270 ml @ 25 mls/hr CONT PRN IV HYPERTENSION, SEE COMMENTS Last administered on 06/19/17 13:15; Start at 13:15; Stop 06/25/17 at 14:22; Status DC Ondansetron HCl (Zofran) 4 mg PRN Q6HRS PRN IV NAUSEA/VOMITING; Start at 13:15 Pantoprazole Sodium (PROTONIX VIAL for IV PUSH) 40 mg DAILYAC IVP Last administered on 07/02/17 06:45; Start 06/19/17 at 16:30 Info (Do NOT chart on this placeholder) 1 each 1X ONCE MC ; Start 06/19/17 at 16:45; Stop 06/19/17 at 16:46; Status UNV Pneumococcal Polyvalent Vaccine (Do NOT chart on this placeholder) 1 each 1X ONCE MC ; Start 06/19/17 at 16:45; Stop 06/19/17 at 16:46; Status UNV Influenza Virus Vaccine Quadrival (Fluarix Quad Syringe) 0.5 ml ONCE ONCE VAX IM Last administered on 06/19/17 21:37; Start 06/19/17 at 17:00; Stop 06/19/17 at 17:01; Status DC Hydralazine HCl (Apresoline Inj) 10 mg PRN Q4HRS PRN IVP ELEVATED BP, SEE COMMENTS Last administered on 06/20/17 17:58; Start 06/20/17 at 10:00 Phenazopyridine HCl (Pyridium) 200 mg PRN BID PRN PO URINARY PAIN; Start 06/20 at 20:00 Diazepam (Valium) 5 mg 1X ONCE IV Last administered on 06/20/17 20:26; Start 06/20/17 at 20:15; Stop 06/20/17 at 20:16; Status DC Influenza Virus Vaccine Quadrival (Fluarix Quad Syringe) 0.5 ml ONCE ONCE VAX IM ; Start 06/23/17 at 09:00; Stop 06/23/17 at 09:01; Status UNV Morphine Sulfate 1 mg PRN Q2HR PRN IV PAIN Last administered on 06/28/17 21: 42; Start 06/24/17 at 06:00 Atorvastatin Calcium (Lipitor) 20 mg QHS PO Last administered on 07/01/17 20: 51; Start 06/24/17 at 21:00 Chlorpromazine HCl 25 mg/Sodium Chloride 50 ml @ 100 mls/hr PRN Q8HRS PRN IV HICCUPS Last administered on 07/02/17 01:27; Start 06/26/17 at 22:00 Amino Acids/ Glycerin/ Electrolytes 1,000 ml @ 80 mls/hr [id number] IV ; Start at 15:15; Stop 06/29/17 at 16:28; Status DC Amino Acids/ Glycerin/ Electrolytes 1,000 ml @ 80 mls/hr [id number] IV Last administered on 07/01/17 23:35; Start 06/29/17 at 23:59 Cefazolin Sodium 1 gm/Dextrose 50 ml @ 100 mls/hr 1X ONCE IV ; Start at 04:45; Stop 06/30/17 at 05:14; Status UNV Cefazolin Sodium (Ancef) 1 gm 1X ONCE IVP Last administered on 06/30/17t 10: 03; Start 06/30/17 at 05:00; Stop 06/30/17 at 05:01; Status DC Fentanyl Citrate (Fentanyl 2ml Vial) 25 mcg PRN Q5MIN PRN IV MILD PAIN; Start 06/30/17 at 09:15; Stop 06/30/17 at 16:14; Status DC Fentanyl Citrate (Fentanyl 2ml Vial) 50 mcg PRN Q5MIN PRN IV MODERATE TO SEVERE PAIN; Start 06/30/17 at 09:15; Stop 06/30/17 at 16:20; Status DC Morphine Sulfate 1 mg PRN Q10MIN PRN IV SEVERE PAIN; Start 06/30/17 at 09:15; Stop 06/30/17 at 16:21; Status DC Ringer's Solution 1,000 ml @ 30 mls/hr Q24H IV ; Start 06/30/17 at 09:07; Stop 06/30/17 at 21:06; Status Cancel Lidocaine HCl (Xylocaine-Mpf 1% Vial) 2 ml 1X PRN PRN ID IV START; Start 06/30 at 09:15; Stop 06/30/17 at 16:21; Status DC Hydromorphone HCl (Dilaudid) 0.5 mg PRN Q10MIN PRN IV SEV PAIN, Second choice; Start 06/30/17 at 09:15; Stop 06/30/17 at 16:20; Status DC Prochlorperazine Edisylate (Compazine) 5 mg PACU PRN PRN IV NAUSEA, MRX1; Start 06/30/17 at 09:15; Stop 06/30/17 at 16:22; Status DC Furosemide (Lasix) 20 mg 1X ONCE IVP ; Start 06/30/17 at 12:30; Stop at 12:31; Status Cancel Fentanyl Citrate (Fentanyl 2ml Vial) 25 mcg PRN Q5MIN PRN IV MILD PAIN; Start 07/01/17 at 07:00; Stop 07/01/17 at 18:00; Status DC Fentanyl Citrate (Fentanyl 2ml Vial) 50 mcg PRN Q5MIN PRN IV MODERATE TO SEVERE PAIN; Start 07/01/17 at 07:00; Stop 07/01/17 at 18:00; Status DC Morphine Sulfate 1 mg PRN Q10MIN PRN IV SEVERE PAIN; Start 07/01/17 at 07:00; Stop 07/01/17 at 18:00; Status DC Ringer's Solution 1,000 ml @ 30 mls/hr Q24H IV Last administered on t 09:59; Start 07/01/17 at 07:00; Stop 07/01/17 at 18:59; Status DC Lidocaine HCl (Xylocaine-Mpf 1% Vial) 2 ml PRN 1X PRN ID IV START; Start 07/01 at 07:00; Stop 07/01/17 at 18:00; Status DC Hydromorphone HCl (Dilaudid) 0.5 mg PRN Q10MIN PRN IV SEV PAIN, Second choice; Start 07/01/17 at 07:00; Stop 07/01/17 at 18:00; Status DC Prochlorperazine Edisylate (Compazine) 5 mg PACU PRN PRN IV NAUSEA, MRX1; Start 07/01/17 at 07:00; Stop 07/01/17 at 18:00; Status DC Midazolam HCl (Versed) 2 mg PRN 1X PRN IV PRIOR TO PROCEDURE; Start 07/01/17 at 10:00; Stop 07/01/17 at 18:00; Status DC Fentanyl Citrate (Fentanyl 2ml Vial) 25 mcg PRN Q5MIN PRN IV X 2 DOSES FOR PAIN ; Start 07/01/17 at 10:00; Stop 07/01/17 at 18:00; Status DC Fentanyl Citrate (Fentanyl 2ml Vial) 50 mcg PRN Q5MIN PRN IV X 2 DOSES FOR PAIN ; Start 07/01/17 at 10:00; Stop 07/01/17 at 18:00; Status DC Ringer's Solution 1,000 ml @ 125 mls/hr Q8H IV ; Start 07/01/17 at 09:51; Stop 07/01/17 at 21:50; Status DC Lidocaine HCl (Xylocaine-Mpf 1% Vial) 2 ml 1X PRN PRN ID IV START; Start 07/01 at 10:00; Stop 07/01/17 at 18:00; Status DC Propofol 20 ml @ As Directed STK-MED ONCE IV ; Start 07/01/17 at 10:04; Stop 07/01/17 at 10:05; Status DC Lidocaine HCl (Lidocaine Pf 2% Vial) 5 ml STK-MED ONCE .ROUTE ; Start 07/01/17 at 10:04; Stop 07/01/17 at 10:05; Status DC Active Scripts Active Reported Alfuzosin Hcl 10 Mg Tab.er.24h 10 Mg PO DAILY 30 Days Donepezil Hcl 10 Mg Tablet 10 Mg PO DAILY 30 Days Sertraline Hcl 50 Mg Tablet 50 Mg PO DAILY 30 Days Vitals/I & O Vital Sign - Last 24 Hours 07/01/17 07/01/17 07/01/17 07/01/17 09:53 09:55 10:21 10:37 Temp 97.4 98.0 97.4 98.0 Pulse 66 83 73 Resp 18 20 20 B/P (MAP) 107/55 105/57 Pulse Ox 93 98 94 O2 Delivery Room Air Nasal Cannula Room Air O2 Flow Rate 4 07/01/17 07/01/17 07/01/17 07/01/17 10:53 11:00 11:21 11:31 Temp 98.7 98.7 98.7 98.7 Pulse 75 62 62 64 Resp 20 18 18 18 B/P (MAP) 133/63 124/62 (82) 124/62 (82) 116/60 (78) Pulse Ox 95 96 96 97 O2 Delivery Room Air Room Air Room Air Room Air 07/01/17 07/01/17 07/01/17 07/01/17 11:47 12:01 12:16 14:19 Pulse 61 58 58 65 Resp 18 18 18 18 B/P (MAP) 122/65 (84) 130/62 (84) 116/60 (78) 121/56 (77) Pulse Ox 98 98 96 O2 Delivery Room Air Room Air Room Air 07/01/17 07/01/17 07/01/17 07/01/17 15:00 19:00 19:30 23:00 Temp 98.9 98.8 98.9 98.9 98.8 98.9 Pulse 64 84 81 Resp 16 16 16 B/P (MAP) 121/56 (77) 136/72 (93) 127/61 (83) Pulse Ox 96 97 96 O2 Delivery Room Air Room Air Room Air Room Air 07/02/17 07/02/17 03:00 07:15 Temp 99.0 99.6 99.0 99.6 Pulse 58 65 Resp 20 18 B/P (MAP) 141/56 (84) 124/55 (78) Pulse Ox 94 95 O2 Delivery Room Air Room Air Intake and Output 07/01/17 07/01/17 07/02/17 15:00 23:00 07:00 Intake Total 300 ml 640 ml Balance 300 ml 640 ml VANDA MADRIGAL MD Jul 02, 2017 09:05
--- NOTE | 2017-07-02 10:51 | PDOC3 ---
Discharge Summary Visit Information Date of Admission: Jun 19, 2017 Date of Discharge: Jul 02, 2017 Admitting Diagnosis Comment: stable Hemorrhagic stroke, Status post PEG, 07/01/17 Left sided weakness 5 cm hematoma w/ effacement Rt lateral ventricle Accelerated hypertension, on admit resolved Dementia on Aricept DNR./DNI Dysphagia secondary to above hemorrhagic stroke Final Diagnosis Problems Medical Problems: (1) Dementia Status: Acute (2) Hypertension Status: Acute Brief Hospital Course Allergies Allergies Coded Allergies Type Severity Reaction Last Updated Verified No Known Drug Allergies 07/01/17 No Vital Signs Vital Signs Date Time Temp Pulse Resp B/P (MAP) Pulse Ox O2 Delivery O2 Flow Rate FiO2 07/02/17 07:15 99.6 65 18 124/55 (78) 95 Room Air 99.6 07/01/17 10:21 4 Lab Results Laboratory Tests Test 06/30/17 13:30 07/01/17 17:02 07/01/17 21:28 07/02/17 04:35 White Blood Count 12.0 x10^3/uL (4.0-11.0) 13.9 x10^3/uL (4.0-11.0) Red Blood Count 4.63 x10^6/uL (4.30-5.70) 4.65 x10^6/uL (4.30-5.70) Hemoglobin 13.6 g/dL (13.0-17.5) 13.5 g/dL (13.0-17.5) Hematocrit 40.6 % (39.0-53.0) 40.8 % (39.0-53.0) Mean Corpuscular Volume 88 fL (79-100) 88 fL (79-100) Mean Corpuscular Hemoglobin 30 pg (25-35) 29 pg (25-35) Mean Corpuscular Hemoglobin Concent 34 g/dL (31-37) 33 g/dL (31-37) Red Cell Distribution Width 13.7 % (11.5-14.5) 13.6 % (11.5-14.5) Platelet Count 239 x10^3/uL (140-400) 261 x10^3/uL (140-400) Neutrophils (%) (Auto) 69 % (31-73) 80 % (31-73) Lymphocytes (%) (Auto) 20 % (24-48) 12 % (24-48) Monocytes (%) (Auto) 9 % (0-9) 7 % (0-9) Eosinophils (%) (Auto) 1 % (0-3) 0 % (0-3) Basophils (%) (Auto) 1 % (0-3) 0 % (0-3) Neutrophils # (Auto) 8.3 x10^3uL (1.8-7.7) 11.1 x10^3uL (1.8-7.7) Lymphocytes # (Auto) 2.4 x10^3/uL (1.0-4.8) 1.7 x10^3/uL (1.0-4.8) Monocytes # (Auto) 1.1 x10^3/uL (0.0-1.1) 1.0 x10^3/uL (0.0-1.1) Eosinophils # (Auto) 0.1 x10^3/uL (0.0-0.7) 0.0 x10^3/uL (0.0-0.7) Basophils # (Auto) 0.1 x10^3/uL (0.0-0.2) 0.0 x10^3/uL (0.0-0.2) Glucose (Fingerstick) 141 mg/dL (70-99) 167 mg/dL (70-99) Sodium Level 136 mmol/L (136-145) Potassium Level 4.5 mmol/L (3.5-5.1) Chloride Level 101 mmol/L (98-107) Carbon Dioxide Level 26 mmol/L (21-32) Anion Gap 9 (6-14) Blood Urea Nitrogen 24 mg/dL (8-26) Creatinine 1.0 mg/dL (0.7-1.3) Estimated GFR (Cockcroft-Gault) 87.9 Glucose Level 145 mg/dL (70-99) Calcium Level 8.7 mg/dL (8.5-10.1) Test 07/02/17 07:33 Glucose (Fingerstick) 168 mg/dL (70-99) Laboratory Tests Test 07/01/17 17:02 07/01/17 21:28 07/02/17 04:35 07/02/17 07:33 Glucose (Fingerstick) 141 mg/dL (70-99) 167 mg/dL (70-99) 168 mg/dL (70-99) White Blood Count 13.9 x10^3/uL (4.0-11.0) Red Blood Count 4.65 x10^6/uL (4.30-5.70) Hemoglobin 13.5 g/dL (13.0-17.5) Hematocrit 40.8 % (39.0-53.0) Mean Corpuscular Volume 88 fL (79-100) Mean Corpuscular Hemoglobin 29 pg (25-35) Mean Corpuscular Hemoglobin Concent 33 g/dL (31-37) Red Cell Distribution Width 13.6 % (11.5-14.5) Platelet Count 261 x10^3/uL (140-400) Neutrophils (%) (Auto) 80 % (31-73) Lymphocytes (%) (Auto) 12 % (24-48) Monocytes (%) (Auto) 7 % (0-9) Eosinophils (%) (Auto) 0 % (0-3) Basophils (%) (Auto) 0 % (0-3) Neutrophils # (Auto) 11.1 x10^3uL (1.8-7.7) Lymphocytes # (Auto) 1.7 x10^3/uL (1.0-4.8) Monocytes # (Auto) 1.0 x10^3/uL (0.0-1.1) Eosinophils # (Auto) 0.0 x10^3/uL (0.0-0.7) Basophils # (Auto) 0.0 x10^3/uL (0.0-0.2) Sodium Level 136 mmol/L (136-145) Potassium Level 4.5 mmol/L (3.5-5.1) Chloride Level 101 mmol/L (98-107) Carbon Dioxide Level 26 mmol/L (21-32) Anion Gap 9 (6-14) Blood Urea Nitrogen 24 mg/dL (8-26) Creatinine 1.0 mg/dL (0.7-1.3) Estimated GFR (Cockcroft-Gault) 87.9 Glucose Level 145 mg/dL (70-99) Calcium Level 8.7 mg/dL (8.5-10.1) Brief Hospital Course Mr. Colón is a 76 old -[place] male with significant dementia on Namenda and Aricept came in on the day of admission because of slurred speech and shallow left nasolabial fold and left hemiplegia. Was found to have acute hemorrhagic stroke admits to the ICU had some midline shift and edema. Blood pressure was never on the high side not needing a drip. Unfortunately interval CAT scan showed worsening of the hemorrhagic stroke with effacement of the right lateral ventricle. This was comanage with neurosurgery. No surgical intervention was done. Otherwise follow-up interval CT scan was stable hemorrhagic stroke. Patient had some dysphagia. Ended up needing to be to have a PEG.He came from home, will go to SNU now. involved in his care.NOw DNR/ DNI. Patient seen and examined _ shallow left nasolabial fold - minimal movement on the left side of the body. Otherwise PEG tube in place. DNR/DNI paperwork done. Discharge disposition to SNU discharge meds BELA Proc performed neurosurgery neurology, GI procedures performed PEG tube placement discharge time 32 minutes. 50% in education counseling and coordination of discharge Discharge Information Condition at Discharge: Improved, Stable Disposition/Orders: Other (snu) Scheduled Alfuzosin Hcl (Alfuzosin Hcl), 10 MG PO DAILY, (Reported) Donepezil Hcl (Donepezil Hcl), 10 MG PO DAILY, (Reported) Sertraline Hcl (Sertraline Hcl), 50 MG PO DAILY, (Reported) CYNTHIA SAUNDERS MD Jul 02, 2017 10:51
[2017-07-02 11:00] VITALS: BP 130/59
--- NOTE | 2017-07-02 12:20 | PDOC ---
Subjective: Subjective: Tube feeds running. Indicates a little discomfort. Objective: Vital Signs: Vital Signs Date Time Temp Pulse Resp B/P (MAP) Pulse Ox O2 Delivery O2 Flow Rate FiO2 07/02/17 11:00 98.9 71 20 130/59 (82) 95 Room Air 98.9 07/01/17 10:21 4 Labs: Laboratory Tests Test 07/01/17 13:08 07/01/17 17:02 07/01/17 21:28 07/02/17 07:33 Glucose (Fingerstick) 120 mg/dL (70-99) 141 mg/dL (70-99) 167 mg/dL (70-99) 168 mg/dL (70-99) Test 07/02/17 11:25 Glucose (Fingerstick) 165 mg/dL (70-99) Imaging: EGD 07/01/17 E--normal G--normal D--normal to second portion. --20F g-tube placed uneventfully. IMP: Successful PEG PE: GEN: NAD LUNGS: CTAB HEART: RRR ABD: PEG site w/ gauze under disc, removed gauze and loosened a bit, abd binder replaced NEURO/PSYCH: awake/alert, appropriate A/P: CVA, dysphagia, s/p PEG -- PEG functioning. Note DC plans. Reviewed no gauze under disc w/ RN - she says came from outpt that way. ROB FAIRBANKS Jul 02, 2017 12:20
[2017-07-02] MEDS: AMINO AC 3%/ELECTROLYTE/GLYCER 1,000 ML IV SCH (12:31)
[2017-07-02] MEDS ORDERED: HALOPERIDOL 2 MG TABLET. PEG PRN (14:15)
--- NOTE | 2017-07-02 14:42 | PDOC ---
PROGRESS NOTES Assessment Problems Medical Problems: (1) Dementia Status: Acute (2) Hypertension Status: Acute Acute right frontal lobe hemorrhage, hematoma 4.7 cm x 2.5 cm with visible cerebral edema on 06/19/17. Increased cerebral edema with 5 mm right to left midline shift on 06/22/17. Small SAH. Left side hemiplegia. 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 Dementia. Status-post PEG Hiccups Plan Transfer to rehabilitation long-term Trial of when necessary Haldol for hiccups Discussed with Subjective No complaints, complains that he has hiccups Objective Vital Signs Date Time Temp Pulse Resp B/P (MAP) Pulse Ox O2 Delivery O2 Flow Rate FiO2 07/02/17 11:00 98.9 71 20 130/59 (82) 95 Room Air 98.9 07/01/17 10:21 4 Intake and Output 07/02/17 07:00 Intake Total 940 ml Balance 940 ml IV Total 940 ml # Voids 6 # Bowel Movements 2 PHYSICAL EXAM Alert. Oriented only to person PERRL. EOMI. CN: Left central facial palsy Muscle tone: Increased on left Muscle strength: 2/5 left hemiparesis DTR: 1+ on right, 2+ on left Plantar reflex: Flexor Gait: not examined in bed. Sensory exam: no abnormal findings. No cerebellar signs elicited. Review of Relevant I have reviewed the following items laine (where applicable) has been applied. Labs Laboratory Tests Test 06/30/17 17:28 07/01/17 08:27 07/01/17 13:08 07/01/17 17:02 Glucose (Fingerstick) 145 mg/dL (70-99) 139 mg/dL (70-99) 120 mg/dL (70-99) 141 mg/dL (70-99) Test 07/01/17 21:28 07/02/17 04:35 07/02/17 07:33 07/02/17 11:25 Glucose (Fingerstick) 167 mg/dL (70-99) 168 mg/dL (70-99) 165 mg/dL (70-99) White Blood Count 13.9 x10^3/uL (4.0-11.0) Red Blood Count 4.65 x10^6/uL (4.30-5.70) Hemoglobin 13.5 g/dL (13.0-17.5) Hematocrit 40.8 % (39.0-53.0) Mean Corpuscular Volume 88 fL (79-100) Mean Corpuscular Hemoglobin 29 pg (25-35) Mean Corpuscular Hemoglobin Concent 33 g/dL (31-37) Red Cell Distribution Width 13.6 % (11.5-14.5) Platelet Count 261 x10^3/uL (140-400) Neutrophils (%) (Auto) 80 % (31-73) Lymphocytes (%) (Auto) 12 % (24-48) Monocytes (%) (Auto) 7 % (0-9) Eosinophils (%) (Auto) 0 % (0-3) Basophils (%) (Auto) 0 % (0-3) Neutrophils # (Auto) 11.1 x10^3uL (1.8-7.7) Lymphocytes # (Auto) 1.7 x10^3/uL (1.0-4.8) Monocytes # (Auto) 1.0 x10^3/uL (0.0-1.1) Eosinophils # (Auto) 0.0 x10^3/uL (0.0-0.7) Basophils # (Auto) 0.0 x10^3/uL (0.0-0.2) Sodium Level 136 mmol/L (136-145) Potassium Level 4.5 mmol/L (3.5-5.1) Chloride Level 101 mmol/L (98-107) Carbon Dioxide Level 26 mmol/L (21-32) Anion Gap 9 (6-14) Blood Urea Nitrogen 24 mg/dL (8-26) Creatinine 1.0 mg/dL (0.7-1.3) Estimated GFR (Cockcroft-Gault) 87.9 Glucose Level 145 mg/dL (70-99) Calcium Level 8.7 mg/dL (8.5-10.1) Laboratory Tests Test 07/01/17 17:02 07/01/17 21:28 07/02/17 04:35 07/02/17 07:33 Glucose (Fingerstick) 141 mg/dL (70-99) 167 mg/dL (70-99) 168 mg/dL (70-99) White Blood Count 13.9 x10^3/uL (4.0-11.0) Red Blood Count 4.65 x10^6/uL (4.30-5.70) Hemoglobin 13.5 g/dL (13.0-17.5) Hematocrit 40.8 % (39.0-53.0) Mean Corpuscular Volume 88 fL (79-100) Mean Corpuscular Hemoglobin 29 pg (25-35) Mean Corpuscular Hemoglobin Concent 33 g/dL (31-37) Red Cell Distribution Width 13.6 % (11.5-14.5) Platelet Count 261 x10^3/uL (140-400) Neutrophils (%) (Auto) 80 % (31-73) Lymphocytes (%) (Auto) 12 % (24-48) Monocytes (%) (Auto) 7 % (0-9) Eosinophils (%) (Auto) 0 % (0-3) Basophils (%) (Auto) 0 % (0-3) Neutrophils # (Auto) 11.1 x10^3uL (1.8-7.7) Lymphocytes # (Auto) 1.7 x10^3/uL (1.0-4.8) Monocytes # (Auto) 1.0 x10^3/uL (0.0-1.1) Eosinophils # (Auto) 0.0 x10^3/uL (0.0-0.7) Basophils # (Auto) 0.0 x10^3/uL (0.0-0.2) Sodium Level 136 mmol/L (136-145) Potassium Level 4.5 mmol/L (3.5-5.1) Chloride Level 101 mmol/L (98-107) Carbon Dioxide Level 26 mmol/L (21-32) Anion Gap 9 (6-14) Blood Urea Nitrogen 24 mg/dL (8-26) Creatinine 1.0 mg/dL (0.7-1.3) Estimated GFR (Cockcroft-Gault) 87.9 Glucose Level 145 mg/dL (70-99) Calcium Level 8.7 mg/dL (8.5-10.1) Test 07/02/17 11:25 Glucose (Fingerstick) 165 mg/dL (70-99) Microbiology 06/26/17 Blood Culture - Final, Complete NO GROWTH AFTER 5 DAYS 06/26/17 Urine Culture - Final, Complete 06/26/17 Urine Culture Result 1 (CHE) - Final, Complete Medications Current Medications Sodium Chloride 1,000 ml @ 125 mls/hr Q8H IV Last administered on 06/19/17 13:02; Start 06/19/17 at 12:51; Stop 06/19/17 at 20:50; Status DC Nicardipine HCl 50 mg/Sodium Chloride 270 ml @ 0 mls/hr CONT PRN IV SEE I/O RECORD; Start 06/19/17 at 13:00; Status Cancel Info (Review Meds) 1 ea PRN DAILY PRN MC SEE COMMENTS; Start 06/19/17 at 13:15 Sodium Chloride (Normal Saline Flush) 3 ml QSHIFT PRN IV AFTER MEDS AND BLOOD DRAWS; Start 06/19/17 at 13:15 Sodium Chloride 1,000 ml @ 80 mls/hr [id number] IV Last administered on 08:34; Start 06/19/17 at 13:04 Acetaminophen (Acetaminophen Supp) 650 mg PRN Q6HRS PRN MI FEVER > 100.5'F Last administered on 06/28/17 04:43; Start 06/19/17 at 13:15 Nicardipine HCl 50 mg/Sodium Chloride 270 ml @ 25 mls/hr CONT PRN IV HYPERTENSION, SEE COMMENTS Last administered on 06/19/17 13:15; Start at 13:15; Stop 06/25/17 at 14:22; Status DC Ondansetron HCl (Zofran) 4 mg PRN Q6HRS PRN IV NAUSEA/VOMITING; Start at 13:15 Pantoprazole Sodium (PROTONIX VIAL for IV PUSH) 40 mg DAILYAC IVP Last administered on 07/02/17 06:45; Start 06/19/17 at 16:30 Info (Do NOT chart on this placeholder) 1 each 1X ONCE MC ; Start 06/19/17 at 16:45; Stop 06/19/17 at 16:46; Status UNV Pneumococcal Polyvalent Vaccine (Do NOT chart on this placeholder) 1 each 1X ONCE MC ; Start 06/19/17 at 16:45; Stop 06/19/17 at 16:46; Status UNV Influenza Virus Vaccine Quadrival (Fluarix Quad 0419-9001 Syringe) 0.5 ml ONCE ONCE VAX IM Last administered on 06/19/17 21:37; Start 06/19/17 at 17:00; Stop 06/19/17 at 17:01; Status DC Hydralazine HCl (Apresoline Inj) 10 mg PRN Q4HRS PRN IVP ELEVATED BP, SEE COMMENTS Last administered on 06/20/17 17:58; Start 06/20/17 at 10:00 Phenazopyridine HCl (Pyridium) 200 mg PRN BID PRN PO URINARY PAIN; Start 06/20 at 20:00 Diazepam (Valium) 5 mg 1X ONCE IV Last administered on 06/20/17 20:26; Start 06/20/17 at 20:15; Stop 06/20/17 at 20:16; Status DC Influenza Virus Vaccine Quadrival (Fluarix Quad [id number] Syringe) 0.5 ml ONCE ONCE VAX IM ; Start 06/23/17 at 09:00; Stop 06/23/17 at 09:01; Status UNV Morphine Sulfate 1 mg PRN Q2HR PRN IV PAIN Last administered on 06/28/17 21: 42; Start 06/24/17 at 06:00 Atorvastatin Calcium (Lipitor) 20 mg QHS PO Last administered on 07/01/17 20: 51; Start 06/24/17 at 21:00 Chlorpromazine HCl 25 mg/Sodium Chloride 50 ml @ 100 mls/hr PRN Q8HRS PRN IV HICCUPS Last administered on 07/02/17 01:27; Start 06/26/17 at 22:00 Amino Acids/ Glycerin/ Electrolytes 1,000 ml @ 80 mls/hr [id number] IV ; Start at 15:15; Stop 06/29/17 at 16:28; Status DC Amino Acids/ Glycerin/ Electrolytes 1,000 ml @ 80 mls/hr [id number] IV Last administered on 07/01/17 23:35; Start 06/29/17 at 23:59; Stop 07/02/17 at 12 :36; Status DC Cefazolin Sodium 1 gm/Dextrose 50 ml @ 100 mls/hr 1X ONCE IV ; Start at 04:45; Stop 06/30/17 at 05:14; Status UNV Cefazolin Sodium (Ancef) 1 gm 1X ONCE IVP Last administered on 12/26/17at 10: 03; Start 06/30/17 at 05:00; Stop 06/30/17 at 05:01; Status DC Fentanyl Citrate (Fentanyl 2ml Vial) 25 mcg PRN Q5MIN PRN IV MILD PAIN; Start 06/30/17 at 09:15; Stop 06/30/17 at 16:14; Status DC Fentanyl Citrate (Fentanyl 2ml Vial) 50 mcg PRN Q5MIN PRN IV MODERATE TO SEVERE PAIN; Start 06/30/17 at 09:15; Stop 06/30/17 at 16:20; Status DC Morphine Sulfate 1 mg PRN Q10MIN PRN IV SEVERE PAIN; Start 06/30/17 at 09:15; Stop 06/30/17 at 16:21; Status DC Ringer's Solution 1,000 ml @ 30 mls/hr Q24H IV ; Start 06/30/17 at 09:07; Stop 06/30/17 at 21:06; Status Cancel Lidocaine HCl (Xylocaine-Mpf 1% Vial) 2 ml 1X PRN PRN ID IV START; Start 06/30 at 09:15; Stop 06/30/17 at 16:21; Status DC Hydromorphone HCl (Dilaudid) 0.5 mg PRN Q10MIN PRN IV SEV PAIN, Second choice; Start 06/30/17 at 09:15; Stop 06/30/17 at 16:20; Status DC Prochlorperazine Edisylate (Compazine) 5 mg PACU PRN PRN IV NAUSEA, MRX1; Start 06/30/17 at 09:15; Stop 06/30/17 at 16:22; Status DC Furosemide (Lasix) 20 mg 1X ONCE IVP ; Start 06/30/17 at 12:30; Stop at 12:31; Status Cancel Fentanyl Citrate (Fentanyl 2ml Vial) 25 mcg PRN Q5MIN PRN IV MILD PAIN; Start 07/01/17 at 07:00; Stop 07/01/17 at 18:00; Status DC Fentanyl Citrate (Fentanyl 2ml Vial) 50 mcg PRN Q5MIN PRN IV MODERATE TO SEVERE PAIN; Start 07/01/17 at 07:00; Stop 07/01/17 at 18:00; Status DC Morphine Sulfate 1 mg PRN Q10MIN PRN IV SEVERE PAIN; Start 07/01/17 at 07:00; Stop 07/01/17 at 18:00; Status DC Ringer's Solution 1,000 ml @ 30 mls/hr Q24H IV Last administered on t 09:59; Start 07/01/17 at 07:00; Stop 07/01/17 at 18:59; Status DC Lidocaine HCl (Xylocaine-Mpf 1% Vial) 2 ml PRN 1X PRN ID IV START; Start 07/01 at 07:00; Stop 07/01/17 at 18:00; Status DC Hydromorphone HCl (Dilaudid) 0.5 mg PRN Q10MIN PRN IV SEV PAIN, Second choice; Start 07/01/17 at 07:00; Stop 07/01/17 at 18:00; Status DC Prochlorperazine Edisylate (Compazine) 5 mg PACU PRN PRN IV NAUSEA, MRX1; Start 07/01/17 at 07:00; Stop 07/01/17 at 18:00; Status DC Midazolam HCl (Versed) 2 mg PRN 1X PRN IV PRIOR TO PROCEDURE; Start 07/01/17 at 10:00; Stop 07/01/17 at 18:00; Status DC Fentanyl Citrate (Fentanyl 2ml Vial) 25 mcg PRN Q5MIN PRN IV X 2 DOSES FOR PAIN ; Start 07/01/17 at 10:00; Stop 07/01/17 at 18:00; Status DC Fentanyl Citrate (Fentanyl 2ml Vial) 50 mcg PRN Q5MIN PRN IV X 2 DOSES FOR PAIN ; Start 07/01/17 at 10:00; Stop 07/01/17 at 18:00; Status DC Ringer's Solution 1,000 ml @ 125 mls/hr Q8H IV ; Start 07/01/17 at 09:51; Stop 07/01/17 at 21:50; Status DC Lidocaine HCl (Xylocaine-Mpf 1% Vial) 2 ml 1X PRN PRN ID IV START; Start 07/01 at 10:00; Stop 07/01/17 at 18:00; Status DC Propofol 20 ml @ As Directed STK-MED ONCE IV ; Start 07/01/17 at 10:04; Stop 07/01/17 at 10:05; Status DC Lidocaine HCl (Lidocaine Pf 2% Vial) 5 ml STK-MED ONCE .ROUTE ; Start 07/01/17 at 10:04; Stop 07/01/17 at 10:05; Status DC Haloperidol (Haldol) 2 mg PRN Q4HRS PRN PEG AGITATION; Start 07/02/17 at 14:15 Active Scripts Active Reported Alfuzosin Hcl 10 Mg Tab.er.24h 10 Mg PO DAILY 30 Days Donepezil Hcl 10 Mg Tablet 10 Mg PO DAILY 30 Days Sertraline Hcl 50 Mg Tablet 50 Mg PO DAILY 30 Days Vitals/I & O Vital Sign - Last 24 Hours 07/01/17 07/01/17 07/01/17 07/01/17 15:00 19:00 19:30 23:00 Temp 98.9 98.8 98.9 98.9 98.8 98.9 Pulse 64 84 81 Resp 16 16 16 B/P (MAP) 121/56 (77) 136/72 (93) 127/61 (83) Pulse Ox 96 97 96 O2 Delivery Room Air Room Air Room Air Room Air 07/02/17 07/02/17 07/02/17 03:00 07:15 11:00 Temp 99.0 99.6 98.9 99.0 99.6 98.9 Pulse 58 65 71 Resp 20 18 20 B/P (MAP) 141/56 (84) 124/55 (78) 130/59 (82) Pulse Ox 94 95 95 O2 Delivery Room Air Room Air Room Air Intake and Output 07/01/17 07/01/17 07/02/17 15:00 23:00 07:00 Intake Total 300 ml 640 ml Balance 300 ml 640 ml JAY DE JESUS MD Jul 02, 2017 14:42
[2017-07-02 15:03] VITALS: BP 125/56
== END 2017-07-02 16:30 | DRG 64 ==
LOC: ER 12:27 → 1 WEST ICU 13:12 → 4 NORTH 06-23 16:30
PROVIDERS: ADMIT Internal Medicine; ATTEND Internal Medicine
PROC: 0DH63UZ Insertion of Feeding Device into Stomach, Percutaneous Approach (ICD-10-PCS; 2017-06-19)
PROC: 0DJ08ZZ Inspection of Upper Intestinal Tract, Via Natural or Artificial Opening Endoscopic (ICD-10-PCS; principal; 2017-07-01 10:30)
DX: I60.9 Nontraumatic subarachnoid hemorrhage, unspecified (principal); G93.41 Metabolic encephalopathy; I69.354 Hemiplegia and hemiparesis following cerebral infarction affecting left non-dominant side; E85.9 Amyloidosis, unspecified; E11.9 Type 2 diabetes mellitus without complications; E78.5 Hyperlipidemia, unspecified; F02.80 Dementia in other diseases classified elsewhere, unspecified severity, without behavioral disturbance, psychotic disturbance, mood disturbance, and anxiety; F32.9 Major depressive disorder, single episode, unspecified; G30.9 Alzheimer's disease, unspecified; I10 Essential (primary) hypertension; Z79.82 Long term (current) use of aspirin; Z79.899 Other long term (current) drug therapy; Z82.49 Family history of ischemic heart disease and other diseases of the circulatory system; Z66 Do not resuscitate
CPT/HCPCS: 36415; 70450; 70544; 71010; 74000; 80048; 80053; 80061; 80307; 81001; 82962; 83735; 84443; 85014; 85018; 85025; 85610; 85730; 87040; 87086; 87641; 90686; 93005; 93306; 93880; 93970; 96365; 96366; C9113; J0360; J0690; J2270; J2704; J3230; J3360; J7030; J7050; J7120; 92526; 92610; 97110; 97530; 97535; 99291-25; G0479; J2001